=== PATIENT | female | born 1970 | race Hispanic/Latino ===

== ENCOUNTER 2025-05-28 19:13 | Emergency (ER) | payer OTHER ==
--- OUTSIDE RECORDS SUMMARY | 2025-05-28 19:44 | XMS REPORT | Continuity of Care Document ---
Author Name Unknown Address [address] [facility] [address] [place] [address] [facility] Address [address] [facility]. [address] [place] [address] Care Team Providers Care Associate Brand Manager Name Role Phone New Alvarez Primary Care Physician MILTON DIAZ Attending Clinician Un available SYLWIA FIELDS Attending Clinician Sukhwinder Cruz Attending Clinician Doctor Unassigned, [place] Attending Clinician STERLING Walls Attending Clinician UnavailYESENIA Arroyo Attending Clinician DENYS Jimenez Attending Clinician Unavailable JAIRO WATTS Attending Clinician Unavailable GEETHA, DAREN Attending Clinician UnavailYesenia Upton Attending Clinician Unavaila NEW Marcus Attending Clinician Unavailable MALACHI RASHEED Attending Clinician Unavailabl e THOMAS HERBERT Attending Clinician Unavaila YESENIA Neil Attending Clinician Unavailabl e Ann Garibay Attending Clinician Unavailabl e Doctor Unassigned, [place] Attending Clinician U rip GALINDOLLOYD Attending Clinician Unavailabl RUPESH Roberts Attending Clinician Unavailable Melendrez SUPERVISOR CRACK OFF, Rupesh Attending Clinician [phone] MAYLIN ALVARADO Attending Clinician Unavailable SELINA PRESTON Attending Clinician Unavailable DEANNA BALLESTEROS Attending Clinician Unavailable ENDY SANCHEZ Attending Clinician Unavailable Maylin Alvarado PA-C Attending Clinician [phone] Leyda Burton MD Attending Clinician [phone] Po, [facility] Main Attending Clinician Unavailabl e Morgan SUPERVISOR CRACK OFF, Selina Carter Attending Clinician [phone] Favian SUPERVISOR CRACK OFF, Deanna Attending Clinician [phone] Po, [facility] Attending Clinician UnaEndy Galdamez MD Attending Clinician [phone] Braden SUPERVISOR CRACK OFF, Judith Attending Clinician [phone] JUDITH DENNEY Attending Clinician Unavailable FITO HARRIS Attending Clinician Fito Charles MD Attending Clinician + [phone] LEYDA BURTON Attending Clinician Unavailable Hardik Mendieta MD Attending Clinician + [phone] TRACIE PHIPPS Attending Clinician Unavailab Tracie Aceves MD Attending Clinician +[phone] Jc Burdick MD Attending Clinician [phone] Fito Paulino MD Attending Clinician [phone] Yesenia Schaeffer Admitting Clinician Unavaila tiana UNDEFINED Admitting Clinician Unavailable Ann Garibay Admitting Clinician Unavailabl RUPESH Roberts Admitting Clinician Unavailable DEANNA BALLESTEROS Admitting Clinician Unavailable ENDY SANCHEZ Admitting Clinician Unavailable Payers Payer Name Policy Type Policy Number Effective Date Expirati on Date Source [facility] 4 [id number] 2024 00:00:00 [facility] SHANELL SOARES FOCUS 9 [id number] 2024 00:00:00 Problems Condition Name Condition Details Condition Category Status Onset Date Resolution Date Last Treatment Date Treating Clinician Comments Source Allergic rhinitis due to pollen, unspecifie d seasonalit y Allergic rhinitis due to pollen, unspecifie d seasonalit y Disease Active 324 00:00: 00 [facility] Carpal tunnel syndrome of right wrist Carpal tunnel syndrome of right wrist Disease Active 09-24 00:00: 00 [facility] Chronic pain syndrome Chronic pain syndrome Disease Active 09-24 00:00: 00 [facility] Other headache syndrome Other headache syndrome Disease Active 2018-08 00:00: 00 [facility] Muscle spasm Muscle spasm Disease Active 2018-08 00:00: 00 [facility] Primary osteoarthr itis of both knees Primary osteoarthr itis of both knees Disease Active 2018-08 00:00: 00 [facility] Need for pneumococc al vaccinatio n Need for pneumococc al vaccinatio n Disease Active 2018-08 00:00: 00 [facility] Neck and shoulder pain Neck and shoulder pain Disease Active 2018-08 00:00: 00 [facility] Need for pneumococc al vaccinatio n Need for pneumococc al vaccinatio n Disease Active 2018-08 00:00: 00 [facility] Need for influenza vaccinatio n Need for influenza vaccinatio n Disease Active 2018-08 00:00: 00 [facility] OAB (overactiv e bladder) OAB (overactiv e bladder) Disease Active 12-29 00:00: 00 [facility] OAB (overactiv e bladder) OAB (overactiv e bladder) Disease Active 12-29 00:00: 00 [facility] Colitis Colitis Disease Active 09-26 00:00: 00 Overview: Formattin g of this note might be different from the original. Added automatic ally from request for surgery [id number] [facility] Type 2 diabetes mellitus without complicati on, without long-term current use of insulin Type 2 diabetes mellitus without complicati on, without long-term current use of insulin Disease Active 2017-08 00:00: 00 [facility] Change in bowel habits Change in bowel habits Disease Active 03-26 00:00: 00 Overview: Formattin g of this note might be different from the original. Added automatic ally from request for surgery [id number] [facility] Flatulence , eructation , and gas pain Flatulence , eructation , and gas pain Disease Active 03-26 00:00: 00 Overview: Formattin g of this note might be different from the original. Added automatic ally from request for surgery [id number] [facility] Dysphagia, oropharyng eal phase Dysphagia, oropharyng eal phase Disease Active 03-26 00:00: 00 Overview: Formattin g of this note might be different from the original. Added automatic ally from request for surgery [id number] [facility] Dysphagia, pharyngoes ophageal phase Dysphagia, pharyngoes ophageal phase Disease Active 03-26 00:00: 00 Overview: Formattin g of this note might be different from the original. Added automatic ally from request for surgery [id number] [facility] Change in bowel habits Change in bowel habits Disease Active 03-26 00:00: 00 Overview: Formattin g of this note might be different from the original. Added automatic ally from request for surgery [id number] [facility] Obesity (BMI 30-39.9) Obesity (BMI 30-39.9) Disease Active 01-31 00:00: 00 [facility] History of bilateral tubal ligation History of bilateral tubal ligation Disease Active 09-17 00:00: 00 [facility] Fibroadeno sis of breast, right Fibroadeno sis of breast, right Disease Active 09-17 00:00: 00 [facility] Fibroadeno sis of breast, right Fibroadeno sis of breast, right Disease Active 09-17 00:00: 00 [facility] Gastroesop hageal reflux disease with esophagiti s Gastroesop hageal reflux disease with esophagiti s Disease Active 11-05 00:00: 00 [facility] Recurrent umbilical hernia Recurrent umbilical hernia Disease Active 2014-08 00:00: 00 [facility] Recurrent umbilical hernia Recurrent umbilical hernia Disease Active 2014-08 00:00: 00 [facility] Biliary colic Biliary colic Disease Active 2014-08 00:00: 00 [facility] Essential hypertensi on Essential hypertensi on Disease Active 03-10 00:00: 00 Overview: Formattin g of this note might be different from the original. ICD10 Diagnosis Term [employer] [facility] Hypertrigl yceridemia Hypertrigl yceridemia Disease Active 03-04 00:00: 00 [facility] Morbid obesity, unspecifie d obesity type Morbid obesity, unspecifie d obesity type Disease Resolve d 09-17 00:00: 00 2017-06-06 00:00:00 2017-06-06 15:32:54 [facility] Well woman exam (no gynecologi elizabeth exam) Well woman exam (no gynecologi elizabeth exam) Disease Resolve d 09-17 00:00: 00 2017-06-06 00:00:00 2017-06-06 15:32:46 [facility] Prediabete s Prediabete s Disease Resolve d 11-05 00:00: 00 2016-12-31 00:00:00 2016-12-31 12:30:03 [facility] Morbid obesity Morbid obesity Disease Resolve d 2014-08 00:00: 00 2016-09-17 00:00:00 2016-09-17 11:04:24 [facility] Umbilical hernia without obstructio n and without gangrene Umbilical hernia without obstructio n and without gangrene Disease Resolve d 2014-08 00:00: 00 2015-06-09 00:00:00 2015-06-09 11:28:15 [facility] High cholestero l High cholestero l Disease Resolve d 7-10 00:00: 00 2015-03-10 00:00:00 2015-03-10 14:34:44 [facility] care and examinatio n care and examinatio n Disease Resolve d 2005-0 4-21 00:00: 00 2014-03-10 00:00:00 2022-03-11 00:08:28 [facility] Allergies, Adverse Reactions, Alerts Allergy Name Allergy Type Status Severity Reaction(s) Onset Date Inactive Date Treating Clinician Comments Source No Known Drug Allergie s DA Active U 3-12 00:00: 00 [facility] No Known Drug Allergie s DA Active U 3-11 00:00: 00 [facility] No Known Allergie s DA Active U 2022-08 0 00:00: 00 [facility] NO KNOWN ALLERGIE S Drug Class Active [facility] Social History Social Habit Start Date Stop Date Quantity Comments Source Sexual orientation Chidi Roblero - External History of Social function 2023-10-04 00:00:00 2023-10-04 00:00:00 Bethany Roblero - External Alcohol intake 2023-10-04 00:00:00 2023-10-04 00:00:00 Lifetime non-drinker (finding) Bethany Roblero - External Exposure to SARS-CoV-2 (event) 2022-04-13 00:00:00 2022-04-23 15:48:00 Not sure [facility] Alcoholic beverage intake 2017-05-01 00:00:00 2017-05-01 00:00:00 Current non-drinker of alcohol (finding) [facility] Tobacco use and exposure 2013-03-04 00:00:00 2013-03-04 00:00:00 Smokeless tobacco non-user [facility] Sex assigned at 1970 00:00:00 1970 00:00:00 Bethany Roblero - External Smoking Status Start Date Stop Date Source Tobacco smoking consumption unknown [facility] Ordered Medication Name Filled Medication Name Start Date Stop Date Current Medication? Ordering Clinician Indication Dosage Frequency Signature (SIG) Comments Components Source dicyclomine 20 mg tablet 03-29 00:00: 00 Yes 1mg [facility] Person meloxicam 15 mg tablet 02-24 00:00: 00 Yes 1mg [facility] Person ezetimibe 10 mg tablet 02-24 00:00: 00 Yes 1mg [facility] Person fenofibrate nanocrystal lized 145 mg tablet 02-24 00:00: 00 Yes 1mg [facility] Person dicyclomine 20 mg tablet 11-26 00:00: 00 Yes 1mg [facility] Person pantoprazol e 40 mg tablet,sherrie yed release 11-26 00:00: 00 Yes 1mg [facility] Person simethicone 125 mg capsule 11-26 00:00: 00 Yes 1mg [facility] Person metoprolol tartrate 100 mg tablet 11-25 00:00: 00 Yes mg [facility] Person metformin 1,000 mg tablet 11-25 00:00: 00 Yes mg [facility] Person lisinopril 20 mg-hydrochl orothiazide 25 mg tablet 11-25 00:00: 00 Yes mg [facility] Person meloxicam 15 mg tablet 11-25 00:00: 00 Yes 1mg [facility] Person famotidine 40 mg tablet 11-25 00:00: 00 Yes 1mg [facility] Person ezetimibe 10 mg tablet 11-25 00:00: 00 Yes 1mg [facility] Person fenofibrate nanocrystal lized 145 mg tablet - 00:00: 00 Yes 1mg [facility] Person glimepiride 1 mg tablet 11-25 00:00: 00 Yes 1mg [facility] Person pravastatin 80 mg tablet - 00:00: 00 Yes 1mg [facility] Person ezetimibe 10 mg tablet 2023-08 2- 00:00: 00 Yes 1mg [facility] Person metoprolol tartrate 100 mg tablet 2023-08 00:00: 00 Yes mg [facility] Person meloxicam 7.5 mg tablet 2023-08 00:00: 00 Yes mg [facility] Person metformin 1,000 mg tablet 2023-08 00:00: 00 Yes mg [facility] Person lisinopril 20 mg-hydrochl orothiazide 25 mg tablet 2023-08 00:00: 00 Yes mg [facility] Person famotidine 40 mg tablet 2023-08 00:00: 00 Yes 1mg [facility] Person glimepiride 1 mg tablet 2023-08 00:00: 00 Yes 1mg [facility] Person fenofibrate nanocrystal lized 145 mg tablet 2023-08 00:00: 00 Yes 1mg [facility] Person pravastatin 80 mg tablet 2023-08 00:00: 00 Yes 1mg [facility] Person metformin 1,000 mg tablet 2023-08 00:00: 00 Yes mg [facility] Person fenofibrate nanocrystal lized 145 mg tablet 05-06 00:00: 00 Yes 1mg [facility] Person metoprolol tartrate 100 mg tablet 05-05 00:00: 00 Yes mg [facility] Person metformin 1,000 mg tablet 05-05 00:00: 00 Yes mg [facility] Person lisinopril 20 mg-hydrochl orothiazide 25 mg tablet 05-05 00:00: 00 Yes mg [facility] Person glimepiride 1 mg tablet 05-05 00:00: 00 Yes 1mg [facility] Person famotidine 40 mg tablet 05-05 00:00: 00 Yes 1mg [facility] Person pravastatin 80 mg tablet 05-05 00:00: 00 Yes 1mg [facility] Person metoprolol tartrate 100 mg tablet 03-04 00:00: 00 Yes mg [facility] Person metformin 1,000 mg tablet 03-04 00:00: 00 Yes mg [facility] Person lisinopril 20 mg-hydrochl orothiazide 25 mg tablet 2024-0 7-10 00:00: 00 Yes mg [facility] Person pravastatin 80 mg tablet 6-12 00:00: 00 Yes 1mg [facility] Person cetirizine 10 mg tablet -05 00:00: 00 Yes 1mg [facility] Person azithromyci n 250 mg tablet - 00:00: 00 Yes mg [facility] Person Bromfed DM 2 mg-30 mg-10 mg/5 mL oral syrup -20 00:00: 00 Yes 10mg/5 mL [facility] Person Methylpredn isolone Acetate (Depo-Medro l) 40 mg/ml - Physician Administere d 12-22 19:15: 00 12-22 19:09 :00 No [id number] 40mg 40 mg, Physician Administer ed, ONCE, 1 dose, On Sat12/23/23 at 1415 Bethany graf metoprolol tartrate 100 mg tablet -14 00:00: 00 Yes mg [facility] Person lisinopril 20 mg-hydrochl orothiazide 25 mg tablet -14 00:00: 00 Yes mg [facility] Person pravastatin 40 mg tablet 12 00:00: 00 Yes mg [facility] Person metformin 1,000 mg tablet -12 00:00: 00 Yes mg [facility] Person HYDROcodone -Acetaminop hen (Imperial) 10-325 MG oral Tablet - 00:00: 00 Yes [id number] 1{tbl} Take 1 tablet by mouth every 4 to 6 hours. Bethany Roach l TAKE 1 TABLET BY MOUTH EVERY 4 TO 6 HOURS -20 00:00: 00 Yes [facility] Person HYDROcodone -Acetaminop hen (Imperial) 10-325 MG oral Tablet -20 00:00: 00 Yes 1{tbl} Take 1 tablet by mouth every 4 to 6 hours. Bethany graf Aspirin 325 MG oral Tablet 3-11 00:00: 00 Yes 325mg Take 1 tablet (325 mg total) by mouth daily. Bethany Seybold - Externa l fenofibrate 54 mg tablet 10-22 00:00: 00 Yes 1mg [facility] Person FENOFIBRATE MICRONIZED 54 MG oral Tablet 10-22 00:00: 00 Yes 54mg Take 1 tablet (54 mg total) by mouth daily. Bethany Callumold - Externa l TAKE 1 TABLET DAILY. 10-15 00:00: 00 Yes 48 [facility] Person Methylpredn isolone Acetate (Depo-Medro l) 40 mg/ml - Physician Administere d 10-04 15:30: 00 10-04 15:23 :00 No [id number] 40mg Bethany Callumold - Externa l TAKE 1 TABLET DAILY. 09-12 00:00: 00 12-05 00:00 :00 No 48 [facility] Person TAKE 1 TABLET BY MOUTH DAILY 09-11 00:00: 00 Yes 40 [facility] Person TAKE 1 TABLET BY MOUTH DAILY 09-11 00:00: 00 Yes 2024 [facility] Person TAKE 1 TABLET BY MOUTH TWICE DAILY 09-11 00:00: 00 Yes 1000 [facility] Person TAKE 1 TABLET BY MOUTH TWICE DAILY 09-11 00:00: 00 Yes 100 [facility] Person TAKE 1 TABLET AT BEDTIME. 09-11 00:00: 00 12-05 00:00 :00 No 40 [facility] Person meloxicam 7.5 mg tablet 09-06 00:00: 00 Yes mg [facility] Person TAKE 1 TABLET BY MOUTH DAILY 2022-08 00:00: 00 12-05 00:00 :00 No 40 [facility] Person TAKE 1 TABLET BY MOUTH TWICE DAILY 2022-08 00:00: 00 12-05 00:00 :00 No 100 [facility] Person TAKE 1 TABLET BY MOUTH TWICE DAILY 2022-08 00:00: 00 12-05 00:00 :00 No 1000 [facility] Person TAKE 1 TABLET TWICE DAILY WITH FOOD. 2022-08 00:00: 00 12-05 00:00 :00 No [id number] [facility] Person TAKE 1 CAPSULE TWICE DAILY. 2022-08 0-19 00:00: 00 12-05 00:00 :00 No 100 [facility] Person MELOXICAM 7.5 MG TABS 8-15 00:00: 00 Yes [facility] Person TAKE 1 TABLET BY MOUTH EVERY DAY NEEDED 18 00:00: 00 Yes [facility] Person TRAMADOL HCL 50 MG TABS 18 00:00: 00 Yes [facility] Person PAXLOVID 20 x 150 MG &amp 02-18 00:00: 00 Yes [facility] Person 300 MG NIRMATRELVI R (TWO 150 MG TABLETS) WITH 100 MG RITONAVIR (ONE 100 MG TABLET) WITH ALL THREE TABLETS TAKEN TOGETHER ORALLY TWICE DAILY FOR 5 DAYS. 02-18 00:00: 00 12-05 00:00 :00 No [facility] Person TAKE 1 TABLET DAILY. 01-18 00:00: 00 12-05 00:00 :00 No 48 [facility] Person TAKE 2 TABLETS DAILY. 01-16 00:00: 00 12-05 00:00 :00 No [id number] [facility] Person TAKE 1 TABLET DAILY. 01-16 00:00: 00 12-05 00:00 :00 No 40 [facility] Person TAKE 1 TABLET BY MOUTH TWICE A DAY 01-16 00:00: 00 12-05 00:00 :00 No 1000 [facility] Person TAKE 1 TABLET TWICE DAILY. 01-16 00:00: 00 12-05 00:00 :00 No 100 [facility] Person LISINOPRIL/ HYDROCHLORO THIAZIDE 20-25 MG TABS 24 00:00: 00 12-05 00:00 :00 No [facility] Person TAKE 1 TABLET 3 TIMES DAILY WITH FOOD NEEDED. 17 00:00: 00 12-05 00:00 :00 No 800 [facility] Person TAKE 1 TABLET TWICE DAILY WITH FOOD. 3- 00:00: 00 12-05 00:00 :00 No [id number] [facility] Person TAKE 1 TABLET DAILY. 2- 00:00: 00 12-05 00:00 :00 No 40 [facility] Person TAKE 1 TABLET TWICE DAILY. 2- 00:00: 00 12-05 00:00 :00 No 100 [facility] Person TAKE 2 TABLETS DAILY. 2- 00:00: 00 12-05 00:00 :00 No [id number] [facility] Person TAKE 1 TABLET TWICE A DAY 30 MINUTES BEFORE MEALS - 00:00: 00 12-05 00:00 :00 No 10 [facility] Person TAKE 1 TABLET BY MOUTH TWICE A DAY - 00:00: 00 12-05 00:00 :00 No 1000 [facility] Person TAKE 1 TABLET TWICE A DAY 30 MINUTES BEFORE MEALS 2021-08 00:00: 00 12-05 00:00 :00 No 10 [facility] Person TAKE 1 TABLET TWICE DAILY. 2021-08 00:00: 00 12-05 00:00 :00 No 100 [facility] Person TAKE 1 TABLET DAILY. 2021-08 00:00: 00 12-05 00:00 :00 No 40 [facility] Person TAKE 1 TABLET BY MOUTH ONCE DAILY 05-17 00:00: 00 Yes [facility] Person iopamidol (ISOVUE 370-500 mL) injection 64 mL 04-23 23:15: 00 04-23 23:15 :00 No [id number] 64mL 64 mL, Intravenou s, ONCE, 1 dose, On Sat04/23/22 at 1815, Routine [facility] maalox:diph enhydrAMINE :lidocaine 2 % viscous 1:1:1 ([facility]) oral suspension 15 mL 04-23 22:15: 00 04-23 22:47 :00 No 15mL 15 mL, Oral, ONCE, 1 dose, On Sat04/23/22 at 1715, Routine [facility] USE DIRECTED PER PHYSICIAN INSTRUCTION 04-17 00:00: 00 Yes [facility] Person TAKE 1 TABLET BY MOUTH TWICE A DAY 04-13 00:00: 00 Yes [facility] Person TAKE 1 TABLET BY MOUTH TWICE A DAY 04-13 00:00: 00 No 1000 TAKE 1 TABLET TWICE A DAY 30 MINUTES BEFORE MEALS 04-05 00:00: 00 Yes 10 [facility] Person TAKE 1 TABLET TWICE DAILY. 04-05 00:00: 00 Yes 100 [facility] Person TAKE 1 TABLET AT BEDTIME. 04-05 00:00: 00 Yes 40 [facility] Person Dose Unknown 04-05 00:00: 00 Yes [facility] Person TAKE 1 TABLET TWICE A DAY 30 MINUTES BEFORE MEALS 04-05 00:00: 00 No 10 TAKE 1 TABLET TWICE DAILY. 04-05 00:00: 00 No 100 TAKE 1 TABLET AT BEDTIME. 04-05 00:00: 00 No 40 Dose Unknown 04-05 00:00: 00 No TAKE 1 TABLET TWICE A DAY 30 MINUTES BEFORE MEALS 04-05 00:00: 00 No 10 TAKE 1 TABLET TWICE DAILY. 04-05 00:00: 00 No 100 TAKE 1 TABLET AT BEDTIME. 04-05 00:00: 00 No 40 Dose Unknown 04-05 00:00: 00 No TAKE 1 TABLET TWICE DAILY UNTIL FINISHED. 04-04 00:00: 00 Yes 500 [facility] Person TAKE 1 TABLET TWICE DAILY UNTIL FINISHED. 04-04 00:00: 00 No 500 TAKE 1 TABLET TWICE DAILY UNTIL FINISHED. 04-04 00:00: 00 No 500 TAKE 2 TABLETS DAILY. 04-02 00:00: 00 Yes [id number] [facility] Person TAKE 1 TABLET DAILY. 04-02 00:00: 00 Yes 20 [facility] Person TAKE 2 CAPSULES TWICE DAILY UNTIL GONE. 04-02 00:00: 00 Yes 500 [facility] Person TAKE 2 TABLETS DAILY. 04-02 00:00: 00 No [id number] TAKE 1 TABLET DAILY. 04-02 00:00: 00 No 20 TAKE 2 CAPSULES TWICE DAILY UNTIL GONE. 04-02 00:00: 00 No 500 TAKE 2 TABLETS DAILY. 04-02 00:00: 00 No [id number] TAKE 1 TABLET DAILY. 04-02 00:00: 00 No 20 TAKE 2 CAPSULES TWICE DAILY UNTIL GONE. 04-02 00:00: 00 No 500 Dose Unknown 03-19 00:00: 00 Yes [facility] Person TAKE 1 TABLET DAILY. 03-19 00:00: 00 Yes 20 [facility] Person USE DIRECTED. 03-19 00:00: 00 Yes 4 [facility] Person TAKE 1 TABLET TWICE DAILY UNTIL FINISHED. 03-19 00:00: 00 Yes 500 [facility] Person Dose Unknown 03-19 00:00: 00 No TAKE 1 TABLET DAILY. 03-19 00:00: 00 No 20 USE DIRECTED. 03-19 00:00: 00 No 4 TAKE 1 TABLET TWICE DAILY UNTIL FINISHED. 03-19 00:00: 00 No 500 Dose Unknown 03-19 00:00: 00 No TAKE 1 TABLET DAILY. 03-19 00:00: 00 No 20 USE DIRECTED. 03-19 00:00: 00 No 4 TAKE 1 TABLET TWICE DAILY UNTIL FINISHED. 03-19 00:00: 00 No 500 Dose Unknown 03-19 00:00: 00 No TAKE 1 TABLET DAILY. 03-19 00:00: 00 No 20 USE DIRECTED. 03-19 00:00: 00 No 4 TAKE 1 TABLET TWICE DAILY UNTIL FINISHED. 03-19 00:00: 00 No 500 TAKE 1 TABLET TWICE DAILY UNTIL FINISHED. 03-09 00:00: 00 Yes 500 Fr[facility]isco Preson TAKE 1 TABLET TWICE DAILY UNTIL FINISHED. 03-09 00:00: 00 No 500 TAKE 1 TABLET TWICE DAILY UNTIL FINISHED. 03-09 00:00: 00 No 500 TAKE 1 TABLET TWICE DAILY UNTIL FINISHED. 03-09 00:00: 00 No 500 TAKE 2 CAPSULES TWICE DAILY UNTIL GONE. 02-23 00:00: 00 Yes 500 [facility] Person TAKE 2 CAPSULES TWICE DAILY UNTIL GONE. 02-23 00:00: 00 No 500 TAKE 2 CAPSULES TWICE DAILY UNTIL GONE. 02-23 00:00: 00 No 500 TAKE 2 CAPSULES TWICE DAILY UNTIL GONE. 02-23 00:00: 00 No 500 TAKE 1 TABLET DAILY. 02-20 00:00: 00 Yes 20 [facility] Person TAKE 1 TABLET DAILY. 02-20 00:00: 00 No 20 TAKE 1 TABLET DAILY. 02-20 00:00: 00 No 20 TAKE 1 TABLET DAILY. 02-20 00:00: 00 No 20 Bromfed DM 2 mg-30 mg-10 mg/5 mL oral syrup 12-21 00:00: 00 Yes 10mg/5 mL [facility] Person Bromfed DM 2 mg-30 mg-10 mg/5 mL oral syrup 12-21 00:00: 00 No 10mg/5 mL Bromfed DM 2 mg-30 mg-10 mg/5 mL oral syrup 12-21 00:00: 00 No 10mg/5 mL Bromfed DM 2 mg-30 mg-10 mg/5 mL oral syrup 12-21 00:00: 00 No 10mg/5 mL lisinopril 10 mg-hydrochl orothiazide 12.5 mg tablet 12-20 00:00: 00 Yes 2mg [facility] Person metformin 1,000 mg tablet 12-20 00:00: 00 Yes 1mg [facility] Person glipizide 10 mg tablet 12-20 00:00: 00 Yes 1mg [facility] Person metoprolol tartrate 100 mg tablet 12-20 00:00: 00 Yes 1mg [facility] Person lisinopril 10 mg-hydrochl orothiazide 12.5 mg tablet 12-20 00:00: 00 No 2mg metformin 1,000 mg tablet 12-20 00:00: 00 No 1mg glipizide 10 mg tablet 12-20 00:00: 00 No 1mg metoprolol tartrate 100 mg tablet 12-20 00:00: 00 No 1mg lisinopril 10 mg-hydrochl orothiazide 12.5 mg tablet 2-0 4-27 00:00: 00 No 2mg metformin 1,000 mg tablet 2-0 4-27 00:00: 00 No 1mg glipizide 10 mg tablet 2-0 4-27 00:00: 00 No 1mg metoprolol tartrate 100 mg tablet 2-0 4-27 00:00: 00 No 1mg lisinopril 10 mg-hydrochl orothiazide 12.5 mg tablet 2-0 427 00:00: 00 No 2mg metformin 1,000 mg tablet 2-0 427 00:00: 00 No 1mg glipizide 10 mg tablet 2-0 427 00:00: 00 No 1mg metoprolol tartrate 100 mg tablet 2021-0 427 00:00: 00 No 1mg Dose Unknown 2-0 4-06 00:00: 00 Yes Fracisco F Thomas Dose Unknown 2-0 4-06 00:00: 00 No Dose Unknown 2022-0 4-06 00:00: 00 No Dose Unknown 2022-0 4-06 00:00: 00 No Dose Unknown 2022-0 4-05 00:00: 00 Yes [facility] Person Dose Unknown 2-0 4-05 00:00: 00 No Dose Unknown 2022-0 4-05 00:00: 00 No Dose Unknown 2022-0 4-05 00:00: 00 No Dose Unknown 2-0 3-30 00:00: 00 Yes Fracisco Guardado Thomas pravastatin 20 mg tablet 2-0 3-30 00:00: 00 No 1mg pravastatin 20 mg tablet 2-0 3-30 00:00: 00 No 1mg pravastatin 20 mg tablet 2-0 3-30 00:00: 00 No 1mg Dose Unknown 2-0 3-27 00:00: 00 Yes Fracisco F Thomas Dose Unknown 2-0 3-27 00:00: 00 Yes Fracisco F Thomas Dose Unknown 2-0 3-27 00:00: 00 Yes Fracisco F Thomas Dose Unknown 2021-0 3-27 00:00: 00 Yes Fracisco F Thomas Dose Unknown 2021-0 3-27 00:00: 00 Yes Fracisco F Thomas Dose Unknown 2022-0 3-27 00:00: 00 No Dose Unknown 2022-0 3-27 00:00: 00 No Dose Unknown 2022-0 3-27 00:00: 00 No Dose Unknown 2022-0 3-27 00:00: 00 No Dose Unknown 2022-0 3-27 00:00: 00 No Dose Unknown 2022-0 3-27 00:00: 00 No Dose Unknown 2022-0 3-27 00:00: 00 No Dose Unknown 2022-0 3-27 00:00: 00 No Dose Unknown 2022-0 3-27 00:00: 00 No Dose Unknown 2022-0 3-27 00:00: 00 No Dose Unknown 2022-0 3-27 00:00: 00 No Dose Unknown 2022-0 327 00:00: 00 No Dose Unknown 2022-0 3-27 00:00: 00 No Dose Unknown 2022-0 3-27 00:00: 00 No Dose Unknown 2022-0 3-27 00:00: 00 No Dose Unknown 2022-0 3-24 00:00: 00 Yes Fracisco Person Dose Unknown 2022-0 3-24 00:00: 00 Yes [facility] Person Dose Unknown 2022-0 3-24 00:00: 00 Yes [facility] Person Dose Unknown 2022-0 3-24 00:00: 00 Yes [facility] Person Dose Unknown 2022-0 3-24 00:00: 00 Yes [facility] Person Dose Unknown 2022-0 3-24 00:00: 00 No Dose Unknown 2022-0 3-24 00:00: 00 No Dose Unknown 2022-0 3-24 00:00: 00 No Dose Unknown 2022-0 3-24 00:00: 00 No Dose Unknown 2022-0 3-24 00:00: 00 No Dose Unknown 2022-0 3-24 00:00: 00 No Dose Unknown 2022-0 3-24 00:00: 00 No Dose Unknown 2022-0 3-24 00:00: 00 No Dose Unknown 2022-0 3-24 00:00: 00 No Dose Unknown 2022-0 3-24 00:00: 00 No Dose Unknown 2022-0 3-24 00:00: 00 No Dose Unknown 2022-0 3-24 00:00: 00 No Dose Unknown 2022-0 3-24 00:00: 00 No Dose Unknown 0 11-16 00:00: 00 No Dose Unknown 11-16 00:00: 00 No lisinopril 10 mg-hydrochl orothiazide 12.5 mg tablet 11-15 00:00: 00 Yes 2mg [facility] glipizide 5 mg tablet 11-15 00:00: 00 Yes 2mg [facility] metoprolol tartrate 100 mg tablet 11-15 00:00: 00 Yes 1mg [facility] metformin 1,000 mg tablet 11-15 00:00: 00 Yes 1mg [facility] glipizide 10 mg tablet 11-15 00:00: 00 Yes 1mg [facility] Dose Unknown 11-15 00:00: 00 No Dose Unknown 11-15 00:00: 00 No Dose Unknown 11-15 00:00: 00 No lisinopril 10 mg-hydrochl orothiazide 12.5 mg tablet 11-15 00:00: 00 No 2mg glipizide 10 mg tablet 11-15 00:00: 00 No 1mg lisinopril 10 mg-hydrochl orothiazide 12.5 mg tablet 11-15 00:00: 00 No 2mg glipizide 5 mg tablet 11-15 00:00: 00 No 2mg metoprolol tartrate 100 mg tablet 11-15 00:00: 00 No 1mg metformin 1,000 mg tablet 11-15 00:00: 00 No 1mg glipizide 10 mg tablet 11-15 00:00: 00 No 1mg lisinopril 10 mg-hydrochl orothiazide 12.5 mg tablet 11-15 00:00: 00 No 2mg glipizide 5 mg tablet 11-15 00:00: 00 No 2mg metoprolol tartrate 100 mg tablet 11-15 00:00: 00 No 1mg metformin 1,000 mg tablet 11-15 00:00: 00 No 1mg glipizide 10 mg tablet 323 00:00: 00 No 1mg Nitrofurant oin&Nit. Macrocryst (MACROBID) 100 mg capsule 818 00:00: 00 Yes [id number] 100mg Take 1 capsule by mouth 2 (two) times daily with meals. [facility] benzonatate (TESSALON PERLES) 100 mg capsule 813 00:00: 00 04-22 04:59 :00 No [id number] 100mg Take 1 capsule by mouth 3 (three) times daily for 14 days. [facility] cephALEXin 500 mg capsule 03-21 00:00: 00 Yes [id number] 500mg Take 1 capsule by mouth 2 (two) times daily. [facility] oxybutynin 15 mg 24 hr tablet 03-16 00:00: 00 Yes [id number] 15mg Take 1 tablet by mouth daily. [facility] bromphenira mine-pseudo ephedrine-D M (BROMFED DM) 2-30-10 mg/5 mL syrup 02-17 00:00: 00 Yes [id number] 10mL Take 10 mL by mouth 4 (four) times daily as needed for Cough. [facility] acetaminoph en 650 mg CR tablet 02-17 00:00: 00 Yes [id number] 650mg Take 1 tablet by mouth every 8 (eight) hours as needed for Pain or Fever. [facility] azelastine 137 mcg (0.1 %) nasal spray 02-03 00:00: 00 Yes [id number] 1{spray } Use 1 [place] in each nostril 2 (two) times daily. Use in each nostril as directed [facility] glipiZIDE 5 mg tablet 12-24 00:00: 00 Yes [id number] 10mg Take 2 tablets by mouth 2 (two) times daily before breakfast and dinner. [facility] DULoxetine (CYMBALTA) 20 mg capsule 12-24 00:00: 00 Yes [id number] 20mg Take 1 capsule by mouth 2 (two) times daily. [facility] tiZANidine 4 mg tablet 5 00:00: 00 Yes [id number] 4mg Take 1 tablet by mouth every 6 (six) hours as needed (Muscle spamsm). [facility] fluticasone propionate (FLONASE ALLERGY RELIEF) 50 mcg/actuati on nasal spray 11-16 00:00: 00 Yes [id number] 1{spray } Use 1 [place] in each nostril daily. [facility] bromphenira mine-pseudo ephedrine-D M (BROMFED DM) 230-10 mg/5 mL syrup 11-16 00:00: 00 02-17 00:00 :00 No [id number] 10mL Take 10 mL by mouth 4 (four) times daily as needed for Congestion /Allergies or Cough. [facility] benzonatate (TESSALON PERLES) 100 mg capsule 11-16 00:00: 02-17 00:00 :00 No [id number] 100mg Take 1 capsule by mouth 3 (three) times daily as needed for Cough. [facility] metoprolol succinate XL 50 mg 24 hr tablet 09-24 19:10: 44 09-24 00:00 :00 No 50mg Take 50 mg by mouth 2 (two) times daily. [facility] Kit 09-24 00:00: 00 Yes [id number] 9108 G56.01 - Wrist Compressio n WrapApply to right wrist daily [facility] lisinopril- hydrochloro thiazide 10-12.5 mg per tablet 09-24 00:00: 00 Yes [id number] 2{tbl} Take 2 tablets by mouth daily. [facility] metoprolol succinate XL 50 mg 24 hr tablet 09-24 00:00: 00 Yes [id number] 50mg Take 1 tablet by mouth 2 (two) times daily. [facility] rosuvastati n (CRESTOR) 20 mg tablet 09-24 00:00: 00 Yes [id number] 40mg Take 2 tablets by mouth at bedtime. [facility] Kit 09-24 00:00: 00 Yes [id number] 9108 G56.01 - Wrist Compressio n WrapApply to right wrist daily [facility] acetaminoph en 650 mg CR tablet 09-24 00:00: 02-17 00:00 :00 No [id number] 650mg Take 1 tablet by mouth every 8 (eight) hours as needed for Pain. [facility] benzonatate (TESSALON PERLES) 100 mg capsule 08-27 00:00: 04-07 00:00 :00 No [id number] 100mg Take 1 capsule by mouth 3 (three) times daily. [facility] levocetiriz ine 5 mg tablet 08-27 00:00: 09-27 05:59 :00 No [id number] 5mg Take 1 tablet by mouth every evening for 30 days. [facility] tiZANidine 4 mg tablet 2018-08 00:00: 12-24 00:00 :00 No [id number] 4mg Take 1 tablet by mouth every 6 (six) hours as needed (Muscle spamsm). [facility] DULoxetine (CYMBALTA) 20 mg capsule 2018-08 00:00: 00 12-24 00:00 :00 No [id number] 20mg Take 1 capsule by mouth 2 (two) times daily. [facility] diclofenac 50 mg tablet 2018-08 00:00: 00 Yes [id number] 50mg Take 1 tablet by mouth 3 (three) times daily. [facility] glipiZIDE 5 mg tablet 2018-08 0 00:00: 00 12-24 00:00 :00 No [id number] 10mg Take 2 tablets by mouth 2 (two) times daily before breakfast and dinner. [facility] glipiZIDE 5 mg tablet 12-29 00:00: 00 Yes [id number] 10mg Take 2 tablets by mouth 2 (two) times daily before breakfast and dinner. [facility] oxybutynin 15 mg 24 hr tablet 12-29 00:00: 00 03-16 00:00 :00 No [id number] 15mg Take 1 tablet by mouth daily. [facility] metoprolol succinate XL 50 mg 24 hr tablet 12-18 19:17: 32 Yes 50mg Take 50 mg by mouth 2 (two) times daily. [facility] LOESTRIN FE (LOESTRIN FE 1/20) 1 mg-20 mcg (21)/75 mg (7) tablet 12-12 00:00: 00 Yes [id number] 1{tbl} Take 1 tablet by mouth daily. [facility] meloxicam (MOBIC) 15 mg tablet 09-23 00:00: 00 Yes [id number] 9107 15mg Take 1 tablet by mouth daily. [facility] ibuprofen (IBU) tablet 600 mg 2017-0813 20:38: 08 09-24 19:09 :40 No 600mg [facility] metFORMIN 500 mg tablet 2017-08 00:00: 00 Yes [id number] 1000mg Take 2 tablets by mouth 2 (two) times daily with meals. [facility] tolnaftate 1 % cream 2017-08 00:00: 00 Yes [id number] Apply to area(s) 2 (two) times daily. [facility] rosuvastati n (CRESTOR) 20 mg tablet 2017-08 00:00: 00 09-24 00:00 :00 No [id number] 40mg Take 2 tablets by mouth at bedtime. [facility] lisinopril- hydrochloro thiazide 10-12.5 mg per tablet 2017-08 00:00: 00 09-24 00:00 :00 No [id number] 2{tbl} Take 2 tablets by mouth daily. [facility] Omeprazole 20 mg tablet 2016-08 00:00: 00 Yes 20mg Take 1 tablet by mouth 2 (two) times daily. [facility] Immunizations Ordered Immunization Name Filled Immunization Name Date Status Comments Source Hep B, adult Hep B, adult 2024-11-25 00:00:00 Completed [facility] Hep B, adult Hep B, adult 2024-06-15 00:00:00 Completed [facility] Hep B, adult Hep B, adult 2024-05-18 00:00:00 Completed [facility] Tdap Tdap 2024-05-18 00:00:00 Completed [facility] Influenza, injectable, [place] Canine Kidney, preservative-free, quadrivalent Influenza, injectable, [place] Canine Kidney, preservative-free, quadrivalent 2024-05-05 00:00:00 Completed [facility] SHINGRIX VACCINE SHINGRIX VACCINE 2024-02-10 00:00:00 Completed [facility] SHINGRIX VACCINE SHINGRIX VACCINE 2023-09-13 00:00:00 Completed [facility] Prevnar 20 Prevnar 20 2023-09-13 00:00:00 Completed [facility] TDAP 2023-06-13 00:00:00 Completed [facility] Influenza Virus Vaccine Quad IM Multi-dose 6+ MO 2023-06-13 00:00:00 Completed [facility] Pneumococcal 13 Conjugate, PCV13 (Prevnar 13) 2023-06-13 00:00:00 Completed [facility] Influenza Virus Vaccine Quad .5 mL IM 6+ MO (FLUZONE/FLULAVAL/F LUARIX) 2023-06-13 00:00:00 Completed [facility] Moderna COVID-19 Vaccine Moderna COVID-19 Vaccine 2020-11-21 00:00:00 Completed [facility] Moderna COVID-19 Vaccine Moderna COVID-19 Vaccine 2020-10-26 00:00:00 Completed [facility] Influenza Virus Vaccine Quad .5 mL IM 6+ MO 2020-06-15 00:00:00 Completed [facility] Influenza Virus Vaccine Quad .5 mL IM 6+ MO 2020-06-15 00:00:00 Completed [facility] Influenza Virus Vaccine Quad .5 mL IM 6+ MO 2020-06-15 00:00:00 Completed [facility] Pneumococcal 13 Conjugate, PCV13 (Prevnar 13) 2019-06-26 00:00:00 Completed [facility] Influenza Virus Vaccine Quad .5 mL IM 6+ MO 2019-06-26 00:00:00 Completed [facility] Pneumococcal 13 Conjugate, PCV13 (Prevnar 13) 2019-06-26 00:00:00 Completed [facility] Influenza Virus Vaccine Quad .5 mL IM 6+ MO 2019-06-26 00:00:00 Completed [facility] Pneumococcal 13 Conjugate, PCV13 (Prevnar 13) 2019-06-26 00:00:00 Completed [facility] Influenza Virus Vaccine Quad .5 mL IM 6+ MO 2019-06-26 00:00:00 Completed [facility] Pneumococcal 13 Conjugate, PCV13 (Prevnar 13) 2019-06-26 00:00:00 Completed [facility] Influenza Virus Vaccine Quad .5 mL IM 6+ MO 2019-06-26 00:00:00 Completed [facility] Pneumococcal 13 Conjugate, PCV13 (Prevnar 13) 2019-06-26 00:00:00 Completed [facility] Influenza Virus Vaccine Quad .5 mL IM 6+ MO 2019-06-26 00:00:00 Completed [facility] Pneumococcal 13 Conjugate, PCV13 (Prevnar 13) 2019-06-26 00:00:00 Completed [facility] Influenza Virus Vaccine Quad .5 mL IM 6+ MO 2019-06-26 00:00:00 Completed [facility] Pneumococcal 13 Conjugate, PCV13 (Prevnar 13) 2019-06-26 00:00:00 Completed [facility] Influenza Virus Vaccine Quad .5 mL IM 6+ MO 2019-06-26 00:00:00 Completed [facility] Pneumococcal 13 Conjugate, PCV13 (Prevnar 13) 2019-06-26 00:00:00 Completed [facility] Influenza Virus Vaccine Quad .5 mL IM 6+ MO 2019-06-26 00:00:00 Completed [facility] Pneumococcal 13 Conjugate, PCV13 (Prevnar 13) 2019-06-26 00:00:00 Completed [facility] Influenza Virus Vaccine Quad .5 mL IM 6+ MO 2019-06-26 00:00:00 Completed [facility] Pneumococcal 13 Conjugate, PCV13 (Prevnar 13) 2019-06-26 00:00:00 Completed [facility] Influenza Virus Vaccine Quad .5 mL IM 6+ MO 2019-06-26 00:00:00 Completed [facility] Pneumococcal 13 Conjugate, PCV13 (Prevnar 13) 2019-06-26 00:00:00 Completed [facility] Influenza Virus Vaccine Quad .5 mL IM 6+ MO 2019-06-26 00:00:00 Completed [facility] Pneumococcal 13 Conjugate, PCV13 (Prevnar 13) 2019-06-26 00:00:00 Completed [facility] Influenza Virus Vaccine Quad .5 mL IM 6+ MO 2019-06-26 00:00:00 Completed [facility] Pneumococcal 13 Conjugate, PCV13 (Prevnar 13) 2019-06-26 00:00:00 Completed [facility] Influenza Virus Vaccine Quad .5 mL IM 6+ MO 2019-06-26 00:00:00 Completed [facility] Pneumococcal 13 Conjugate, PCV13 (Prevnar 13) 2019-06-26 00:00:00 Completed [facility] Influenza Virus Vaccine Quad .5 mL IM 6+ MO 2019-06-26 00:00:00 Completed [facility] Pneumococcal 13 Conjugate, PCV13 (Prevnar 13) 2019-06-26 00:00:00 Completed [facility] Influenza Virus Vaccine Quad .5 mL IM 6+ MO 2019-06-26 00:00:00 Completed [facility] Pneumococcal 13 Conjugate, PCV13 (Prevnar 13) 2019-06-26 00:00:00 Completed [facility] Influenza Virus Vaccine Quad .5 mL IM 6+ MO 2019-06-26 00:00:00 Completed [facility] Pneumococcal 13 Conjugate, PCV13 (Prevnar 13) 2019-06-26 00:00:00 Completed [facility] Influenza Virus Vaccine Quad .5 mL IM 6+ MO 2019-06-26 00:00:00 Completed [facility] Pneumococcal 13 Conjugate, PCV13 (Prevnar 13) 2019-06-26 00:00:00 Completed [facility] Influenza Virus Vaccine Quad .5 mL IM 6+ MO 2019-06-26 00:00:00 Completed [facility] Pneumococcal 13 Conjugate, PCV13 (Prevnar 13) 2019-06-26 00:00:00 Completed [facility] Influenza Virus Vaccine Quad .5 mL IM 6+ MO 2019-06-26 00:00:00 Completed [facility] Pneumococcal 13 Conjugate, PCV13 (Prevnar 13) 2019-06-26 00:00:00 Completed [facility] Influenza Virus Vaccine Quad .5 mL IM 6+ MO 2019-06-26 00:00:00 Completed [facility] Pneumococcal 13 Conjugate, PCV13 (Prevnar 13) 2019-06-26 00:00:00 Completed [facility] Influenza Virus Vaccine Quad .5 mL IM 6+ MO 2019-06-26 00:00:00 Completed [facility] Pneumococcal 13 Conjugate, PCV13 (Prevnar 13) 2019-06-26 00:00:00 Completed [facility] Influenza Virus Vaccine Quad .5 mL IM 6+ MO 2019-06-26 00:00:00 Completed [facility] Influenza Virus Vaccine Quad IM Multi-dose 6+ MO 2018-06-09 00:00:00 Completed [facility] Influenza Virus Vaccine Quad IM Multi-dose 6+ MO 2018-06-09 00:00:00 Completed [facility] Influenza Virus Vaccine Quad IM Multi-dose 6+ MO 2018-06-09 00:00:00 Completed [facility] Influenza Virus Vaccine Quad IM Multi-dose 6+ MO 2018-06-09 00:00:00 Completed [facility] Influenza Virus Vaccine Quad IM Multi-dose 6+ MO 2018-06-09 00:00:00 Completed [facility] Influenza Virus Vaccine Quad IM Multi-dose 6+ MO 2018-06-09 00:00:00 Completed [facility] Influenza Virus Vaccine Quad IM Multi-dose 6+ MO 2018-06-09 00:00:00 Completed [facility] Influenza Virus Vaccine Quad IM Multi-dose 6+ MO 2018-06-09 00:00:00 Completed [facility] Influenza Virus Vaccine Quad IM Multi-dose 6+ MO 2018-06-09 00:00:00 Completed [facility] Influenza Virus Vaccine Quad IM Multi-dose 6+ MO 2018-06-09 00:00:00 Completed [facility] Influenza Virus Vaccine Quad IM Multi-dose 6+ MO 2018-06-09 00:00:00 Completed [facility] Influenza Virus Vaccine Quad IM Multi-dose 6+ MO 2018-06-09 00:00:00 Completed [facility] Influenza Virus Vaccine Quad IM Multi-dose 6+ MO 2018-06-09 00:00:00 Completed [facility] Influenza Virus Vaccine Quad IM Multi-dose 6+ MO 2018-06-09 00:00:00 Completed [facility] Influenza Virus Vaccine Quad IM Multi-dose 6+ MO 2018-06-09 00:00:00 Completed [facility] Influenza Virus Vaccine Quad IM Multi-dose 6+ MO 2018-06-09 00:00:00 Completed [facility] Influenza Virus Vaccine Quad IM Multi-dose 6+ MO 2018-06-09 00:00:00 Completed [facility] Influenza Virus Vaccine Quad IM Multi-dose 6+ MO 2018-06-09 00:00:00 Completed [facility] Influenza Virus Vaccine Quad IM Multi-dose 6+ MO 2018-06-09 00:00:00 Completed [facility] Influenza Virus Vaccine Quad IM Multi-dose 6+ MO 2018-06-09 00:00:00 Completed [facility] Influenza Virus Vaccine Quad IM Multi-dose 6+ MO 2018-06-09 00:00:00 Completed [facility] Influenza Virus Vaccine Quad IM Multi-dose 6+ MO 2018-06-09 00:00:00 Completed [facility] Influenza Virus Vaccine Quad IM Multi-dose 6+ MO 2018-06-09 00:00:00 Completed [facility] Influenza Virus Vaccine Quad IM Multi-dose 6+ MO 2018-06-09 00:00:00 Completed [facility] TDAP 2009-08-11 00:00:00 Completed [facility] Tdap 2009-08-11 00:00:00 Completed [facility] TDAP 2009-08-11 00:00:00 Completed [facility] Tdap 2009-08-11 00:00:00 Completed [facility] Tdap 2009-08-11 00:00:00 Completed [facility] Tdap 2009-08-11 00:00:00 Completed [facility] Tdap 2009-08-11 00:00:00 Completed [facility] Tdap 2009-08-11 00:00:00 Completed [facility] Tdap 2009-08-11 00:00:00 Completed [facility] Tdap 2009-08-11 00:00:00 Completed [facility] Tdap 2009-08-11 00:00:00 Completed [facility] TDAP 2009-08-11 00:00:00 Completed [facility] TDAP 2009-08-11 00:00:00 Completed [facility] TDAP 2009-08-11 00:00:00 Completed [facility] TDAP 2009-08-11 00:00:00 Completed [facility] TDAP 2009-08-11 00:00:00 Completed [facility] Tdap 2009-08-11 00:00:00 Completed [facility] TDAP 2009-08-11 00:00:00 Completed [facility] TDAP 2009-08-11 00:00:00 Completed [facility] TDAP 2009-08-11 00:00:00 Completed [facility] TDAP 2009-08-11 00:00:00 Completed [facility] TDAP 2009-08-11 00:00:00 Completed [facility] TDAP 2009-08-11 00:00:00 Completed [facility] TDAP 2009-08-11 00:00:00 Completed [facility] TDAP 2009-08-11 00:00:00 Completed [facility] Vital Signs Vital Name Observation Time Observation Value Comments S ource Body height 2023-12-23 18:40:00 162.6 cm Adali ey Seybold - External Body weight 2023-12-23 18:40:00 102.513 kg Adali ey Seybold - External BMI 2023-12-23 18:40:00 38.79 kg/m2 Adali ey Seybold - External Body height 2023-11-22 18:15:00 162.6 cm Adali ey Seybold - External Body height 2023-10-04 14:46:00 162.6 cm Adali ey Seybold - External Body weight 2023-10-04 14:46:00 104.781 kg Adali ey Seybold - External BMI 2023-10-04 14:46:00 39.65 kg/m2 Adali ey Seybold - External Systolic blood pressure 2022-04-23 23:10:00 142 mm[Hg] [facility] Diastolic blood pressure 2022-04-23 23:10:00 85 mm[Hg] [facility] Heart rate 2022-04-23 23:10:00 79 /min [facility] Respiratory rate 2022-04-23 23:10:00 16 /min [facility] Oxygen saturation in Arterial blood by Pulse oximetry 2022-04-23 23:10:00 97 /min [facility] Body temperature 2022-04-23 20:51:00 36.56 [facility] Body height 2022-04-23 20:51:00 [facility]6 [facility] 2022-04-23 20:51:00 102.513 kg Univ [facility] BMI 2022-04-23 20:51:00 38.79 kg/m2 [facility] Systolic blood pressure 2020-06-15 16:05:00 113 mm[Hg] [facility] Diastolic blood pressure 2020-06-15 16:05:00 64 mm[Hg] [facility] Heart rate 2020-06-15 16:05:00 65 /min [facility] Body temperature 2020-06-15 16:05:00 36.83 [facility] Respiratory rate 2020-06-15 16:05:00 18 /min [facility] Body height 2020-06-15 16:05:00 162.6 cm Univ [facility] Body weight 2020-06-15 16:05:00 101.878 kg [facility] BMI 2020-06-15 16:05:00 38.55 kg/m2 [facility] Systolic blood pressure 2020-04-07 18:14:00 120 mm[Hg] [facility] Diastolic blood pressure 2020-04-07 18:14:00 72 mm[Hg] [facility] Heart rate 2020-04-07 18:14:00 66 /min [facility] Body temperature 2020-04-07 18:14:00 36.89 [facility] Respiratory rate 2020-04-07 18:14:00 18 /min [facility] Body height 2020-04-07 18:14:00 162.6 cm [facility] Body weight 2020-04-07 18:14:00 98.431 kg Univ [facility] BMI 2020-04-07 18:14:00 37.25 kg/m2 [facility] Oxygen saturation in Arterial blood by Pulse oximetry 2020-04-07 18:14:00 98 /min [facility] Systolic blood pressure 2020-03-16 15:19:00 128 mm[Hg] [facility] Diastolic blood pressure 2020-03-16 15:19:00 77 mm[Hg] [facility] Heart rate 2020-03-16 15:19:00 70 /min [facility] Body temperature 2020-03-16 15:19:00 35.61 [facility] Respiratory rate 2020-03-16 15:19:00 18 /min [facility] Body weight 2020-03-16 15:19:00 98.703 kg [facility] BMI 2020-03-16 15:19:00 37.35 kg/m2 [facility] Systolic blood pressure 2020-02-04 19:59:00 125 mm[Hg] [facility] Diastolic blood pressure 2020-02-04 19:59:00 84 mm[Hg] [facility] Heart rate 2020-02-04 19:59:00 78 /min [facility] Body temperature 2020-02-04 19:59:00 37.28 [facility] Respiratory rate 2020-02-04 19:59:00 18 /min [facility] Body height 2020-02-04 19:59:00 162.6 cm [facility] Body weight 2020-02-04 19:59:00 108.863 kg [facility] BMI 2020-02-04 19:59:00 41.20 kg/m2 [facility] Oxygen saturation in Arterial blood by Pulse oximetry 2020-02-04 19:59:00 97 /min [facility] Systolic blood pressure 2019-09-24 17:39:00 122 mm[Hg] [facility] Diastolic blood pressure 2019-09-24 17:39:00 81 mm[Hg] [facility] Heart rate 2019-09-24 17:39:00 64 /min [facility] Body temperature 2019-09-24 17:39:00 36.33 [facility] Respiratory rate 2019-09-24 17:39:00 18 /min [facility] Body height 2019-09-24 17:39:00 162.6 cm [facility] Body weight 2019-09-24 17:39:00 101.969 kg [facility] BMI 2019-09-24 17:39:00 38.59 kg/m2 [facility] Oxygen saturation in Arterial blood by Pulse oximetry 2019-09-24 17:39:00 98 /min [facility] Systolic blood pressure 2019-03-31 12:36:00 143 mm[Hg] [facility] Diastolic blood pressure 2019-03-31 12:36:00 85 mm[Hg] [facility] Heart rate 2019-03-31 12:32:00 76 /min [facility] Body temperature 2019-03-31 12:32:00 36.56 Jean[facility] Respiratory rate 2019-03-31 12:32:00 18 /min [facility] Body weight 2019-03-31 12:32:00 106.459 kg [facility] BMI 2019-03-31 12:32:00 37.88 kg/m2 [facility] Oxygen saturation in Arterial blood by Pulse oximetry 2019-03-31 12:32:00 93 /min [facility] BP Systolic 2025-03-29 08:23:00 133 mm[Hg] [facility] [place] BP Diastolic 2025-03-29 08:23:00 84 mm[Hg] Terell phen F [facility] Weight Measured 2025-03-29 08:23:00 235.00 pounds [facility] Height Measured 2025-03-29 08:23:00 64.00 inches [facility]isco F [facility] Body Temperature 2025-03-29 08:23:00 97.40 degrees Fracisco F [facility] Heart Rate 2025-03-29 08:23:00 56.00 /min Janneth en F [facility] Respiratory Rate 2025-03-29 08:23:00 16.00 /min Fracisco F [facility] BP Systolic 2025-02-24 08:26:00 153 mm[Hg] [facility] [place] BP Diastolic 2025-02-24 08:26:00 78 mm[Hg] Terell phen F [facility] Weight Measured 2025-02-24 08:26:00 234.00 pounds Fracisco F Thomas Height Measured 2025-02-24 08:26:00 64.00 inches Fracisco F Thomas Body Temperature 2025-02-24 08:26:00 98.10 degrees Fracisco F Thomas Heart Rate 2025-02-24 08:26:00 65.00 /min Janneth en F [facility] Respiratory Rate 2025-02-24 08:26:00 18.00 /min Fracisco F Thomas BP Systolic 2025-01-04 08:51:00 163 mm[Hg] Step hen [facility] BP Diastolic 2025-01-04 08:51:00 84 mm[Hg] Terell phen F [facility] Weight Measured 2025-01-04 08:51:00 238.80 pounds Fracisco F Thomas Height Measured 2025-01-04 08:51:00 64.00 inches Fracisco F Thomas Body Temperature 2025-01-04 08:51:00 98.30 degrees Fracisco F Thomas Heart Rate 2025-01-04 08:51:00 64.00 /min Janneth en F Thomas Respiratory Rate 2025-01-04 08:51:00 18.00 /min Fracisco F Thomas BP Systolic 2025-01-04 08:21:00 163 mm[Hg] Step hen F [facility] BP Diastolic 2025-01-04 08:21:00 84 mm[Hg] Terell phen F [facility] Weight Measured 2025-01-04 08:21:00 238.80 pounds Fracisco F Thomas Height Measured 2025-01-04 08:21:00 64.00 inches Fracisco F Thomas Body Temperature 2025-01-04 08:21:00 98.30 degrees Fracisco F Thomas Heart Rate 2025-01-04 08:21:00 64.00 /min Janneth en F Thomas Respiratory Rate 2025-01-04 08:21:00 18.00 /min Fracisco F Thomas BP Systolic 2024-12-28 10:24:00 156 mm[Hg] Step hen F Thomas BP Diastolic 2024-12-28 10:24:00 90 mm[Hg] Terell phen F Thomas Weight Measured 2024-12-28 10:24:00 238.00 pounds Fracisco F Thomas Height Measured 2024-12-28 10:24:00 64.00 inches Fracisco F Thomas Body Temperature 2024-12-28 10:24:00 98.30 degrees Fracisco F Thomas Heart Rate 2024-12-28 10:24:00 66.00 /min Janneth en F Thomas Respiratory Rate 2024-12-28 10:24:00 18.00 /min Fracisco F Thomas BP Systolic 2024-12-24 10:37:00 143 mm[Hg] Step hen F Thomas BP Diastolic 2024-12-24 10:37:00 84 mm[Hg] Terell phen F Thomas Weight Measured 2024-12-24 10:37:00 237.60 pounds Fracisco F Thomas Height Measured 2024-12-24 10:37:00 64.00 inches Fracisco F Thomas Body Temperature 2024-12-24 10:37:00 97.60 degrees Fracisco F Thomas Heart Rate 2024-12-24 10:37:00 63.00 /min Janneth en F Thomas Respiratory Rate 2024-12-24 10:37:00 16.00 /min Fracisco F Thomas BP Systolic 2024-11-26 10:45:00 142 mm[Hg] Step hen F Thomas BP Diastolic 2024-11-26 10:45:00 79 mm[Hg] Terell phen F Thomas Weight Measured 2024-11-26 10:45:00 238.60 pounds Fracisco F Thomas Height Measured 2024-11-26 10:45:00 64.00 inches Fracisco F Thomas Body Temperature 2024-11-26 10:45:00 97.90 degrees Fracisco F Thomas Heart Rate 2024-11-26 10:45:00 87.00 /min Janneth en F Thomas Respiratory Rate 2024-11-26 10:45:00 17.00 /min Fracisco F Thomas BP Systolic 2024-11-25 08:46:00 158 mm[Hg] Step hen F Thomas BP Diastolic 2024-11-25 08:46:00 84 mm[Hg] Terell phen F Thomas Weight Measured 2024-11-25 08:46:00 238.20 pounds Fracisco F Thomas Height Measured 2024-11-25 08:46:00 64.00 inches Fracisco F Thomas Body Temperature 2024-11-25 08:46:00 97.60 degrees Fracisco F Thomas Heart Rate 2024-11-25 08:46:00 77.00 /min Janneth en F Thomas Respiratory Rate 2024-11-25 08:46:00 18.00 /min Fracisco F Thomas BP Systolic 2024-08-24 08:19:00 129 mm[Hg] Step hen F Thomas BP Diastolic 2024-08-24 08:19:00 60 mm[Hg] Terell phen F Thomas Weight Measured 2024-08-24 08:19:00 237.40 pounds Fracisco F Thomas Height Measured 2024-08-24 08:19:00 64.00 inches Fracisco F Thomas Body Temperature 2024-08-24 08:19:00 99.00 degrees Fracisco F Thomas Heart Rate 2024-08-24 08:19:00 72.00 /min Janneth en F Thomas Respiratory Rate 2024-08-24 08:19:00 17.00 /min Fracisco F Thomas BP Systolic 2024-06-24 14:10:00 135 mm[Hg] Step hen F Thomas BP Diastolic 2024-06-24 14:10:00 63 mm[Hg] Terell phen F Thomas Weight Measured 2024-06-24 14:10:00 232.40 pounds Fracisco F Thomas Height Measured 2024-06-24 14:10:00 64.00 inches Fracisco F Thomas Body Temperature 2024-06-24 14:10:00 97.80 degrees Fracisco F Thomas Heart Rate 2024-06-24 14:10:00 73.00 /min Janneth en F Thomas Respiratory Rate 2024-06-24 14:10:00 18.00 /min Fracisco F Thomas BP Systolic 2024-06-15 08:19:00 135 mm[Hg] Step hen F Thomas BP Diastolic 2024-06-15 08:19:00 87 mm[Hg] Terell phen F Thomas Weight Measured 2024-06-15 08:19:00 233.00 pounds Fracisco F Thomas Height Measured 2024-06-15 08:19:00 64.00 inches Fracisco F Thomas Body Temperature 2024-06-15 08:19:00 97.80 degrees Fracisco F Thomas Heart Rate 2024-06-15 08:19:00 71.00 /min Janneth en F Thomas Respiratory Rate 2024-06-15 08:19:00 17.00 /min Fracisco F Thomas BP Systolic 2024-05-18 08:05:00 135 mm[Hg] Step hen F Thomas BP Diastolic 2024-05-18 08:05:00 83 mm[Hg] Terell phen F Thomas Weight Measured 2024-05-18 08:05:00 231.60 pounds Fracisco F Thomas Height Measured 2024-05-18 08:05:00 64.00 inches Fracisco F Thomas Body Temperature 2024-05-18 08:05:00 97.60 degrees Fracisco F Thomas Heart Rate 2024-05-18 08:05:00 67.00 /min Janneth en F Thomas Respiratory Rate 2024-05-18 08:05:00 18.00 /min Fracisco F Thomas BP Systolic 2024-05-11 08:24:00 139 mm[Hg] Step hen F Thomas BP Diastolic 2024-05-11 08:24:00 83 mm[Hg] Terell phen F Thomas Weight Measured 2024-05-11 08:24:00 230.60 pounds Fracisco F Thomas Height Measured 2024-05-11 08:24:00 64.00 inches Fracisco F Thomas Body Temperature 2024-05-11 08:24:00 99.10 degrees Fracisco F Thomas Heart Rate 2024-05-11 08:24:00 75.00 /min Janneth en F Thomas Respiratory Rate 2024-05-11 08:24:00 18.00 /min Fracisco F Thomas BP Systolic 2024-05-05 10:14:00 122 mm[Hg] Step hen F Thomas BP Diastolic 2024-05-05 10:14:00 64 mm[Hg] Terell phen F Thomas Weight Measured 2024-05-05 10:14:00 229.40 pounds Fracisco F Thomas Height Measured 2024-05-05 10:14:00 64.00 inches Fracisco F Thomas Body Temperature 2024-05-05 10:14:00 98.10 degrees Fracisco F Thomas Heart Rate 2024-05-05 10:14:00 67.00 /min Janneth en F Thomas Respiratory Rate 2024-05-05 10:14:00 18.00 /min Fracisco F Thomas BP Systolic 2024-02-12 08:28:00 128 mm[Hg] Step hen F Thomas BP Diastolic 2024-02-12 08:28:00 77 mm[Hg] Terell phen F Thomas Weight Measured 2024-02-12 08:28:00 230.20 pounds Fracisco F Thomas Height Measured 2024-02-12 08:28:00 64.00 inches Fracisco F Thomas Body Temperature 2024-02-12 08:28:00 97.40 degrees Fracisco F Thomas Heart Rate 2024-02-12 08:28:00 70.00 /min Janneth en F Thomas Respiratory Rate 2024-02-12 08:28:00 Fracisco F Thomas BP Systolic 2024-01-29 10:48:00 120 mm[Hg] Step hen F Thomas BP Diastolic 2024-01-29 10:48:00 74 mm[Hg] Terell phen F Thomas Weight Measured 2024-01-29 10:48:00 228.00 pounds Fracisco F Thomas Height Measured 2024-01-29 10:48:00 64.00 inches Fracisco F Thomas Body Temperature 2024-01-29 10:48:00 97.50 degrees Fracisco F Thomas Heart Rate 2024-01-29 10:48:00 73.00 /min Janneth en F Thomas Respiratory Rate 2024-01-29 10:48:00 18.00 /min Fracisco F Thomas BP Systolic 2024-01-13 13:09:00 120 mm[Hg] Step hen F Thomas BP Diastolic 2024-01-13 13:09:00 78 mm[Hg] Terell phen F Thomas Weight Measured 2024-01-13 13:09:00 227.80 pounds Fracisco F Thomas Height Measured 2024-01-13 13:09:00 64.00 inches Fracisco F Thomas Body Temperature 2024-01-13 13:09:00 97.40 degrees Fracisco F Thomas Heart Rate 2024-01-13 13:09:00 82.00 /min Janneth en F Thomas Respiratory Rate 2024-01-13 13:09:00 18.00 /min Fracisco F Thomas BP Systolic 2023-10-15 08:22:00 139 mm[Hg] Step hen F Thomas BP Diastolic 2023-10-15 08:22:00 74 mm[Hg] Terell phen F Thomas Weight Measured 2023-10-15 08:22:00 228.00 pounds Fracisco F Thomas Height Measured 2023-10-15 08:22:00 64.00 inches Fracisco F Thomas Body Temperature 2023-10-15 08:22:00 98.40 degrees Fracisco F Thomas Heart Rate 2023-10-15 08:22:00 63.00 /min Janneth en F Thomas Respiratory Rate 2023-10-15 08:22:00 17.00 /min Fracisco F Thomas BP Systolic 2023-09-11 09:07:00 164 mm[Hg] Step hen F Thomas BP Diastolic 2023-09-11 09:07:00 95 mm[Hg] Terell phen F Thomas Weight Measured 2023-09-11 09:07:00 227.20 pounds Fracisco F Thomas Height Measured 2023-09-11 09:07:00 64.00 inches Fracisco F Thomas Body Temperature 2023-09-11 09:07:00 98.10 degrees Fracisco F Thomas Heart Rate 2023-09-11 09:07:00 75.00 /min Janneth en F Thomas Respiratory Rate 2023-09-11 09:07:00 18.00 /min Fracisco F Thomas BP Systolic 2023-07-23 15:18:00 128 mm[Hg] Step hen F Thomas BP Diastolic 2023-07-23 15:18:00 76 mm[Hg] Terell phen F Thomas Weight Measured 2023-07-23 15:18:00 226.00 pounds Fracisco F Thomas Height Measured 2023-07-23 15:18:00 64.00 inches Fracisco F Thomas Body Temperature 2023-07-23 15:18:00 97.70 degrees Fracisco F Thomas Heart Rate 2023-07-23 15:18:00 82.00 /min Janneth en F Thomas Respiratory Rate 2023-07-23 15:18:00 Fracisco F Thomas BP Systolic 2023-06-13 15:19:00 139 mm[Hg] Step hen F Thomas BP Diastolic 2023-06-13 15:19:00 75 mm[Hg] Terell phen F Thomas Weight Measured 2023-06-13 15:19:00 224.60 pounds Fracisco F Thomas Height Measured 2023-06-13 15:19:00 64.00 inches Fracisco F Thomas Body Temperature 2023-06-13 15:19:00 97.80 degrees Fracisco F Thomas Heart Rate 2023-06-13 15:19:00 89.00 /min Janneth en F Thomas Respiratory Rate 2023-06-13 15:19:00 25.00 /min Fracisco F Thomas BP Systolic 2023-02-18 08:29:00 Step hen F Thomas BP Diastolic 2023-02-18 08:29:00 Terell phen F Thomas Weight Measured 2023-02-18 08:29:00 227.80 pounds Fracisco F Thomas Height Measured 2023-02-18 08:29:00 64.00 inches Fracisco F Thomas Body Temperature 2023-02-18 08:29:00 Fracisco F Thomas Heart Rate 2023-02-18 08:29:00 Janneth en F Thomas Respiratory Rate 2023-02-18 08:29:00 Fracisco F Thomas BP Systolic 2023-01-16 08:17:00 147 mm[Hg] Step hen F Thomas BP Diastolic 2023-01-16 08:17:00 86 mm[Hg] Terell phen F Thomas Weight Measured 2023-01-16 08:17:00 227.80 pounds Fracisco F Thomas Height Measured 2023-01-16 08:17:00 64.00 inches Fracisco F Thomas Body Temperature 2023-01-16 08:17:00 97.50 degrees Fracisco F Thomas Heart Rate 2023-01-16 08:17:00 78.00 /min Janneth en F Thomas Respiratory Rate 2023-01-16 08:17:00 Fracisco F Thomas BP Systolic 2023-01-14 08:41:00 133 mm[Hg] Step hen F Thomas BP Diastolic 2023-01-14 08:41:00 77 mm[Hg] Terell phen F Thomas Weight Measured 2023-01-14 08:41:00 229.20 pounds Fracisco F Thomas Height Measured 2023-01-14 08:41:00 64.00 inches Fracisco F Thomas Body Temperature 2023-01-14 08:41:00 97.00 degrees Fracisco F Thomas Heart Rate 2023-01-14 08:41:00 78.00 /min Janneth en F Thomas Respiratory Rate 2023-01-14 08:41:00 25.00 /min Fracisco F Thomas BP Systolic 2023-01-09 14:55:00 145 mm[Hg] Step hen F Thomas BP Diastolic 2023-01-09 14:55:00 77 mm[Hg] Terell phen F Thomas Weight Measured 2023-01-09 14:55:00 229.40 pounds Fracisco Person Height Measured 2023-01-09 14:55:00 64.00 inches Fracisco F Thomas Body Temperature 2023-01-09 14:55:00 97.40 degrees Fracisco F Thomas Heart Rate 2023-01-09 14:55:00 78.00 /min Janneth en F Thomas Respiratory Rate 2023-01-09 14:55:00 Fraciscodeven Person BP Systolic 2022-10-24 11:17:00 127 mm[Hg] Step hen F Thomas BP Diastolic 2022-10-24 11:17:00 77 mm[Hg] Terell phen F Thomas Weight Measured 2022-10-24 11:17:00 219.80 pounds Fracisco Person Height Measured 2022-10-24 11:17:00 64.00 inches Fracisco Person Body Temperature 2022-10-24 11:17:00 97.90 degrees Fracisco Person Heart Rate 2022-10-24 11:17:00 83.00 /min Janneth en F Thomas Respiratory Rate 2022-10-24 11:17:00 Fracisco Person BP Systolic 2022-04-12 17:02:00 105 mm[Hg] BP Diastolic 2022-04-12 17:02:00 69 mm[Hg] Weight Measured 2022-04-12 17:02:00 219.20 pounds Height Measured 2022-04-12 17:02:00 64.00 inches Body Temperature 2022-04-12 17:02:00 97.60 degrees Heart Rate 2022-04-12 17:02:00 72.00 /min Respiratory Rate 2022-04-12 17:02:00 21.00 /min BP Systolic 2022-04-05 10:09:00 137 mm[Hg] BP Diastolic 2022-04-05 10:09:00 81 mm[Hg] Weight Measured 2022-04-05 10:09:00 226.00 pounds Height Measured 2022-04-05 10:09:00 64.00 inches Body Temperature 2022-04-05 10:09:00 97.60 degrees Heart Rate 2022-04-05 10:09:00 74.00 /min Respiratory Rate 2022-04-05 10:09:00 BP Systolic 2022-03-19 09:21:00 134 mm[Hg] BP Diastolic 2022-03-19 09:21:00 82 mm[Hg] Weight Measured 2022-03-19 09:21:00 227.40 pounds Height Measured 2022-03-19 09:21:00 64.00 inches Body Temperature 2022-03-19 09:21:00 97.50 degrees Heart Rate 2022-03-19 09:21:00 69.00 /min Respiratory Rate 2022-03-19 09:21:00 BP Systolic 2022-02-22 14:55:00 139 mm[Hg] BP Diastolic 2022-02-22 14:55:00 79 mm[Hg] Weight Measured 2022-02-22 14:55:00 226.40 pounds Height Measured 2022-02-22 14:55:00 64.00 inches Body Temperature 2022-02-22 14:55:00 97.20 degrees Heart Rate 2022-02-22 14:55:00 83.00 /min Respiratory Rate 2022-02-22 14:55:00 BP Systolic 2022-02-20 13:40:00 136 mm[Hg] BP Diastolic 2022-02-20 13:40:00 87 mm[Hg] Weight Measured 2022-02-20 13:40:00 226.40 pounds Height Measured 2022-02-20 13:40:00 64.00 inches Body Temperature 2022-02-20 13:40:00 97.40 degrees Heart Rate 2022-02-20 13:40:00 81.00 /min Respiratory Rate 2022-02-20 13:40:00 Height Measured 2021-12-21 09:02:00 64.00 inches Body Temperature 2021-12-21 09:02:00 98.40 degrees Heart Rate 2021-12-21 09:02:00 70.00 /min Respiratory Rate 2021-12-21 09:02:00 BP Systolic 2021-12-21 09:02:00 131 mm[Hg] BP Diastolic 2021-12-21 09:02:00 85 mm[Hg] Weight Measured 2021-12-21 09:02:00 230.40 pounds BP Systolic 2021-11-15 15:37:00 122 mm[Hg] BP Diastolic 2021-11-15 15:37:00 69 mm[Hg] Weight Measured 2021-11-15 15:37:00 226.80 pounds Height Measured 2021-11-15 15:37:00 64.00 inches Body Temperature 2021-11-15 15:37:00 97.40 degrees Heart Rate 2021-11-15 15:37:00 75.00 /min Respiratory Rate 2021-11-15 15:37:00 Procedures Procedure Date / Time Performed Performing Clinician Source PHYSICIAN ORDERS 2023-06-13 05:01:00 Doctor Ace signed, [facility] CT ABDOMEN PELVIS W CONTRAST 2022-04-23 22:17:40 Aneesh [facility] HB ECG ROUTINE & RHYTHM STRIP 2022-04-23 21:04:49 Aneesh [facility] LIPASE 2022-04-23 21:03:[facility] 2022-04-23 21:03:00 [facility] COMP. METABOLIC PANEL ([id number]) 2022-04-23 21:03:00 Aneesh [facility] CBC WITH DIFF 2022-04-23 21:03:00 [facility] 2022-04-23 21:03:00 Melendrez [facility] NOTICE OF PRIVACY PRACTICES 2022-04-23 20:27:46 Doctor Unassigned, [facility] CONSENT/REFUSAL FOR DIAGNOSIS AND TREATMENT 2022-04-23 20:26:34 Doctor Unassigned, [facility] FLU VACC ([id number]), 6+ MONTHS, IM, QUAD 2020-06-15 16:10:47 Maylin Alvarado [facility] XR CHEST 2 VW COVID 2020-04-07 20:34:43 Deanna Ballesteros [facility] CBC WITH DIFF 2020-04-07 19:07:00 Deanna Ballesteros [facility] POCT URINALYSIS AUTO 2020-03-16 15:22:00 Selina Preston [facility] POCT HEMOGLOBIN A1C TEST 2019-09-24 19:47:00 Endy Sanchez [facility] POCT GLUCOSE(AGE >30DAYS) 2019-09-24 19:45:00 Endy Arthur [facility] POCT HEMOGLOBIN A1C TEST 2019-03-31 13:19:00 Tyrone Paulino [facility] NO SHOW OR MISSED APPOINTMENT POLICY ACKNOWLEDGEMENT 2019-03-31 12:22:01 Doctor Unassigned, [facility] REFERRAL- REQUEST/RESPONSE 2017-08-16 06:01:00 Ani hyman Unassigned, [facility] CONSENT FOR ORAL CONTRACEPTIVES 2017-05-22 05:01:00 Doctor Unassigned, [facility] XR ABDOMEN 2 VW 2017-05-20 17:43:00 Loraine Soto [facility] ENDOSCOPY PROCEDURE DOCUMENTATION 2017-05-20 05:01:00 Doctor Unassigned, [facility] BI SCREENING MAMMOGRAM BILATERAL 2012-03-26 17:42:00 Sukhwinder Bucio [facility] Plan of Care Planned Activity Planned Date Details Comments Source Goal Plan of Care Note [code = 47847-3] Goal Plan of Care Note [code = 94627-9] Goal Plan of Care Note [code = 54904-1] Goal Plan of Care Note [code = 79591-0] Goal Plan of Care Note [code = 96654-6] Goal Plan of Care Note [code = 33625-5] Goal Plan of Care Note [code = 12695-5] Goal Plan of Care Note [code = 43124-1] Goal Plan of Care Note [code = 84221-2] Goal Plan of Care Note [code = 82689-6] Goal Plan of Care Note [code = 84102-0] Goal Plan of Care Note [code = 01461-0] Goal Plan of Care Note [code = 99231-0] Goal Plan of Care Note [code = 96852-8] Goal Plan of Care Note [code = 47988-2] Goal Plan of Care Note [code = 92541-8] Goal Plan of Care Note [code = 82825-4] Goal Plan of Care Note [code = 74594-5] Goal Plan of Care Note [code = 34561-9] Goal Plan of Care Note [code = 42144-6] Goal Plan of Care Note [code = 51210-0] Goal Plan of Care Note [code = 41401-7] Goal Plan of Care Note [code = 61571-7] Goal Plan of Care Note [code = 86879-4] Goal Plan of Care Note [code = 68662-0] Goal Plan of Care Note [code = 37080-3] Goal Plan of Care Note [code = 62001-8] Goal Plan of Care Note [code = 97714-2] Goal Plan of Care Note [code = 62389-2] Goal Plan of Care Note [code = 29355-9] Goal Plan of Care Note [code = 46686-3] Goal Plan of Care Note [code = 74700-3] Goal Plan of Care Note [code = 82689-0] Goal Plan of Care Note [code = 50297-3] Goal Plan of Care Note [code = 97660-2] Goal Plan of Care Note [code = 21297-5] Goal Plan of Care Note [code = 11171-8] Goal Plan of Care Note [code = 42864-1] Goal Plan of Care Note [code = 57048-6] Goal Plan of Care Note [code = 97313-8] Goal Plan of Care Note [code = 60564-2] Goal Plan of Care Note [code = 68036-7] Goal Plan of Care Note [code = 39921-3] Goal Plan of Care Note [code = 15314-7] Goal Plan of Care Note [code = 64102-6] Goal Plan of Care Note [code = 65763-0] Goal Plan of Care Note [code = 31068-6] Goal Plan of Care Note [code = 62855-3] Goal Plan of Care Note [code = 91964-3] Goal Plan of Care Note [code = 60537-9] Goal Plan of Care Note [code = 71827-9] Goal Plan of Care Note [code = 52428-5] Goal Plan of Care Note [code = 97885-6] Goal Plan of Care Note [code = 26229-3] Goal Plan of Care Note [code = 90304-1] Goal Plan of Care Note [code = 22066-9] Goal Plan of Care Note [code = 17033-4] Goal Plan of Care Note [code = 38305-6] Goal Plan of Care Note [code = 70680-8] Goal Plan of Care Note [code = 68669-0] Goal Plan of Care Note [code = 26046-9] Goal Plan of Care Note [code = 18561-9] Goal Plan of Care Note [code = 68217-4] Goal Plan of Care Note [code = 07959-1] Goal Plan of Care Note [code = 85037-3] Goal Plan of Care Note [code = 45287-4] Goal Plan of Care Note [code = 59970-1] Goal Plan of Care Note [code = 73543-9] Goal Plan of Care Note [code = 45316-3] Goal Plan of Care Note [code = 51646-0] Goal Plan of Care Note [code = 37629-4] Goal Plan of Care Note [code = 72530-5] Goal Plan of Care Note [code = 75603-8] Encounters Start Date/Time End Date/Time Encounter Type Admission Type Attending [facility] Care Department Encounter ID Source 2025-03-29 08:14:55 2025-03-29 08:14:55 Outpatient SFA SIMONE [id number] Fracisco Person 2025-03-29 00:00:00 2025-03-29 00:00:00 Outpatient Visit SFA [id number] Fracisco Guardado Thomas 2025-02-24 08:17:07 2025-02-24 08:17:07 Outpatient SFA SIMONE [id number] Fracisco Guardado Thomas 2025-02-24 00:00:00 2025-02-24 00:00:00 Outpatient Visit SFA [id number] Fracisco Guardado Thomas 2025-01-04 08:12:18 2025-01-04 08:12:18 Outpatient SFA SIMONE [id number] Fracisco Guardado Thomas 2025-01-04 00:00:00 2025-01-04 00:00:00 Outpatient Visit SFA [id number] Fracisco Person 2024-12-28 10:24:23 2024-12-28 10:24:23 Outpatient SFA SFA [id number] Fracisco Person 2024-12-28 00:00:00 2024-12-28 00:00:00 Outpatient Visit SFA [id number] Fracisco Person 2024-12-24 10:22:39 2024-12-24 10:22:39 Outpatient SFA SFA [id number] Fracisco Person 2024-12-24 00:00:00 2024-12-24 00:00:00 Outpatient Visit SFA [id number] Fracisco Person 2024-12-04 14:00:00 2024-12-04 14:00:00 Outpatient MILTON DIAZ [id number] [facility] 2024-11-26 10:36:54 2024-11-26 10:36:54 Outpatient SFA SFA [id number] Fracisco Person 2024-11-26 00:00:00 2024-11-26 00:00:00 Outpatient Visit SFA [id number] Fracisco Person 2024-11-25 08:32:39 2024-11-25 08:32:39 Outpatient SFA SFA [id number] Fracisco Guardado Thomas 2024-11-25 00:00:00 2024-11-25 00:00:00 Outpatient Visit SFA [id number] Fracisco Person 2024-11-05 09:00:00 2024-11-05 09:00:00 Outpatient SYLWIA FIELDS [id number] [facility] 2012-03-26 00:00:00 2024-10-10 05:17:29 Orders Only Sukhwinder Bucio [facility] [employer] [facility] 1.2.840.114 350.1.13.10 4.2.7.2.686 [id number] [facility] 2017-05-20 00:00:00 2024-10-10 03:37:51 Orders Only Doctor Unassigned, [place] Doctor Unassigned, [place] [facility] 1.2.840.114 350.1.13.10 4.2.7.2.686 [id number] [facility] 2017-08-14 00:00:00 2024-10-10 03:30:05 Orders Only Doctor Unassigned, [place] Doctor Unassigned, [place] [facility] 1.2.840.114 350.1.13.10 4.2.7.2.686 [id number] [facility] 2024-08-27 13:59:52 2024-08-27 13:59:52 Outpatient SFA SFA [id number] Fracisco Person 2024-08-24 08:10:09 2024-08-24 08:10:09 Outpatient SFA SFA [id number] Fracisco Guardado Thomas 2024-08-24 00:00:00 2024-08-24 00:00:00 Outpatient Visit SFA [id number] Fracisco Person 2024-08-06 09:45:00 2024-08-06 09:45:00 Outpatient SYLWIA FIELDS [id number] Bethany Roblero 2024-06-29 08:38:44 2024-06-29 08:38:44 Outpatient SFA SFA [id number] Fracisco Guardado Thomas 2024-06-24 14:05:15 2024-06-24 14:05:15 Outpatient SFA SFA [id number] Fracisco Person 2024-06-24 00:00:00 2024-06-24 00:00:00 Outpatient Visit SFA [id number] Fracisco Person 2024-06-22 11:00:00 2024-06-22 11:00:00 Outpatient [id number] [facility] 2024-06-15 10:18:48 2024-06-15 10:18:48 Outpatient SFA SFA [id number] Fracisco Person 2024-06-15 00:00:00 2024-06-15 00:00:00 Outpatient Visit SFA [id number] Fracisco Person 2024-05-28 00:00:00 2024-05-28 00:00:00 Outpatient SUN STERLINGNAVA OCAMPO [id number] [facility] 2024-05-21 16:07:22 2024-05-21 16:07:22 Outpatient SFA SFA [id number] Fracisco Person 2024-05-18 14:43:03 2024-05-18 14:43:03 Outpatient SFA SFA [id number] Fracisco Person 2024-05-18 00:00:00 2024-05-18 00:00:00 Outpatient Visit SFA [id number] Fracisco Person 2024-05-11 08:20:15 2024-05-11 08:20:15 Outpatient SFA SFA [id number] [facility] 2024-05-11 00:00:00 2024-05-11 00:00:00 Outpatient Visit SFA [id number] [facility] 2024-05-05 10:05:47 2024-05-05 10:05:47 Outpatient SFA SFA [id number] [facility] 2024-05-05 00:00:00 2024-05-05 00:00:00 Outpatient Visit SFA [id number] [facility] [facility] 2024-02-12 08:18:31 2024-02-12 08:18:31 Outpatient SFA SFA [id number] [facility] 2024-02-12 00:00:00 2024-02-12 00:00:00 Outpatient Visit SFA [id number] [facility] 2024-01-30 11:21:13 2024-01-30 11:21:13 Outpatient SFA SFA [id number] [place] [facility] 2024-01-29 10:48:24 2024-01-29 10:48:24 Outpatient SFA SFA [id number] [facility] [facility] 2024-01-29 00:00:00 2024-01-29 00:00:00 Outpatient Visit SFA [id number] [facility] [facility] 2024-01-13 13:09:19 2024-01-13 13:09:19 Outpatient SFA SFA [id number] [facility] 2024-01-13 00:00:00 2024-01-13 00:00:00 Outpatient Visit SFA [id number] [facility] 2023-12-23 13:40:00 2023-12-23 13:40:00 Outpatient YESENIA SCHAEFFER [id number] [facility] 2023-12-23 13:05:00 2023-12-23 13:05:00 Outpatient BETHANY OCAMPO [id number] [facility] 2023-12-12 00:00:00 2023-12-12 00:00:00 Outpatient YESENIA SCHAEFFER [id number] [facility] 2023-12-11 09:50:00 2023-12-11 09:50:00 [facility]patient [facility] [id number] [facility] 13:30:00 2023-11-22 13:30:00 Outpatient DENYS BLACKMON [id number] [facility] 2023-11-22 00:00:00 2023-11-22 00:00:00 Outpatient MAKSIMYESENIA [id number] [facility] 2023-11-13 00:00:00 2023-11-13 00:00:00 Outpatient MAKSIMYESENIA [id number] [facility] 2023-11-12 10:00:00 2023-11-12 10:00:00 Outpatient DENYS BLACKMON [id number] [facility] 2023-11-09 10:00:00 2023-11-09 10:00:00 Outpatient JAIRO WATTS [id number] [facility] 2023-11-07 00:00:00 2023-11-07 00:00:00 Outpatient DAREN INIGUEZ [id number] [facility] 2023-11-05 11:08:00 2023-11-06 16:15:00 Inpatient EL Yesenia Schaeffer HCATO SURG [id number] 05 [facility] 2023-11-06 00:00:00 2023-11-06 00:00:00 Outpatient NEW MARQUIS [id number] [facility] 2023-11-05 16:02:00 2023-11-05 16:02:00 Outpatient Yesenia Schaeffer [facility] [id number] 37 [facility] 2023-11-05 00:00:00 2023-11-05 00:00:00 Outpatient NEW MARQUIS [id number] [facility] 2023-11-04 00:00:00 2023-11-04 00:00:00 [facility]patient [facility] [id number] [facility] 00:00:00 2023-11-04 00:00:00 Outpatient MALACHI RASHEEDSEY BETHANY [id number] [facility] 2023-11-04 00:00:00 2023-11-04 00:00:00 Outpatient YESENIA SCHAEFFER BETHANY [id number] [facility] Gorel[facility]onda 2023-10-29 09:10:00 2023-10-29 09:10:00 Outpatient YESENIA SCHAEFFER BETHANY OCAMPO [id number] [facility] 2023-10-15 15:30:00 2023-10-15 15:30:00 Outpatient THOMAS HERBERT BETHANY BETHANY [id number] [facility] 2023-10-15 08:21:13 2023-10-15 08:21:13 Outpatient SFA SFA [id number] [facility] 2023-10-04 08:40:00 2023-10-04 08:40:00 Outpatient YESENIA SCHAEFFER BETHANY OCAMPO [id number] [facility] 2023-10-04 08:35:00 2023-10-04 08:35:00 Outpatient BETHANY BETHANY [id number] [facility] 2023-10-03 00:00:00 2023-10-03 00:00:00 Outpatient YESENIA SCHAEFFER BETHANY OCAMPO [id number] [facility] 2023-09-13 11:14:23 2023-09-13 11:14:23 Outpatient SFA SFA [id number] [facility] 2023-09-11 09:01:04 2023-09-11 09:01:04 Outpatient SFA SFA [id number] [facility] 2023-07-24 08:00:00 2023-07-24 08:00:00 Outpatient Ann Stokes [facility] [id number] 59 [facility] 2023-07-23 15:27:28 2023-07-23 15:27:28 Outpatient SFA SFA [id number] [facility] 2023-06-13 15:01:09 2023-06-13 15:01:09 Outpatient SFA SFA [id number] [facility] 2023-06-13 00:00:00 2023-06-13 00:00:00 Orders Only Doctor Unassigned, [place] [facility] 1.2.840.114 350.1.13.10 4.2.7.2.686 [id number] [facility] 2023-06-10 09:30:00 2023-06-10 10:00:00 Outpatient Ann Stokes [facility]AC[facility] RADI [id number] [facility] 2023-02-18 08:27:36 2023-02-18 08:27:36 Outpatient SFA SFA [id number] [facility] 2023-01-16 08:17:10 2023-01-16 08:17:10 Outpatient SFA SFA [id number] [facility] 2023-01-14 08:41:15 2023-01-14 08:41:15 Outpatient SFA SFA [id number] [facility] 2023-01-09 14:47:04 2023-01-09 14:47:04 Outpatient SFA SFA [id number] [facility] 2022-10-24 13:23:31 2022-10-24 13:23:31 Outpatient SFA SFA [id number] [facility] 2022-07-16 08:08:15 2022-07-16 08:08:15 Outpatient SFA SFA [id number] [facility] 2022-04-23 15:53:00 2022-04-23 18:15:00 Emergency X MELENDREZ RUPESH [facility] ERT [id number] [facility] 2022-04-23 15:53:00 2022-04-23 18:15:00 Emergency Shruti Melendreze [facility] 1.2.840.114 350.1.13.10 4.2.7.2.686 [id number] [facility] 2022-04-12 00:00:00 2022-04-12 00:00:00 Outpatient Visit [id number]- 2jt9-17m1 -aaa5-01f [id number] ff1-40c5-a aa5-45x461 a320fc 2022-04-05 00:00:00 2022-04-05 00:00:00 Outpatient Visit [id number]- 9149-47a3 -b799-zkw [id number] [id number] 149-47a3-b 123-soz769 7b3a3c 2022-03-19 00:00:00 2022-03-19 00:00:00 Outpatient Visit ifg4h38s- ie90-494f -yy3e-qi8 a2awy883v [id number] thj3n78m-z q04-856d-y o1u-ha3w0r dt183n 2022-02-22 00:00:00 2022-02-22 00:00:00 Outpatient Visit [id number]- 191a-4c4b -r63a-y95 [id number] [id number] 91a-4c4b-a 58a-d806ba 4021e3 2022-02-20 00:00:00 2022-02-20 00:00:00 Outpatient Visit 9dc82h75- 73s8-5ri4 -75l9-d0d [id number] 5v5-4uk9-4 7n3-b3j121 2a19fc 2021-06-15 09:30:00 2021-06-15 09:30:00 Outpatient MAYLIN HARMON [facility] [id number] [facility] 2021-03-20 13:00:00 2021-03-20 13:00:00 Outpatient SELINA PORTER [facility] [id number] [facility] 2021-01-02 14:00:00 2021-01-02 14:00:00 Outpatient DEANNA ELIAS [facility] [id number] [facility] 2020-12-28 10:40:00 2020-12-28 10:40:00 Outpatient ENDY NEWMAN [facility] [id number] [facility] 2020-07-05 08:20:42 2020-07-05 23:59:00 Hospital Encounter Maylin Alvarado [facility] 1.2.840.114 350.1.13.10 4.2.7.2.686 [id number] [facility] 2020-07-05 00:00:00 2020-07-05 00:00:00 Outpatient R MAYLIN ALVARADO [facility] [id number] [facility] 2020-06-15 10:24:03 2020-06-15 11:43:23 Office Visit Maylin Alvarado [facility] 1..840.114 350.1.13.10 4.2.7.2.686 [id number] [facility] 2020-06-15 10:45:00 2020-06-15 10:45:00 [id number] 2020-05-21 00:00:00 2020-05-21 00:00:00 Telephone Leyda Burton [facility] 1..840.114 350.1.13.10 4.2.7.2.686 [id number] [facility] 2020-04-26 07:57:26 2020-04-26 08:12:26 Lance Crewmember Visit Pob, Adc Lab Main Selina Preston [facility] 1..840.114 350.1.13.10 4.2.7.2.686 [id number] [facility] 2020-04-26 08:00:00 2020-04-26 08:00:00 Outpatient R SELINA PRESTON [facility] [id number] [facility] 2020-04-12 00:00:00 2020-04-12 00:00:00 Telephone Selina Preston [facility] 1..840.114 350.1.13.10 4.2.7.2.686 [id number] [facility] 2020-04-12 00:00:00 2020-04-12 00:00:00 Telephone Selina Preston [facility] 1.2.840.114 350.1.13.10 4.2.7.2.686 [id number] [facility] 2020-04-08 15:20:00 2020-04-08 15:20:00 Outpatient R ENDY SANCHEZ [facility] [id number] [facility] 2020-04-07 15:13:51 2020-04-07 23:59:00 [facility] 1.2840.114 350.1.13.10 4.2.7.2.686 [id number] [facility] 2020-04-07 12:45:31 2020-04-07 16:07:26 Urgent Care Pob1, [facility] 1.2.840.114 350.1.13.10 4.2.7.2.686 [id number] [facility] 2020-04-07 13:20:00 2020-04-07 13:20:00 Outpatient R [facility] [id number] [facility] 2020-04-04 09:38:26 2020-04-04 09:53:26 Lance Crewmember Visit Pob, Adc Lab Main Selina Preston [facility] 1.2.840.114 350.1.13.10 4.2.7.2.686 [id number] [facility] 2020-04-04 09:45:00 2020-04-04 09:45:00 Outpatient R SELINA PRESTON [facility] [id number] [facility] 2020-03-29 09:00:00 2020-03-29 09:00:00 Outpatient R ENDY SANCHEZ [facility] [id number] [facility] 2020-03-21 13:15:00 2020-03-21 13:15:00 Outpatient R SELINA PRESTON [facility] [id number] [facility] 2020-03-21 00:00:00 2020-03-21 00:00:00 Telephone Selina Preston [facility] 1.84.114 350.1.13.10 4.2.7.2.686 [id number] [facility] 2020-03-17 10:01:21 2020-03-17 10:16:21 Lance Crewmember Visit Pob, Adc Lab Main Selina Preston [facility] 1.840.114 350.1.13.10 4.2.7.2.686 [id number] [facility] 2020-03-17 10:00:00 2020-03-17 10:00:00 Outpatient R SELINA PRESTON [facility] [id number] [facility] 2020-03-16 10:07:25 2020-03-16 10:42:31 Office Visit Selina Preston [facility] 1.840.114 350.1.13.10 4.2.7.2.686 [id number] [facility] 2020-03-16 10:30:00 2020-03-16 10:30:00 Outpatient R SELINA PRESTON [facility] [id number] [facility] 2020-03-09 08:30:00 2020-03-09 08:30:00 Outpatient R PINEDA PRESTONELA [facility] [id number] [facility] 2020-02-09 00:00:00 2020-02-09 00:00:00 Telephone Pob1, Acute Care [facility] Office Building One 1.84.114 350.1.13.10 4.2.7.2.686 [id number] [facility] 2019-11-17 12:22:52 2020-02-07 22:26:54 Telemedici ne Visit Endy Sanchez [facility] Building 1.840.114 350.1.13.10 4.2.7.2.686 [id number] [facility] 2020-02-04 14:45:14 2020-02-04 15:05:14 Urgent Care Pob1, Acute Care Clinic Braden [facility] Office Building One 1.84.114 350.1.13.10 4.2.7.2.686 [id number] [facility] 2020-02-04 14:40:00 2020-02-04 14:40:00 Outpatient R BRADEN [facility] [id number] [facility] 2019-12-25 08:15:00 2019-12-25 08:15:00 Outpatient R FITO HARRIS [facility] [id number] [facility] 2019-12-25 07:15:02 2019-12-25 07:30:02 Telemedici ne Visit Fito Harris [facility] Building 1.84.114 350.1.13.10 4.2.7.2.686 [id number] [facility] 2019-12-23 15:00:00 2019-12-23 15:00:00 Outpatient R LEYDA BURTON [facility] [id number] [facility] 2019-12-14 00:00:00 2019-12-14 00:00:00 Telephone Hardik Mayo [facility] 1..114 350.1.13.10 4.2.7.2.686 [id number] [facility] 2019-11-17 12:20:00 2019-11-17 12:20:00 Outpatient R YESSENIACARLEENALAINA ENDY [facility] [id number] [facility] 2019-11-12 15:00:00 2019-11-12 15:00:00 Outpatient R REECE PAIGE TRACIE [facility] [id number] [facility] 2019-11-12 14:35:14 2019-11-12 14:50:14 Office Visit Reece Paige Moizearl [facility] 1.2.840.114 350.1.13.10 4.2.7.2.686 [id number] [facility] 2019-10-12 00:00:00 2019-10-12 00:00:00 [facility] 1.2.840.114 350.1.13.10 4.2.7.2.686 [id number] [facility] 2019-09-29 00:00:00 2019-09-29 00:00:00 Letter (Out) Jc Burdick [facility] 1.2840.114 350.1.13.10 4.2.7.2.686 [id number] [facility] 2019-09-24 10:20:00 2019-09-24 13:27:34 Outpatient R ENDY SANCHEZ [facility] [id number] [facility] 2019-09-24 09:56:22 2019-09-24 13:27:34 Office [facility] 1.2840.114 350.1.13.10 4.2.7.2.686 [id number] [facility] 2019-08-27 15:27:21 2019-08-27 23:59:00 Outpatient R DEANNA BALLESTEROS [facility] [id number] [facility] 2019-08-07 15:26:07 2019-08-07 23:59:00 Outpatient R EDEMEKONG, PETER [facility] [id number] [facility] 2019-07-29 08:00:00 2019-07-29 11:06:22 Outpatient LLOYD LANGSTON [facility] [id number] [facility] 2019-07-20 10:15:00 2019-07-20 16:29:23 Outpatient LLOYD LANGSTON [facility] [id number] [facility] 2019-06-26 07:40:00 2019-06-26 09:31:50 Outpatient ENDY NEWMAN [facility] [id number] [facility] 2019-03-31 07:22:57 2019-03-31 08:06:14 Office Visit Fito Paulino [facility] 1..840.114 350.1.13.10 4.2.7.2.686 [id number] [facility] 2019-03-31 00:00:00 2019-03-31 00:00:00 Orders Only Doctor Unassigned, [place] [facility] 1..840.114 350.1.13.10 4.2.7.2.686 [id number] [facility] Results Test Description Test Time Test Comments Results Result Co mments Source [place] PersonCOMPREHENSIVE METABOLIC [id number] 00:00:00* Test Item Value Reference Range Interpretation Comme nts GLUCOSE (test code = 2345-7) 135 mg/dL UREA NITROGEN (BUN) (test code = 3094-0) 23 mg/dL CREATININE (test code = 2160-0) 1.01 mg/dL EGFR (test code = 43609-3) 66 mL/min/1.73m2 BUN/CREATININE RATIO (test code = 3097-3) SEE NOTE: (calc) SODIUM (test code = 2951-2) 140 mmol/L POTASSIUM (test code = 2823-3) 4.9 mmol/L CHLORIDE (test code = 2075-0) 99 mmol/L CARBON DIOXIDE (test code = 2027-9) 29 mmol/L CALCIUM (test code = 13416-4) 9.9 mg/dL PROTEIN, TOTAL (test code = 2885-2) 7.4 g/dL ALBUMIN (test code = 1751-7) 4.7 g/dL GLOBULIN (test code = 06050-3) 2.7 g/dL(calc) ALBUMIN/GLOBULIN RATIO (test code = 1759-0) 1.7 (calc) BILIRUBIN, TOTAL (test code = 1975-2) 0.4 mg/dL ALKALINE PHOSPHATASE (test code = 6768-6) 43 U/L AST (test code = 1920-8) 24 U/L ALT (test code = 1742-6) 29 U/L [place] PersonHEMOGLOBIN [id number] 00:00:00* Test Item Value Reference Range Interpretation Comme [facility] HEMOGLOBIN A1c (test code = 4548-4) 7.3 % [place] PersonCBC (INCLUDES DIFF/PLT)2024-11-27 00:00:00* Test Item Value Reference Range Interpretation Comme nts WHITE BLOOD CELL COUNT (test code = 6690-2) 8.7 Thousand/uL RED BLOOD CELL COUNT (test code = 789-8) 5.07 Million/uL HEMOGLOBIN (test code = 718-7) 13.2 g/dL HEMATOCRIT (test code = 4544-3) 41.4 % MCV (test code = 787-2) 81.7 fL MCH (test code = 785-6) 26.0 pg MCHC (test code = 786-4) 31.9 g/dL RDW (test code = 788-0) 12.8 % PLATELET COUNT (test code = 777-3) 362 Thousand/uL MPV (test code = 776-5) 11.4 fL ABSOLUTE NEUTROPHILS (test code = 751-8) 5464 cells/uL ABSOLUTE BAND NEUTROPHILS (test code = 26765-9) DNR cells/uL ABSOLUTE METAMYELOCYTES (solange t code = 44824-4) DNR cells/uL ABSOLUTE MYELOCYTES (test code = 52879-6) DNR cells/uL ABSOLUTE PROMYELOCYTES (test code = 57717-1) DNR cells/uL ABSOLUTE LYMPHOCYTES (test code = 731-0) 2540 cells/uL ABSOLUTE MONOCYTES (test cod e = 742-7) 531 cells/uL ABSOLUTE EOSINOPHILS (test code = 711-2) 87 cells/uL ABSOLUTE BASOPHILS (test cod e = 704-7) 78 cells/uL ABSOLUTE BLASTS (test code = 17856-4) DNR cells/uL ABSOLUTE NUCLEATED RBC (test code = 62800-7) DNR cells/uL NEUTROPHILS (test code = 770-8) 62.8 % BAND NEUTROPHILS (test code = 764-1) DNR % METAMYELOCYTES (test code = 740-1) DNR % MYELOCYTES (test code = 749-2) DNR % PROMYELOCYTES (test code = 783-1) DNR % LYMPHOCYTES (test code = 736-9) 29.2 % REACTIVE LYMPHOCYTES (test code = 61437-4) DNR % MONOCYTES (test code = 5905-5) 6.1 % EOSINOPHILS (test code = 713-8) 1.0 % BASOPHILS (test code = 706-2) 0.9 % BLASTS (test code = 709-6) DNR % NUCLEATED RBC (test code = 05126-8) DNR /100WBC COMMENT(S) (test code = 8251-1) DNR [place] PersonC-REACTIVE [id number] 00:00:00* Test Item Value Reference Range Interpretation Comme nts C-REACTIVE PROTEIN (test cod e = 1987-) 10.4 mg/L [place] PersonAMYLASE AND LIPASE [ADDED]2024-11-27 00:00:00* Test Item Value Reference Range Interpretation Comme nts AMYLASE (test code = 1798-8) 44 U/L LIPASE (test code = 3040-3) 81 U/L [place] PersonSED RATE BY MODIFIED JOSE [ADDED]2024-11-27 00:00:00* Test Item Value Reference Range Interpretation Comme nts SED RATE BY MODIFIED MATT WALKER (test code = 4537-7) 9 mm/h [place] PersonCBC (INCLUDES DIFF/PLT)2024-11-27 00:00:00* Test Item Value Reference Range Interpretation Comme nts WHITE BLOOD CELL COUNT (test code = 6690-2) 8.7 Thousand/uL RED BLOOD CELL COUNT (test code = 789-8) 5.07 Million/uL HEMOGLOBIN (test code = 718-7) 13.2 g/dL HEMATOCRIT (test code = 4544-3) 41.4 % MCV (test code = 787-2) 81.7 fL MCH (test code = 785-6) 26.0 pg MCHC (test code = 786-4) 31.9 g/dL RDW (test code = 788-0) 12.8 % PLATELET COUNT (test code = 777-3) 362 Thousand/uL MPV (test code = 776-5) 11.4 fL ABSOLUTE NEUTROPHILS (test code = 751-8) 5464 cells/uL ABSOLUTE BAND NEUTROPHILS (test code = 60929-0) DNR cells/uL ABSOLUTE METAMYELOCYTES (solange t code = 09597-9) DNR cells/uL ABSOLUTE MYELOCYTES (test code = 30354-1) DNR cells/uL ABSOLUTE PROMYELOCYTES (test code = 39357-2) DNR cells/uL ABSOLUTE LYMPHOCYTES (test code = 731-0) 2540 cells/uL ABSOLUTE MONOCYTES (test cod e = 742-7) 531 cells/uL ABSOLUTE EOSINOPHILS (test code = 711-2) 87 cells/uL ABSOLUTE BASOPHILS (test cod e = 704-7) 78 cells/uL ABSOLUTE BLASTS (test code = 17373-1) DNR cells/uL ABSOLUTE NUCLEATED RBC (test code = 32164-0) DNR cells/uL NEUTROPHILS (test code = 770-8) 62.8 % BAND NEUTROPHILS (test code = 764-1) DNR % METAMYELOCYTES (test code = 740-1) DNR % MYELOCYTES (test code = 749-2) DNR % PROMYELOCYTES (test code = 783-1) DNR % LYMPHOCYTES (test code = 736-9) 29.2 % REACTIVE LYMPHOCYTES (test code = 54101-5) DNR % MONOCYTES (test code = 5905-5) 6.1 % EOSINOPHILS (test code = 713-8) 1.0 % BASOPHILS (test code = 706-2) 0.9 % BLASTS (test code = 709-6) DNR % NUCLEATED RBC (test code = 83913-5) DNR /100WBC COMMENT(S) (test code = 8251-1) DNR [place] F AustinC-REACTIVE [id number] 00:00:00* Test Item Value Reference Range Interpretation Comme nts C-REACTIVE PROTEIN (test cod e = 1988-5) 10.4 mg/L [place] Guardado AustinAMYLASE AND LIPASE [ADDED]2024-11-27 00:00:00* Test Item Value Reference Range Interpretation Comme nts AMYLASE (test code = 1798-8) 44 U/L LIPASE (test code = 3040-3) 81 U/L [place] Guardado AustinSED RATE BY MODIFIED JOSE [ADDED]2024-11-27 00:00:00* Test Item Value Reference Range Interpretation Comme nts SED RATE BY MODIFIED WESTERG DENISE (test code = 4537-7) 9 mm/h [place] Guardado AustinCBC (INCLUDES DIFF/PLT)2024-11-27 00:00:00* Test Item Value Reference Range Interpretation Comme nts WHITE BLOOD CELL COUNT (test code = 6690-2) 8.7 Thousand/uL RED BLOOD CELL COUNT (test code = 789-8) 5.07 Million/uL HEMOGLOBIN (test code = 718-7) 13.2 g/dL HEMATOCRIT (test code = 4544-3) 41.4 % MCV (test code = 787-2) 81.7 fL MCH (test code = 785-6) 26.0 pg MCHC (test code = 786-4) 31.9 g/dL RDW (test code = 788-0) 12.8 % PLATELET COUNT (test code = 777-3) 362 Thousand/uL MPV (test code = 776-5) 11.4 fL ABSOLUTE NEUTROPHILS (test code = 751-8) 5464 cells/uL ABSOLUTE BAND NEUTROPHILS (test code = 41062-2) DNR cells/uL ABSOLUTE METAMYELOCYTES (solange t code = 43076-0) DNR cells/uL ABSOLUTE MYELOCYTES (test code = 96281-2) DNR cells/uL ABSOLUTE PROMYELOCYTES (test code = 52399-4) DNR cells/uL ABSOLUTE LYMPHOCYTES (test code = 731-0) 2540 cells/uL ABSOLUTE MONOCYTES (test cod e = 742-7) 531 cells/uL ABSOLUTE EOSINOPHILS (test code = 711-2) 87 cells/uL ABSOLUTE BASOPHILS (test cod e = 704-7) 78 cells/uL ABSOLUTE BLASTS (test code = 86701-9) DNR cells/uL ABSOLUTE NUCLEATED RBC (test code = 86169-3) DNR cells/uL NEUTROPHILS (test code = 770-8) 62.8 % BAND NEUTROPHILS (test code = 764-1) DNR % METAMYELOCYTES (test code = 740-1) DNR % MYELOCYTES (test code = 749-2) DNR % PROMYELOCYTES (test code = 783-1) DNR % LYMPHOCYTES (test code = 736-9) 29.2 % REACTIVE LYMPHOCYTES (test code = 07259-8) DNR % MONOCYTES (test code = 5905-5) 6.1 % EOSINOPHILS (test code = 713-8) 1.0 % BASOPHILS (test code = 706-2) 0.9 % BLASTS (test code = 709-6) DNR % NUCLEATED RBC (test code = 75161-7) DNR /100WBC COMMENT(S) (test code = 8251-1) DNR [place] F ThomasC-REACTIVE [id number] 00:00:00* Test Item Value Reference Range Interpretation Comme nts C-REACTIVE PROTEIN (test cod e = 1987-12) 10.4 mg/L [place] PersonAMYLASE AND LIPASE [ADDED]2024-11-27 00:00:00* Test Item Value Reference Range Interpretation Comme nts AMYLASE (test code = 1798-8) 44 U/L LIPASE (test code = 3040-3) 81 U/L [place] PersonSED RATE BY MODIFIED JOSE [ADDED]2024-11-27 00:00:00* Test Item Value Reference Range Interpretation Comme nts SED RATE BY MODIFIED MATT WALKER (test code = 4537-7) 9 mm/h [place] PersonCBC (INCLUDES DIFF/PLT)2024-11-27 00:00:00* Test Item Value Reference Range Interpretation Comme nts WHITE BLOOD CELL COUNT (test code = 6690-2) 8.7 Thousand/uL RED BLOOD CELL COUNT (test code = 789-8) 5.07 Million/uL HEMOGLOBIN (test code = 718-7) 13.2 g/dL HEMATOCRIT (test code = 4544-3) 41.4 % MCV (test code = 787-2) 81.7 fL MCH (test code = 785-6) 26.0 pg MCHC (test code = 786-4) 31.9 g/dL RDW (test code = 788-0) 12.8 % PLATELET COUNT (test code = 777-3) 362 Thousand/uL MPV (test code = 776-5) 11.4 fL ABSOLUTE NEUTROPHILS (test code = 751-8) 5464 cells/uL ABSOLUTE BAND NEUTROPHILS (test code = 04514-7) DNR cells/uL ABSOLUTE METAMYELOCYTES (solange t code = 01500-2) DNR cells/uL ABSOLUTE MYELOCYTES (test code = 59680-4) DNR cells/uL ABSOLUTE PROMYELOCYTES (test code = 61425-0) DNR cells/uL ABSOLUTE LYMPHOCYTES (test code = 731-0) 2540 cells/uL ABSOLUTE MONOCYTES (test cod e = 742-7) 531 cells/uL ABSOLUTE EOSINOPHILS (test code = 711-2) 87 cells/uL ABSOLUTE BASOPHILS (test cod e = 704-7) 78 cells/uL ABSOLUTE BLASTS (test code = 34455-8) DNR cells/uL ABSOLUTE NUCLEATED RBC (test code = 03039-0) DNR cells/uL NEUTROPHILS (test code = 770-8) 62.8 % BAND NEUTROPHILS (test code = 764-1) DNR % METAMYELOCYTES (test code = 740-1) DNR % MYELOCYTES (test code = 749-2) DNR % PROMYELOCYTES (test code = 783-1) DNR % LYMPHOCYTES (test code = 736-9) 29.2 % REACTIVE LYMPHOCYTES (test code = 19086-0) DNR % MONOCYTES (test code = 5905-5) 6.1 % EOSINOPHILS (test code = 713-8) 1.0 % BASOPHILS (test code = 706-2) 0.9 % BLASTS (test code = 709-6) DNR % NUCLEATED RBC (test code = 77350-3) DNR /100WBC COMMENT(S) (test code = 8251-1) DNR Fracisco PersonC-REACTIVE [id number] 00:00:00* Test Item Value Reference Range Interpretation Comme nts C-REACTIVE PROTEIN (test cod e = 1988-) 10.4 mg/L [place] PersonAMYLASE AND LIPASE [ADDED]2024-11-27 00:00:00* Test Item Value Reference Range Interpretation Comme nts AMYLASE (test code = 1798-8) 44 U/L LIPASE (test code = 3040-3) 81 U/L Fracisco Guardado AustinSED RATE BY MODIFIED JOSE [ADDED]2024-11-27 00:00:00* Test Item Value Reference Range Interpretation Comme nts SED RATE BY MODIFIED MATT DENISE (test code = 4537-7) 9 mm/h Fracisco Guardado AustinCBC (INCLUDES DIFF/PLT)2024-11-27 00:00:00* Test Item Value Reference Range Interpretation Comme nts WHITE BLOOD CELL COUNT (test code = 6690-2) 8.7 Thousand/uL RED BLOOD CELL COUNT (test code = 789-8) 5.07 Million/uL HEMOGLOBIN (test code = 718-7) 13.2 g/dL HEMATOCRIT (test code = 4544-3) 41.4 % MCV (test code = 787-2) 81.7 fL MCH (test code = 785-6) 26.0 pg MCHC (test code = 786-4) 31.9 g/dL RDW (test code = 788-0) 12.8 % PLATELET COUNT (test code = 777-3) 362 Thousand/uL MPV (test code = 776-5) 11.4 fL ABSOLUTE NEUTROPHILS (test code = 751-8) 5464 cells/uL ABSOLUTE BAND NEUTROPHILS (test code = 20987-8) DNR cells/uL ABSOLUTE METAMYELOCYTES (solange t code = 31281-3) DNR cells/uL ABSOLUTE MYELOCYTES (test code = 48738-8) DNR cells/uL ABSOLUTE PROMYELOCYTES (test code = 55280-5) DNR cells/uL ABSOLUTE LYMPHOCYTES (test code = 731-0) 2540 cells/uL ABSOLUTE MONOCYTES (test cod e = 742-7) 531 cells/uL ABSOLUTE EOSINOPHILS (test code = 711-2) 87 cells/uL ABSOLUTE BASOPHILS (test cod e = 704-7) 78 cells/uL ABSOLUTE BLASTS (test code = 08561-2) DNR cells/uL ABSOLUTE NUCLEATED RBC (test code = 98831-9) DNR cells/uL NEUTROPHILS (test code = 770-8) 62.8 % BAND NEUTROPHILS (test code = 764-1) DNR % METAMYELOCYTES (test code = 740-1) DNR % MYELOCYTES (test code = 749-2) DNR % PROMYELOCYTES (test code = 783-1) DNR % LYMPHOCYTES (test code = 736-9) 29.2 % REACTIVE LYMPHOCYTES (test code = 31834-2) DNR % MONOCYTES (test code = 5905-5) 6.1 % EOSINOPHILS (test code = 713-8) 1.0 % BASOPHILS (test code = 706-2) 0.9 % BLASTS (test code = 709-6) DNR % NUCLEATED RBC (test code = 01852-9) DNR /100WBC COMMENT(S) (test code = 8251-1) DNR Fracisco F AustinC-REACTIVE [id number] 00:00:00* Test Item Value Reference Range Interpretation Comme nts C-REACTIVE PROTEIN (test cod e = 1987-12) 10.4 mg/L rFacisco F AustinAMYLASE AND LIPASE [ADDED]2024-11-27 00:00:00* Test Item Value Reference Range Interpretation Comme nts AMYLASE (test code = 1798-8) 44 U/L LIPASE (test code = 3040-3) 81 U/L Fracisco F AustinSED RATE BY MODIFIED JOSE [ADDED]2024-11-27 00:00:00* Test Item Value Reference Range Interpretation Comme nts SED RATE BY MODIFIED MATT WALKER (test code = 4537-7) 9 mm/h Fracisco F AustinCBC (INCLUDES DIFF/PLT)2024-11-27 00:00:00* Test Item Value Reference Range Interpretation Comme nts WHITE BLOOD CELL COUNT (test code = 6690-2) 8.7 Thousand/uL RED BLOOD CELL COUNT (test code = 789-8) 5.07 Million/uL HEMOGLOBIN (test code = 718-7) 13.2 g/dL HEMATOCRIT (test code = 4544-3) 41.4 % MCV (test code = 787-2) 81.7 fL MCH (test code = 785-6) 26.0 pg MCHC (test code = 786-4) 31.9 g/dL RDW (test code = 788-0) 12.8 % PLATELET COUNT (test code = 777-3) 362 Thousand/uL MPV (test code = 776-5) 11.4 fL ABSOLUTE NEUTROPHILS (test code = 751-8) 5464 cells/uL ABSOLUTE BAND NEUTROPHILS (test code = 22095-3) DNR cells/uL ABSOLUTE METAMYELOCYTES (solange t code = 42146-2) DNR cells/uL ABSOLUTE MYELOCYTES (test code = 35710-5) DNR cells/uL ABSOLUTE PROMYELOCYTES (test code = 37365-2) DNR cells/uL ABSOLUTE LYMPHOCYTES (test code = 731-0) 2540 cells/uL ABSOLUTE MONOCYTES (test cod e = 742-7) 531 cells/uL ABSOLUTE EOSINOPHILS (test code = 711-2) 87 cells/uL ABSOLUTE BASOPHILS (test cod e = 704-7) 78 cells/uL ABSOLUTE BLASTS (test code = 80183-7) DNR cells/uL ABSOLUTE NUCLEATED RBC (test code = 22364-2) DNR cells/uL NEUTROPHILS (test code = 770-8) 62.8 % BAND NEUTROPHILS (test code = 764-1) DNR % METAMYELOCYTES (test code = 740-1) DNR % MYELOCYTES (test code = 749-2) DNR % PROMYELOCYTES (test code = 783-1) DNR % LYMPHOCYTES (test code = 736-9) 29.2 % REACTIVE LYMPHOCYTES (test code = 00339-4) DNR % MONOCYTES (test code = 5905-5) 6.1 % EOSINOPHILS (test code = 713-8) 1.0 % BASOPHILS (test code = 706-2) 0.9 % BLASTS (test code = 709-6) DNR % NUCLEATED RBC (test code = 28586-5) DNR /100WBC COMMENT(S) (test code = 8251-1) DNR Fracisco PersonC-REACTIVE [id number] 00:00:00* Test Item Value Reference Range Interpretation Comme nts C-REACTIVE PROTEIN (test cod e = 1988-5) 10.4 mg/L Fracisco PersonAMYLASE AND LIPASE [ADDED]2024-11-27 00:00:00* Test Item Value Reference Range Interpretation Comme nts AMYLASE (test code = 1798-8) 44 U/L LIPASE (test code = 3040-3) 81 U/L Fracisco PersonSED RATE BY MODIFIED ANGEERGREN [ADDED]2024-11-27 00:00:00* Test Item Value Reference Range Interpretation Comme nts SED RATE BY MODIFIED WESTERG DENISE (test code = 4537-7) 9 mm/h Fracisco PersonCOMPREHENSIVE METABOLIC [id number] 00:00:00* Test Item Value Reference Range Interpretation Comme nts GLUCOSE (test code = 2345-7) 123 mg/dL UREA NITROGEN (BUN) (test code = 3094-0) 30 mg/dL CREATININE (test code = 2160-0) 0.90 mg/dL EGFR (test code = 63357-5) 76 mL/min/1.73m2 BUN/CREATININE RATIO (test code = 3097-3) 33 (calc) SODIUM (test code = 2951-2) 137 mmol/L POTASSIUM (test code = 2823-3) 4.5 mmol/L CHLORIDE (test code = 2075-0) 97 mmol/L CARBON DIOXIDE (test code = 2027-9) 28 mmol/L CALCIUM (test code = 56698-8) 10.3 mg/dL PROTEIN, TOTAL (test code = 2885-2) 8.2 g/dL ALBUMIN (test code = 1751-7) 5.0 g/dL GLOBULIN (test code = 53360-7) 3.2 g/dL(calc) ALBUMIN/GLOBULIN RATIO (test code = 1759-0) 1.6 (calc) BILIRUBIN, TOTAL (test code = 1975-2) 0.4 mg/dL ALKALINE PHOSPHATASE (test code = 6768-6) 51 U/L AST (test code = 1920-8) 32 U/L ALT (test code = 1742-6) 31 U/L Fracisco PersonLIPID [id number] 00:00:00* Test Item Value Reference Range Interpretation Comme nts CHOLESTEROL, TOTAL (test cod e = 2093-3) 199 mg/dL HDL CHOLESTEROL (test code = 2085-9) 58 mg/dL TRIGLYCERIDES (test code = 2571-8) 294 mg/dL LDL-CHOLESTEROL (test code = 17541-5) 102 mg/dL(calc) CHOL/HDLC RATIO (test code = 9830-1) 3.4 (calc) NON HDL CHOLESTEROL (test code = 37130-2) 141 mg/dL(calc) Fracisco PersonHEMOGLOBIN [id number] 00:00:00* Test Item Value Reference Range Interpretation Comme [facility] HEMOGLOBIN A1c (test code = 4548-4) 7.9 %oftotalHgb Fracisco PersonMICROALBUMIN, RANDOM URINE (W/CREATININE)2024-11-26 00:00:00* Test Item Value Reference Range Interpretation Comme nts CREATININE, RANDOM URINE (te st code = 2161-8) 85 mg/dL ALBUMIN, URINE (test code = 52512-3) 1.6 mg/dL ALBUMIN/CREATININE RATIO, RA NDOM URINE (test code = 9318-7) 19 mg/gcreat Fracisco PersonCOMPREHENSIVE METABOLIC [id number] 00:00:00* Test Item Value Reference Range Interpretation Comme nts GLUCOSE (test code = 2345-7) 123 mg/dL UREA NITROGEN (BUN) (test code = 3094-0) 30 mg/dL CREATININE (test code = 2160-0) 0.90 mg/dL EGFR (test code = 35872-6) 76 mL/min/1.73m2 BUN/CREATININE RATIO (test code = 3097-3) 33 (calc) SODIUM (test code = 2951-2) 137 mmol/L POTASSIUM (test code = 2823-3) 4.5 mmol/L CHLORIDE (test code = 2075-0) 97 mmol/L CARBON DIOXIDE (test code = 2027-9) 28 mmol/L CALCIUM (test code = 46139-0) 10.3 mg/dL PROTEIN, TOTAL (test code = 2885-2) 8.2 g/dL ALBUMIN (test code = 1751-7) 5.0 g/dL GLOBULIN (test code = 24394-5) 3.2 g/dL(calc) ALBUMIN/GLOBULIN RATIO (test code = 1759-0) 1.6 (calc) BILIRUBIN, TOTAL (test code = 1975-2) 0.4 mg/dL ALKALINE PHOSPHATASE (test code = 6768-6) 51 U/L AST (test code = 1920-8) 32 U/L ALT (test code = 1742-6) 31 U/L Fracisco PersonLIPID [id number] 00:00:00* Test Item Value Reference Range Interpretation Comme nts CHOLESTEROL, TOTAL (test cod e = 2093-3) 199 mg/dL HDL CHOLESTEROL (test code = 2085-9) 58 mg/dL TRIGLYCERIDES (test code = 2571-8) 294 mg/dL LDL-CHOLESTEROL (test code = 72480-9) 102 mg/dL(calc) CHOL/HDLC RATIO (test code = 9830-1) 3.4 (calc) NON HDL CHOLESTEROL (test code = 94386-6) 141 mg/dL(calc) Fracisco PersonHEMOGLOBIN [id number] 00:00:00* Test Item Value Reference Range Interpretation Comme [facility] HEMOGLOBIN A1c (test code = 4548-4) 7.9 %oftotalHgb Fracisco PersonMICROALBUMIN, RANDOM URINE (W/CREATININE)2024-11-26 00:00:00* Test Item Value Reference Range Interpretation Comme nts CREATININE, RANDOM URINE (te st code = 2161-8) 85 mg/dL ALBUMIN, URINE (test code = 02294-0) 1.6 mg/dL ALBUMIN/CREATININE RATIO, RA NDOM URINE (test code = 9318-7) 19 mg/gcreat Fracisco PersonCOMPREHENSIVE METABOLIC [id number] 00:00:00* Test Item Value Reference Range Interpretation Comme nts GLUCOSE (test code = 2345-7) 123 mg/dL UREA NITROGEN (BUN) (test code = 3094-0) 30 mg/dL CREATININE (test code = 2160-0) 0.90 mg/dL EGFR (test code = 31715-6) 76 mL/min/1.73m2 BUN/CREATININE RATIO (test code = 3097-3) 33 (calc) SODIUM (test code = 2951-2) 137 mmol/L POTASSIUM (test code = 2823-3) 4.5 mmol/L CHLORIDE (test code = 2075-0) 97 mmol/L CARBON DIOXIDE (test code = 2027-9) 28 mmol/L CALCIUM (test code = 06486-7) 10.3 mg/dL PROTEIN, TOTAL (test code = 2885-2) 8.2 g/dL ALBUMIN (test code = 1751-7) 5.0 g/dL GLOBULIN (test code = 98552-7) 3.2 g/dL(calc) ALBUMIN/GLOBULIN RATIO (test code = 1759-0) 1.6 (calc) BILIRUBIN, TOTAL (test code = 1975-2) 0.4 mg/dL ALKALINE PHOSPHATASE (test code = 6768-6) 51 U/L AST (test code = 1920-8) 32 U/L ALT (test code = 1742-6) 31 U/L Fracisco PersonLIPID [id number] 00:00:00* Test Item Value Reference Range Interpretation Comme nts CHOLESTEROL, TOTAL (test cod e = 2093-3) 199 mg/dL HDL CHOLESTEROL (test code = 2085-9) 58 mg/dL TRIGLYCERIDES (test code = 2571-8) 294 mg/dL LDL-CHOLESTEROL (test code = 57358-9) 102 mg/dL(calc) CHOL/HDLC RATIO (test code = 9830-1) 3.4 (calc) NON HDL CHOLESTEROL (test code = 51318-5) 141 mg/dL(calc) Fracisco PersonHEMOGLOBIN [id number] 00:00:00* Test Item Value Reference Range Interpretation Comme [facility] HEMOGLOBIN A1c (test code = 4548-4) 7.9 %oftotalHgb Fracisco PersonMICROALBUMIN, RANDOM URINE (W/CREATININE)2024-11-26 00:00:00* Test Item Value Reference Range Interpretation Comme nts CREATININE, RANDOM URINE (te st code = 2161-8) 85 mg/dL ALBUMIN, URINE (test code = 37541-9) 1.6 mg/dL ALBUMIN/CREATININE RATIO, RA NDOM URINE (test code = 9318-7) 19 mg/gcreat Fracisco PersonCOMPREHENSIVE METABOLIC [id number] 00:00:00* Test Item Value Reference Range Interpretation Comme nts GLUCOSE (test code = 2345-7) 123 mg/dL UREA NITROGEN (BUN) (test code = 3094-0) 30 mg/dL CREATININE (test code = 2160-0) 0.90 mg/dL EGFR (test code = 10236-8) 76 mL/min/1.73m2 BUN/CREATININE RATIO (test code = 3097-3) 33 (calc) SODIUM (test code = 2951-2) 137 mmol/L POTASSIUM (test code = 2823-3) 4.5 mmol/L CHLORIDE (test code = 2075-0) 97 mmol/L CARBON DIOXIDE (test code = 2027-9) 28 mmol/L CALCIUM (test code = 93563-8) 10.3 mg/dL PROTEIN, TOTAL (test code = 2885-2) 8.2 g/dL ALBUMIN (test code = 1751-7) 5.0 g/dL GLOBULIN (test code = 88659-0) 3.2 g/dL(calc) ALBUMIN/GLOBULIN RATIO (test code = 1759-0) 1.6 (calc) BILIRUBIN, TOTAL (test code = 1975-2) 0.4 mg/dL ALKALINE PHOSPHATASE (test code = 6768-6) 51 U/L AST (test code = 1920-8) 32 U/L ALT (test code = 1742-6) 31 U/L Fracisco PersonLIPID [id number] 00:00:00* Test Item Value Reference Range Interpretation Comme nts CHOLESTEROL, TOTAL (test cod e = 3-3) 199 mg/dL HDL CHOLESTEROL (test code = 5-9) 58 mg/dL TRIGLYCERIDES (test code = 2571-8) 294 mg/dL LDL-CHOLESTEROL (test code = 80778-2) 102 mg/dL(calc) CHOL/HDLC RATIO (test code = 9830-1) 3.4 (calc) NON HDL CHOLESTEROL (test code = 91408-6) 141 mg/dL(calc) Fracisco PersonHEMOGLOBIN [id number] 00:00:00* Test Item Value Reference Range Interpretation Comme nts HEMOGLOBIN A1c (test code = 4548-4) 7.9 %oftotalHgb Fracisco Guardado ThomasMICROALBUMIN, RANDOM URINE (W/CREATININE)2024-11-26 00:00:00* Test Item Value Reference Range Interpretation Comme nts CREATININE, RANDOM URINE (te st code = 2161-8) 85 mg/dL ALBUMIN, URINE (test code = 59623-0) 1.6 mg/dL ALBUMIN/CREATININE RATIO, RA NDOM URINE (test code = 9318-7) 19 mg/gcreat Fracisco Guardado ThomasCOMPREHENSIVE METABOLIC [id number] 00:00:00* Test Item Value Reference Range Interpretation Comme nts GLUCOSE (test code = 2345-7) 123 mg/dL UREA NITROGEN (BUN) (test code = 3094-0) 30 mg/dL CREATININE (test code = 2160-0) 0.90 mg/dL EGFR (test code = 94092-0) 76 mL/min/1.73m2 BUN/CREATININE RATIO (test code = 3097-3) 33 (calc) SODIUM (test code = 2951-2) 137 mmol/L POTASSIUM (test code = 2823-3) 4.5 mmol/L CHLORIDE (test code = 2075-0) 97 mmol/L CARBON DIOXIDE (test code = 2027-9) 28 mmol/L CALCIUM (test code = 98111-1) 10.3 mg/dL PROTEIN, TOTAL (test code = 2885-2) 8.2 g/dL ALBUMIN (test code = 1751-7) 5.0 g/dL GLOBULIN (test code = 55558-0) 3.2 g/dL(calc) ALBUMIN/GLOBULIN RATIO (test code = 1759-0) 1.6 (calc) BILIRUBIN, TOTAL (test code = 1975-2) 0.4 mg/dL ALKALINE PHOSPHATASE (test code = 6768-6) 51 U/L AST (test code = 1920-8) 32 U/L ALT (test code = 1742-6) 31 U/L Fracisco PersonLIPID [id number] 00:00:00* Test Item Value Reference Range Interpretation Comme nts CHOLESTEROL, TOTAL (test cod e = 3-3) 199 mg/dL HDL CHOLESTEROL (test code = 5-9) 58 mg/dL TRIGLYCERIDES (test code = 2571-8) 294 mg/dL LDL-CHOLESTEROL (test code = 63109-0) 102 mg/dL(calc) CHOL/HDLC RATIO (test code = 9830-1) 3.4 (calc) NON HDL CHOLESTEROL (test code = 59550-8) 141 mg/dL(calc) Fracisco PersonHEMOGLOBIN [id number] 00:00:00* Test Item Value Reference Range Interpretation Comme nts HEMOGLOBIN A1c (test code = 4548-4) 7.9 %oftotalHgb Fracisco PersonMICROALBUMIN, RANDOM URINE (W/CREATININE)2024-11-26 00:00:00* Test Item Value Reference Range Interpretation Comme nts CREATININE, RANDOM URINE (te st code = 216-8) 85 mg/dL ALBUMIN, URINE (test code = 71723-7) 1.6 mg/dL ALBUMIN/CREATININE RATIO, RA NDOM URINE (test code = 9318-7) 19 mg/gcreat Fracisco PersonCOMPREHENSIVE METABOLIC [id number] 00:00:00* Test Item Value Reference Range Interpretation Comme nts GLUCOSE (test code = 2345-7) 123 mg/dL UREA NITROGEN (BUN) (test code = 3094-0) 30 mg/dL CREATININE (test code = 2160-0) 0.90 mg/dL EGFR (test code = 28083-6) 76 mL/min/1.73m2 BUN/CREATININE RATIO (test code = 3097-3) 33 (calc) SODIUM (test code = 2951-2) 137 mmol/L POTASSIUM (test code = 2823-3) 4.5 mmol/L CHLORIDE (test code = 2075-0) 97 mmol/L CARBON DIOXIDE (test code = 8-9) 28 mmol/L CALCIUM (test code = 67325-5) 10.3 mg/dL PROTEIN, TOTAL (test code = 2885-2) 8.2 g/dL ALBUMIN (test code = 1751-7) 5.0 g/dL GLOBULIN (test code = 16898-4) 3.2 g/dL(calc) ALBUMIN/GLOBULIN RATIO (test code = 1759-0) 1.6 (calc) BILIRUBIN, TOTAL (test code = 1975-2) 0.4 mg/dL ALKALINE PHOSPHATASE (test code = 6768-6) 51 U/L AST (test code = 1920-8) 32 U/L ALT (test code = 1742-6) 31 U/L Fracisco PersonLIPID [id number] 00:00:00* Test Item Value Reference Range Interpretation Comme nts CHOLESTEROL, TOTAL (test cod e = 2093-3) 199 mg/dL HDL CHOLESTEROL (test code = 2085-9) 58 mg/dL TRIGLYCERIDES (test code = 2571-8) 294 mg/dL LDL-CHOLESTEROL (test code = 17738-2) 102 mg/dL(calc) CHOL/HDLC RATIO (test code = 9830-1) 3.4 (calc) NON HDL CHOLESTEROL (test code = 28522-2) 141 mg/dL(calc) Fracisco PersonHEMOGLOBIN [id number] 00:00:00* Test Item Value Reference Range Interpretation Comme nts HEMOGLOBIN A1c (test code = 4548-4) 7.9 %oftotalHgb Fracisco PersonMICROALBUMIN, RANDOM URINE (W/CREATININE)2024-11-26 00:00:00* Test Item Value Reference Range Interpretation Comme nts CREATININE, RANDOM URINE (te st code = 2161-8) 85 mg/dL ALBUMIN, URINE (test code = 19139-0) 1.6 mg/dL ALBUMIN/CREATININE RATIO, RA NDOM URINE (test code = 9318-7) 19 mg/gcreat Fracisco Guardado AustinLIPID [id number] 02:55:13* Test Item Value Reference Range Interpretation Comme nts CHOLESTEROL (test code = 2210) 203 MG/DL <200 H TRIGLYCERIDES (test code = 2232) 304 MG/DL <150 H HDL CHOLESTEROL (test code = 2220) 53 MG/DL >39 CALC LDL CHOL (test code = 2237) 109 MG/DL <100 H NOTE: CALCULATED LDL IS BASED ON KRISTEN-PIERCE METHOD WHICHINCLUDES ADJUSTABLE TRIGLYCERIDE:VLDL CHOLESTEROL RATIO.THIS FACTOR VARIES BY MEASURED TRIGLYCERIDE AND NON-HDLCHOLESTEROL CONCENTRATIONS WITH INCREASED CALCULATED LDL SEENIN HIGHER TRIGLYCERIDE OR LOWER NON-HDL SPECIMENS. FOR MOREINFORMATION, SEE CLIENT ANNOUNCEMENT AT [email or web address] RISK RATIO LDL/HDL (test code = 2238) 2.06 RATIO <3.22 COMPREHENSIVE METABOLIC [id number] 02:55:13* Test Item Value Reference Range Interpretation Comme nts GLUCOSE (test code = 2217) 157 MG/DL 70-99 H BUN (test code = 2208) 16 MG/DL 6-20 CREATININE (test code = 2214) 0.74 MG/DL 0.60-1.30 eGFR (2020 CKD-EPI) (test code = 70098) 97 ML/MIN/1.73 >60 CALC BUN/CREAT (test code = 2235) 22 RATIO 6-28 SODIUM (test code = 2231) 141 MEQ/L 133-146 POTASSIUM (test code = 2228) 4.4 MEQ/L 3.5-5.4 CHLORIDE (test code = 2215) 99 MEQ/L 95-107 CARBON DIOXIDE (test code = 2206) 29 MEQ/L 19-31 CALCIUM (test code = 2209) 9.6 MG/DL 8.5-10.5 PROTEIN, TOTAL (test code = 2229) 7.3 G/DL 6.1-8.3 ALBUMIN (test code = 2201) 4.6 G/DL 3.5-5.2 CALC GLOBULIN (test code = 2240) 2.7 G/DL 1.9-3.7 CALC A/G RATIO (test code = 2234) 1.7 RATIO 1.0-2.6 BILIRUBIN, TOTAL (test code = 2207) 0.3 MG/DL <=1.2 ALKALINE PHOSPHATASE (test code = 2204) 66 U/L 40-133 AST (test code = 2218) 45 U/L 9-40 H ALT (test code = 2219) 49 U/L 5-40 H UNLESS OTHERWISE INDICATED, ALL TESTING PERFORMED AT [facility] [address] [place] [address] RADIOLOGIST DIAGNOSTIC: JALYN BAUMANN M.D. [facility] NUMBER [id number] [place]. [id number] HEMOGLOBIN [id number] 02:41:42* Test Item Value Reference Range Interpretation Comme nts HEMOGLOBIN A1c (test code = 86173) 7.5 % 4.2-5.6 H [employer] GUIDELINES FOR HGB A1C: PREDIABETES/INCREASED RISK . . . . . . . 5.7-6.4% DIAGNOSIS OF DIABETES . . . . . . . . . >=6.5% WITH CONFIRMATION OR APPROPRIATE SYMPTOMS NOTE: ASSAY MAY BE AFFECTED BY HEMOGLOBINOPATHIES (SICKLE CELL ANEMIA, S-C DISEASE, OTHERS) OR ARTIFICIALLY LOWERED BY DECREASED RED CELL SURVIVAL (HEMOLYTIC ANEMIAS, BLOOD LOSS, ETC.). CONSIDER ALTERNATE TESTING OR LABORATORY CONSULTATION. HEMOGLOBIN [id number] 00:00:00* Test Item Value Reference Range Interpretation Comme nts HEMOGLOBIN A1c (test code = 57572) 7.5 % Fracisco Guardado AustinLIPID [id number] 00:00:00* Test Item Value Reference Range Interpretation Comme nts CHOLESTEROL (test code = 2210) 203 MG/DL TRIGLYCERIDES (test code = 2232) 304 MG/DL HDL CHOLESTEROL (test code = 2220) 53 MG/DL CALC LDL CHOL (test code = 2237) 109 MG/DL RISK RATIO LDL/HDL (test cod e = 2238) 2.06 RATIO Fracisco PersonCOMPREHENSIVE METABOLIC [id number] 00:00:00* Test Item Value Reference Range Interpretation Comme nts GLUCOSE (test code = 2217) 157 MG/DL BUN (test code = 2208) 16 MG/DL CREATININE (test code = 2214) 0.74 MG/DL eGFR (2020 CKD-EPI) (test co de = 41624) 97 ML/MIN/1.73 CALC BUN/CREAT (test code = 2235) 22 RATIO SODIUM (test code = 2231) 141 MEQ/L POTASSIUM (test code = 2228) 4.4 MEQ/L CHLORIDE (test code = 2215) 99 MEQ/L CARBON DIOXIDE (test code = 2206) 29 MEQ/L CALCIUM (test code = 2209) 9.6 MG/DL PROTEIN, TOTAL (test code = 2229) 7.3 G/DL ALBUMIN (test code = 2201) 4.6 G/DL CALC GLOBULIN (test code = 2240) 2.7 G/DL CALC A/G RATIO (test code = 2234) 1.7 RATIO BILIRUBIN, TOTAL (test code = 2207) 0.3 MG/DL ALKALINE PHOSPHATASE (test code = 2204) 66 U/L AST (test code = 2218) 45 U/L ALT (test code = 2219) 49 U/L [place] PersonHEMOGLOBIN [id number] 00:00:00* Test Item Value Reference Range Interpretation Comme nts HEMOGLOBIN A1c (test code = 11908) 7.5 % Fracisco Guardado AustinLIPID [id number] 00:00:00* Test Item Value Reference Range Interpretation Comme nts CHOLESTEROL (test code = 2210) 203 MG/DL TRIGLYCERIDES (test code = 2232) 304 MG/DL HDL CHOLESTEROL (test code = 2220) 53 MG/DL CALC LDL CHOL (test code = 2237) 109 MG/DL RISK RATIO LDL/HDL (test cod e = 2238) 2.06 RATIO Fracisco Guardado AustinCOMPREHENSIVE METABOLIC [id number] 00:00:00* Test Item Value Reference Range Interpretation Comme nts GLUCOSE (test code = 2217) 157 MG/DL BUN (test code = 2208) 16 MG/DL CREATININE (test code = 2214) 0.74 MG/DL eGFR (2020 CKD-EPI) (test co de = 05265) 97 ML/MIN/1.73 CALC BUN/CREAT (test code = 2235) 22 RATIO SODIUM (test code = 2231) 141 MEQ/L POTASSIUM (test code = 2228) 4.4 MEQ/L CHLORIDE (test code = 2215) 99 MEQ/L CARBON DIOXIDE (test code = 2206) 29 MEQ/L CALCIUM (test code = 2209) 9.6 MG/DL PROTEIN, TOTAL (test code = 2229) 7.3 G/DL ALBUMIN (test code = 2201) 4.6 G/DL CALC GLOBULIN (test code = 2240) 2.7 G/DL CALC A/G RATIO (test code = 2234) 1.7 RATIO BILIRUBIN, TOTAL (test code = 2207) 0.3 MG/DL ALKALINE PHOSPHATASE (test code = 2204) 66 U/L AST (test code = 2218) 45 U/L ALT (test code = 2219) 49 U/L Fracisco PersonHEMOGLOBIN [id number] 00:00:00* Test Item Value Reference Range Interpretation Comme nts HEMOGLOBIN A1c (test code = 22477) 7.5 % Fracisco PersonLIPID [id number] 00:00:00* Test Item Value Reference Range Interpretation Comme nts CHOLESTEROL (test code = 2210) 203 MG/DL TRIGLYCERIDES (test code = 2232) 304 MG/DL HDL CHOLESTEROL (test code = 2220) 53 MG/DL CALC LDL CHOL (test code = 2237) 109 MG/DL RISK RATIO LDL/HDL (test cod e = 2238) 2.06 RATIO Fracisco PersonCOMPREHENSIVE METABOLIC [id number] 00:00:00* Test Item Value Reference Range Interpretation Comme nts GLUCOSE (test code = 2217) 157 MG/DL BUN (test code = 2208) 16 MG/DL CREATININE (test code = 2214) 0.74 MG/DL eGFR (2020 CKD-EPI) (test co de = 03796) 97 ML/MIN/1.73 CALC BUN/CREAT (test code = 2235) 22 RATIO SODIUM (test code = 2231) 141 MEQ/L POTASSIUM (test code = 2228) 4.4 MEQ/L CHLORIDE (test code = 2215) 99 MEQ/L CARBON DIOXIDE (test code = 2206) 29 MEQ/L CALCIUM (test code = 2209) 9.6 MG/DL PROTEIN, TOTAL (test code = 2229) 7.3 G/DL ALBUMIN (test code = 2201) 4.6 G/DL CALC GLOBULIN (test code = 2240) 2.7 G/DL CALC A/G RATIO (test code = 2234) 1.7 RATIO BILIRUBIN, TOTAL (test code = 2207) 0.3 MG/DL ALKALINE PHOSPHATASE (test code = 2204) 66 U/L AST (test code = 2218) 45 U/L ALT (test code = 2219) 49 U/L [place] PersonHEMOGLOBIN [id number] 00:00:00* Test Item Value Reference Range Interpretation Comme nts HEMOGLOBIN A1c (test code = 82039) 7.5 % [place] PersonLIPID [id number] 00:00:00* Test Item Value Reference Range Interpretation Comme nts CHOLESTEROL (test code = 2210) 203 MG/DL TRIGLYCERIDES (test code = 2232) 304 MG/DL HDL CHOLESTEROL (test code = 2220) 53 MG/DL CALC LDL CHOL (test code = 2237) 109 MG/DL RISK RATIO LDL/HDL (test cod e = 2238) 2.06 RATIO [place] PersonCOMPREHENSIVE METABOLIC [id number] 00:00:00* Test Item Value Reference Range Interpretation Comme nts GLUCOSE (test code = 2217) 157 MG/DL BUN (test code = 2208) 16 MG/DL CREATININE (test code = 2214) 0.74 MG/DL eGFR (2020 CKD-EPI) (test co de = 26357) 97 ML/MIN/1.73 CALC BUN/CREAT (test code = 2235) 22 RATIO SODIUM (test code = 2231) 141 MEQ/L POTASSIUM (test code = 2228) 4.4 MEQ/L CHLORIDE (test code = 2215) 99 MEQ/L CARBON DIOXIDE (test code = 2206) 29 MEQ/L CALCIUM (test code = 2209) 9.6 MG/DL PROTEIN, TOTAL (test code = 2229) 7.3 G/DL ALBUMIN (test code = 2201) 4.6 G/DL CALC GLOBULIN (test code = 2240) 2.7 G/DL CALC A/G RATIO (test code = 2234) 1.7 RATIO BILIRUBIN, TOTAL (test code = 2207) 0.3 MG/DL ALKALINE PHOSPHATASE (test code = 2204) 66 U/L AST (test code = 2218) 45 U/L ALT (test code = 2219) 49 U/L [place] PersonHEMOGLOBIN [id number] 00:00:00* Test Item Value Reference Range Interpretation Comme nts HEMOGLOBIN A1c (test code = 83022) 7.5 % [place] PersonLIPID [id number] 00:00:00* Test Item Value Reference Range Interpretation Comme nts CHOLESTEROL (test code = 2210) 203 MG/DL TRIGLYCERIDES (test code = 2232) 304 MG/DL HDL CHOLESTEROL (test code = 2220) 53 MG/DL CALC LDL CHOL (test code = 2237) 109 MG/DL RISK RATIO LDL/HDL (test cod e = 2238) 2.06 RATIO [place] PersonCOMPREHENSIVE METABOLIC [id number] 00:00:00* Test Item Value Reference Range Interpretation Comme nts GLUCOSE (test code = 2217) 157 MG/DL BUN (test code = 2208) 16 MG/DL CREATININE (test code = 2214) 0.74 MG/DL eGFR (2020 CKD-EPI) (test co de = 78364) 97 ML/MIN/1.73 CALC BUN/CREAT (test code = 2235) 22 RATIO SODIUM (test code = 2231) 141 MEQ/L POTASSIUM (test code = 2228) 4.4 MEQ/L CHLORIDE (test code = 2215) 99 MEQ/L CARBON DIOXIDE (test code = 2206) 29 MEQ/L CALCIUM (test code = 2209) 9.6 MG/DL PROTEIN, TOTAL (test code = 2229) 7.3 G/DL ALBUMIN (test code = 2201) 4.6 G/DL CALC GLOBULIN (test code = 2240) 2.7 G/DL CALC A/G RATIO (test code = 2234) 1.7 RATIO BILIRUBIN, TOTAL (test code = 2207) 0.3 MG/DL ALKALINE PHOSPHATASE (test code = 2204) 66 U/L AST (test code = 2218) 45 U/L ALT (test code = 2219) 49 U/L [place] PersonHEMOGLOBIN [id number] 00:00:00* Test Item Value Reference Range Interpretation Comme nts HEMOGLOBIN A1c (test code = 56166) 7.5 % [place] PersonLIPID [id number] 00:00:00* Test Item Value Reference Range Interpretation Comme nts CHOLESTEROL (test code = 2210) 203 MG/DL TRIGLYCERIDES (test code = 2232) 304 MG/DL HDL CHOLESTEROL (test code = 2220) 53 MG/DL CALC LDL CHOL (test code = 2237) 109 MG/DL RISK RATIO LDL/HDL (test cod e = 2238) 2.06 RATIO [place] PersonCOMPREHENSIVE METABOLIC [id number] 00:00:00* Test Item Value Reference Range Interpretation Comme nts GLUCOSE (test code = 2217) 157 MG/DL BUN (test code = 2208) 16 MG/DL CREATININE (test code = 2214) 0.74 MG/DL eGFR (2020 CKD-EPI) (test co de = 26278) 97 ML/MIN/1.73 CALC BUN/CREAT (test code = 2235) 22 RATIO SODIUM (test code = 2231) 141 MEQ/L POTASSIUM (test code = 2228) 4.4 MEQ/L CHLORIDE (test code = 2215) 99 MEQ/L CARBON DIOXIDE (test code = 2206) 29 MEQ/L CALCIUM (test code = 2209) 9.6 MG/DL PROTEIN, TOTAL (test code = 2229) 7.3 G/DL ALBUMIN (test code = 2201) 4.6 G/DL CALC GLOBULIN (test code = 2240) 2.7 G/DL CALC A/G RATIO (test code = 2234) 1.7 RATIO BILIRUBIN, TOTAL (test code = 2207) 0.3 MG/DL ALKALINE PHOSPHATASE (test code = 2204) 66 U/L AST (test code = 2218) 45 U/L ALT (test code = 2219) 49 U/L [place] PersonHEMOGLOBIN [id number] 00:00:00* Test Item Value Reference Range Interpretation Comme nts HEMOGLOBIN A1c (test code = 53042) 7.5 % [place] Guardado AustinLIPID [id number] 00:00:00* Test Item Value Reference Range Interpretation Comme nts CHOLESTEROL (test code = 2210) 203 MG/DL TRIGLYCERIDES (test code = 2232) 304 MG/DL HDL CHOLESTEROL (test code = 2220) 53 MG/DL CALC LDL CHOL (test code = 2237) 109 MG/DL RISK RATIO LDL/HDL (test cod e = 2238) 2.06 RATIO Fracisco PersonCOMPREHENSIVE METABOLIC [id number] 00:00:00* Test Item Value Reference Range Interpretation Comme nts GLUCOSE (test code = 2217) 157 MG/DL BUN (test code = 2208) 16 MG/DL CREATININE (test code = 2214) 0.74 MG/DL eGFR (2020 CKD-EPI) (test co de = 49890) 97 ML/MIN/1.73 CALC BUN/CREAT (test code = 2235) 22 RATIO SODIUM (test code = 2231) 141 MEQ/L POTASSIUM (test code = 2228) 4.4 MEQ/L CHLORIDE (test code = 2215) 99 MEQ/L CARBON DIOXIDE (test code = 2206) 29 MEQ/L CALCIUM (test code = 2209) 9.6 MG/DL PROTEIN, TOTAL (test code = 2229) 7.3 G/DL ALBUMIN (test code = 2201) 4.6 G/DL CALC GLOBULIN (test code = 2240) 2.7 G/DL CALC A/G RATIO (test code = 2234) 1.7 RATIO BILIRUBIN, TOTAL (test code = 2207) 0.3 MG/DL ALKALINE PHOSPHATASE (test code = 2204) 66 U/L AST (test code = 2218) 45 U/L ALT (test code = 2219) 49 U/L Fracisco PersonH. PYLORI (BREATH)2024-06-30 13:40:05* Test Item Value Reference Range Interpretation Comme nts H. PYLORI (BREATH) (test code = 70506) NEGATIVE NEGATIVE UNLESS OTHER ORELLANA INDICATED, ALL TESTING PERFORMED AT [facility] [address] [place] [address] RADIOLOGIST DIAGNOSTIC: JALYN BAUMANN M.D. CLIA NUMBER [id number] [place]. [id number] H. PYLORI (BREATH)2024-06-30 00:00:00* Test Item Value Reference Range Interpretation Comme nts H. PYLORI (BREATH) (test cod e = 24038) NEGATIVE Fracisco Guardado AustinH. PYLORI (BREATH)2024-06-30 00:00:00* Test Item Value Reference Range Interpretation Comme nts H. PYLORI (BREATH) (test cod e = 16125) NEGATIVE Fracisco Guardado AustinH. PYLORI (BREATH)2024-06-30 00:00:00* Test Item Value Reference Range Interpretation Comme nts H. PYLORI (BREATH) (test cod e = 74095) NEGATIVE Fracisco Guardado AustinH. PYLORI (BREATH)2024-06-30 00:00:00* Test Item Value Reference Range Interpretation Comme nts H. PYLORI (BREATH) (test cod e = 45711) NEGATIVE Fracisco Guardado AustinH. PYLORI (BREATH)2024-06-30 00:00:00* Test Item Value Reference Range Interpretation Comme nts H. PYLORI (BREATH) (test cod e = 51277) NEGATIVE Fracisco Guardado AustinH. PYLORI (BREATH)2024-06-30 00:00:00* Test Item Value Reference Range Interpretation Comme nts H. PYLORI (BREATH) (test cod e = 48633) NEGATIVE Fracisco Guardado AustinH. PYLORI (BREATH)2024-06-30 00:00:00* Test Item Value Reference Range Interpretation Comme nts H. PYLORI (BREATH) (test cod e = 80074) NEGATIVE Fracisco Guardado AustinH. PYLORI (BREATH)2024-06-30 00:00:00* Test Item Value Reference Range Interpretation Comme nts H. PYLORI (BREATH) (test cod e = 82242) NEGATIVE Fracisco Guardado AustinPAP TEST, THINPREP, IMAGED + HPV HIGH RISK + GC AND CHLAMYDIA [id number] 13:58:03* Test Item Value Reference Range Interpretation Comme nts SOURCE: (test code = 8001) Unspecified SLIDES: (test code = 8011) 1 LMP: (test code = 8021) NOT GIVEN SPECIMEN ADEQUACY: (test code = 46239) (NOTE) Satisfactory for evaluation. INTERPRETATION: (test code = 83911) NILM/NO EPITH. ABNORMALITY;SEE BELOW -- ---- NEGATIVE FOR INTRAEPITHELIAL LESION OR MALIGNANCY (NILM) ------- WEB CONSULTANT : (test code = 8101) MICHAEL Razo(ASCP)[facility] LOCATION: (test code = 10192) (NOTE) Specimens proces sed and interpreted at [facility], [address] [place] [address], , CLIA: [id number] CPT: (test code = 8140) [address]296 UNLESS OTHERWISE INDICATED, COMPUTER AIDED AND WEB CONSULTANT SCREENING PERFORMED. The Pap test is a screening test with an inherent, but low probability of error. Your patient should be reminded to consult you immediately if she experiences any suspicious signs or symptoms, regardless of her Pap test result. An alternate report format containing images or consolidated prior Pap history is available as applicable. HPV HIGH RISK INTERP (test code = 28482) NEGATIVE NEGATIVE HPV 16 (test code = 67224) NEGATIVE HPV 18 (test code = 05612) NEGATIVE HPV, HR, OTHER GENOTYPES (test code = 02433) NEGATIVE Testing methodol ogy is real-time PCR utilizing hydrolysis probes with the Karolina Maryann system. The test individually detects genotypes 16 and 18, as well as the other 12 high risk types (31,33,35,39,45,51,52, 56,58,59,66,68). The expected result is negative. A negative result does not rule out the presence of HPV not included in the genotype set, a low level of infection or specimen sampling error. GONORRHEA, NAAT, THINPREP (test code = 64653) NEGATIVE NEGATIVE A negative resul t does not exclude low level infection, specimensampling error, or collection error. Testing is performed with the Karolina Maryann 6800/8800 systems usingreal-time Polymerase Chain Reaction (PCR) method. CHLAMYDIA, NAAT, THINPREP (test code = 55602) NEGATIVE NEGATIVE A negative resul t does not exclude low level infection, specimensampling error, or collection error. Testing is performed with the Karolina Maryann 6800/8800 systems usingreal-time Polymerase Chain Reaction (PCR) method. UNLESS OTHERWISE INDICATED, ALL TESTING PERFORMED AT [facility] [address] [place] [address] RADIOLOGIST DIAGNOSTIC: JALYN BAUMANN M.D. CLIA NUMBER [id number] [place]. [id number] HEPATITIS PANEL, [id number] 05:04:34* Test Item Value Reference Range Interpretation Comments HEPATITIS A TOTAL AB (test code = 2725) REACTIVE NON-REACTIVE A HEPATITIS B SURF AG (test code = 2739) NON-REACTIVE NON-REACTIVE HEP B CORE TOTAL AB (test code = 2729) NON-REACTIVE NON-REACTIVE HEPATITIS B SURFACE AB (test code = 2737) NON-REACTIVE NON-REACTIVE HEPATITIS C ANTIBODY (test code = 4675) NON-REACTIVE NON-REACTIVE INTERPRETATION HEPATITIS A: (test code = 2552) (NOTE) Hepatitis A sero logy consistent with past exposure or previousvaccination to hepatitis A virus. No evidence of current acutehepatitis A infection. INTERPRETATION HEPATITIS B: (test code = 67531) (NOTE) Hepatitis B sero logy shows no evidence of past exposure to orcurrent infection with hepatitis B virus. No evidence of hepatitis Bimmunization is identified. INTERPRETATION HEPATITIS C: (test code = 86562) (NOTE) Hepatitis C sero logy shows no evidence of exposure to hepatitisC virus at this time. It can take up to 12 months after exposure tothe hepatitis C virus for antibodies to become detectable in the blood in certain patients. HIV 1/2 4TH GEN, RFLX [id number] 05:04:34* Test Item Value Reference Range Interpretation Comme nts HIV 1/2 4TH GEN, RFLX CONF ( test code = 3514) NON-REACTIVE NON-REACTIVE HEPATITIS A [id number] 05:04:34* Test Item Value Reference Range Interpretation Comme nts HEPATITIS A IgM (test code = 2728) NON-REACTIVE NON-REACTIVE UNLESS OTHERW ISE INDICATED, ALL TESTING PERFORMED AT [facility] [address] [place] [address] RADIOLOGIST DIAGNOSTIC: JALYN BAUMANN M.D. CLIA NUMBER [id number] [place]. [id number] RPR REFLEX TO T. PALLIDUM - [id number] 03:29:23* Test Item Value Reference Range Interpretation Comme nts RPR (test code = 19489) NON-REACTIVE NON-REACTIVE RPR TITER (test code = 3500) NOT INDIC. TITER NOT INDIC. PAP TEST, THINPREP, IMAGED + HPV HIGH RISK + GC AND CHLAMYDIA [id number] 00:00:00* Test Item Value Reference Range Interpretation Comme nts SOURCE: (test code = 8001) Unspecified SLIDES: (test code = 8011) 1 LMP: (test code = 8021) NOT GIVEN SPECIMEN ADEQUACY: (test code = 27272) (NOTE) INTERPRETATION: (test code = 45104) NILM/NO EPITH. ABNORMALITY;SEE BELOW WEB CONSULTANT: (test code = 8101) MICHAEL Razo(ASCP)[facility] LOCATION: (test code = 43452) (NOTE) CPT: (test code = 8140) 86752 HPV HIGH RISK INTERP (test code = 09184) NEGATIVE HPV 16 (test code = 85486) NEGATIVE HPV 18 (test code = 67001) NEGATIVE HPV, HR, OTHER GENOTYPES (test code = 53012) NEGATIVE GONORRHEA, NAAT, THINPREP (test code = 71439) NEGATIVE CHLAMYDIA, NAAT, THINPREP (test code = 87368) NEGATIVE PDFE (test code = PDFReport) PDF Fracisco Guardado AustinHEPATITIS PROFILE (A,B,C)2024-05-12 00:00:00* Test Item Value Reference Range Interpretation Comme nts HEPATITIS A TOTAL AB (test c ode = 2725) REACTIVE HEPATITIS B SURF AG (test co de = 2739) NON-REACTIVE HEP B CORE TOTAL AB (test co de = 2729) NON-REACTIVE HEPATITIS B SURFACE AB (test code = 2737) NON-REACTIVE HEPATITIS C ANTIBODY (test c ode = 4675) NON-REACTIVE INTERPRETATION HEPATITIS A: (test code = 2552) (NOTE) INTERPRETATION HEPATITIS B: (test code = 30589) (NOTE) INTERPRETATION HEPATITIS C: (test code = 53004) (NOTE) Fracisco PersonHIV 1/2 4TH GEN, RFLX [id number] 00:00:00* Test Item Value Reference Range Interpretation Comme nts HIV 1/2 4TH GEN, RFLX CONF ( test code = 3514) NON-REACTIVE Fracisco F AustinRPR REFLEX TO T. PALLIDUM - [id number] 00:00:00* Test Item Value Reference Range Interpretation Comme nts RPR (test code = 85067) NON-REACTIVE RPR TITER (test code = 3500) NOT INDIC. TITER Fracisco PersonHEPATITIS A IgM [REFLEX]2024-05-12 00:00:00* Test Item Value Reference Range Interpretation Comme nts HEPATITIS A IgM (test code = 2728) NON-REACTIVE Fracisco Guardado AustinPAP TEST, THINPREP, IMAGED + HPV HIGH RISK + GC AND CHLAMYDIA A 2024-05-12 00:00:00* Test Item Value Reference Range Interpretation Comme nts SOURCE: (test code = 8001) Unspecified SLIDES: (test code = 8011) 1 LMP: (test code = 8021) NOT GIVEN SPECIMEN ADEQUACY: (test code = 79078) (NOTE) INTERPRETATION: (test code = 95675) NILM/NO EPITH. ABNORMALITY;SEE BELOW WEB CONSULTANT: (test code = 8101) MICHAEL Razo(ASCP)[facility] LOCATION: (test code = 94094) (NOTE) CPT: (test code = 8140) 66773 HPV HIGH RISK INTERP (test code = 36909) NEGATIVE HPV 16 (test code = 52835) NEGATIVE HPV 18 (test code = 34279) NEGATIVE HPV, HR, OTHER GENOTYPES (test code = 97862) NEGATIVE GONORRHEA, NAAT, THINPREP (test code = 68947) NEGATIVE CHLAMYDIA, NAAT, THINPREP (test code = 07024) NEGATIVE PDFE (test code = PDFReport) PDF Fracisco LunaPATITIS PROFILE (A,B,C)2024-05-12 00:00:00* Test Item Value Reference Range Interpretation Comme nts HEPATITIS A TOTAL AB (test c ode = 2725) REACTIVE HEPATITIS B SURF AG (test co de = 2739) NON-REACTIVE HEP B CORE TOTAL AB (test co de = 2729) NON-REACTIVE HEPATITIS B SURFACE AB (test code = 2737) NON-REACTIVE HEPATITIS C ANTIBODY (test c ode = 4603) NON-REACTIVE INTERPRETATION HEPATITIS A: (test code = 2552) (NOTE) INTERPRETATION HEPATITIS B: (test code = 41661) (NOTE) INTERPRETATION HEPATITIS C: (test code = 31733) (NOTE) Fracisco F AustinHIV 1/2 4TH GEN, RFLX [id number] 00:00:00* Test Item Value Reference Range Interpretation Comme nts HIV 1/2 4TH GEN, RFLX CONF ( test code = 3514) NON-REACTIVE Fracisco Guardado AustinRPR REFLEX TO T. PALLIDUM - [id number] 00:00:00* Test Item Value Reference Range Interpretation Comme nts RPR (test code = 82604) NON-REACTIVE RPR TITER (test code = 3500) NOT INDIC. TITER Fracisco PersonHEPATITIS A IgM [REFLEX]2024-05-12 00:00:00* Test Item Value Reference Range Interpretation Comme nts HEPATITIS A IgM (test code = 2728) NON-REACTIVE Fracisco Guardado AustinHEPATITIS PROFILE (A,B,C)2024-05-12 00:00:00* Test Item Value Reference Range Interpretation Comme nts HEPATITIS A TOTAL AB (test c ode = 2725) REACTIVE HEPATITIS B SURF AG (test co de = 2739) NON-REACTIVE HEP B CORE TOTAL AB (test co de = 2729) NON-REACTIVE HEPATITIS B SURFACE AB (test code = 2737) NON-REACTIVE HEPATITIS C ANTIBODY (test c ode = 4675) NON-REACTIVE INTERPRETATION HEPATITIS A: (test code = 2552) (NOTE) INTERPRETATION HEPATITIS B: (test code = 74159) (NOTE) INTERPRETATION HEPATITIS C: (test code = 43261) (NOTE) Fracisco PersonPAP TEST, THINPREP, IMAGED + HPV HIGH RISK + GC AND CHLAMYDIA A 2024-05-12 00:00:00* Test Item Value Reference Range Interpretation Comme nts SOURCE: (test code = 8001) Unspecified SLIDES: (test code = 8011) 1 LMP: (test code = 8021) NOT GIVEN SPECIMEN ADEQUACY: (test code = 79900) (NOTE) INTERPRETATION: (test code = 84683) NILM/NO EPITH. ABNORMALITY;SEE BELOW WEB CONSULTANT: (test code = 8101) MICHAEL Razo(ASCP)[facility] LOCATION: (test code = 77973) (NOTE) CPT: (test code = 8140) 00917 HPV HIGH RISK INTERP (test code = 35296) NEGATIVE HPV 16 (test code = 90287) NEGATIVE HPV 18 (test code = 54423) NEGATIVE HPV, HR, OTHER GENOTYPES (test code = 21746) NEGATIVE GONORRHEA, NAAT, THINPREP (test code = 19958) NEGATIVE CHLAMYDIA, NAAT, THINPREP (test code = 24722) NEGATIVE PDFE (test code = PDFReport) PDF Fracisco Guardado AustinHIV 1/2 4TH GEN, RFLX [id number] 00:00:00* Test Item Value Reference Range Interpretation Comme nts HIV 1/2 4TH GEN, RFLX CONF ( test code = 3514) NON-REACTIVE Fracisco Guardado AustinRPR REFLEX TO T. PALLIDUM - [id number] 00:00:00* Test Item Value Reference Range Interpretation Comme nts RPR (test code = 76914) NON-REACTIVE RPR TITER (test code = 3500) NOT INDIC. TITER Fracisco Guardado AustinHEPATITIS A IgM [REFLEX]2024-05-12 00:00:00* Test Item Value Reference Range Interpretation Comme nts HEPATITIS A IgM (test code = 2728) NON-REACTIVE Fracisco Guardado AustinPAP TEST, THINPREP, IMAGED + HPV HIGH RISK + GC AND CHLAMYDIA A 2024-05-12 00:00:00* Test Item Value Reference Range Interpretation Comme nts SOURCE: (test code = 8001) Unspecified SLIDES: (test code = 8011) 1 LMP: (test code = 8021) NOT GIVEN SPECIMEN ADEQUACY: (test code = 30759) (NOTE) INTERPRETATION: (test code = 82962) NILM/NO EPITH. ABNORMALITY;SEE BELOW WEB CONSULTANT: (test code = 8101) MICHAEL Razo(ASCP)[facility] LOCATION: (test code = 88419) (NOTE) CPT: (test code = 8140) 88795 HPV HIGH RISK INTERP (test code = 45032) NEGATIVE HPV 16 (test code = 84601) NEGATIVE HPV 18 (test code = 55563) NEGATIVE HPV, HR, OTHER GENOTYPES (test code = 19763) NEGATIVE GONORRHEA, NAAT, THINPREP (test code = 31689) NEGATIVE CHLAMYDIA, NAAT, THINPREP (test code = 22223) NEGATIVE PDFE (test code = PDFReport) PDF Fracisco Guardado AustinHEPATITIS PROFILE (A,B,C)2024-05-12 00:00:00* Test Item Value Reference Range Interpretation Comme nts HEPATITIS A TOTAL AB (test c ode = 2725) REACTIVE HEPATITIS B SURF AG (test co de = 2739) NON-REACTIVE HEP B CORE TOTAL AB (test co de = 2729) NON-REACTIVE HEPATITIS B SURFACE AB (test code = 2737) NON-REACTIVE HEPATITIS C ANTIBODY (test c ode = 4675) NON-REACTIVE INTERPRETATION HEPATITIS A: (test code = 2552) (NOTE) INTERPRETATION HEPATITIS B: (test code = 75734) (NOTE) INTERPRETATION HEPATITIS C: (test code = 62916) (NOTE) Fracisco Guardado AustinHIV 1/2 4TH GEN, RFLX [id number] 00:00:00* Test Item Value Reference Range Interpretation Comme nts HIV 1/2 4TH GEN, RFLX CONF ( test code = 3514) NON-REACTIVE Fracisco Guardado AustinRPR REFLEX TO T. PALLIDUM - [id number] 00:00:00* Test Item Value Reference Range Interpretation Comme nts RPR (test code = 55251) NON-REACTIVE RPR TITER (test code = 3500) NOT INDIC. TITER Fracisco Guardado AustinHEPATITIS A IgM [REFLEX]2024-05-12 00:00:00* Test Item Value Reference Range Interpretation Comme nts HEPATITIS A IgM (test code = 2728) NON-REACTIVE Fracisco Guardado AustinHEPATITIS PROFILE (A,B,C)2024-05-12 00:00:00* Test Item Value Reference Range Interpretation Comme nts HEPATITIS A TOTAL AB (test c ode = 2725) REACTIVE HEPATITIS B SURF AG (test co de = 2739) NON-REACTIVE HEP B CORE TOTAL AB (test co de = 2729) NON-REACTIVE HEPATITIS B SURFACE AB (test code = 2737) NON-REACTIVE HEPATITIS C ANTIBODY (test c ode = 4675) NON-REACTIVE INTERPRETATION HEPATITIS A: (test code = 2552) (NOTE) INTERPRETATION HEPATITIS B: (test code = 50872) (NOTE) INTERPRETATION HEPATITIS C: (test code = 81464) (NOTE) Fracisco Guardado AustinPAP TEST, THINPREP, IMAGED + HPV HIGH RISK + GC AND CHLAMYDIA A 2024-05-12 00:00:00* Test Item Value Reference Range Interpretation Comme nts SOURCE: (test code = 8001) Unspecified SLIDES: (test code = 8011) 1 LMP: (test code = 8021) NOT GIVEN SPECIMEN ADEQUACY: (test code = 20187) (NOTE) INTERPRETATION: (test code = 33287) NILM/NO EPITH. ABNORMALITY;SEE BELOW WEB CONSULTANT: (test code = 8101) MICHAEL Razo(ASCP)[facility] LOCATION: (test code = 57882) (NOTE) CPT: (test code = 8140) 30949 HPV HIGH RISK INTERP (test code = 68941) NEGATIVE HPV 16 (test code = 18952) NEGATIVE HPV 18 (test code = 28550) NEGATIVE HPV, HR, OTHER GENOTYPES (test code = 70724) NEGATIVE GONORRHEA, NAAT, THINPREP (test code = 99489) NEGATIVE CHLAMYDIA, NAAT, THINPREP (test code = 06279) NEGATIVE PDFE (test code = PDFReport) PDF Fracisco Guardado AustinHIV 1/2 4TH GEN, RFLX [id number] 00:00:00* Test Item Value Reference Range Interpretation Comme nts HIV 1/2 4TH GEN, RFLX CONF ( test code = 3514) NON-REACTIVE Fracisco Guardado AustinRPR REFLEX TO T. PALLIDUM - [id number] 00:00:00* Test Item Value Reference Range Interpretation Comme nts RPR (test code = 80630) NON-REACTIVE RPR TITER (test code = 3500) NOT INDIC. TITER Fracisco Guardado AustinHEPATITIS A IgM [REFLEX]2024-05-12 00:00:00* Test Item Value Reference Range Interpretation Comme nts HEPATITIS A IgM (test code = 2728) NON-REACTIVE Fracisco Guardado AustinPAP TEST, THINPREP, IMAGED + HPV HIGH RISK + GC AND CHLAMYDIA A 2024-05-12 00:00:00* Test Item Value Reference Range Interpretation Comme nts SOURCE: (test code = 8001) Unspecified SLIDES: (test code = 8011) 1 LMP: (test code = 8021) NOT GIVEN SPECIMEN ADEQUACY: (test code = 42691) (NOTE) INTERPRETATION: (test code = 35454) NILM/NO EPITH. ABNORMALITY;SEE BELOW WEB CONSULTANT: (test code = 8101) MICHAEL Razo(ASCP)[facility] LOCATION: (test code = 95429) (NOTE) CPT: (test code = 8140) 32903 HPV HIGH RISK INTERP (test code = 65874) NEGATIVE HPV 16 (test code = 27573) NEGATIVE HPV 18 (test code = 59133) NEGATIVE HPV, HR, OTHER GENOTYPES (test code = 86935) NEGATIVE GONORRHEA, NAAT, THINPREP (test code = 60673) NEGATIVE CHLAMYDIA, NAAT, THINPREP (test code = 46673) NEGATIVE PDFE (test code = PDFReport) PDF Fracisco Guardado AustinHEPATITIS PROFILE (A,B,C)2024-05-12 00:00:00* Test Item Value Reference Range Interpretation Comme nts HEPATITIS A TOTAL AB (test c ode = 2725) REACTIVE HEPATITIS B SURF AG (test co de = 2739) NON-REACTIVE HEP B CORE TOTAL AB (test co de = 2729) NON-REACTIVE HEPATITIS B SURFACE AB (test code = 2737) NON-REACTIVE HEPATITIS C ANTIBODY (test c ode = 4675) NON-REACTIVE INTERPRETATION HEPATITIS A: (test code = 2552) (NOTE) INTERPRETATION HEPATITIS B: (test code = 77867) (NOTE) INTERPRETATION HEPATITIS C: (test code = 13188) (NOTE) Fracisco Guardado AustinHIV 1/2 4TH GEN, RFLX [id number] 00:00:00* Test Item Value Reference Range Interpretation Comme nts HIV 1/2 4TH GEN, RFLX CONF ( test code = 3514) NON-REACTIVE Fracisco Guardado AustinRPR REFLEX TO T. PALLIDUM - [id number] 00:00:00* Test Item Value Reference Range Interpretation Comme nts RPR (test code = 99063) NON-REACTIVE RPR TITER (test code = 3500) NOT INDIC. TITER Fracisco Guardado AustinHEPATITIS A IgM [REFLEX]2024-05-12 00:00:00* Test Item Value Reference Range Interpretation Comme nts HEPATITIS A IgM (test code = 2728) NON-REACTIVE Fracisco PersonPAP TEST, THINPREP, IMAGED + HPV HIGH RISK + GC AND CHLAMYDIA A 2024-05-12 00:00:00* Test Item Value Reference Range Interpretation Comme nts SOURCE: (test code = 8001) Unspecified SLIDES: (test code = 8011) 1 LMP: (test code = 8021) NOT GIVEN SPECIMEN ADEQUACY: (test code = 99859) (NOTE) INTERPRETATION: (test code = 14930) NILM/NO EPITH. ABNORMALITY;SEE BELOW WEB CONSULTANT: (test code = 8101) MICHAEL Razo(ASCP)[facility] LOCATION: (test code = 16657) (NOTE) CPT: (test code = 8140) 44453 HPV HIGH RISK INTERP (test code = 09996) NEGATIVE HPV 16 (test code = 94443) NEGATIVE HPV 18 (test code = 31313) NEGATIVE HPV, HR, OTHER GENOTYPES (test code = 01641) NEGATIVE GONORRHEA, NAAT, THINPREP (test code = 09232) NEGATIVE CHLAMYDIA, NAAT, THINPREP (test code = 12257) NEGATIVE PDFE (test code = PDFReport) PDF Fracisco Guardado AustinHEPATITIS PROFILE (A,B,C)2024-05-12 00:00:00* Test Item Value Reference Range Interpretation Comme nts HEPATITIS A TOTAL AB (test c ode = 2725) REACTIVE HEPATITIS B SURF AG (test co de = 2739) NON-REACTIVE HEP B CORE TOTAL AB (test co de = 2729) NON-REACTIVE HEPATITIS B SURFACE AB (test code = 2737) NON-REACTIVE HEPATITIS C ANTIBODY (test c ode = 4675) NON-REACTIVE INTERPRETATION HEPATITIS A: (test code = 2552) (NOTE) INTERPRETATION HEPATITIS B: (test code = 74259) (NOTE) INTERPRETATION HEPATITIS C: (test code = 87820) (NOTE) Fracisco Guardado AustinHIV 1/2 4TH GEN, RFLX [id number] 00:00:00* Test Item Value Reference Range Interpretation Comme nts HIV 1/2 4TH GEN, RFLX CONF ( test code = 3514) NON-REACTIVE Fracisco Guardado AustinRPR REFLEX TO T. PALLIDUM - [id number] 00:00:00* Test Item Value Reference Range Interpretation Comme nts RPR (test code = 54725) NON-REACTIVE RPR TITER (test code = 3500) NOT INDIC. TITER Fracisco Guardado AustinHEPATITIS A IgM [REFLEX]2024-05-12 00:00:00* Test Item Value Reference Range Interpretation Comme nts HEPATITIS A IgM (test code = 2728) NON-REACTIVE Fracisco Guardado AustinPAP TEST, THINPREP, IMAGED + HPV HIGH RISK + GC AND CHLAMYDIA A 2024-05-12 00:00:00* Test Item Value Reference Range Interpretation Comme nts SOURCE: (test code = 8001) Unspecified SLIDES: (test code = 8011) 1 LMP: (test code = 8021) NOT GIVEN SPECIMEN ADEQUACY: (test code = 85343) (NOTE) INTERPRETATION: (test code = 65660) NILM/NO EPITH. ABNORMALITY;SEE BELOW WEB CONSULTANT: (test code = 8101) MICHAEL Razo(ASCP)[facility] LOCATION: (test code = 80360) (NOTE) CPT: (test code = 8140) 15539 HPV HIGH RISK INTERP (test code = 13627) NEGATIVE HPV 16 (test code = 00392) NEGATIVE HPV 18 (test code = 47463) NEGATIVE HPV, HR, OTHER GENOTYPES (test code = 59151) NEGATIVE GONORRHEA, NAAT, THINPREP (test code = 46067) NEGATIVE CHLAMYDIA, NAAT, THINPREP (test code = 35874) NEGATIVE PDFE (test code = PDFReport) PDF Fracisco Guardado AustinHEPATITIS PROFILE (A,B,C)2024-05-12 00:00:00* Test Item Value Reference Range Interpretation Comme nts HEPATITIS A TOTAL AB (test c ode = 2725) REACTIVE HEPATITIS B SURF AG (test co de = 2739) NON-REACTIVE HEP B CORE TOTAL AB (test co de = 2729) NON-REACTIVE HEPATITIS B SURFACE AB (test code = 2737) NON-REACTIVE HEPATITIS C ANTIBODY (test c ode = 4675) NON-REACTIVE INTERPRETATION HEPATITIS A: (test code = 2552) (NOTE) INTERPRETATION HEPATITIS B: (test code = 44689) (NOTE) INTERPRETATION HEPATITIS C: (test code = 28977) (NOTE) Fracisco Guardado AustinHIV 1/2 4TH GEN, RFLX [id number] 00:00:00* Test Item Value Reference Range Interpretation Comme nts HIV 1/2 4TH GEN, RFLX CONF ( test code = 3514) NON-REACTIVE Fracisco Guardado AustinRPR REFLEX TO T. PALLIDUM - [id number] 00:00:00* Test Item Value Reference Range Interpretation Comme nts RPR (test code = 04696) NON-REACTIVE RPR TITER (test code = 3500) NOT INDIC. TITER Fracisco F AustinHEPATITIS A IgM [REFLEX]2024-05-12 00:00:00* Test Item Value Reference Range Interpretation Comme nts HEPATITIS A IgM (test code = 2728) NON-REACTIVE Fracisco PersonHEPATITIS PROFILE (A,B,C)2024-05-12 00:00:00* Test Item Value Reference Range Interpretation Comme nts HEPATITIS A TOTAL AB (test c ode = 2725) REACTIVE HEPATITIS B SURF AG (test co de = 2739) NON-REACTIVE HEP B CORE TOTAL AB (test co de = 2729) NON-REACTIVE HEPATITIS B SURFACE AB (test code = 2737) NON-REACTIVE HEPATITIS C ANTIBODY (test c ode = 1475) NON-REACTIVE INTERPRETATION HEPATITIS A: (test code = 2552) (NOTE) INTERPRETATION HEPATITIS B: (test code = 14748) (NOTE) INTERPRETATION HEPATITIS C: (test code = 02938) (NOTE) Fracisco PersonPAP TEST, THINPREP, IMAGED + HPV HIGH RISK + GC AND CHLAMYDIA A 2024-05-12 00:00:00* Test Item Value Reference Range Interpretation Comme nts SOURCE: (test code = 8001) Unspecified SLIDES: (test code = 8011) 1 LMP: (test code = 8021) NOT GIVEN SPECIMEN ADEQUACY: (test code = 82687) (NOTE) INTERPRETATION: (test code = 89202) NILM/NO EPITH. ABNORMALITY;SEE BELOW WEB CONSULTANT: (test code = 8101) MICHAEL Razo(ASCP)IAC LOCATION: (test code = 64584) (NOTE) CPT: (test code = 8140) 13010 HPV HIGH RISK INTERP (test code = 54719) NEGATIVE HPV 16 (test code = 85269) NEGATIVE HPV 18 (test code = 96564) NEGATIVE HPV, HR, OTHER GENOTYPES (test code = 52189) NEGATIVE GONORRHEA, NAAT, THINPREP (test code = 03403) NEGATIVE CHLAMYDIA, NAAT, THINPREP (test code = 88125) NEGATIVE PDFE (test code = PDFReport) PDF [place] PersonHIV 1/2 4TH GEN, RFLX [id number] 00:00:00* Test Item Value Reference Range Interpretation Comme nts HIV 1/2 4TH GEN, RFLX CONF ( test code = 3514) NON-REACTIVE Fracisco F AustinRPR REFLEX TO T. PALLIDUM - [id number] 00:00:00* Test Item Value Reference Range Interpretation Comme nts RPR (test code = 81796) NON-REACTIVE RPR TITER (test code = 3500) NOT INDIC. TITER Fracisco LunaPATITIS A IgM [REFLEX]2024-05-12 00:00:00* Test Item Value Reference Range Interpretation Comme nts HEPATITIS A IgM (test code = 2728) NON-REACTIVE Fr[place]isco PersonPAP TEST, THINPREP, IMAGED + HPV HIGH RISK + GC AND CHLAMYDIA A 2024-05-12 00:00:00* Test Item Value Reference Range Interpretation Comme nts SOURCE: (test code = 8001) Unspecified SLIDES: (test code = 8011) 1 LMP: (test code = 8021) NOT GIVEN SPECIMEN ADEQUACY: (test code = 69217) (NOTE) INTERPRETATION: (test code = 90176) NILM/NO EPITH. ABNORMALITY;SEE BELOW WEB CONSULTANT: (test code = 8101) MICHAEL Razo(ASCP)IAC LOCATION: (test code = 00325) (NOTE) CPT: (test code = 8140) 71365 HPV HIGH RISK INTERP (test code = 43963) NEGATIVE HPV 16 (test code = 43110) NEGATIVE HPV 18 (test code = 39690) NEGATIVE HPV, HR, OTHER GENOTYPES (test code = 19564) NEGATIVE GONORRHEA, NAAT, THINPREP (test code = 52532) NEGATIVE CHLAMYDIA, NAAT, THINPREP (test code = 88673) NEGATIVE PDFE (test code = PDFReport) PDF Fracisco LunaPATITIS PROFILE (A,B,C)2024-05-12 00:00:00* Test Item Value Reference Range Interpretation Comme nts HEPATITIS A TOTAL AB (test c ode = 4895) REACTIVE HEPATITIS B SURF AG (test co de = 2739) NON-REACTIVE HEP B CORE TOTAL AB (test co de = 2729) NON-REACTIVE HEPATITIS B SURFACE AB (test code = 2737) NON-REACTIVE HEPATITIS C ANTIBODY (test c ode = 8459) NON-REACTIVE INTERPRETATION HEPATITIS A: (test code = 2552) (NOTE) INTERPRETATION HEPATITIS B: (test code = 69327) (NOTE) INTERPRETATION HEPATITIS C: (test code = 40946) (NOTE) Fracisco PersonHIV 1/2 4TH GEN, RFLX [id number] 00:00:00* Test Item Value Reference Range Interpretation Comme nts HIV 1/2 4TH GEN, RFLX CONF ( test code = 3514) NON-REACTIVE Fracisco Guardado AustinRPR REFLEX TO T. PALLIDUM - [id number] 00:00:00* Test Item Value Reference Range Interpretation Comme nts RPR (test code = 91851) NON-REACTIVE RPR TITER (test code = 3500) NOT INDIC. TITER Fracisco PersonHEPATITIS A IgM [REFLEX]2024-05-12 00:00:00* Test Item Value Reference Range Interpretation Comme nts HEPATITIS A IgM (test code = 2728) NON-REACTIVE Fracisco PersonPAP TEST, THINPREP, IMAGED + HPV HIGH RISK + GC AND CHLAMYDIA A 2024-05-12 00:00:00* Test Item Value Reference Range Interpretation Comme nts SOURCE: (test code = 8001) Unspecified SLIDES: (test code = 8011) 1 LMP: (test code = 8021) NOT GIVEN SPECIMEN ADEQUACY: (test code = 99113) (NOTE) INTERPRETATION: (test code = 65818) NILM/NO EPITH. ABNORMALITY;SEE BELOW WEB CONSULTANT: (test code = 8101) MICHAEL Razo(ASCP)IAC LOCATION: (test code = 26884) (NOTE) CPT: (test code = 8140) 53352 HPV HIGH RISK INTERP (test code = 94171) NEGATIVE HPV 16 (test code = 27584) NEGATIVE HPV 18 (test code = 13711) NEGATIVE HPV, HR, OTHER GENOTYPES (test code = 82389) NEGATIVE GONORRHEA, NAAT, THINPREP (test code = 92212) NEGATIVE CHLAMYDIA, NAAT, THINPREP (test code = 78976) NEGATIVE PDFE (test code = PDFReport) PDF Fracisco LunaPATITIS PROFILE (A,B,C)2024-05-12 00:00:00* Test Item Value Reference Range Interpretation Comme nts HEPATITIS A TOTAL AB (test c ode = 2725) REACTIVE HEPATITIS B SURF AG (test co de = 2739) NON-REACTIVE HEP B CORE TOTAL AB (test co de = 2729) NON-REACTIVE HEPATITIS B SURFACE AB (test code = 2737) NON-REACTIVE HEPATITIS C ANTIBODY (test c ode = 4675) NON-REACTIVE INTERPRETATION HEPATITIS A: (test code = 2552) (NOTE) INTERPRETATION HEPATITIS B: (test code = 51945) (NOTE) INTERPRETATION HEPATITIS C: (test code = 12628) (NOTE) Fracisco PersonHIV 1/2 4TH GEN, RFLX [id number] 00:00:00* Test Item Value Reference Range Interpretation Comme nts HIV 1/2 4TH GEN, RFLX CONF ( test code = 3514) NON-REACTIVE Fracisco Guardado AustinRPR REFLEX TO T. PALLIDUM - [id number] 00:00:00* Test Item Value Reference Range Interpretation Comme nts RPR (test code = 89108) NON-REACTIVE RPR TITER (test code = 3500) NOT INDIC. TITER Fracisco PersonHEPATITIS A IgM [REFLEX]2024-05-12 00:00:00* Test Item Value Reference Range Interpretation Comme lashae HEPATITIS A IgM (test code = 2728) NON-REACTIVE Fracisco PersonHEMOGLOBIN [id number] 10:28:38* Test Item Value Reference Range Interpretation Comme nts HEMOGLOBIN A1c (test code = 67174) 7.6 % 4.2-5.6 H [employer] GUIDELINES FOR HGB A1C: PREDIABETES/INCREASED RISK . . . . . . . 5.7-6.4% DIAGNOSIS OF DIABETES . . . . . . . . . >=6.5% WITH CONFIRMATION OR APPROPRIATE SYMPTOMS NOTE: ASSAY MAY BE AFFECTED BY HEMOGLOBINOPATHIES (SICKLE CELL ANEMIA, S-C DISEASE, OTHERS) OR ARTIFICIALLY LOWERED BY DECREASED RED CELL SURVIVAL (HEMOLYTIC ANEMIAS, BLOOD LOSS, ETC.). CONSIDER ALTERNATE TESTING OR LABORATORY CONSULTATION. ALBUMIN/CREATININE RATIO, URINE, [id number] 05:24:46* Test Item Value Reference Range Interpretation Comme nts CREATININE, URINE, CONC. (test code = 2072) 125.4 MG/DL NOT ESTAB ALBUMIN, URINE, RANDOM (test code = 29177) 6.5 MG/DL NOT ESTAB CALC ALBUMIN/CREAT, RND (test code = 41758) 52 MG/G <30 H Note: Albumin/Cr eatinine ratio reference interval reflects ADA and NKF guidelines. UNLESS OTHERWISE INDICATED, ALL TESTING PERFORMED AT [facility] [address] [place] [address] RADIOLOGIST DIAGNOSTIC: JALYN BAUMANN M.D. CLIA NUMBER [id number] [place]. [id number] LIPID [id number] 05:05:35* Test Item Value Reference Range Interpretation Comme nts CHOLESTEROL (test code = 2210) 267 MG/DL <200 H TRIGLYCERIDES (test code = 2232) 425 MG/DL <150 H HDL CHOLESTEROL (test code = 2220) 49 MG/DL >39 CALC LDL CHOL (test code = 2237) (NOTE) MG/DL <100 UNABLE TO CALCUL ATE A VALID LDL CHOLESTEROL WHEN THE TRIGLYCERIDEVALUE IS GREATER THAN 400 MG/DL.UNABLE TO CALCULATE A VALID LDL CHOLESTEROL WHEN THE TRIGLYCERIDEVALUE IS GREATER THAN 400 MG/DL. NOTE: CALCULATED LDL IS BASED ON KRISTEN-PIERCE METHOD WHICHINCLUDES ADJUSTABLE TRIGLYCERIDE:VLDL CHOLESTEROL RATIO.THIS FACTOR VARIES BY MEASURED TRIGLYCERIDE AND NON-HDLCHOLESTEROL CONCENTRATIONS WITH INCREASED CALCULATED LDL SEENIN HIGHER TRIGLYCERIDE OR LOWER NON-HDL SPECIMENS. FOR MOREINFORMATION, SEE CLIENT ANNOUNCEMENT AT [email or web address] CalcLDL-C RISK RATIO LDL/HDL (test code = 2238) (NOTE) RATIO <3.22 UNABLE TO ELIZABETH CULATE COMPREHENSIVE METABOLIC [id number] 05:05:35* Test Item Value Reference Range Interpretation Comme nts GLUCOSE (test code = 2217) 144 MG/DL 70-99 H BUN (test code = 2208) 16 MG/DL 6-20 CREATININE (test code = 2214) 0.78 MG/DL 0.60-1.30 eGFR (2020 CKD-EPI) (test co de = 02983) 91 ML/MIN/1.73 >60 CALC BUN/CREAT (test code = 2235) 21 RATIO 6-28 SODIUM (test code = 2231) 140 MEQ/L 133-146 POTASSIUM (test code = 2228) 4.5 MEQ/L 3.5-5.4 CHLORIDE (test code = 2215) 98 MEQ/L 95-107 CARBON DIOXIDE (test code = 2206) 26 MEQ/L 19-31 CALCIUM (test code = 2209) 10.6 MG/DL 8.5-10.5 H PROTEIN, TOTAL (test code = 2229) 7.9 G/DL 6.1-8.3 ALBUMIN (test code = 2201) 4.8 G/DL 3.5-5.2 CALC GLOBULIN (test code = 2240) 3.1 G/DL 1.9-3.7 CALC A/G RATIO (test code = 2234) 1.5 RATIO 1.0-2.6 BILIRUBIN, TOTAL (test code = 2207) 0.4 MG/DL <=1.2 ALKALINE PHOSPHATASE (test code = 2204) 76 U/L 40-133 AST (test code = 2218) 83 U/L 9-40 H ALT (test code = 2219) 96 U/L 5-40 H HEMOGLOBIN [id number] 00:00:00* Test Item Value Reference Range Interpretation Comme nts HEMOGLOBIN A1c (test code = 88066) 7.6 % Fracisco PersonLIPID [id number] 00:00:00* Test Item Value Reference Range Interpretation Comme nts CHOLESTEROL (test code = 2210) 267 MG/DL TRIGLYCERIDES (test code = 2232) 425 MG/DL HDL CHOLESTEROL (test code = 2220) 49 MG/DL CALC LDL CHOL (test code = 2237) (NOTE) MG/DL RISK RATIO LDL/HDL (test cod e = 2238) (NOTE) RATIO Fracisco Guardado ThomasCOMPREHENSIVE METABOLIC [id number] 00:00:00* Test Item Value Reference Range Interpretation Comme nts GLUCOSE (test code = 2217) 144 MG/DL BUN (test code = 2208) 16 MG/DL CREATININE (test code = 2214) 0.78 MG/DL eGFR (2020 CKD-EPI) (test co de = 21274) 91 ML/MIN/1.73 CALC BUN/CREAT (test code = 2235) 21 RATIO SODIUM (test code = 2231) 140 MEQ/L POTASSIUM (test code = 2228) 4.5 MEQ/L CHLORIDE (test code = 2215) 98 MEQ/L CARBON DIOXIDE (test code = 2206) 26 MEQ/L CALCIUM (test code = 2209) 10.6 MG/DL PROTEIN, TOTAL (test code = 2229) 7.9 G/DL ALBUMIN (test code = 2201) 4.8 G/DL CALC GLOBULIN (test code = 2240) 3.1 G/DL CALC A/G RATIO (test code = 2234) 1.5 RATIO BILIRUBIN, TOTAL (test code = 2207) 0.4 MG/DL ALKALINE PHOSPHATASE (test code = 2204) 76 U/L AST (test code = 2218) 83 U/L ALT (test code = 2219) 96 U/L Fracisco PersonALBUMIN/CREATININE RATIO, RANDOM [id number] 00:00:00* Test Item Value Reference Range Interpretation Comme nts CREATININE, URINE, CONC. (te st code = 2072) 125.4 MG/DL ALBUMIN, URINE, RANDOM (test code = 20270) 6.5 MG/DL CALC ALBUMIN/CREAT, RND (solange t code = 26693) 52 MG/G [place] PersonHEMOGLOBIN [id number] 00:00:00* Test Item Value Reference Range Interpretation Comme lashae HEMOGLOBIN A1c (test code = 49369) 7.6 % Fracisco PersonLIPID [id number] 00:00:00* Test Item Value Reference Range Interpretation Comme nts CHOLESTEROL (test code = 2210) 267 MG/DL TRIGLYCERIDES (test code = 2232) 425 MG/DL HDL CHOLESTEROL (test code = 2220) 49 MG/DL CALC LDL CHOL (test code = 2237) (NOTE) MG/DL RISK RATIO LDL/HDL (test cod e = 2238) (NOTE) RATIO Fracisco PersonCOMPREHENSIVE METABOLIC [id number] 00:00:00* Test Item Value Reference Range Interpretation Comme nts GLUCOSE (test code = 2217) 144 MG/DL BUN (test code = 2208) 16 MG/DL CREATININE (test code = 2214) 0.78 MG/DL eGFR (2020 CKD-EPI) (test co de = 22626) 91 ML/MIN/1.73 CALC BUN/CREAT (test code = 2235) 21 RATIO SODIUM (test code = 2231) 140 MEQ/L POTASSIUM (test code = 2228) 4.5 MEQ/L CHLORIDE (test code = 2215) 98 MEQ/L CARBON DIOXIDE (test code = 2206) 26 MEQ/L CALCIUM (test code = 2209) 10.6 MG/DL PROTEIN, TOTAL (test code = 2229) 7.9 G/DL ALBUMIN (test code = 2201) 4.8 G/DL CALC GLOBULIN (test code = 2240) 3.1 G/DL CALC A/G RATIO (test code = 2234) 1.5 RATIO BILIRUBIN, TOTAL (test code = 2207) 0.4 MG/DL ALKALINE PHOSPHATASE (test code = 2204) 76 U/L AST (test code = 2218) 83 U/L ALT (test code = 2219) 96 U/L Fracisco Guardado AustinALBUMIN/CREATININE RATIO, RANDOM [id number] 00:00:00* Test Item Value Reference Range Interpretation Comme nts CREATININE, URINE, CONC. (te st code = 2072) 125.4 MG/DL ALBUMIN, URINE, RANDOM (test code = 41582) 6.5 MG/DL CALC ALBUMIN/CREAT, RND (solange t code = 20058) 52 MG/G Fr[place] PersonHEMOGLOBIN [id number] 00:00:00* Test Item Value Reference Range Interpretation Comme lashae HEMOGLOBIN A1c (test code = 85185) 7.6 % Fracisco PersonLIPID [id number] 00:00:00* Test Item Value Reference Range Interpretation Comme nts CHOLESTEROL (test code = 2210) 267 MG/DL TRIGLYCERIDES (test code = 2232) 425 MG/DL HDL CHOLESTEROL (test code = 2220) 49 MG/DL CALC LDL CHOL (test code = 2237) (NOTE) MG/DL RISK RATIO LDL/HDL (test cod e = 2238) (NOTE) RATIO Fracisco PersonCOMPREHENSIVE METABOLIC [id number] 00:00:00* Test Item Value Reference Range Interpretation Comme nts GLUCOSE (test code = 2217) 144 MG/DL BUN (test code = 2208) 16 MG/DL CREATININE (test code = 2214) 0.78 MG/DL eGFR (2020 CKD-EPI) (test co de = 80830) 91 ML/MIN/1.73 CALC BUN/CREAT (test code = 2235) 21 RATIO SODIUM (test code = 2231) 140 MEQ/L POTASSIUM (test code = 2228) 4.5 MEQ/L CHLORIDE (test code = 2215) 98 MEQ/L CARBON DIOXIDE (test code = 2206) 26 MEQ/L CALCIUM (test code = 2209) 10.6 MG/DL PROTEIN, TOTAL (test code = 2229) 7.9 G/DL ALBUMIN (test code = 2201) 4.8 G/DL CALC GLOBULIN (test code = 2240) 3.1 G/DL CALC A/G RATIO (test code = 2234) 1.5 RATIO BILIRUBIN, TOTAL (test code = 2207) 0.4 MG/DL ALKALINE PHOSPHATASE (test code = 2204) 76 U/L AST (test code = 2218) 83 U/L ALT (test code = 2219) 96 U/L Fracisco Guardado AustinALBUMIN/CREATININE RATIO, RANDOM [id number] 00:00:00* Test Item Value Reference Range Interpretation Comme [facility] CREATININE, URINE, CONC. (te st code = 2072) 125.4 MG/DL ALBUMIN, URINE, RANDOM (test code = 08898) 6.5 MG/DL CALC ALBUMIN/CREAT, RND (solange t code = 87072) 52 MG/G Frac[place] PersonHEMOGLOBIN [id number] 00:00:00* Test Item Value Reference Range Interpretation Comme lashae HEMOGLOBIN A1c (test code = 27492) 7.6 % Fracisco PersonLIPID [id number] 00:00:00* Test Item Value Reference Range Interpretation Comme nts CHOLESTEROL (test code = 2210) 267 MG/DL TRIGLYCERIDES (test code = 2232) 425 MG/DL HDL CHOLESTEROL (test code = 2220) 49 MG/DL CALC LDL CHOL (test code = 2237) (NOTE) MG/DL RISK RATIO LDL/HDL (test cod e = 2238) (NOTE) RATIO Fracisco PersonCOMPREHENSIVE METABOLIC [id number] 00:00:00* Test Item Value Reference Range Interpretation Comme nts GLUCOSE (test code = 2217) 144 MG/DL BUN (test code = 2208) 16 MG/DL CREATININE (test code = 2214) 0.78 MG/DL eGFR (2020 CKD-EPI) (test co de = 07191) 91 ML/MIN/1.73 CALC BUN/CREAT (test code = 2235) 21 RATIO SODIUM (test code = 2231) 140 MEQ/L POTASSIUM (test code = 2228) 4.5 MEQ/L CHLORIDE (test code = 2215) 98 MEQ/L CARBON DIOXIDE (test code = 2206) 26 MEQ/L CALCIUM (test code = 2209) 10.6 MG/DL PROTEIN, TOTAL (test code = 2229) 7.9 G/DL ALBUMIN (test code = 2201) 4.8 G/DL CALC GLOBULIN (test code = 2240) 3.1 G/DL CALC A/G RATIO (test code = 2234) 1.5 RATIO BILIRUBIN, TOTAL (test code = 2207) 0.4 MG/DL ALKALINE PHOSPHATASE (test code = 2204) 76 U/L AST (test code = 2218) 83 U/L ALT (test code = 2219) 96 U/L Fracisco Guardado AustinALBUMIN/CREATININE RATIO, RANDOM [id number] 00:00:00* Test Item Value Reference Range Interpretation Comme nts CREATININE, URINE, CONC. (te st code = 2072) 125.4 MG/DL ALBUMIN, URINE, RANDOM (test code = 15494) 6.5 MG/DL CALC ALBUMIN/CREAT, RND (solange t code = 21687) 52 MG/G Fr[place] PersonHEMOGLOBIN [id number] 00:00:00* Test Item Value Reference Range Interpretation Comme nts HEMOGLOBIN A1c (test code = 50457) 7.6 % Fracisco PersonLIPID [id number] 00:00:00* Test Item Value Reference Range Interpretation Comme nts CHOLESTEROL (test code = 2210) 267 MG/DL TRIGLYCERIDES (test code = 2232) 425 MG/DL HDL CHOLESTEROL (test code = 2220) 49 MG/DL CALC LDL CHOL (test code = 2237) (NOTE) MG/DL RISK RATIO LDL/HDL (test cod e = 2238) (NOTE) RATIO Fracisco PersonCOMPREHENSIVE METABOLIC [id number] 00:00:00* Test Item Value Reference Range Interpretation Comme nts GLUCOSE (test code = 2217) 144 MG/DL BUN (test code = 2208) 16 MG/DL CREATININE (test code = 2214) 0.78 MG/DL eGFR (2020 CKD-EPI) (test co de = 79687) 91 ML/MIN/1.73 CALC BUN/CREAT (test code = 2235) 21 RATIO SODIUM (test code = 2231) 140 MEQ/L POTASSIUM (test code = 2228) 4.5 MEQ/L CHLORIDE (test code = 2215) 98 MEQ/L CARBON DIOXIDE (test code = 2206) 26 MEQ/L CALCIUM (test code = 2209) 10.6 MG/DL PROTEIN, TOTAL (test code = 2229) 7.9 G/DL ALBUMIN (test code = 2201) 4.8 G/DL CALC GLOBULIN (test code = 2240) 3.1 G/DL CALC A/G RATIO (test code = 2234) 1.5 RATIO BILIRUBIN, TOTAL (test code = 2207) 0.4 MG/DL ALKALINE PHOSPHATASE (test code = 2204) 76 U/L AST (test code = 2218) 83 U/L ALT (test code = 2219) 96 U/L Fracisco Guardado AustinALBUMIN/CREATININE RATIO, RANDOM [id number] 00:00:00* Test Item Value Reference Range Interpretation Comme nts CREATININE, URINE, CONC. (te st code = 2072) 125.4 MG/DL ALBUMIN, URINE, RANDOM (test code = 28283) 6.5 MG/DL CALC ALBUMIN/CREAT, RND (solange t code = 65032) 52 MG/G Fracisco PersonHEMOGLOBIN [id number] 00:00:00* Test Item Value Reference Range Interpretation Comme nts HEMOGLOBIN A1c (test code = 32780) 7.6 % Fracisco PersonLIPID [id number] 00:00:00* Test Item Value Reference Range Interpretation Comme nts CHOLESTEROL (test code = 2210) 267 MG/DL TRIGLYCERIDES (test code = 2232) 425 MG/DL HDL CHOLESTEROL (test code = 2220) 49 MG/DL CALC LDL CHOL (test code = 2237) (NOTE) MG/DL RISK RATIO LDL/HDL (test cod e = 2238) (NOTE) RATIO Fracisco PersonCOMPREHENSIVE METABOLIC [id number] 00:00:00* Test Item Value Reference Range Interpretation Comme nts GLUCOSE (test code = 2217) 144 MG/DL BUN (test code = 2208) 16 MG/DL CREATININE (test code = 2214) 0.78 MG/DL eGFR (2020 CKD-EPI) (test co de = 53854) 91 ML/MIN/1.73 CALC BUN/CREAT (test code = 2235) 21 RATIO SODIUM (test code = 2231) 140 MEQ/L POTASSIUM (test code = 2228) 4.5 MEQ/L CHLORIDE (test code = 2215) 98 MEQ/L CARBON DIOXIDE (test code = 2206) 26 MEQ/L CALCIUM (test code = 2209) 10.6 MG/DL PROTEIN, TOTAL (test code = 2229) 7.9 G/DL ALBUMIN (test code = 2201) 4.8 G/DL CALC GLOBULIN (test code = 2240) 3.1 G/DL CALC A/G RATIO (test code = 2234) 1.5 RATIO BILIRUBIN, TOTAL (test code = 2207) 0.4 MG/DL ALKALINE PHOSPHATASE (test code = 2204) 76 U/L AST (test code = 2218) 83 U/L ALT (test code = 2219) 96 U/L Fracisco PersonALBUMIN/CREATININE RATIO, RANDOM [id number] 00:00:00* Test Item Value Reference Range Interpretation Comme nts CREATININE, URINE, CONC. (te st code = 2072) 125.4 MG/DL ALBUMIN, URINE, RANDOM (test code = 79523) 6.5 MG/DL CALC ALBUMIN/CREAT, RND (solange t code = 82685) 52 MG/G [place] PersonHEMOGLOBIN [id number] 00:00:00* Test Item Value Reference Range Interpretation Comme nts HEMOGLOBIN A1c (test code = 10745) 7.6 % Fracisco PersonLIPID [id number] 00:00:00* Test Item Value Reference Range Interpretation Comme nts CHOLESTEROL (test code = 2210) 267 MG/DL TRIGLYCERIDES (test code = 2232) 425 MG/DL HDL CHOLESTEROL (test code = 2220) 49 MG/DL CALC LDL CHOL (test code = 2237) (NOTE) MG/DL RISK RATIO LDL/HDL (test cod e = 2238) (NOTE) RATIO Fracisco PersonCOMPREHENSIVE METABOLIC [id number] 00:00:00* Test Item Value Reference Range Interpretation Comme nts GLUCOSE (test code = 2217) 144 MG/DL BUN (test code = 2208) 16 MG/DL CREATININE (test code = 2214) 0.78 MG/DL eGFR (2020 CKD-EPI) (test co de = 93021) 91 ML/MIN/1.73 CALC BUN/CREAT (test code = 2235) 21 RATIO SODIUM (test code = 2231) 140 MEQ/L POTASSIUM (test code = 2228) 4.5 MEQ/L CHLORIDE (test code = 2215) 98 MEQ/L CARBON DIOXIDE (test code = 2206) 26 MEQ/L CALCIUM (test code = 2209) 10.6 MG/DL PROTEIN, TOTAL (test code = 2229) 7.9 G/DL ALBUMIN (test code = 220) 4.8 G/DL CALC GLOBULIN (test code = 2240) 3.1 G/DL CALC A/G RATIO (test code = 2234) 1.5 RATIO BILIRUBIN, TOTAL (test code = 2207) 0.4 MG/DL ALKALINE PHOSPHATASE (test code = 2204) 76 U/L AST (test code = 2218) 83 U/L ALT (test code = 2219) 96 U/L [place] PersonALBUMIN/CREATININE RATIO, RANDOM [id number] 00:00:00* Test Item Value Reference Range Interpretation Comme nts CREATININE, URINE, CONC. (te st code = 2072) 125.4 MG/DL ALBUMIN, URINE, RANDOM (test code = 48623) 6.5 MG/DL CALC ALBUMIN/CREAT, RND (solange t code = 77166) 52 MG/G [place] PersonHEMOGLOBIN [id number] 00:00:00* Test Item Value Reference Range Interpretation Comme nts HEMOGLOBIN A1c (test code = 52448) 7.6 % Fracisco PersonLIPID [id number] 00:00:00* Test Item Value Reference Range Interpretation Comme nts CHOLESTEROL (test code = 2210) 267 MG/DL TRIGLYCERIDES (test code = 2232) 425 MG/DL HDL CHOLESTEROL (test code = 2220) 49 MG/DL CALC LDL CHOL (test code = 2237) (NOTE) MG/DL RISK RATIO LDL/HDL (test cod e = 2238) (NOTE) RATIO Fracisco PersonCOMPREHENSIVE METABOLIC [id number] 00:00:00* Test Item Value Reference Range Interpretation Comme nts GLUCOSE (test code = 2217) 144 MG/DL BUN (test code = 2208) 16 MG/DL CREATININE (test code = 2214) 0.78 MG/DL eGFR (2020 CKD-EPI) (test co de = 18926) 91 ML/MIN/1.73 CALC BUN/CREAT (test code = 2235) 21 RATIO SODIUM (test code = 2231) 140 MEQ/L POTASSIUM (test code = 2228) 4.5 MEQ/L CHLORIDE (test code = 2215) 98 MEQ/L CARBON DIOXIDE (test code = 2206) 26 MEQ/L CALCIUM (test code = 2209) 10.6 MG/DL PROTEIN, TOTAL (test code = 2229) 7.9 G/DL ALBUMIN (test code = 220) 4.8 G/DL CALC GLOBULIN (test code = 2240) 3.1 G/DL CALC A/G RATIO (test code = 2234) 1.5 RATIO BILIRUBIN, TOTAL (test code = 2207) 0.4 MG/DL ALKALINE PHOSPHATASE (test code = 2203) 76 U/L AST (test code = 221) 83 U/L ALT (test code = 221) 96 U/L [place] PersonALBUMIN/CREATININE RATIO, RANDOM [id number] 00:00:00* Test Item Value Reference Range Interpretation Comme [facility] CREATININE, URINE, CONC. (te st code = 2072) 125.4 MG/DL ALBUMIN, URINE, RANDOM (test code = 91955) 6.5 MG/DL CALC ALBUMIN/CREAT, RND (solange t code = 05981) 52 MG/G [place] PersonHEMOGLOBIN [id number] 00:00:00* Test Item Value Reference Range Interpretation Comme [facility] HEMOGLOBIN A1c (test code = 87633) 7.6 % [place] PersonLIPID [id number] 00:00:00* Test Item Value Reference Range Interpretation Comme nts CHOLESTEROL (test code = 2210) 267 MG/DL TRIGLYCERIDES (test code = 2232) 425 MG/DL HDL CHOLESTEROL (test code = 2220) 49 MG/DL CALC LDL CHOL (test code = 2237) (NOTE) MG/DL RISK RATIO LDL/HDL (test cod e = 2238) (NOTE) RATIO [place] PersonCOMPREHENSIVE METABOLIC [id number] 00:00:00* Test Item Value Reference Range Interpretation Comme nts GLUCOSE (test code = 7) 144 MG/DL BUN (test code = 8) 16 MG/DL CREATININE (test code = 2214) 0.78 MG/DL eGFR (2020 CKD-EPI) (test co de = 43743) 91 ML/MIN/1.73 CALC BUN/CREAT (test code = 2235) 21 RATIO SODIUM (test code = 2231) 140 MEQ/L POTASSIUM (test code = 2228) 4.5 MEQ/L CHLORIDE (test code = 2215) 98 MEQ/L CARBON DIOXIDE (test code = 2206) 26 MEQ/L CALCIUM (test code = 2209) 10.6 MG/DL PROTEIN, TOTAL (test code = 2229) 7.9 G/DL ALBUMIN (test code = 220) 4.8 G/DL CALC GLOBULIN (test code = 2240) 3.1 G/DL CALC A/G RATIO (test code = 2234) 1.5 RATIO BILIRUBIN, TOTAL (test code = 2207) 0.4 MG/DL ALKALINE PHOSPHATASE (test code = 2204) 76 U/L AST (test code = 2218) 83 U/L ALT (test code = 221) 96 U/L [place] Guardado AustinALBUMIN/CREATININE RATIO, RANDOM [id number] 00:00:00* Test Item Value Reference Range Interpretation Comme nts CREATININE, URINE, CONC. (te st code = 2072) 125.4 MG/DL ALBUMIN, URINE, RANDOM (test code = 03757) 6.5 MG/DL CALC ALBUMIN/CREAT, RND (solange t code = 22335) 52 MG/G [place] PersonHEMOGLOBIN [id number] 00:00:00* Test Item Value Reference Range Interpretation Comme nts HEMOGLOBIN A1c (test code = 60595) 7.6 % [place] PersonLIPID [id number] 00:00:00* Test Item Value Reference Range Interpretation Comme nts CHOLESTEROL (test code = 2210) 267 MG/DL TRIGLYCERIDES (test code = 2232) 425 MG/DL HDL CHOLESTEROL (test code = 2220) 49 MG/DL CALC LDL CHOL (test code = 2237) (NOTE) MG/DL RISK RATIO LDL/HDL (test cod e = 2238) (NOTE) RATIO [place] PersonCOMPREHENSIVE METABOLIC [id number] 00:00:00* Test Item Value Reference Range Interpretation Comme nts GLUCOSE (test code = 2217) 144 MG/DL BUN (test code = 2207) 16 MG/DL CREATININE (test code = 2214) 0.78 MG/DL eGFR (2020 CKD-EPI) (test co de = 64682) 91 ML/MIN/1.73 CALC BUN/CREAT (test code = 5) 21 RATIO SODIUM (test code = 2231) 140 MEQ/L POTASSIUM (test code = 2228) 4.5 MEQ/L CHLORIDE (test code = 2215) 98 MEQ/L CARBON DIOXIDE (test code = 2206) 26 MEQ/L CALCIUM (test code = 2209) 10.6 MG/DL PROTEIN, TOTAL (test code = 2229) 7.9 G/DL ALBUMIN (test code = 220) 4.8 G/DL CALC GLOBULIN (test code = 2240) 3.1 G/DL CALC A/G RATIO (test code = 2234) 1.5 RATIO BILIRUBIN, TOTAL (test code = 2207) 0.4 MG/DL ALKALINE PHOSPHATASE (test code = 2203) 76 U/L AST (test code = 221) 83 U/L ALT (test code = 221) 96 U/L [place] PersonALBUMIN/CREATININE RATIO, RANDOM [id number] 00:00:00* Test Item Value Reference Range Interpretation Comme nts CREATININE, URINE, CONC. (te st code = 2072) 125.4 MG/DL ALBUMIN, URINE, RANDOM (test code = 56077) 6.5 MG/DL CALC ALBUMIN/CREAT, RND (solange t code = 96862) 52 MG/G [place] PersonHEMOGLOBIN [id number] 00:00:00* Test Item Value Reference Range Interpretation Comme nts HEMOGLOBIN A1c (test code = 41383) 7.6 % [place] PersonLIPID [id number] 00:00:00* Test Item Value Reference Range Interpretation Comme nts CHOLESTEROL (test code = 2210) 267 MG/DL TRIGLYCERIDES (test code = 2232) 425 MG/DL HDL CHOLESTEROL (test code = 2220) 49 MG/DL CALC LDL CHOL (test code = 2237) (NOTE) MG/DL RISK RATIO LDL/HDL (test cod e = 2238) (NOTE) RATIO [place] Guardado ThomasCOMPREHENSIVE METABOLIC [id number] 00:00:00* Test Item Value Reference Range Interpretation Comme nts GLUCOSE (test code = 2217) 144 MG/DL BUN (test code = 2208) 16 MG/DL CREATININE (test code = 2214) 0.78 MG/DL eGFR (2020 CKD-EPI) (test co de = 34537) 91 ML/MIN/1.73 CALC BUN/CREAT (test code = 2235) 21 RATIO SODIUM (test code = 2231) 140 MEQ/L POTASSIUM (test code = 2228) 4.5 MEQ/L CHLORIDE (test code = 2215) 98 MEQ/L CARBON DIOXIDE (test code = 2206) 26 MEQ/L CALCIUM (test code = 2209) 10.6 MG/DL PROTEIN, TOTAL (test code = 2229) 7.9 G/DL ALBUMIN (test code = 220) 4.8 G/DL CALC GLOBULIN (test code = 2240) 3.1 G/DL CALC A/G RATIO (test code = 2234) 1.5 RATIO BILIRUBIN, TOTAL (test code = 2207) 0.4 MG/DL ALKALINE PHOSPHATASE (test code = 4) 76 U/L AST (test code = 221) 83 U/L ALT (test code = 2219) 96 U/L [place] Guardado AustinALBUMIN/CREATININE RATIO, RANDOM [id number] 00:00:00* Test Item Value Reference Range Interpretation Comme nts CREATININE, URINE, CONC. (te st code = 2072) 125.4 MG/DL ALBUMIN, URINE, RANDOM (test code = 89221) 6.5 MG/DL CALC ALBUMIN/CREAT, RND (solange t code = 32423) 52 MG/G [place] PersonHEMOGLOBIN [id number] 00:00:00* Test Item Value Reference Range Interpretation Comme nts HEMOGLOBIN A1c (test code = 63148) 7.6 % [place] PersonLIPID [id number] 00:00:00* Test Item Value Reference Range Interpretation Comme nts CHOLESTEROL (test code = 2210) 267 MG/DL TRIGLYCERIDES (test code = 2232) 425 MG/DL HDL CHOLESTEROL (test code = 2220) 49 MG/DL CALC LDL CHOL (test code = 2237) (NOTE) MG/DL RISK RATIO LDL/HDL (test cod e = 2238) (NOTE) RATIO [place] Guardado ThomasCOMPREHENSIVE METABOLIC [id number] 00:00:00* Test Item Value Reference Range Interpretation Comme nts GLUCOSE (test code = 221) 144 MG/DL BUN (test code = 2208) 16 MG/DL CREATININE (test code = 2214) 0.78 MG/DL eGFR (2020 CKD-EPI) (test co de = 24521) 91 ML/MIN/1.73 CALC BUN/CREAT (test code = 2235) 21 RATIO SODIUM (test code = 2231) 140 MEQ/L POTASSIUM (test code = 2228) 4.5 MEQ/L CHLORIDE (test code = 2215) 98 MEQ/L CARBON DIOXIDE (test code = 2206) 26 MEQ/L CALCIUM (test code = 2209) 10.6 MG/DL PROTEIN, TOTAL (test code = 222) 7.9 G/DL ALBUMIN (test code = 220) 4.8 G/DL CALC GLOBULIN (test code = 2240) 3.1 G/DL CALC A/G RATIO (test code = 2234) 1.5 RATIO BILIRUBIN, TOTAL (test code = 2207) 0.4 MG/DL ALKALINE PHOSPHATASE (test code = 2204) 76 U/L AST (test code = 2218) 83 U/L ALT (test code = 2219) 96 U/L [place] Guardado AustinALBUMIN/CREATININE RATIO, RANDOM [id number] 00:00:00* Test Item Value Reference Range Interpretation Comme nts CREATININE, URINE, CONC. (te st code = 2072) 125.4 MG/DL ALBUMIN, URINE, RANDOM (test code = 94393) 6.5 MG/DL CALC ALBUMIN/CREAT, RND (solange t code = 18515) 52 MG/G [place] Guardado AustinLIPID [id number] 00:00:00* Test Item Value Reference Range Interpretation Comme nts CHOLESTEROL (test code = 2210) 206 MG/DL TRIGLYCERIDES (test code = 2232) 260 MG/DL HDL CHOLESTEROL (test code = 2220) 54 MG/DL CALC LDL CHOL (test code = 2237) 115 MG/DL RISK RATIO LDL/HDL (test cod e = 2238) 2.13 RATIO [place] Guardado ThomasCOMPREHENSIVE METABOLIC [id number] 00:00:00* Test Item Value Reference Range Interpretation Comme nts GLUCOSE (test code = 2216) 129 MG/DL BUN (test code = 2208) 17 MG/DL CREATININE (test code = 2214) 0.86 MG/DL eGFR (2020 CKD-EPI) (test co de = 48519) 81 ML/MIN/1.73 CALC BUN/CREAT (test code = 2235) 20 RATIO SODIUM (test code = 2231) 141 MEQ/L POTASSIUM (test code = 2228) 4.5 MEQ/L CHLORIDE (test code = 2215) 99 MEQ/L CARBON DIOXIDE (test code = 2206) 25 MEQ/L CALCIUM (test code = 2209) 10.6 MG/DL PROTEIN, TOTAL (test code = 2229) 7.5 G/DL ALBUMIN (test code = 220) 4.8 G/DL CALC GLOBULIN (test code = 2240) 2.7 G/DL CALC A/G RATIO (test code = 2234) 1.8 RATIO BILIRUBIN, TOTAL (test code = 2207) 0.3 MG/DL ALKALINE PHOSPHATASE (test code = 2203) 74 U/L AST (test code = 221) 35 U/L ALT (test code = 2219) 38 U/L [place] PersonHEMOGLOBIN [id number] 00:00:00* Test Item Value Reference Range Interpretation Comme [facility] HEMOGLOBIN A1c (test code = 83947) 7.2 % [place] PersonALBUMIN/CREATININE RATIO, RANDOM [id number] 00:00:00* Test Item Value Reference Range Interpretation Comme [facility] CREATININE, URINE, CONC. (te st code = 2072) 157.4 MG/DL ALBUMIN, URINE, RANDOM (test code = 75343) 10.0 MG/DL CALC ALBUMIN/CREAT, RND (solange t code = 53666) 64 MG/G [place] PersonLIPID [id number] 00:00:00* Test Item Value Reference Range Interpretation Comme nts CHOLESTEROL (test code = 2210) 206 MG/DL TRIGLYCERIDES (test code = 2232) 260 MG/DL HDL CHOLESTEROL (test code = 2220) 54 MG/DL CALC LDL CHOL (test code = 2237) 115 MG/DL RISK RATIO LDL/HDL (test cod e = 2238) 2.13 RATIO [place] PersonCOMPREHENSIVE METABOLIC [id number] 00:00:00* Test Item Value Reference Range Interpretation Comme nts GLUCOSE (test code = 2217) 129 MG/DL BUN (test code = 220) 17 MG/DL CREATININE (test code = 2214) 0.86 MG/DL eGFR (2020 CKD-EPI) (test co de = 30811) 81 ML/MIN/1.73 CALC BUN/CREAT (test code = 223) 20 RATIO SODIUM (test code = 2231) 141 MEQ/L POTASSIUM (test code = 2228) 4.5 MEQ/L CHLORIDE (test code = 2215) 99 MEQ/L CARBON DIOXIDE (test code = 2206) 25 MEQ/L CALCIUM (test code = 2209) 10.6 MG/DL PROTEIN, TOTAL (test code = 222) 7.5 G/DL ALBUMIN (test code = 2200) 4.8 G/DL CALC GLOBULIN (test code = 2240) 2.7 G/DL CALC A/G RATIO (test code = 2234) 1.8 RATIO BILIRUBIN, TOTAL (test code = 2206) 0.3 MG/DL ALKALINE PHOSPHATASE (test code = 2203) 74 U/L AST (test code = 221) 35 U/L ALT (test code = 2219) 38 U/L [place] PersonHEMOGLOBIN [id number] 00:00:00* Test Item Value Reference Range Interpretation Comme nts HEMOGLOBIN A1c (test code = 75209) 7.2 % [place] PersonALBUMIN/CREATININE RATIO, RANDOM [id number] 00:00:00* Test Item Value Reference Range Interpretation Comme nts CREATININE, URINE, CONC. (te st code = 2072) 157.4 MG/DL ALBUMIN, URINE, RANDOM (test code = 00742) 10.0 MG/DL CALC ALBUMIN/CREAT, RND (solange t code = 64080) 64 MG/G [place] PersonLIPID [id number] 00:00:00* Test Item Value Reference Range Interpretation Comme nts CHOLESTEROL (test code = 2210) 206 MG/DL TRIGLYCERIDES (test code = 2232) 260 MG/DL HDL CHOLESTEROL (test code = 2220) 54 MG/DL CALC LDL CHOL (test code = 2237) 115 MG/DL RISK RATIO LDL/HDL (test cod e = 2238) 2.13 RATIO [place] PersonCOMPREHENSIVE METABOLIC [id number] 00:00:00* Test Item Value Reference Range Interpretation Comme nts GLUCOSE (test code = 2216) 129 MG/DL BUN (test code = 2207) 17 MG/DL CREATININE (test code = 2214) 0.86 MG/DL eGFR (2020 CKD-EPI) (test co de = 19363) 81 ML/MIN/1.73 CALC BUN/CREAT (test code = 223) 20 RATIO SODIUM (test code = 223) 141 MEQ/L POTASSIUM (test code = 2228) 4.5 MEQ/L CHLORIDE (test code = 2215) 99 MEQ/L CARBON DIOXIDE (test code = 2206) 25 MEQ/L CALCIUM (test code = 2209) 10.6 MG/DL PROTEIN, TOTAL (test code = 2228) 7.5 G/DL ALBUMIN (test code = 2200) 4.8 G/DL CALC GLOBULIN (test code = 2240) 2.7 G/DL CALC A/G RATIO (test code = 2234) 1.8 RATIO BILIRUBIN, TOTAL (test code = 2206) 0.3 MG/DL ALKALINE PHOSPHATASE (test code = 2203) 74 U/L AST (test code = 2218) 35 U/L ALT (test code = 2219) 38 U/L [place] PersonHEMOGLOBIN [id number] 00:00:00* Test Item Value Reference Range Interpretation Comme nts HEMOGLOBIN A1c (test code = 64627) 7.2 % [place] PersonALBUMIN/CREATININE RATIO, RANDOM [id number] 00:00:00* Test Item Value Reference Range Interpretation Comme [facility] CREATININE, URINE, CONC. (te st code = 207) 157.4 MG/DL ALBUMIN, URINE, RANDOM (test code = 17242) 10.0 MG/DL CALC ALBUMIN/CREAT, RND (solange t code = 04179) 64 MG/G [place] PersonLIPID [id number] 00:00:00* Test Item Value Reference Range Interpretation Comme nts CHOLESTEROL (test code = 221) 206 MG/DL TRIGLYCERIDES (test code = 223) 260 MG/DL HDL CHOLESTEROL (test code = 0) 54 MG/DL CALC LDL CHOL (test code = 7) 115 MG/DL RISK RATIO LDL/HDL (test cod e = 2238) 2.13 RATIO [place] PersonCOMPREHENSIVE METABOLIC [id number] 00:00:00* Test Item Value Reference Range Interpretation Comme nts GLUCOSE (test code = 2217) 129 MG/DL BUN (test code = 2208) 17 MG/DL CREATININE (test code = 2214) 0.86 MG/DL eGFR (2020 CKD-EPI) (test co de = 42510) 81 ML/MIN/1.73 CALC BUN/CREAT (test code = 2235) 20 RATIO SODIUM (test code = 2231) 141 MEQ/L POTASSIUM (test code = 2228) 4.5 MEQ/L CHLORIDE (test code = 2215) 99 MEQ/L CARBON DIOXIDE (test code = 2206) 25 MEQ/L CALCIUM (test code = 2209) 10.6 MG/DL PROTEIN, TOTAL (test code = 2229) 7.5 G/DL ALBUMIN (test code = 2201) 4.8 G/DL CALC GLOBULIN (test code = 2240) 2.7 G/DL CALC A/G RATIO (test code = 2234) 1.8 RATIO BILIRUBIN, TOTAL (test code = 2207) 0.3 MG/DL ALKALINE PHOSPHATASE (test code = 2204) 74 U/L AST (test code = 2218) 35 U/L ALT (test code = 2219) 38 U/L [place] PersonHEMOGLOBIN [id number] 00:00:00* Test Item Value Reference Range Interpretation Comme [facility] HEMOGLOBIN A1c (test code = 40163) 7.2 % [place] PersonALBUMIN/CREATININE RATIO, RANDOM [id number] 00:00:00* Test Item Value Reference Range Interpretation Comme nts CREATININE, URINE, CONC. (te st code = 2072) 157.4 MG/DL ALBUMIN, URINE, RANDOM (test code = 36712) 10.0 MG/DL CALC ALBUMIN/CREAT, RND (solange t code = 87976) 64 MG/G [place] PersonLIPID [id number] 00:00:00* Test Item Value Reference Range Interpretation Comme nts CHOLESTEROL (test code = 2210) 206 MG/DL TRIGLYCERIDES (test code = 2232) 260 MG/DL HDL CHOLESTEROL (test code = 2220) 54 MG/DL CALC LDL CHOL (test code = 2237) 115 MG/DL RISK RATIO LDL/HDL (test cod e = 2238) 2.13 RATIO [place] PersonCOMPREHENSIVE METABOLIC [id number] 00:00:00* Test Item Value Reference Range Interpretation Comme nts GLUCOSE (test code = 2217) 129 MG/DL BUN (test code = 2208) 17 MG/DL CREATININE (test code = 2214) 0.86 MG/DL eGFR (2020 CKD-EPI) (test co de = 44840) 81 ML/MIN/1.73 CALC BUN/CREAT (test code = 2235) 20 RATIO SODIUM (test code = 2231) 141 MEQ/L POTASSIUM (test code = 2228) 4.5 MEQ/L CHLORIDE (test code = 2215) 99 MEQ/L CARBON DIOXIDE (test code = 2206) 25 MEQ/L CALCIUM (test code = 2209) 10.6 MG/DL PROTEIN, TOTAL (test code = 2229) 7.5 G/DL ALBUMIN (test code = 2201) 4.8 G/DL CALC GLOBULIN (test code = 2240) 2.7 G/DL CALC A/G RATIO (test code = 2234) 1.8 RATIO BILIRUBIN, TOTAL (test code = 2207) 0.3 MG/DL ALKALINE PHOSPHATASE (test code = 2204) 74 U/L AST (test code = 2218) 35 U/L ALT (test code = 2219) 38 U/L [place] PersonHEMOGLOBIN [id number] 00:00:00* Test Item Value Reference Range Interpretation Comme lashae HEMOGLOBIN A1c (test code = 70077) 7.2 % [place] PersonALBUMIN/CREATININE RATIO, RANDOM [id number] 00:00:00* Test Item Value Reference Range Interpretation Comme nts CREATININE, URINE, CONC. (te st code = 2072) 157.4 MG/DL ALBUMIN, URINE, RANDOM (test code = 37683) 10.0 MG/DL CALC ALBUMIN/CREAT, RND (solange t code = 36835) 64 MG/G [place] PersonLIPID [id number] 00:00:00* Test Item Value Reference Range Interpretation Comme nts CHOLESTEROL (test code = 2210) 206 MG/DL TRIGLYCERIDES (test code = 2232) 260 MG/DL HDL CHOLESTEROL (test code = 2220) 54 MG/DL CALC LDL CHOL (test code = 2237) 115 MG/DL RISK RATIO LDL/HDL (test cod e = 2238) 2.13 RATIO [place] PersonCOMPREHENSIVE METABOLIC [id number] 00:00:00* Test Item Value Reference Range Interpretation Comme nts GLUCOSE (test code = 2217) 129 MG/DL BUN (test code = 2208) 17 MG/DL CREATININE (test code = 2214) 0.86 MG/DL eGFR (2020 CKD-EPI) (test co de = 09322) 81 ML/MIN/1.73 CALC BUN/CREAT (test code = 2235) 20 RATIO SODIUM (test code = 2231) 141 MEQ/L POTASSIUM (test code = 2228) 4.5 MEQ/L CHLORIDE (test code = 2215) 99 MEQ/L CARBON DIOXIDE (test code = 2206) 25 MEQ/L CALCIUM (test code = 2209) 10.6 MG/DL PROTEIN, TOTAL (test code = 2229) 7.5 G/DL ALBUMIN (test code = 2201) 4.8 G/DL CALC GLOBULIN (test code = 2240) 2.7 G/DL CALC A/G RATIO (test code = 2234) 1.8 RATIO BILIRUBIN, TOTAL (test code = 2207) 0.3 MG/DL ALKALINE PHOSPHATASE (test code = 2204) 74 U/L AST (test code = 2218) 35 U/L ALT (test code = 2219) 38 U/L [place] PersonHEMOGLOBIN [id number] 00:00:00* Test Item Value Reference Range Interpretation Comme nts HEMOGLOBIN A1c (test code = 27973) 7.2 % [place] PersonALBUMIN/CREATININE RATIO, RANDOM [id number] 00:00:00* Test Item Value Reference Range Interpretation Comme nts CREATININE, URINE, CONC. (te st code = 2072) 157.4 MG/DL ALBUMIN, URINE, RANDOM (test code = 33214) 10.0 MG/DL CALC ALBUMIN/CREAT, RND (solange t code = 40574) 64 MG/G [place] PersonLIPID [id number] 00:00:00* Test Item Value Reference Range Interpretation Comme nts CHOLESTEROL (test code = 2210) 206 MG/DL TRIGLYCERIDES (test code = 2232) 260 MG/DL HDL CHOLESTEROL (test code = 2220) 54 MG/DL CALC LDL CHOL (test code = 2237) 115 MG/DL RISK RATIO LDL/HDL (test cod e = 2238) 2.13 RATIO [place] PersonCOMPREHENSIVE METABOLIC [id number] 00:00:00* Test Item Value Reference Range Interpretation Comme nts GLUCOSE (test code = 2217) 129 MG/DL BUN (test code = 2208) 17 MG/DL CREATININE (test code = 2214) 0.86 MG/DL eGFR (2020 CKD-EPI) (test co de = 68248) 81 ML/MIN/1.73 CALC BUN/CREAT (test code = 2235) 20 RATIO SODIUM (test code = 2231) 141 MEQ/L POTASSIUM (test code = 2228) 4.5 MEQ/L CHLORIDE (test code = 2215) 99 MEQ/L CARBON DIOXIDE (test code = 2206) 25 MEQ/L CALCIUM (test code = 2209) 10.6 MG/DL PROTEIN, TOTAL (test code = 2229) 7.5 G/DL ALBUMIN (test code = 2201) 4.8 G/DL CALC GLOBULIN (test code = 2240) 2.7 G/DL CALC A/G RATIO (test code = 2234) 1.8 RATIO BILIRUBIN, TOTAL (test code = 2207) 0.3 MG/DL ALKALINE PHOSPHATASE (test code = 2204) 74 U/L AST (test code = 2218) 35 U/L ALT (test code = 2219) 38 U/L [place] PersonHEMOGLOBIN [id number] 00:00:00* Test Item Value Reference Range Interpretation Comme nts HEMOGLOBIN A1c (test code = 23941) 7.2 % [place] PersonALBUMIN/CREATININE RATIO, RANDOM [id number] 00:00:00* Test Item Value Reference Range Interpretation Comme nts CREATININE, URINE, CONC. (te st code = 2072) 157.4 MG/DL ALBUMIN, URINE, RANDOM (test code = 04136) 10.0 MG/DL CALC ALBUMIN/CREAT, RND (solange t code = 80933) 64 MG/G [place] PersonLIPID [id number] 00:00:00* Test Item Value Reference Range Interpretation Comme nts CHOLESTEROL (test code = 2210) 206 MG/DL TRIGLYCERIDES (test code = 2232) 260 MG/DL HDL CHOLESTEROL (test code = 2220) 54 MG/DL CALC LDL CHOL (test code = 2237) 115 MG/DL RISK RATIO LDL/HDL (test cod e = 2238) 2.13 RATIO [place] PersonCOMPREHENSIVE METABOLIC [id number] 00:00:00* Test Item Value Reference Range Interpretation Comme nts GLUCOSE (test code = 2217) 129 MG/DL BUN (test code = 2208) 17 MG/DL CREATININE (test code = 2214) 0.86 MG/DL eGFR (2020 CKD-EPI) (test co de = 01557) 81 ML/MIN/1.73 CALC BUN/CREAT (test code = 2235) 20 RATIO SODIUM (test code = 2231) 141 MEQ/L POTASSIUM (test code = 2228) 4.5 MEQ/L CHLORIDE (test code = 2215) 99 MEQ/L CARBON DIOXIDE (test code = 2206) 25 MEQ/L CALCIUM (test code = 2209) 10.6 MG/DL PROTEIN, TOTAL (test code = 2229) 7.5 G/DL ALBUMIN (test code = 2201) 4.8 G/DL CALC GLOBULIN (test code = 2240) 2.7 G/DL CALC A/G RATIO (test code = 2234) 1.8 RATIO BILIRUBIN, TOTAL (test code = 2207) 0.3 MG/DL ALKALINE PHOSPHATASE (test code = 2204) 74 U/L AST (test code = 2218) 35 U/L ALT (test code = 2219) 38 U/L [place] PersonHEMOGLOBIN [id number] 00:00:00* Test Item Value Reference Range Interpretation Comme nts HEMOGLOBIN A1c (test code = 83285) 7.2 % [place] PersonALBUMIN/CREATININE RATIO, RANDOM [id number] 00:00:00* Test Item Value Reference Range Interpretation Comme nts CREATININE, URINE, CONC. (te st code = 2072) 157.4 MG/DL ALBUMIN, URINE, RANDOM (test code = 80246) 10.0 MG/DL CALC ALBUMIN/CREAT, RND (solange t code = 24582) 64 MG/G [place] PersonLIPID [id number] 00:00:00* Test Item Value Reference Range Interpretation Comme nts CHOLESTEROL (test code = 2210) 206 MG/DL TRIGLYCERIDES (test code = 2232) 260 MG/DL HDL CHOLESTEROL (test code = 2220) 54 MG/DL CALC LDL CHOL (test code = 2237) 115 MG/DL RISK RATIO LDL/HDL (test cod e = 2238) 2.13 RATIO [place] PersonCOMPREHENSIVE METABOLIC [id number] 00:00:00* Test Item Value Reference Range Interpretation Comme nts GLUCOSE (test code = 2217) 129 MG/DL BUN (test code = 2208) 17 MG/DL CREATININE (test code = 2214) 0.86 MG/DL eGFR (2020 CKD-EPI) (test co de = 45467) 81 ML/MIN/1.73 CALC BUN/CREAT (test code = 2235) 20 RATIO SODIUM (test code = 2231) 141 MEQ/L POTASSIUM (test code = 2228) 4.5 MEQ/L CHLORIDE (test code = 2215) 99 MEQ/L CARBON DIOXIDE (test code = 2206) 25 MEQ/L CALCIUM (test code = 2209) 10.6 MG/DL PROTEIN, TOTAL (test code = 2229) 7.5 G/DL ALBUMIN (test code = 2201) 4.8 G/DL CALC GLOBULIN (test code = 2240) 2.7 G/DL CALC A/G RATIO (test code = 2234) 1.8 RATIO BILIRUBIN, TOTAL (test code = 2207) 0.3 MG/DL ALKALINE PHOSPHATASE (test code = 2204) 74 U/L AST (test code = 2218) 35 U/L ALT (test code = 2219) 38 U/L [place] PersonHEMOGLOBIN [id number] 00:00:00* Test Item Value Reference Range Interpretation Comme nts HEMOGLOBIN A1c (test code = 20890) 7.2 % [place] PersonALBUMIN/CREATININE RATIO, RANDOM [id number] 00:00:00* Test Item Value Reference Range Interpretation Comme nts CREATININE, URINE, CONC. (te st code = 2072) 157.4 MG/DL ALBUMIN, URINE, RANDOM (test code = 21041) 10.0 MG/DL CALC ALBUMIN/CREAT, RND (solange t code = 01581) 64 MG/G [place] PersonLIPID [id number] 00:00:00* Test Item Value Reference Range Interpretation Comme nts CHOLESTEROL (test code = 2210) 206 MG/DL TRIGLYCERIDES (test code = 2232) 260 MG/DL HDL CHOLESTEROL (test code = 2220) 54 MG/DL CALC LDL CHOL (test code = 2237) 115 MG/DL RISK RATIO LDL/HDL (test cod e = 2238) 2.13 RATIO [place] PersonCOMPREHENSIVE METABOLIC [id number] 00:00:00* Test Item Value Reference Range Interpretation Comme nts GLUCOSE (test code = 2217) 129 MG/DL BUN (test code = 2208) 17 MG/DL CREATININE (test code = 2214) 0.86 MG/DL eGFR (2020 CKD-EPI) (test co de = 95615) 81 ML/MIN/1.73 CALC BUN/CREAT (test code = 2235) 20 RATIO SODIUM (test code = 2231) 141 MEQ/L POTASSIUM (test code = 2228) 4.5 MEQ/L CHLORIDE (test code = 2215) 99 MEQ/L CARBON DIOXIDE (test code = 2206) 25 MEQ/L CALCIUM (test code = 2209) 10.6 MG/DL PROTEIN, TOTAL (test code = 2229) 7.5 G/DL ALBUMIN (test code = 2201) 4.8 G/DL CALC GLOBULIN (test code = 2240) 2.7 G/DL CALC A/G RATIO (test code = 2234) 1.8 RATIO BILIRUBIN, TOTAL (test code = 2207) 0.3 MG/DL ALKALINE PHOSPHATASE (test code = 2204) 74 U/L AST (test code = 2218) 35 U/L ALT (test code = 2219) 38 U/L [place] PersonHEMOGLOBIN [id number] 00:00:00* Test Item Value Reference Range Interpretation Comme nts HEMOGLOBIN A1c (test code = 17721) 7.2 % [place] PersonALBUMIN/CREATININE RATIO, RANDOM [id number] 00:00:00* Test Item Value Reference Range Interpretation Comme nts CREATININE, URINE, CONC. (te st code = 2072) 157.4 MG/DL ALBUMIN, URINE, RANDOM (test code = 17796) 10.0 MG/DL CALC ALBUMIN/CREAT, RND (solange t code = 99141) 64 MG/G [place] PersonLIPID [id number] 00:00:00* Test Item Value Reference Range Interpretation Comme nts CHOLESTEROL (test code = 2210) 206 MG/DL TRIGLYCERIDES (test code = 2232) 260 MG/DL HDL CHOLESTEROL (test code = 2220) 54 MG/DL CALC LDL CHOL (test code = 2237) 115 MG/DL RISK RATIO LDL/HDL (test cod e = 2238) 2.13 RATIO [place] PersonCOMPREHENSIVE METABOLIC [id number] 00:00:00* Test Item Value Reference Range Interpretation Comme nts GLUCOSE (test code = 2217) 129 MG/DL BUN (test code = 2208) 17 MG/DL CREATININE (test code = 2214) 0.86 MG/DL eGFR (2020 CKD-EPI) (test co de = 17681) 81 ML/MIN/1.73 CALC BUN/CREAT (test code = 2235) 20 RATIO SODIUM (test code = 2231) 141 MEQ/L POTASSIUM (test code = 2228) 4.5 MEQ/L CHLORIDE (test code = 2215) 99 MEQ/L CARBON DIOXIDE (test code = 2206) 25 MEQ/L CALCIUM (test code = 2209) 10.6 MG/DL PROTEIN, TOTAL (test code = 2229) 7.5 G/DL ALBUMIN (test code = 2201) 4.8 G/DL CALC GLOBULIN (test code = 2240) 2.7 G/DL CALC A/G RATIO (test code = 2234) 1.8 RATIO BILIRUBIN, TOTAL (test code = 2207) 0.3 MG/DL ALKALINE PHOSPHATASE (test code = 2204) 74 U/L AST (test code = 2218) 35 U/L ALT (test code = 2219) 38 U/L [place] PersonHEMOGLOBIN [id number] 00:00:00* Test Item Value Reference Range Interpretation Comme nts HEMOGLOBIN A1c (test code = 27327) 7.2 % [place] PersonALBUMIN/CREATININE RATIO, RANDOM [id number] 00:00:00* Test Item Value Reference Range Interpretation Comme nts CREATININE, URINE, CONC. (te st code = 2072) 157.4 MG/DL ALBUMIN, URINE, RANDOM (test code = 66181) 10.0 MG/DL CALC ALBUMIN/CREAT, RND (solange t code = 64555) 64 MG/G [place] PersonLIPID [id number] 00:00:00* Test Item Value Reference Range Interpretation Comme nts CHOLESTEROL (test code = 2210) 206 MG/DL TRIGLYCERIDES (test code = 2232) 260 MG/DL HDL CHOLESTEROL (test code = 2220) 54 MG/DL CALC LDL CHOL (test code = 2237) 115 MG/DL RISK RATIO LDL/HDL (test cod e = 2238) 2.13 RATIO [place] PersonCOMPREHENSIVE METABOLIC [id number] 00:00:00* Test Item Value Reference Range Interpretation Comme nts GLUCOSE (test code = 2217) 129 MG/DL BUN (test code = 2208) 17 MG/DL CREATININE (test code = 2214) 0.86 MG/DL eGFR (2020 CKD-EPI) (test co de = 00601) 81 ML/MIN/1.73 CALC BUN/CREAT (test code = 2235) 20 RATIO SODIUM (test code = 2231) 141 MEQ/L POTASSIUM (test code = 2228) 4.5 MEQ/L CHLORIDE (test code = 2215) 99 MEQ/L CARBON DIOXIDE (test code = 2206) 25 MEQ/L CALCIUM (test code = 2209) 10.6 MG/DL PROTEIN, TOTAL (test code = 2229) 7.5 G/DL ALBUMIN (test code = 2201) 4.8 G/DL CALC GLOBULIN (test code = 2240) 2.7 G/DL CALC A/G RATIO (test code = 2234) 1.8 RATIO BILIRUBIN, TOTAL (test code = 2207) 0.3 MG/DL ALKALINE PHOSPHATASE (test code = 2204) 74 U/L AST (test code = 2218) 35 U/L ALT (test code = 2219) 38 U/L [place] PersonHEMOGLOBIN [id number] 00:00:00* Test Item Value Reference Range Interpretation Comme nts HEMOGLOBIN A1c (test code = 34330) 7.2 % [place] PersonALBUMIN/CREATININE RATIO, RANDOM [id number] 00:00:00* Test Item Value Reference Range Interpretation Comme nts CREATININE, URINE, CONC. (te st code = 2072) 157.4 MG/DL ALBUMIN, URINE, RANDOM (test code = 29372) 10.0 MG/DL CALC ALBUMIN/CREAT, RND (solange t code = 78989) 64 MG/G [place] PersonLIPID [id number] 00:00:00* Test Item Value Reference Range Interpretation Comme nts CHOLESTEROL (test code = 2210) 206 MG/DL TRIGLYCERIDES (test code = 2232) 260 MG/DL HDL CHOLESTEROL (test code = 2220) 54 MG/DL CALC LDL CHOL (test code = 2237) 115 MG/DL RISK RATIO LDL/HDL (test cod e = 2238) 2.13 RATIO [place] PersonCOMPREHENSIVE METABOLIC [id number] 00:00:00* Test Item Value Reference Range Interpretation Comme nts GLUCOSE (test code = 2217) 129 MG/DL BUN (test code = 2208) 17 MG/DL CREATININE (test code = 2214) 0.86 MG/DL eGFR (2020 CKD-EPI) (test co de = 07750) 81 ML/MIN/1.73 CALC BUN/CREAT (test code = 2235) 20 RATIO SODIUM (test code = 2231) 141 MEQ/L POTASSIUM (test code = 2228) 4.5 MEQ/L CHLORIDE (test code = 2215) 99 MEQ/L CARBON DIOXIDE (test code = 2206) 25 MEQ/L CALCIUM (test code = 2209) 10.6 MG/DL PROTEIN, TOTAL (test code = 2229) 7.5 G/DL ALBUMIN (test code = 2201) 4.8 G/DL CALC GLOBULIN (test code = 2240) 2.7 G/DL CALC A/G RATIO (test code = 2234) 1.8 RATIO BILIRUBIN, TOTAL (test code = 2207) 0.3 MG/DL ALKALINE PHOSPHATASE (test code = 2204) 74 U/L AST (test code = 2218) 35 U/L ALT (test code = 2219) 38 U/L [place] PersonHEMOGLOBIN [id number] 00:00:00* Test Item Value Reference Range Interpretation Comme nts HEMOGLOBIN A1c (test code = 47105) 7.2 % [place] PersonALBUMIN/CREATININE RATIO, RANDOM [id number] 00:00:00* Test Item Value Reference Range Interpretation Comme nts CREATININE, URINE, CONC. (te st code = 2072) 157.4 MG/DL ALBUMIN, URINE, RANDOM (test code = 51846) 10.0 MG/DL CALC ALBUMIN/CREAT, RND (solange t code = 14780) 64 MG/G [place] PersonLIPID [id number] 00:00:00* Test Item Value Reference Range Interpretation Comme nts CHOLESTEROL (test code = 2210) 206 MG/DL TRIGLYCERIDES (test code = 2232) 260 MG/DL HDL CHOLESTEROL (test code = 2220) 54 MG/DL CALC LDL CHOL (test code = 2237) 115 MG/DL RISK RATIO LDL/HDL (test cod e = 2238) 2.13 RATIO [place] PersonCOMPREHENSIVE METABOLIC [id number] 00:00:00* Test Item Value Reference Range Interpretation Comme nts GLUCOSE (test code = 2217) 129 MG/DL BUN (test code = 2208) 17 MG/DL CREATININE (test code = 2214) 0.86 MG/DL eGFR (2020 CKD-EPI) (test co de = 12941) 81 ML/MIN/1.73 CALC BUN/CREAT (test code = 2235) 20 RATIO SODIUM (test code = 2231) 141 MEQ/L POTASSIUM (test code = 2228) 4.5 MEQ/L CHLORIDE (test code = 2215) 99 MEQ/L CARBON DIOXIDE (test code = 2206) 25 MEQ/L CALCIUM (test code = 2209) 10.6 MG/DL PROTEIN, TOTAL (test code = 2229) 7.5 G/DL ALBUMIN (test code = 2201) 4.8 G/DL CALC GLOBULIN (test code = 2240) 2.7 G/DL CALC A/G RATIO (test code = 2234) 1.8 RATIO BILIRUBIN, TOTAL (test code = 2207) 0.3 MG/DL ALKALINE PHOSPHATASE (test code = 2204) 74 U/L AST (test code = 2218) 35 U/L ALT (test code = 2219) 38 U/L [place] PersonHEMOGLOBIN [id number] 00:00:00* Test Item Value Reference Range Interpretation Comme nts HEMOGLOBIN A1c (test code = 58909) 7.2 % [place] PersonALBUMIN/CREATININE RATIO, RANDOM [id number] 00:00:00* Test Item Value Reference Range Interpretation Comme nts CREATININE, URINE, CONC. (te st code = 2072) 157.4 MG/DL ALBUMIN, URINE, RANDOM (test code = 78780) 10.0 MG/DL CALC ALBUMIN/CREAT, RND (solange t code = 95373) 64 MG/G [place] [id number] 12:02:00* Test Item Value Reference Range Interpretation Comme nts GLUBED (test code = GLUBED) 185 mg/dL 60-99 H The normal fasti ng blood glucose range for a non-diabeticadult is 60-99 mg/dL. Two hours after meals, normal blood glucose levels should beless than 140 mg/dL.Please note new normal range. [id number] 06:08:00* Test Item Value Reference Range Interpretation Comme nts GLUBED (test code = GLUBED) 115 mg/dL 60-99 H The normal fasti ng blood glucose range for a non-diabeticadult is 60-99 mg/dL. Two hours after meals, normal blood glucose levels should beless than 140 mg/dL.Please note new normal range. [id number] 21:05:00* Test Item Value Reference Range Interpretation Comme nts GLUBED (test code = GLUBED) 234 mg/dL 60-99 H The normal fasti ng blood glucose range for a non-diabeticadult is 60-99 mg/dL. Two hours after meals, normal blood glucose levels should beless than 140 mg/dL.Please note new normal range. [id number] 13:30:00* Test Item Value Reference Range Interpretation Comme nts GLUBED (test code = GLUBED) 131 mg/dL 60-99 H The normal fasti ng blood glucose range for a non-diabeticadult is 60-99 mg/dL. Two hours after meals, normal blood glucose levels should beless than 140 mg/dL.Please note new normal range. BASIC METABOLIC [id number] 05:15:15* Test Item Value Reference Range Interpretation Comme nts GLUCOSE (test code = 2217) 130 MG/DL 70-99 H BUN (test code = 2208) 18 MG/DL 6-20 CREATININE (test code = 2214) 0.77 MG/DL 0.60-1.30 eGFR (2020 CKD-EPI) (test code = 03357) 92 ML/MIN/1.73 >60 SODIUM (test code = 2231) 141 MEQ/L 133-146 POTASSIUM (test code = 2228) 4.5 MEQ/L 3.5-5.4 CHLORIDE (test code = 2215) 99 MEQ/L 95-107 CARBON DIOXIDE (test code = 2206) 24 MEQ/L 19-31 CALCIUM (test code = 2209) 10.3 MG/DL 8.5-10.5 UNLESS OTHERWISE INDICATED, ALL TESTING PERFORMED AT [facility] [address] [place] [id number] RADIOLOGIST DIAGNOSTIC: JALYN BAUMANN M.D. CLIA NUMBER [id number] [place]. [id number] CBC W/AUTO DIFF WITH [id number] 03:14:33* Test Item Value Reference Range Interpretation Comme nts WBC (test code = 1001) 8.8 K/UL 3.5-11.0 RBC (test code = 1002) 4.97 M/UL 3.80-5.40 HEMOGLOBIN (test code = 1003) 13.0 G/DL 11.5-15.5 HEMATOCRIT (test code = 1004) 40.2 % 34.0-45.0 MCV (test code = 1005) 80.9 fL 80.0-99.0 MCH (test code = 1006) 26.2 PG 25.0-33.0 MCHC (test code = 1007) 32.3 G/DL 31.0-36.0 RDW (test code = 1038) 12.6 % 11.5-15.0 NEUTROPHILS (test code = 1008) 51.1 % LYMPHOCYTES (test code = 1010) 40.5 % MONOCYTES (test code = 1011) 5.6 % EOSINOPHILS (test code = 1012) 1.4 % BASOPHILS (test code = 1013) 1.1 % IMMATURE GRANULOCYTES (test code = 1036) 0.3 % NUCLEATED RBCS (test code = 1065) 0.0 /100 WBC'S See_Comment [Automated 1Cast[employer] ge] The system which generated this result transmitted reference range: 0.0. The reference range was not used to interpret this result as normal/abnormal. PLATELET COUNT (test code = 1015) 348 K/UL 130-400 ABSOLUTE NEUTROPHILS (test code = 1066) 4.47 K/UL 1.50-7.50 ABSOLUTE LYMPHOCYTES (test code = 1067) 3.54 K/UL 1.00-4.00 ABSOLUTE MONOCYTES (test code = 1068) 0.49 K/UL 0.20-1.00 ABSOLUTE EOSINOPHILS (test code = 1040) 0.12 K/UL 0.00-0.50 ABSOLUTE BASOPHILS (test code = 1069) 0.10 K/UL 0.00-0.20 ABS IMMATURE GRANULOCYTES (test code = 1020) 0.03 K/UL 0.00-0.10 ABS NUCLEATED RBCS (test code = 47815) 0.00 K/UL 0.00-0.11 BASIC METABOLIC [id number] 00:00:00* Test Item Value Reference Range Interpretation Comme nts GLUCOSE (test code = 2217) 130 MG/DL BUN (test code = 2208) 18 MG/DL CREATININE (test code = 2214) 0.77 MG/DL eGFR (2020 CKD-EPI) (test co de = 76078) 92 ML/MIN/1.73 SODIUM (test code = 2231) 141 MEQ/L POTASSIUM (test code = 2228) 4.5 MEQ/L CHLORIDE (test code = 2215) 99 MEQ/L CARBON DIOXIDE (test code = 2206) 24 MEQ/L CALCIUM (test code = 2209) 10.3 MG/DL Fracisco Guardado [facility] W/AUTO [id number] 00:00:00* Test Item Value Reference Range Interpretation Comme nts WBC (test code = 1001) 8.8 K/UL RBC (test code = 1002) 4.97 M/UL HEMOGLOBIN (test code = 1003) 13.0 G/DL HEMATOCRIT (test code = 1004) 40.2 % MCV (test code = 1005) 80.9 fL MCH (test code = 1006) 26.2 PG MCHC (test code = 1007) 32.3 G/DL RDW (test code = 1038) 12.6 % NEUTROPHILS (test code = 1008) 51.1 % LYMPHOCYTES (test code = 1010) 40.5 % MONOCYTES (test code = 1011) 5.6 % EOSINOPHILS (test code = 1012) 1.4 % BASOPHILS (test code = 1013) 1.1 % IMMATURE GRANULOCYTES (test code = 1036) 0.3 % NUCLEATED RBCS (test code = 1065) 0.0 /100WBC'S PLATELET COUNT (test code = 1015) 348 K/UL ABSOLUTE NEUTROPHILS (test c ode = 1066) 4.47 K/UL ABSOLUTE LYMPHOCYTES (test c ode = 1067) 3.54 K/UL ABSOLUTE MONOCYTES (test cod e = 1068) 0.49 K/UL ABSOLUTE EOSINOPHILS (test c ode = 1040) 0.12 K/UL ABSOLUTE BASOPHILS (test cod e = 1069) 0.10 K/UL ABS IMMATURE GRANULOCYTES (t est code = 1020) 0.03 K/UL ABS NUCLEATED RBCS (test cod e = 54005) 0.00 K/UL [place] Guardado ThomasBASIC METABOLIC [id number] 00:00:00* Test Item Value Reference Range Interpretation Comme nts GLUCOSE (test code = 2217) 130 MG/DL BUN (test code = 2208) 18 MG/DL CREATININE (test code = 2214) 0.77 MG/DL eGFR (2020 CKD-EPI) (test co de = 52623) 92 ML/MIN/1.73 SODIUM (test code = 2231) 141 MEQ/L POTASSIUM (test code = 2228) 4.5 MEQ/L CHLORIDE (test code = 2215) 99 MEQ/L CARBON DIOXIDE (test code = 2206) 24 MEQ/L CALCIUM (test code = 2209) 10.3 MG/DL [place] PersonCBC W/AUTO [id number] 00:00:00* Test Item Value Reference Range Interpretation Comme nts WBC (test code = 1001) 8.8 K/UL RBC (test code = 1002) 4.97 M/UL HEMOGLOBIN (test code = 1003) 13.0 G/DL HEMATOCRIT (test code = 1004) 40.2 % MCV (test code = 1005) 80.9 fL MCH (test code = 1006) 26.2 PG MCHC (test code = 1007) 32.3 G/DL RDW (test code = 1038) 12.6 % NEUTROPHILS (test code = 1008) 51.1 % LYMPHOCYTES (test code = 1010) 40.5 % MONOCYTES (test code = 1011) 5.6 % EOSINOPHILS (test code = 1012) 1.4 % BASOPHILS (test code = 1013) 1.1 % IMMATURE GRANULOCYTES (test code = 1036) 0.3 % NUCLEATED RBCS (test code = 1065) 0.0 /100WBC'S PLATELET COUNT (test code = 1015) 348 K/UL ABSOLUTE NEUTROPHILS (test c ode = 1066) 4.47 K/UL ABSOLUTE LYMPHOCYTES (test c ode = 1067) 3.54 K/UL ABSOLUTE MONOCYTES (test cod e = 1068) 0.49 K/UL ABSOLUTE EOSINOPHILS (test c ode = 1040) 0.12 K/UL ABSOLUTE BASOPHILS (test cod e = 1069) 0.10 K/UL ABS IMMATURE GRANULOCYTES (t est code = 1020) 0.03 K/UL ABS NUCLEATED RBCS (test cod e = 31414) 0.00 K/UL [place] PersonBASIC METABOLIC [id number] 00:00:00* Test Item Value Reference Range Interpretation Comme nts GLUCOSE (test code = 2217) 130 MG/DL BUN (test code = 2208) 18 MG/DL CREATININE (test code = 2214) 0.77 MG/DL eGFR (2020 CKD-EPI) (test co de = 87290) 92 ML/MIN/1.73 SODIUM (test code = 2231) 141 MEQ/L POTASSIUM (test code = 2228) 4.5 MEQ/L CHLORIDE (test code = 2215) 99 MEQ/L CARBON DIOXIDE (test code = 2206) 24 MEQ/L CALCIUM (test code = 2209) 10.3 MG/DL [place] Debby ThomasCBC W/AUTO [id number] 00:00:00* Test Item Value Reference Range Interpretation Comme nts WBC (test code = 1001) 8.8 K/UL RBC (test code = 1002) 4.97 M/UL HEMOGLOBIN (test code = 1003) 13.0 G/DL HEMATOCRIT (test code = 1004) 40.2 % MCV (test code = 1005) 80.9 fL MCH (test code = 1006) 26.2 PG MCHC (test code = 1007) 32.3 G/DL RDW (test code = 1038) 12.6 % NEUTROPHILS (test code = 1008) 51.1 % LYMPHOCYTES (test code = 1010) 40.5 % MONOCYTES (test code = 1011) 5.6 % EOSINOPHILS (test code = 1012) 1.4 % BASOPHILS (test code = 1013) 1.1 % IMMATURE GRANULOCYTES (test code = 1036) 0.3 % NUCLEATED RBCS (test code = 1065) 0.0 /100WBC'S PLATELET COUNT (test code = 1015) 348 K/UL ABSOLUTE NEUTROPHILS (test c ode = 1066) 4.47 K/UL ABSOLUTE LYMPHOCYTES (test c ode = 1067) 3.54 K/UL ABSOLUTE MONOCYTES (test cod e = 1068) 0.49 K/UL ABSOLUTE EOSINOPHILS (test c ode = 1040) 0.12 K/UL ABSOLUTE BASOPHILS (test cod e = 1069) 0.10 K/UL ABS IMMATURE GRANULOCYTES (t est code = 1020) 0.03 K/UL ABS NUCLEATED RBCS (test cod e = 97155) 0.00 K/UL [place] PersonBASIC METABOLIC [id number] 00:00:00* Test Item Value Reference Range Interpretation Comme nts GLUCOSE (test code = 2217) 130 MG/DL BUN (test code = 2208) 18 MG/DL CREATININE (test code = 2214) 0.77 MG/DL eGFR (2020 CKD-EPI) (test co de = 77043) 92 ML/MIN/1.73 SODIUM (test code = 2231) 141 MEQ/L POTASSIUM (test code = 2228) 4.5 MEQ/L CHLORIDE (test code = 2215) 99 MEQ/L CARBON DIOXIDE (test code = 2206) 24 MEQ/L CALCIUM (test code = 2209) 10.3 MG/DL [place] Debby ThomasCBC W/AUTO [id number] 00:00:00* Test Item Value Reference Range Interpretation Comme nts WBC (test code = 1001) 8.8 K/UL RBC (test code = 1002) 4.97 M/UL HEMOGLOBIN (test code = 1003) 13.0 G/DL HEMATOCRIT (test code = 1004) 40.2 % MCV (test code = 1005) 80.9 fL MCH (test code = 1006) 26.2 PG MCHC (test code = 1007) 32.3 G/DL RDW (test code = 1038) 12.6 % NEUTROPHILS (test code = 1008) 51.1 % LYMPHOCYTES (test code = 1010) 40.5 % MONOCYTES (test code = 1011) 5.6 % EOSINOPHILS (test code = 1012) 1.4 % BASOPHILS (test code = 1013) 1.1 % IMMATURE GRANULOCYTES (test code = 1036) 0.3 % NUCLEATED RBCS (test code = 1065) 0.0 /100WBC'S PLATELET COUNT (test code = 1015) 348 K/UL ABSOLUTE NEUTROPHILS (test c ode = 1066) 4.47 K/UL ABSOLUTE LYMPHOCYTES (test c ode = 1067) 3.54 K/UL ABSOLUTE MONOCYTES (test cod e = 1068) 0.49 K/UL ABSOLUTE EOSINOPHILS (test c ode = 1040) 0.12 K/UL ABSOLUTE BASOPHILS (test cod e = 1069) 0.10 K/UL ABS IMMATURE GRANULOCYTES (t est code = 1020) 0.03 K/UL ABS NUCLEATED RBCS (test cod e = 39188) 0.00 K/UL [place] PersonBASIC METABOLIC [id number] 00:00:00* Test Item Value Reference Range Interpretation Comme nts GLUCOSE (test code = 2217) 130 MG/DL BUN (test code = 2208) 18 MG/DL CREATININE (test code = 2214) 0.77 MG/DL eGFR (2020 CKD-EPI) (test co de = 42738) 92 ML/MIN/1.73 SODIUM (test code = 2231) 141 MEQ/L POTASSIUM (test code = 2228) 4.5 MEQ/L CHLORIDE (test code = 2215) 99 MEQ/L CARBON DIOXIDE (test code = 2206) 24 MEQ/L CALCIUM (test code = 2209) 10.3 MG/DL [place] PersonCBC W/AUTO [id number] 00:00:00* Test Item Value Reference Range Interpretation Comme nts WBC (test code = 1001) 8.8 K/UL RBC (test code = 1002) 4.97 M/UL HEMOGLOBIN (test code = 1003) 13.0 G/DL HEMATOCRIT (test code = 1004) 40.2 % MCV (test code = 1005) 80.9 fL MCH (test code = 1006) 26.2 PG MCHC (test code = 1007) 32.3 G/DL RDW (test code = 1038) 12.6 % NEUTROPHILS (test code = 1008) 51.1 % LYMPHOCYTES (test code = 1010) 40.5 % MONOCYTES (test code = 1011) 5.6 % EOSINOPHILS (test code = 1012) 1.4 % BASOPHILS (test code = 1013) 1.1 % IMMATURE GRANULOCYTES (test code = 1036) 0.3 % NUCLEATED RBCS (test code = 1065) 0.0 /100WBC'S PLATELET COUNT (test code = 1015) 348 K/UL ABSOLUTE NEUTROPHILS (test c ode = 1066) 4.47 K/UL ABSOLUTE LYMPHOCYTES (test c ode = 1067) 3.54 K/UL ABSOLUTE MONOCYTES (test cod e = 1068) 0.49 K/UL ABSOLUTE EOSINOPHILS (test c ode = 1040) 0.12 K/UL ABSOLUTE BASOPHILS (test cod e = 1069) 0.10 K/UL ABS IMMATURE GRANULOCYTES (t est code = 1020) 0.03 K/UL ABS NUCLEATED RBCS (test cod e = 44355) 0.00 K/UL [place] PersonBASIC METABOLIC [id number] 00:00:00* Test Item Value Reference Range Interpretation Comme nts GLUCOSE (test code = 2217) 130 MG/DL BUN (test code = 2208) 18 MG/DL CREATININE (test code = 2214) 0.77 MG/DL eGFR (2020 CKD-EPI) (test co de = 79321) 92 ML/MIN/1.73 SODIUM (test code = 2231) 141 MEQ/L POTASSIUM (test code = 2228) 4.5 MEQ/L CHLORIDE (test code = 2215) 99 MEQ/L CARBON DIOXIDE (test code = 2206) 24 MEQ/L CALCIUM (test code = 2209) 10.3 MG/DL [place] PersonC W/AUTO [id number] 00:00:00* Test Item Value Reference Range Interpretation Comme nts WBC (test code = 1001) 8.8 K/UL RBC (test code = 1002) 4.97 M/UL HEMOGLOBIN (test code = 1003) 13.0 G/DL HEMATOCRIT (test code = 1004) 40.2 % MCV (test code = 1005) 80.9 fL MCH (test code = 1006) 26.2 PG MCHC (test code = 1007) 32.3 G/DL RDW (test code = 1038) 12.6 % NEUTROPHILS (test code = 1008) 51.1 % LYMPHOCYTES (test code = 1010) 40.5 % MONOCYTES (test code = 1011) 5.6 % EOSINOPHILS (test code = 1012) 1.4 % BASOPHILS (test code = 1013) 1.1 % IMMATURE GRANULOCYTES (test code = 1036) 0.3 % NUCLEATED RBCS (test code = 1065) 0.0 /100WBC'S PLATELET COUNT (test code = 1015) 348 K/UL ABSOLUTE NEUTROPHILS (test c ode = 1066) 4.47 K/UL ABSOLUTE LYMPHOCYTES (test c ode = 1067) 3.54 K/UL ABSOLUTE MONOCYTES (test cod e = 1068) 0.49 K/UL ABSOLUTE EOSINOPHILS (test c ode = 1040) 0.12 K/UL ABSOLUTE BASOPHILS (test cod e = 1069) 0.10 K/UL ABS IMMATURE GRANULOCYTES (t est code = 1020) 0.03 K/UL ABS NUCLEATED RBCS (test cod e = 60807) 0.00 K/UL [place] PersonBASIC METABOLIC [id number] 00:00:00* Test Item Value Reference Range Interpretation Comme nts GLUCOSE (test code = 2217) 130 MG/DL BUN (test code = 2208) 18 MG/DL CREATININE (test code = 2214) 0.77 MG/DL eGFR (2020 CKD-EPI) (test co de = 91211) 92 ML/MIN/1.73 SODIUM (test code = 2231) 141 MEQ/L POTASSIUM (test code = 2228) 4.5 MEQ/L CHLORIDE (test code = 2215) 99 MEQ/L CARBON DIOXIDE (test code = 2206) 24 MEQ/L CALCIUM (test code = 2209) 10.3 MG/DL [place] PersonCBC W/AUTO [id number] 00:00:00* Test Item Value Reference Range Interpretation Comme nts WBC (test code = 1001) 8.8 K/UL RBC (test code = 1002) 4.97 M/UL HEMOGLOBIN (test code = 1003) 13.0 G/DL HEMATOCRIT (test code = 1004) 40.2 % MCV (test code = 1005) 80.9 fL MCH (test code = 1006) 26.2 PG MCHC (test code = 1007) 32.3 G/DL RDW (test code = 1038) 12.6 % NEUTROPHILS (test code = 1008) 51.1 % LYMPHOCYTES (test code = 1010) 40.5 % MONOCYTES (test code = 1011) 5.6 % EOSINOPHILS (test code = 1012) 1.4 % BASOPHILS (test code = 1013) 1.1 % IMMATURE GRANULOCYTES (test code = 1036) 0.3 % NUCLEATED RBCS (test code = 1065) 0.0 /100WBC'S PLATELET COUNT (test code = 1015) 348 K/UL ABSOLUTE NEUTROPHILS (test c ode = 1066) 4.47 K/UL ABSOLUTE LYMPHOCYTES (test c ode = 1067) 3.54 K/UL ABSOLUTE MONOCYTES (test cod e = 1068) 0.49 K/UL ABSOLUTE EOSINOPHILS (test c ode = 1040) 0.12 K/UL ABSOLUTE BASOPHILS (test cod e = 1069) 0.10 K/UL ABS IMMATURE GRANULOCYTES (t est code = 1020) 0.03 K/UL ABS NUCLEATED RBCS (test cod e = 03475) 0.00 K/UL [place] PersonBASIC METABOLIC [id number] 00:00:00* Test Item Value Reference Range Interpretation Comme nts GLUCOSE (test code = 2217) 130 MG/DL BUN (test code = 2208) 18 MG/DL CREATININE (test code = 2214) 0.77 MG/DL eGFR (2020 CKD-EPI) (test co de = 39957) 92 ML/MIN/1.73 SODIUM (test code = 2231) 141 MEQ/L POTASSIUM (test code = 2228) 4.5 MEQ/L CHLORIDE (test code = 2215) 99 MEQ/L CARBON DIOXIDE (test code = 2206) 24 MEQ/L CALCIUM (test code = 2209) 10.3 MG/DL [place] PersonCBC W/AUTO [id number] 00:00:00* Test Item Value Reference Range Interpretation Comme nts WBC (test code = 1001) 8.8 K/UL RBC (test code = 1002) 4.97 M/UL HEMOGLOBIN (test code = 1003) 13.0 G/DL HEMATOCRIT (test code = 1004) 40.2 % MCV (test code = 1005) 80.9 fL MCH (test code = 1006) 26.2 PG MCHC (test code = 1007) 32.3 G/DL RDW (test code = 1038) 12.6 % NEUTROPHILS (test code = 1008) 51.1 % LYMPHOCYTES (test code = 1010) 40.5 % MONOCYTES (test code = 1011) 5.6 % EOSINOPHILS (test code = 1012) 1.4 % BASOPHILS (test code = 1013) 1.1 % IMMATURE GRANULOCYTES (test code = 1036) 0.3 % NUCLEATED RBCS (test code = 1065) 0.0 /100WBC'S PLATELET COUNT (test code = 1015) 348 K/UL ABSOLUTE NEUTROPHILS (test c ode = 1066) 4.47 K/UL ABSOLUTE LYMPHOCYTES (test c ode = 1067) 3.54 K/UL ABSOLUTE MONOCYTES (test cod e = 1068) 0.49 K/UL ABSOLUTE EOSINOPHILS (test c ode = 1040) 0.12 K/UL ABSOLUTE BASOPHILS (test cod e = 1069) 0.10 K/UL ABS IMMATURE GRANULOCYTES (t est code = 1020) 0.03 K/UL ABS NUCLEATED RBCS (test cod e = 62568) 0.00 K/UL [place] PersonBASIC METABOLIC [id number] 00:00:00* Test Item Value Reference Range Interpretation Comme nts GLUCOSE (test code = 2217) 130 MG/DL BUN (test code = 2208) 18 MG/DL CREATININE (test code = 2214) 0.77 MG/DL eGFR (2020 CKD-EPI) (test co de = 82133) 92 ML/MIN/1.73 SODIUM (test code = 2231) 141 MEQ/L POTASSIUM (test code = 2228) 4.5 MEQ/L CHLORIDE (test code = 2215) 99 MEQ/L CARBON DIOXIDE (test code = 2206) 24 MEQ/L CALCIUM (test code = 2209) 10.3 MG/DL [place] PersonCBC W/AUTO [id number] 00:00:00* Test Item Value Reference Range Interpretation Comme nts WBC (test code = 1001) 8.8 K/UL RBC (test code = 1002) 4.97 M/UL HEMOGLOBIN (test code = 1003) 13.0 G/DL HEMATOCRIT (test code = 1004) 40.2 % MCV (test code = 1005) 80.9 fL MCH (test code = 1006) 26.2 PG MCHC (test code = 1007) 32.3 G/DL RDW (test code = 1038) 12.6 % NEUTROPHILS (test code = 1008) 51.1 % LYMPHOCYTES (test code = 1010) 40.5 % MONOCYTES (test code = 1011) 5.6 % EOSINOPHILS (test code = 1012) 1.4 % BASOPHILS (test code = 1013) 1.1 % IMMATURE GRANULOCYTES (test code = 1036) 0.3 % NUCLEATED RBCS (test code = 1065) 0.0 /100WBC'S PLATELET COUNT (test code = 1015) 348 K/UL ABSOLUTE NEUTROPHILS (test c ode = 1066) 4.47 K/UL ABSOLUTE LYMPHOCYTES (test c ode = 1067) 3.54 K/UL ABSOLUTE MONOCYTES (test cod e = 1068) 0.49 K/UL ABSOLUTE EOSINOPHILS (test c ode = 1040) 0.12 K/UL ABSOLUTE BASOPHILS (test cod e = 1069) 0.10 K/UL ABS IMMATURE GRANULOCYTES (t est code = 1020) 0.03 K/UL ABS NUCLEATED RBCS (test cod e = 15520) 0.00 K/UL [place] PersonBASIC METABOLIC [id number] 00:00:00* Test Item Value Reference Range Interpretation Comme nts GLUCOSE (test code = 2217) 130 MG/DL BUN (test code = 2208) 18 MG/DL CREATININE (test code = 2214) 0.77 MG/DL eGFR (2020 CKD-EPI) (test co de = 00874) 92 ML/MIN/1.73 SODIUM (test code = 2231) 141 MEQ/L POTASSIUM (test code = 2228) 4.5 MEQ/L CHLORIDE (test code = 2215) 99 MEQ/L CARBON DIOXIDE (test code = 2206) 24 MEQ/L CALCIUM (test code = 2209) 10.3 MG/DL [place] PersonC W/AUTO [id number] 00:00:00* Test Item Value Reference Range Interpretation Comme nts WBC (test code = 1001) 8.8 K/UL RBC (test code = 1002) 4.97 M/UL HEMOGLOBIN (test code = 1003) 13.0 G/DL HEMATOCRIT (test code = 1004) 40.2 % MCV (test code = 1005) 80.9 fL MCH (test code = 1006) 26.2 PG MCHC (test code = 1007) 32.3 G/DL RDW (test code = 1038) 12.6 % NEUTROPHILS (test code = 1008) 51.1 % LYMPHOCYTES (test code = 1010) 40.5 % MONOCYTES (test code = 1011) 5.6 % EOSINOPHILS (test code = 1012) 1.4 % BASOPHILS (test code = 1013) 1.1 % IMMATURE GRANULOCYTES (test code = 1036) 0.3 % NUCLEATED RBCS (test code = 1065) 0.0 /100WBC'S PLATELET COUNT (test code = 1015) 348 K/UL ABSOLUTE NEUTROPHILS (test c ode = 1066) 4.47 K/UL ABSOLUTE LYMPHOCYTES (test c ode = 1067) 3.54 K/UL ABSOLUTE MONOCYTES (test cod e = 1068) 0.49 K/UL ABSOLUTE EOSINOPHILS (test c ode = 1040) 0.12 K/UL ABSOLUTE BASOPHILS (test cod e = 1069) 0.10 K/UL ABS IMMATURE GRANULOCYTES (t est code = 1020) 0.03 K/UL ABS NUCLEATED RBCS (test cod e = 59414) 0.00 K/UL [place] PersonBASIC METABOLIC [id number] 00:00:00* Test Item Value Reference Range Interpretation Comme nts GLUCOSE (test code = 2217) 130 MG/DL BUN (test code = 2208) 18 MG/DL CREATININE (test code = 2214) 0.77 MG/DL eGFR (2020 CKD-EPI) (test co de = 83970) 92 ML/MIN/1.73 SODIUM (test code = 2231) 141 MEQ/L POTASSIUM (test code = 2228) 4.5 MEQ/L CHLORIDE (test code = 2215) 99 MEQ/L CARBON DIOXIDE (test code = 2206) 24 MEQ/L CALCIUM (test code = 2209) 10.3 MG/DL [place] PersonCBC W/AUTO [id number] 00:00:00* Test Item Value Reference Range Interpretation Comme nts WBC (test code = 1001) 8.8 K/UL RBC (test code = 1002) 4.97 M/UL HEMOGLOBIN (test code = 1003) 13.0 G/DL HEMATOCRIT (test code = 1004) 40.2 % MCV (test code = 1005) 80.9 fL MCH (test code = 1006) 26.2 PG MCHC (test code = 1007) 32.3 G/DL RDW (test code = 1038) 12.6 % NEUTROPHILS (test code = 1008) 51.1 % LYMPHOCYTES (test code = 1010) 40.5 % MONOCYTES (test code = 1011) 5.6 % EOSINOPHILS (test code = 1012) 1.4 % BASOPHILS (test code = 1013) 1.1 % IMMATURE GRANULOCYTES (test code = 1036) 0.3 % NUCLEATED RBCS (test code = 1065) 0.0 /100WBC'S PLATELET COUNT (test code = 1015) 348 K/UL ABSOLUTE NEUTROPHILS (test c ode = 1066) 4.47 K/UL ABSOLUTE LYMPHOCYTES (test c ode = 1067) 3.54 K/UL ABSOLUTE MONOCYTES (test cod e = 1068) 0.49 K/UL ABSOLUTE EOSINOPHILS (test c ode = 1040) 0.12 K/UL ABSOLUTE BASOPHILS (test cod e = 1069) 0.10 K/UL ABS IMMATURE GRANULOCYTES (t est code = 1020) 0.03 K/UL ABS NUCLEATED RBCS (test cod e = 41325) 0.00 K/UL [place] PersonBASIC METABOLIC [id number] 00:00:00* Test Item Value Reference Range Interpretation Comme nts GLUCOSE (test code = 2217) 130 MG/DL BUN (test code = 2208) 18 MG/DL CREATININE (test code = 2214) 0.77 MG/DL eGFR (2020 CKD-EPI) (test co de = 12782) 92 ML/MIN/1.73 SODIUM (test code = 2231) 141 MEQ/L POTASSIUM (test code = 2228) 4.5 MEQ/L CHLORIDE (test code = 2215) 99 MEQ/L CARBON DIOXIDE (test code = 2206) 24 MEQ/L CALCIUM (test code = 2209) 10.3 MG/DL [place] PersonC W/AUTO [id number] 00:00:00* Test Item Value Reference Range Interpretation Comme nts WBC (test code = 1001) 8.8 K/UL RBC (test code = 1002) 4.97 M/UL HEMOGLOBIN (test code = 1003) 13.0 G/DL HEMATOCRIT (test code = 1004) 40.2 % MCV (test code = 1005) 80.9 fL MCH (test code = 1006) 26.2 PG MCHC (test code = 1007) 32.3 G/DL RDW (test code = 1038) 12.6 % NEUTROPHILS (test code = 1008) 51.1 % LYMPHOCYTES (test code = 1010) 40.5 % MONOCYTES (test code = 1011) 5.6 % EOSINOPHILS (test code = 1012) 1.4 % BASOPHILS (test code = 1013) 1.1 % IMMATURE GRANULOCYTES (test code = 1036) 0.3 % NUCLEATED RBCS (test code = 1065) 0.0 /100WBC'S PLATELET COUNT (test code = 1015) 348 K/UL ABSOLUTE NEUTROPHILS (test c ode = 1066) 4.47 K/UL ABSOLUTE LYMPHOCYTES (test c ode = 1067) 3.54 K/UL ABSOLUTE MONOCYTES (test cod e = 1068) 0.49 K/UL ABSOLUTE EOSINOPHILS (test c ode = 1040) 0.12 K/UL ABSOLUTE BASOPHILS (test cod e = 1069) 0.10 K/UL ABS IMMATURE GRANULOCYTES (t est code = 1020) 0.03 K/UL ABS NUCLEATED RBCS (test cod e = 07758) 0.00 K/UL [place] PersonBASIC METABOLIC [id number] 00:00:00* Test Item Value Reference Range Interpretation Comme nts GLUCOSE (test code = 2217) 130 MG/DL BUN (test code = 2208) 18 MG/DL CREATININE (test code = 2214) 0.77 MG/DL eGFR (2020 CKD-EPI) (test co de = 64537) 92 ML/MIN/1.73 SODIUM (test code = 2231) 141 MEQ/L POTASSIUM (test code = 2228) 4.5 MEQ/L CHLORIDE (test code = 2215) 99 MEQ/L CARBON DIOXIDE (test code = 2206) 24 MEQ/L CALCIUM (test code = 2209) 10.3 MG/DL [place] PersonCBC W/AUTO [id number] 00:00:00* Test Item Value Reference Range Interpretation Comme nts WBC (test code = 1001) 8.8 K/UL RBC (test code = 1002) 4.97 M/UL HEMOGLOBIN (test code = 1003) 13.0 G/DL HEMATOCRIT (test code = 1004) 40.2 % MCV (test code = 1005) 80.9 fL MCH (test code = 1006) 26.2 PG MCHC (test code = 1007) 32.3 G/DL RDW (test code = 1038) 12.6 % NEUTROPHILS (test code = 1008) 51.1 % LYMPHOCYTES (test code = 1010) 40.5 % MONOCYTES (test code = 1011) 5.6 % EOSINOPHILS (test code = 1012) 1.4 % BASOPHILS (test code = 1013) 1.1 % IMMATURE GRANULOCYTES (test code = 1036) 0.3 % NUCLEATED RBCS (test code = 1065) 0.0 /100WBC'S PLATELET COUNT (test code = 1015) 348 K/UL ABSOLUTE NEUTROPHILS (test c ode = 1066) 4.47 K/UL ABSOLUTE LYMPHOCYTES (test c ode = 1067) 3.54 K/UL ABSOLUTE MONOCYTES (test cod e = 1068) 0.49 K/UL ABSOLUTE EOSINOPHILS (test c ode = 1040) 0.12 K/UL ABSOLUTE BASOPHILS (test cod e = 1069) 0.10 K/UL ABS IMMATURE GRANULOCYTES (t est code = 1020) 0.03 K/UL ABS NUCLEATED RBCS (test cod e = 52499) 0.00 K/UL [place] PersonBASIC METABOLIC [id number] 00:00:00* Test Item Value Reference Range Interpretation Comme nts GLUCOSE (test code = 2217) 130 MG/DL BUN (test code = 2208) 18 MG/DL CREATININE (test code = 2214) 0.77 MG/DL eGFR (2020 CKD-EPI) (test co de = 84985) 92 ML/MIN/1.73 SODIUM (test code = 2231) 141 MEQ/L POTASSIUM (test code = 2228) 4.5 MEQ/L CHLORIDE (test code = 2215) 99 MEQ/L CARBON DIOXIDE (test code = 2206) 24 MEQ/L CALCIUM (test code = 2209) 10.3 MG/DL [place] PersonCBC W/AUTO [id number] 00:00:00* Test Item Value Reference Range Interpretation Comme nts WBC (test code = 1001) 8.8 K/UL RBC (test code = 1002) 4.97 M/UL HEMOGLOBIN (test code = 1003) 13.0 G/DL HEMATOCRIT (test code = 1004) 40.2 % MCV (test code = 1005) 80.9 fL MCH (test code = 1006) 26.2 PG MCHC (test code = 1007) 32.3 G/DL RDW (test code = 1038) 12.6 % NEUTROPHILS (test code = 1008) 51.1 % LYMPHOCYTES (test code = 1010) 40.5 % MONOCYTES (test code = 1011) 5.6 % EOSINOPHILS (test code = 1012) 1.4 % BASOPHILS (test code = 1013) 1.1 % IMMATURE GRANULOCYTES (test code = 1036) 0.3 % NUCLEATED RBCS (test code = 1065) 0.0 /100WBC'S PLATELET COUNT (test code = 1015) 348 K/UL ABSOLUTE NEUTROPHILS (test c ode = 1066) 4.47 K/UL ABSOLUTE LYMPHOCYTES (test c ode = 1067) 3.54 K/UL ABSOLUTE MONOCYTES (test cod e = 1068) 0.49 K/UL ABSOLUTE EOSINOPHILS (test c ode = 1040) 0.12 K/UL ABSOLUTE BASOPHILS (test cod e = 1069) 0.10 K/UL ABS IMMATURE GRANULOCYTES (t est code = 1020) 0.03 K/UL ABS NUCLEATED RBCS (test cod e = 10773) 0.00 K/UL [place] Guardado [facility] W/AUTO [id number] 00:00:00* Test Item Value Reference Range Interpretation Comme nts WBC (test code = 1001) 8.8 K/UL RBC (test code = 1002) 4.97 M/UL HEMOGLOBIN (test code = 1003) 13.0 G/DL HEMATOCRIT (test code = 1004) 40.2 % MCV (test code = 1005) 80.9 fL MCH (test code = 1006) 26.2 PG MCHC (test code = 1007) 32.3 G/DL RDW (test code = 1038) 12.6 % NEUTROPHILS (test code = 1008) 51.1 % LYMPHOCYTES (test code = 1010) 40.5 % MONOCYTES (test code = 1011) 5.6 % EOSINOPHILS (test code = 1012) 1.4 % BASOPHILS (test code = 1013) 1.1 % IMMATURE GRANULOCYTES (test code = 1036) 0.3 % NUCLEATED RBCS (test code = 1065) 0.0 /100WBC'S PLATELET COUNT (test code = 1015) 348 K/UL ABSOLUTE NEUTROPHILS (test c ode = 1066) 4.47 K/UL ABSOLUTE LYMPHOCYTES (test c ode = 1067) 3.54 K/UL ABSOLUTE MONOCYTES (test cod e = 1068) 0.49 K/UL ABSOLUTE EOSINOPHILS (test c ode = 1040) 0.12 K/UL ABSOLUTE BASOPHILS (test cod e = 1069) 0.10 K/UL ABS IMMATURE GRANULOCYTES (t est code = 1020) 0.03 K/UL ABS NUCLEATED RBCS (test cod e = 38204) 0.00 K/UL [place] PersonBASIC METABOLIC [id number] 00:00:00* Test Item Value Reference Range Interpretation Comme nts GLUCOSE (test code = 2217) 130 MG/DL BUN (test code = 2208) 18 MG/DL CREATININE (test code = 2214) 0.77 MG/DL eGFR (2020 CKD-EPI) (test co de = 86519) 92 ML/MIN/1.73 SODIUM (test code = 2231) 141 MEQ/L POTASSIUM (test code = 2228) 4.5 MEQ/L CHLORIDE (test code = 2215) 99 MEQ/L CARBON DIOXIDE (test code = 2206) 24 MEQ/L CALCIUM (test code = 2209) 10.3 MG/DL [place] Guardado ThomasCBC W/AUTO [id number] 00:00:00* Test Item Value Reference Range Interpretation Comme nts WBC (test code = 1001) 8.8 K/UL RBC (test code = 1002) 4.97 M/UL HEMOGLOBIN (test code = 1003) 13.0 G/DL HEMATOCRIT (test code = 1004) 40.2 % MCV (test code = 1005) 80.9 fL MCH (test code = 1006) 26.2 PG MCHC (test code = 1007) 32.3 G/DL RDW (test code = 1038) 12.6 % NEUTROPHILS (test code = 1008) 51.1 % LYMPHOCYTES (test code = 1010) 40.5 % MONOCYTES (test code = 1011) 5.6 % EOSINOPHILS (test code = 1012) 1.4 % BASOPHILS (test code = 1013) 1.1 % IMMATURE GRANULOCYTES (test code = 1036) 0.3 % NUCLEATED RBCS (test code = 1065) 0.0 /100WBC'S PLATELET COUNT (test code = 1015) 348 K/UL ABSOLUTE NEUTROPHILS (test c ode = 1066) 4.47 K/UL ABSOLUTE LYMPHOCYTES (test c ode = 1067) 3.54 K/UL ABSOLUTE MONOCYTES (test cod e = 1068) 0.49 K/UL ABSOLUTE EOSINOPHILS (test c ode = 1040) 0.12 K/UL ABSOLUTE BASOPHILS (test cod e = 1069) 0.10 K/UL ABS IMMATURE GRANULOCYTES (t est code = 1020) 0.03 K/UL ABS NUCLEATED RBCS (test cod e = 72974) 0.00 K/UL [place] Guardado ThomasBASIC METABOLIC [id number] 00:00:00* Test Item Value Reference Range Interpretation Comme nts GLUCOSE (test code = 2217) 130 MG/DL BUN (test code = 2208) 18 MG/DL CREATININE (test code = 2214) 0.77 MG/DL eGFR (2020 CKD-EPI) (test co de = 23203) 92 ML/MIN/1.73 SODIUM (test code = 2231) 141 MEQ/L POTASSIUM (test code = 2228) 4.5 MEQ/L CHLORIDE (test code = 2215) 99 MEQ/L CARBON DIOXIDE (test code = 2206) 24 MEQ/L CALCIUM (test code = 2209) 10.3 MG/DL [place] Guardado AustinLIPID [id number] 06:40:21* Test Item Value Reference Range Interpretation Comme nts CHOLESTEROL (test code = 2210) 260 MG/DL <200 H TRIGLYCERIDES (test code = 2232) 444 MG/DL <150 H HDL CHOLESTEROL (test code = 2220) 54 MG/DL >39 CALC LDL CHOL (test code = 2237) (NOTE) MG/DL <100 UNABLE TO CALCUL ATE A VALID LDL CHOLESTEROL WHEN THE TRIGLYCERIDEVALUE IS GREATER THAN 400 MG/DL.UNABLE TO CALCULATE A VALID LDL CHOLESTEROL WHEN THE TRIGLYCERIDEVALUE IS GREATER THAN 400 MG/DL. NOTE: CALCULATED LDL IS BASED ON KRISTEN-PIERCE METHOD WHICHINCLUDES ADJUSTABLE TRIGLYCERIDE:VLDL CHOLESTEROL RATIO.THIS FACTOR VARIES BY MEASURED TRIGLYCERIDE AND NON-HDLCHOLESTEROL CONCENTRATIONS WITH INCREASED CALCULATED LDL SEENIN HIGHER TRIGLYCERIDE OR LOWER NON-HDL SPECIMENS. FOR MOREINFORMATION, SEE CLIENT ANNOUNCEMENT AT [email or web address] CalcLDL-C RISK RATIO LDL/HDL (test code = 223) (NOTE) RATIO <3.22 UNABLE TO ELIZABETH CULATE COMPREHENSIVE METABOLIC [id number] 06:40:21* Test Item Value Reference Range Interpretation Comme nts GLUCOSE (test code = 2217) 144 MG/DL 70-99 H BUN (test code = 220) 19 MG/DL 6-20 CREATININE (test code = 2214) 0.75 MG/DL 0.60-1.30 eGFR (2020 CKD-EPI) (test co de = ) 95 ML/MIN/1.73 >60 CALC BUN/CREAT (test code = 2235) 25 RATIO 6-28 SODIUM (test code = 223) 139 MEQ/L 133-146 POTASSIUM (test code = 2228) 4.3 MEQ/L 3.5-5.4 CHLORIDE (test code = 2215) 97 MEQ/L 95-107 CARBON DIOXIDE (test code = 2206) 23 MEQ/L 19-31 CALCIUM (test code = 2209) 10.0 MG/DL 8.5-10.5 PROTEIN, TOTAL (test code = 2229) 8.0 G/DL 6.1-8.3 ALBUMIN (test code = 2201) 4.9 G/DL 3.5-5.2 CALC GLOBULIN (test code = 2240) 3.1 G/DL 1.9-3.7 CALC A/G RATIO (test code = 2234) 1.6 RATIO 1.0-2.6 BILIRUBIN, TOTAL (test code = 2207) 0.5 MG/DL <=1.2 ALKALINE PHOSPHATASE (test code = 2204) 76 U/L 40-133 AST (test code = 2218) 70 U/L 9-40 H ALT (test code = 2219) 84 U/L 5-40 H CBC W/AUTO DIFF WITH [id number] 04:16:04* Test Item Value Reference Range Interpretation Comme nts WBC (test code = 1001) 7.3 K/UL 3.5-11.0 RBC (test code = 1002) 5.11 M/UL 3.80-5.40 HEMOGLOBIN (test code = 1003) 13.7 G/DL 11.5-15.5 HEMATOCRIT (test code = 1004) 42.0 % 34.0-45.0 MCV (test code = 1005) 82.2 fL 80.0-99.0 MCH (test code = 1006) 26.8 PG 25.0-33.0 MCHC (test code = 1007) 32.6 G/DL 31.0-36.0 RDW (test code = 1038) 12.6 % 11.5-15.0 NEUTROPHILS (test code = 1008) 57.2 % LYMPHOCYTES (test code = 1010) 34.0 % MONOCYTES (test code = 1011) 6.3 % EOSINOPHILS (test code = 1012) 1.1 % BASOPHILS (test code = 1013) 1.1 % IMMATURE GRANULOCYTES (test code = 1036) 0.3 % NUCLEATED RBCS (test code = 1065) 0.0 /100 WBC'S See_Comment [Automated messa ge] The system which generated this result transmitted reference range: 0.0. The reference range was not used to interpret this result as normal/abnormal. PLATELET COUNT (test code = 1015) 346 K/UL 130-400 ABSOLUTE NEUTROPHILS (test code = 1066) 4.15 K/UL 1.50-7.50 ABSOLUTE LYMPHOCYTES (test code = 1067) 2.47 K/UL 1.00-4.00 ABSOLUTE MONOCYTES (test code = 1068) 0.46 K/UL 0.20-1.00 ABSOLUTE EOSINOPHILS (test code = 1040) 0.08 K/UL 0.00-0.50 ABSOLUTE BASOPHILS (test code = 1069) 0.08 K/UL 0.00-0.20 ABS IMMATURE GRANULOCYTES (test code = 1020) 0.02 K/UL 0.00-0.10 ABS NUCLEATED RBCS (test code = 69808) 0.00 K/UL 0.00-0.11 ALBUMIN/CREATININE RATIO, URINE, [id number] 04:11:19* Test Item Value Reference Range Interpretation Comme nts CREATININE, URINE, CONC. (test code = 2072) 155.2 MG/DL NOT ESTAB ALBUMIN, URINE, RANDOM (test code = 03348) 7.7 MG/DL NOT ESTAB CALC ALBUMIN/CREAT, RND (test code = 49519) 50 MG/G <30 H Note: Albumin/Cr eatinine ratio reference interval reflects ADA and NKF guidelines. UNLESS OTHERWISE INDICATED, ALL TESTING PERFORMED AT [facility] [address] [place] [id number] RADIOLOGIST DIAGNOSTIC: JALYN BAUMANN M.D. [place] NUMBER [id number] [place]. [id number] HEMOGLOBIN [id number] 03:35:32* Test Item Value Reference Range Interpretation Comme nts HEMOGLOBIN A1c (test code = 49575) 7.4 % 4.2-5.6 H [employer] GUIDELINES FOR HGB A1C: PREDIABETES/INCREASED RISK . . . . . . . 5.7-6.4% DIAGNOSIS OF DIABETES . . . . . . . . . >=6.5% WITH CONFIRMATION OR APPROPRIATE SYMPTOMS NOTE: ASSAY MAY BE AFFECTED BY HEMOGLOBINOPATHIES (SICKLE CELL ANEMIA, S-C DISEASE, OTHERS) OR ARTIFICIALLY LOWERED BY DECREASED RED CELL SURVIVAL (HEMOLYTIC ANEMIAS, BLOOD LOSS, ETC.). CONSIDER ALTERNATE TESTING OR LABORATORY CONSULTATION. CBC W/AUTO [id number] 00:00:00* Test Item Value Reference Range Interpretation Comme nts WBC (test code = 1001) 7.3 K/UL RBC (test code = 1002) 5.11 M/UL HEMOGLOBIN (test code = 1003) 13.7 G/DL HEMATOCRIT (test code = 1004) 42.0 % MCV (test code = 1005) 82.2 fL MCH (test code = 1006) 26.8 PG MCHC (test code = 1007) 32.6 G/DL RDW (test code = 1038) 12.6 % NEUTROPHILS (test code = 1008) 57.2 % LYMPHOCYTES (test code = 1010) 34.0 % MONOCYTES (test code = 1011) 6.3 % EOSINOPHILS (test code = 1012) 1.1 % BASOPHILS (test code = 1013) 1.1 % IMMATURE GRANULOCYTES (test code = 1036) 0.3 % NUCLEATED RBCS (test code = 1065) 0.0 /100WBC'S PLATELET COUNT (test code = 1015) 346 K/UL ABSOLUTE NEUTROPHILS (test c ode = 1066) 4.15 K/UL ABSOLUTE LYMPHOCYTES (test c ode = 1067) 2.47 K/UL ABSOLUTE MONOCYTES (test cod e = 1068) 0.46 K/UL ABSOLUTE EOSINOPHILS (test c ode = 1040) 0.08 K/UL ABSOLUTE BASOPHILS (test cod e = 1069) 0.08 K/UL ABS IMMATURE GRANULOCYTES (t est code = 1020) 0.02 K/UL ABS NUCLEATED RBCS (test cod e = 51639) 0.00 K/UL [place] PersonHEMOGLOBIN [id number] 00:00:00* Test Item Value Reference Range Interpretation Comme nts HEMOGLOBIN A1c (test code = 43624) 7.4 % [place] Guardado AustinLIPID [id number] 00:00:00* Test Item Value Reference Range Interpretation Comme nts CHOLESTEROL (test code = 2210) 260 MG/DL TRIGLYCERIDES (test code = 2232) 444 MG/DL HDL CHOLESTEROL (test code = 2220) 54 MG/DL CALC LDL CHOL (test code = 2237) (NOTE) MG/DL RISK RATIO LDL/HDL (test cod e = 2238) (NOTE) RATIO [place] Guardado AustinLIPID [id number] 00:00:00* Test Item Value Reference Range Interpretation Comme nts CHOLESTEROL (test code = 2210) 260 MG/DL TRIGLYCERIDES (test code = 2232) 444 MG/DL HDL CHOLESTEROL (test code = 2220) 54 MG/DL CALC LDL CHOL (test code = 2237) (NOTE) MG/DL RISK RATIO LDL/HDL (test cod e = 2238) (NOTE) RATIO [place] PersonCOMPREHENSIVE METABOLIC [id number] 00:00:00* Test Item Value Reference Range Interpretation Comme nts GLUCOSE (test code = 2217) 144 MG/DL BUN (test code = 2208) 19 MG/DL CREATININE (test code = 2214) 0.75 MG/DL eGFR (2020 CKD-EPI) (test co de = 59034) 95 ML/MIN/1.73 CALC BUN/CREAT (test code = 2235) 25 RATIO SODIUM (test code = 2231) 139 MEQ/L POTASSIUM (test code = 2228) 4.3 MEQ/L CHLORIDE (test code = 2215) 97 MEQ/L CARBON DIOXIDE (test code = 2206) 23 MEQ/L CALCIUM (test code = 2209) 10.0 MG/DL PROTEIN, TOTAL (test code = 2229) 8.0 G/DL ALBUMIN (test code = 2201) 4.9 G/DL CALC GLOBULIN (test code = 2240) 3.1 G/DL CALC A/G RATIO (test code = 2234) 1.6 RATIO BILIRUBIN, TOTAL (test code = 2207) 0.5 MG/DL ALKALINE PHOSPHATASE (test code = 2204) 76 U/L AST (test code = 2218) 70 U/L ALT (test code = 2219) 84 U/L [place] PersonALBUMIN/CREATININE RATIO, RANDOM [id number] 00:00:00* Test Item Value Reference Range Interpretation Comme nts CREATININE, URINE, CONC. (te st code = 2072) 155.2 MG/DL ALBUMIN, URINE, RANDOM (test code = 04118) 7.7 MG/DL CALC ALBUMIN/CREAT, RND (solange t code = 99449) 50 MG/G [place] PersonCBC W/AUTO [id number] 00:00:00* Test Item Value Reference Range Interpretation Comme nts WBC (test code = 1001) 7.3 K/UL RBC (test code = 1002) 5.11 M/UL HEMOGLOBIN (test code = 1003) 13.7 G/DL HEMATOCRIT (test code = 1004) 42.0 % MCV (test code = 1005) 82.2 fL MCH (test code = 1006) 26.8 PG MCHC (test code = 1007) 32.6 G/DL RDW (test code = 1038) 12.6 % NEUTROPHILS (test code = 1008) 57.2 % LYMPHOCYTES (test code = 1010) 34.0 % MONOCYTES (test code = 1011) 6.3 % EOSINOPHILS (test code = 1012) 1.1 % BASOPHILS (test code = 1013) 1.1 % IMMATURE GRANULOCYTES (test code = 1036) 0.3 % NUCLEATED RBCS (test code = 1065) 0.0 /100WBC'S PLATELET COUNT (test code = 1015) 346 K/UL ABSOLUTE NEUTROPHILS (test c ode = 1066) 4.15 K/UL ABSOLUTE LYMPHOCYTES (test c ode = 1067) 2.47 K/UL ABSOLUTE MONOCYTES (test cod e = 1068) 0.46 K/UL ABSOLUTE EOSINOPHILS (test c ode = 1040) 0.08 K/UL ABSOLUTE BASOPHILS (test cod e = 1069) 0.08 K/UL ABS IMMATURE GRANULOCYTES (t est code = 1020) 0.02 K/UL ABS NUCLEATED RBCS (test cod e = 38799) 0.00 K/UL [place] PersonCOMPREHENSIVE METABOLIC [id number] 00:00:00* Test Item Value Reference Range Interpretation Comme nts GLUCOSE (test code = 2217) 144 MG/DL BUN (test code = 2208) 19 MG/DL CREATININE (test code = 2214) 0.75 MG/DL eGFR (2020 CKD-EPI) (test co de = 36260) 95 ML/MIN/1.73 CALC BUN/CREAT (test code = 2235) 25 RATIO SODIUM (test code = 2231) 139 MEQ/L POTASSIUM (test code = 2228) 4.3 MEQ/L CHLORIDE (test code = 2215) 97 MEQ/L CARBON DIOXIDE (test code = 2206) 23 MEQ/L CALCIUM (test code = 2209) 10.0 MG/DL PROTEIN, TOTAL (test code = 2229) 8.0 G/DL ALBUMIN (test code = 2201) 4.9 G/DL CALC GLOBULIN (test code = 2240) 3.1 G/DL CALC A/G RATIO (test code = 2234) 1.6 RATIO BILIRUBIN, TOTAL (test code = 2207) 0.5 MG/DL ALKALINE PHOSPHATASE (test code = 2204) 76 U/L AST (test code = 2218) 70 U/L ALT (test code = 2219) 84 U/L [place] PersonHEMOGLOBIN [id number] 00:00:00* Test Item Value Reference Range Interpretation Comme nts HEMOGLOBIN A1c (test code = 98279) 7.4 % [place] PersonLIPID [id number] 00:00:00* Test Item Value Reference Range Interpretation Comme nts CHOLESTEROL (test code = 2210) 260 MG/DL TRIGLYCERIDES (test code = 2232) 444 MG/DL HDL CHOLESTEROL (test code = 2220) 54 MG/DL CALC LDL CHOL (test code = 2237) (NOTE) MG/DL RISK RATIO LDL/HDL (test cod e = 2238) (NOTE) RATIO [place] PersonCOMPREHENSIVE METABOLIC [id number] 00:00:00* Test Item Value Reference Range Interpretation Comme nts GLUCOSE (test code = 2217) 144 MG/DL BUN (test code = 2208) 19 MG/DL CREATININE (test code = 2214) 0.75 MG/DL eGFR (2020 CKD-EPI) (test co de = 66422) 95 ML/MIN/1.73 CALC BUN/CREAT (test code = 2235) 25 RATIO SODIUM (test code = 2231) 139 MEQ/L POTASSIUM (test code = 2228) 4.3 MEQ/L CHLORIDE (test code = 2215) 97 MEQ/L CARBON DIOXIDE (test code = 2206) 23 MEQ/L CALCIUM (test code = 2209) 10.0 MG/DL PROTEIN, TOTAL (test code = 2229) 8.0 G/DL ALBUMIN (test code = 2201) 4.9 G/DL CALC GLOBULIN (test code = 2240) 3.1 G/DL CALC A/G RATIO (test code = 2234) 1.6 RATIO BILIRUBIN, TOTAL (test code = 2207) 0.5 MG/DL ALKALINE PHOSPHATASE (test code = 2204) 76 U/L AST (test code = 2218) 70 U/L ALT (test code = 2219) 84 U/L [place] PersonALBUMIN/CREATININE RATIO, RANDOM [id number] 00:00:00* Test Item Value Reference Range Interpretation Comme nts CREATININE, URINE, CONC. (te st code = 207) 155.2 MG/DL ALBUMIN, URINE, RANDOM (test code = 50828) 7.7 MG/DL CALC ALBUMIN/CREAT, RND (solange t code = 53442) 50 MG/G [place] PersonALBUMIN/CREATININE RATIO, RANDOM [id number] 00:00:00* Test Item Value Reference Range Interpretation Comme nts CREATININE, URINE, CONC. (te st code = 2072) 155.2 MG/DL ALBUMIN, URINE, RANDOM (test code = 68516) 7.7 MG/DL CALC ALBUMIN/CREAT, RND (solange t code = 54092) 50 MG/G [place] PersonCBC W/AUTO [id number] 00:00:00* Test Item Value Reference Range Interpretation Comme nts WBC (test code = 1001) 7.3 K/UL RBC (test code = 1002) 5.11 M/UL HEMOGLOBIN (test code = 1003) 13.7 G/DL HEMATOCRIT (test code = 1004) 42.0 % MCV (test code = 1005) 82.2 fL MCH (test code = 1006) 26.8 PG MCHC (test code = 1007) 32.6 G/DL RDW (test code = 1038) 12.6 % NEUTROPHILS (test code = 1008) 57.2 % LYMPHOCYTES (test code = 1010) 34.0 % MONOCYTES (test code = 1011) 6.3 % EOSINOPHILS (test code = 1012) 1.1 % BASOPHILS (test code = 1013) 1.1 % IMMATURE GRANULOCYTES (test code = 1036) 0.3 % NUCLEATED RBCS (test code = 1065) 0.0 /100WBC'S PLATELET COUNT (test code = 1015) 346 K/UL ABSOLUTE NEUTROPHILS (test c ode = 1066) 4.15 K/UL ABSOLUTE LYMPHOCYTES (test c ode = 1067) 2.47 K/UL ABSOLUTE MONOCYTES (test cod e = 1068) 0.46 K/UL ABSOLUTE EOSINOPHILS (test c ode = 1040) 0.08 K/UL ABSOLUTE BASOPHILS (test cod e = 1069) 0.08 K/UL ABS IMMATURE GRANULOCYTES (t est code = 1020) 0.02 K/UL ABS NUCLEATED RBCS (test cod e = 18599) 0.00 K/UL [place] PersonHEMOGLOBIN [id number] 00:00:00* Test Item Value Reference Range Interpretation Comme nts HEMOGLOBIN A1c (test code = 75679) 7.4 % [place] Guardado AustinLIPID [id number] 00:00:00* Test Item Value Reference Range Interpretation Comme nts CHOLESTEROL (test code = 2210) 260 MG/DL TRIGLYCERIDES (test code = 2232) 444 MG/DL HDL CHOLESTEROL (test code = 2220) 54 MG/DL CALC LDL CHOL (test code = 2237) (NOTE) MG/DL RISK RATIO LDL/HDL (test cod e = 2238) (NOTE) RATIO [place] PersonCOMPREHENSIVE METABOLIC [id number] 00:00:00* Test Item Value Reference Range Interpretation Comme nts GLUCOSE (test code = 2217) 144 MG/DL BUN (test code = 2208) 19 MG/DL CREATININE (test code = 2214) 0.75 MG/DL eGFR (2020 CKD-EPI) (test co de = 95199) 95 ML/MIN/1.73 CALC BUN/CREAT (test code = 2235) 25 RATIO SODIUM (test code = 2231) 139 MEQ/L POTASSIUM (test code = 2228) 4.3 MEQ/L CHLORIDE (test code = 2215) 97 MEQ/L CARBON DIOXIDE (test code = 2206) 23 MEQ/L CALCIUM (test code = 2209) 10.0 MG/DL PROTEIN, TOTAL (test code = 222) 8.0 G/DL ALBUMIN (test code = 220) 4.9 G/DL CALC GLOBULIN (test code = 2240) 3.1 G/DL CALC A/G RATIO (test code = 4) 1.6 RATIO BILIRUBIN, TOTAL (test code = 2206) 0.5 MG/DL ALKALINE PHOSPHATASE (test code = 2203) 76 U/L AST (test code = 2217) 70 U/L ALT (test code = 2219) 84 U/L [place] PersonALBUMIN/CREATININE RATIO, RANDOM [id number] 00:00:00* Test Item Value Reference Range Interpretation Comme nts CREATININE, URINE, CONC. (te st code = 207) 155.2 MG/DL ALBUMIN, URINE, RANDOM (test code = 64908) 7.7 MG/DL CALC ALBUMIN/CREAT, RND (solange t code = 82065) 50 MG/G [place] PersonCBC W/AUTO [id number] 00:00:00* Test Item Value Reference Range Interpretation Comme nts WBC (test code = 1001) 7.3 K/UL RBC (test code = 1002) 5.11 M/UL HEMOGLOBIN (test code = 1003) 13.7 G/DL HEMATOCRIT (test code = 1004) 42.0 % MCV (test code = 1005) 82.2 fL MCH (test code = 1006) 26.8 PG MCHC (test code = 1007) 32.6 G/DL RDW (test code = 1038) 12.6 % NEUTROPHILS (test code = 1008) 57.2 % LYMPHOCYTES (test code = 1010) 34.0 % MONOCYTES (test code = 1011) 6.3 % EOSINOPHILS (test code = 1012) 1.1 % BASOPHILS (test code = 1013) 1.1 % IMMATURE GRANULOCYTES (test code = 1036) 0.3 % NUCLEATED RBCS (test code = 1065) 0.0 /100WBC'S PLATELET COUNT (test code = 1015) 346 K/UL ABSOLUTE NEUTROPHILS (test c ode = 1066) 4.15 K/UL ABSOLUTE LYMPHOCYTES (test c ode = 1067) 2.47 K/UL ABSOLUTE MONOCYTES (test cod e = 1068) 0.46 K/UL ABSOLUTE EOSINOPHILS (test c ode = 1040) 0.08 K/UL ABSOLUTE BASOPHILS (test cod e = 1069) 0.08 K/UL ABS IMMATURE GRANULOCYTES (t est code = 1020) 0.02 K/UL ABS NUCLEATED RBCS (test cod e = 00611) 0.00 K/UL [place] PersonHEMOGLOBIN [id number] 00:00:00* Test Item Value Reference Range Interpretation Comme nts HEMOGLOBIN A1c (test code = 78318) 7.4 % [place] PersonLIPID [id number] 00:00:00* Test Item Value Reference Range Interpretation Comme nts CHOLESTEROL (test code = 2210) 260 MG/DL TRIGLYCERIDES (test code = 2232) 444 MG/DL HDL CHOLESTEROL (test code = 2220) 54 MG/DL CALC LDL CHOL (test code = 2237) (NOTE) MG/DL RISK RATIO LDL/HDL (test cod e = 2238) (NOTE) RATIO [place] PersonCOMPREHENSIVE METABOLIC [id number] 00:00:00* Test Item Value Reference Range Interpretation Comme nts GLUCOSE (test code = 2217) 144 MG/DL BUN (test code = 2208) 19 MG/DL CREATININE (test code = 2214) 0.75 MG/DL eGFR (2020 CKD-EPI) (test co de = 46180) 95 ML/MIN/1.73 CALC BUN/CREAT (test code = 2235) 25 RATIO SODIUM (test code = 2231) 139 MEQ/L POTASSIUM (test code = 2228) 4.3 MEQ/L CHLORIDE (test code = 2215) 97 MEQ/L CARBON DIOXIDE (test code = 2206) 23 MEQ/L CALCIUM (test code = 2209) 10.0 MG/DL PROTEIN, TOTAL (test code = 2229) 8.0 G/DL ALBUMIN (test code = 2201) 4.9 G/DL CALC GLOBULIN (test code = 2240) 3.1 G/DL CALC A/G RATIO (test code = 2234) 1.6 RATIO BILIRUBIN, TOTAL (test code = 2207) 0.5 MG/DL ALKALINE PHOSPHATASE (test code = 2204) 76 U/L AST (test code = 2218) 70 U/L ALT (test code = 2219) 84 U/L [place] PersonALBUMIN/CREATININE RATIO, RANDOM [id number] 00:00:00* Test Item Value Reference Range Interpretation Comme nts CREATININE, URINE, CONC. (te st code = 2072) 155.2 MG/DL ALBUMIN, URINE, RANDOM (test code = 54888) 7.7 MG/DL CALC ALBUMIN/CREAT, RND (solange t code = 66405) 50 MG/G [place] PersonCBC W/AUTO [id number] 00:00:00* Test Item Value Reference Range Interpretation Comme nts WBC (test code = 1001) 7.3 K/UL RBC (test code = 1002) 5.11 M/UL HEMOGLOBIN (test code = 1003) 13.7 G/DL HEMATOCRIT (test code = 1004) 42.0 % MCV (test code = 1005) 82.2 fL MCH (test code = 1006) 26.8 PG MCHC (test code = 1007) 32.6 G/DL RDW (test code = 1038) 12.6 % NEUTROPHILS (test code = 1008) 57.2 % LYMPHOCYTES (test code = 1010) 34.0 % MONOCYTES (test code = 1011) 6.3 % EOSINOPHILS (test code = 1012) 1.1 % BASOPHILS (test code = 1013) 1.1 % IMMATURE GRANULOCYTES (test code = 1036) 0.3 % NUCLEATED RBCS (test code = 1065) 0.0 /100WBC'S PLATELET COUNT (test code = 1015) 346 K/UL ABSOLUTE NEUTROPHILS (test c ode = 1066) 4.15 K/UL ABSOLUTE LYMPHOCYTES (test c ode = 1067) 2.47 K/UL ABSOLUTE MONOCYTES (test cod e = 1068) 0.46 K/UL ABSOLUTE EOSINOPHILS (test c ode = 1040) 0.08 K/UL ABSOLUTE BASOPHILS (test cod e = 1069) 0.08 K/UL ABS IMMATURE GRANULOCYTES (t est code = 1020) 0.02 K/UL ABS NUCLEATED RBCS (test cod e = 55745) 0.00 K/UL [place] PersonHEMOGLOBIN [id number] 00:00:00* Test Item Value Reference Range Interpretation Comme nts HEMOGLOBIN A1c (test code = 26582) 7.4 % [place] PersonLIPID [id number] 00:00:00* Test Item Value Reference Range Interpretation Comme nts CHOLESTEROL (test code = 2210) 260 MG/DL TRIGLYCERIDES (test code = 2232) 444 MG/DL HDL CHOLESTEROL (test code = 2220) 54 MG/DL CALC LDL CHOL (test code = 2237) (NOTE) MG/DL RISK RATIO LDL/HDL (test cod e = 2238) (NOTE) RATIO [place] PersonCOMPREHENSIVE METABOLIC [id number] 00:00:00* Test Item Value Reference Range Interpretation Comme nts GLUCOSE (test code = 2217) 144 MG/DL BUN (test code = 2208) 19 MG/DL CREATININE (test code = 2214) 0.75 MG/DL eGFR (2020 CKD-EPI) (test co de = 06948) 95 ML/MIN/1.73 CALC BUN/CREAT (test code = 2235) 25 RATIO SODIUM (test code = 2231) 139 MEQ/L POTASSIUM (test code = 2228) 4.3 MEQ/L CHLORIDE (test code = 2215) 97 MEQ/L CARBON DIOXIDE (test code = 2206) 23 MEQ/L CALCIUM (test code = 2209) 10.0 MG/DL PROTEIN, TOTAL (test code = 2229) 8.0 G/DL ALBUMIN (test code = 2201) 4.9 G/DL CALC GLOBULIN (test code = 2240) 3.1 G/DL CALC A/G RATIO (test code = 2234) 1.6 RATIO BILIRUBIN, TOTAL (test code = 2207) 0.5 MG/DL ALKALINE PHOSPHATASE (test code = 2204) 76 U/L AST (test code = 2218) 70 U/L ALT (test code = 2219) 84 U/L [place] F AustinALBUMIN/CREATININE RATIO, RANDOM [id number] 00:00:00* Test Item Value Reference Range Interpretation Comme nts CREATININE, URINE, CONC. (te st code = 2072) 155.2 MG/DL ALBUMIN, URINE, RANDOM (test code = 06171) 7.7 MG/DL CALC ALBUMIN/CREAT, RND (solange t code = 05849) 50 MG/G [place] PersonCBC W/AUTO [id number] 00:00:00* Test Item Value Reference Range Interpretation Comme nts WBC (test code = 1001) 7.3 K/UL RBC (test code = 1002) 5.11 M/UL HEMOGLOBIN (test code = 1003) 13.7 G/DL HEMATOCRIT (test code = 1004) 42.0 % MCV (test code = 1005) 82.2 fL MCH (test code = 1006) 26.8 PG MCHC (test code = 1007) 32.6 G/DL RDW (test code = 1038) 12.6 % NEUTROPHILS (test code = 1008) 57.2 % LYMPHOCYTES (test code = 1010) 34.0 % MONOCYTES (test code = 1011) 6.3 % EOSINOPHILS (test code = 1012) 1.1 % BASOPHILS (test code = 1013) 1.1 % IMMATURE GRANULOCYTES (test code = 1036) 0.3 % NUCLEATED RBCS (test code = 1065) 0.0 /100WBC'S PLATELET COUNT (test code = 1015) 346 K/UL ABSOLUTE NEUTROPHILS (test c ode = 1066) 4.15 K/UL ABSOLUTE LYMPHOCYTES (test c ode = 1067) 2.47 K/UL ABSOLUTE MONOCYTES (test cod e = 1068) 0.46 K/UL ABSOLUTE EOSINOPHILS (test c ode = 1040) 0.08 K/UL ABSOLUTE BASOPHILS (test cod e = 1069) 0.08 K/UL ABS IMMATURE GRANULOCYTES (t est code = 1020) 0.02 K/UL ABS NUCLEATED RBCS (test cod e = 76572) 0.00 K/UL [place] PersonHEMOGLOBIN [id number] 00:00:00* Test Item Value Reference Range Interpretation Comme nts HEMOGLOBIN A1c (test code = 17291) 7.4 % [place] PersonLIPID [id number] 00:00:00* Test Item Value Reference Range Interpretation Comme nts CHOLESTEROL (test code = 2210) 260 MG/DL TRIGLYCERIDES (test code = 2232) 444 MG/DL HDL CHOLESTEROL (test code = 2220) 54 MG/DL CALC LDL CHOL (test code = 2237) (NOTE) MG/DL RISK RATIO LDL/HDL (test cod e = 2238) (NOTE) RATIO [place] PersonCOMPREHENSIVE METABOLIC [id number] 00:00:00* Test Item Value Reference Range Interpretation Comme nts GLUCOSE (test code = 2217) 144 MG/DL BUN (test code = 2208) 19 MG/DL CREATININE (test code = 2214) 0.75 MG/DL eGFR (2020 CKD-EPI) (test co de = 37555) 95 ML/MIN/1.73 CALC BUN/CREAT (test code = 2235) 25 RATIO SODIUM (test code = 2231) 139 MEQ/L POTASSIUM (test code = 2228) 4.3 MEQ/L CHLORIDE (test code = 2215) 97 MEQ/L CARBON DIOXIDE (test code = 2206) 23 MEQ/L CALCIUM (test code = 2209) 10.0 MG/DL PROTEIN, TOTAL (test code = 2229) 8.0 G/DL ALBUMIN (test code = 2201) 4.9 G/DL CALC GLOBULIN (test code = 2240) 3.1 G/DL CALC A/G RATIO (test code = 2234) 1.6 RATIO BILIRUBIN, TOTAL (test code = 2207) 0.5 MG/DL ALKALINE PHOSPHATASE (test code = 2204) 76 U/L AST (test code = 2218) 70 U/L ALT (test code = 2219) 84 U/L [place] PersonALBUMIN/CREATININE RATIO, RANDOM [id number] 00:00:00* Test Item Value Reference Range Interpretation Comme nts CREATININE, URINE, CONC. (te st code = 207) 155.2 MG/DL ALBUMIN, URINE, RANDOM (test code = 38882) 7.7 MG/DL CALC ALBUMIN/CREAT, RND (solange t code = 96383) 50 MG/G [place] PersonCBC W/AUTO [id number] 00:00:00* Test Item Value Reference Range Interpretation Comme nts WBC (test code = 1001) 7.3 K/UL RBC (test code = 1002) 5.11 M/UL HEMOGLOBIN (test code = 1003) 13.7 G/DL HEMATOCRIT (test code = 1004) 42.0 % MCV (test code = 1005) 82.2 fL MCH (test code = 1006) 26.8 PG MCHC (test code = 1007) 32.6 G/DL RDW (test code = 1038) 12.6 % NEUTROPHILS (test code = 1008) 57.2 % LYMPHOCYTES (test code = 1010) 34.0 % MONOCYTES (test code = 1011) 6.3 % EOSINOPHILS (test code = 1012) 1.1 % BASOPHILS (test code = 1013) 1.1 % IMMATURE GRANULOCYTES (test code = 1036) 0.3 % NUCLEATED RBCS (test code = 1065) 0.0 /100WBC'S PLATELET COUNT (test code = 1015) 346 K/UL ABSOLUTE NEUTROPHILS (test c ode = 1066) 4.15 K/UL ABSOLUTE LYMPHOCYTES (test c ode = 1067) 2.47 K/UL ABSOLUTE MONOCYTES (test cod e = 1068) 0.46 K/UL ABSOLUTE EOSINOPHILS (test c ode = 1040) 0.08 K/UL ABSOLUTE BASOPHILS (test cod e = 1069) 0.08 K/UL ABS IMMATURE GRANULOCYTES (t est code = 1020) 0.02 K/UL ABS NUCLEATED RBCS (test cod e = 24606) 0.00 K/UL [place] PersonHEMOGLOBIN [id number] 00:00:00* Test Item Value Reference Range Interpretation Comme nts HEMOGLOBIN A1c (test code = 36629) 7.4 % [place]isco Guardado AustinLIPID [id number] 00:00:00* Test Item Value Reference Range Interpretation Comme nts CHOLESTEROL (test code = 2210) 260 MG/DL TRIGLYCERIDES (test code = 2232) 444 MG/DL HDL CHOLESTEROL (test code = 2220) 54 MG/DL CALC LDL CHOL (test code = 2237) (NOTE) MG/DL RISK RATIO LDL/HDL (test cod e = 2238) (NOTE) RATIO [place] PersonCOMPREHENSIVE METABOLIC [id number] 00:00:00* Test Item Value Reference Range Interpretation Comme nts GLUCOSE (test code = 2217) 144 MG/DL BUN (test code = 2208) 19 MG/DL CREATININE (test code = 2214) 0.75 MG/DL eGFR (2020 CKD-EPI) (test co de = 50593) 95 ML/MIN/1.73 CALC BUN/CREAT (test code = 2235) 25 RATIO SODIUM (test code = 2231) 139 MEQ/L POTASSIUM (test code = 2228) 4.3 MEQ/L CHLORIDE (test code = 2215) 97 MEQ/L CARBON DIOXIDE (test code = 2206) 23 MEQ/L CALCIUM (test code = 2209) 10.0 MG/DL PROTEIN, TOTAL (test code = 2229) 8.0 G/DL ALBUMIN (test code = 220) 4.9 G/DL CALC GLOBULIN (test code = 2240) 3.1 G/DL CALC A/G RATIO (test code = 2234) 1.6 RATIO BILIRUBIN, TOTAL (test code = 2207) 0.5 MG/DL ALKALINE PHOSPHATASE (test code = 4) 76 U/L AST (test code = 221) 70 U/L ALT (test code = 2219) 84 U/L [place] PersonALBUMIN/CREATININE RATIO, RANDOM [id number] 00:00:00* Test Item Value Reference Range Interpretation Comme nts CREATININE, URINE, CONC. (te st code = 207) 155.2 MG/DL ALBUMIN, URINE, RANDOM (test code = 01952) 7.7 MG/DL CALC ALBUMIN/CREAT, RND (solange t code = 86826) 50 MG/G [place] PersonCBC W/AUTO [id number] 00:00:00* Test Item Value Reference Range Interpretation Comme nts WBC (test code = 1001) 7.3 K/UL RBC (test code = 1002) 5.11 M/UL HEMOGLOBIN (test code = 1003) 13.7 G/DL HEMATOCRIT (test code = 1004) 42.0 % MCV (test code = 1005) 82.2 fL MCH (test code = 1006) 26.8 PG MCHC (test code = 1007) 32.6 G/DL RDW (test code = 1038) 12.6 % NEUTROPHILS (test code = 1008) 57.2 % LYMPHOCYTES (test code = 1010) 34.0 % MONOCYTES (test code = 1011) 6.3 % EOSINOPHILS (test code = 1012) 1.1 % BASOPHILS (test code = 1013) 1.1 % IMMATURE GRANULOCYTES (test code = 1036) 0.3 % NUCLEATED RBCS (test code = 1065) 0.0 /100WBC'S PLATELET COUNT (test code = 1015) 346 K/UL ABSOLUTE NEUTROPHILS (test c ode = 1066) 4.15 K/UL ABSOLUTE LYMPHOCYTES (test c ode = 1067) 2.47 K/UL ABSOLUTE MONOCYTES (test cod e = 1068) 0.46 K/UL ABSOLUTE EOSINOPHILS (test c ode = 1040) 0.08 K/UL ABSOLUTE BASOPHILS (test cod e = 1069) 0.08 K/UL ABS IMMATURE GRANULOCYTES (t est code = 1020) 0.02 K/UL ABS NUCLEATED RBCS (test cod e = 19933) 0.00 K/UL [place] PersonHEMOGLOBIN [id number] 00:00:00* Test Item Value Reference Range Interpretation Comme nts HEMOGLOBIN A1c (test code = 12933) 7.4 % [place] PersonLIPID [id number] 00:00:00* Test Item Value Reference Range Interpretation Comme nts CHOLESTEROL (test code = 2210) 260 MG/DL TRIGLYCERIDES (test code = 2232) 444 MG/DL HDL CHOLESTEROL (test code = 2220) 54 MG/DL CALC LDL CHOL (test code = 2237) (NOTE) MG/DL RISK RATIO LDL/HDL (test cod e = 2238) (NOTE) RATIO [place] PersonCOMPREHENSIVE METABOLIC [id number] 00:00:00* Test Item Value Reference Range Interpretation Comme nts GLUCOSE (test code = 2217) 144 MG/DL BUN (test code = 2208) 19 MG/DL CREATININE (test code = 2214) 0.75 MG/DL eGFR (2020 CKD-EPI) (test co de = 64911) 95 ML/MIN/1.73 CALC BUN/CREAT (test code = 2235) 25 RATIO SODIUM (test code = 2231) 139 MEQ/L POTASSIUM (test code = 2228) 4.3 MEQ/L CHLORIDE (test code = 2215) 97 MEQ/L CARBON DIOXIDE (test code = 2206) 23 MEQ/L CALCIUM (test code = 2209) 10.0 MG/DL PROTEIN, TOTAL (test code = 2229) 8.0 G/DL ALBUMIN (test code = 2201) 4.9 G/DL CALC GLOBULIN (test code = 2240) 3.1 G/DL CALC A/G RATIO (test code = 2234) 1.6 RATIO BILIRUBIN, TOTAL (test code = 2207) 0.5 MG/DL ALKALINE PHOSPHATASE (test code = 2204) 76 U/L AST (test code = 2218) 70 U/L ALT (test code = 2219) 84 U/L [place] PersonALBUMIN/CREATININE RATIO, RANDOM [id number] 00:00:00* Test Item Value Reference Range Interpretation Comme nts CREATININE, URINE, CONC. (te st code = 2072) 155.2 MG/DL ALBUMIN, URINE, RANDOM (test code = 35745) 7.7 MG/DL CALC ALBUMIN/CREAT, RND (solange t code = 23382) 50 MG/G [place] PersonCBC W/AUTO [id number] 00:00:00* Test Item Value Reference Range Interpretation Comme nts WBC (test code = 1001) 7.3 K/UL RBC (test code = 1002) 5.11 M/UL HEMOGLOBIN (test code = 1003) 13.7 G/DL HEMATOCRIT (test code = 1004) 42.0 % MCV (test code = 1005) 82.2 fL MCH (test code = 1006) 26.8 PG MCHC (test code = 1007) 32.6 G/DL RDW (test code = 1038) 12.6 % NEUTROPHILS (test code = 1008) 57.2 % LYMPHOCYTES (test code = 1010) 34.0 % MONOCYTES (test code = 1011) 6.3 % EOSINOPHILS (test code = 1012) 1.1 % BASOPHILS (test code = 1013) 1.1 % IMMATURE GRANULOCYTES (test code = 1036) 0.3 % NUCLEATED RBCS (test code = 1065) 0.0 /100WBC'S PLATELET COUNT (test code = 1015) 346 K/UL ABSOLUTE NEUTROPHILS (test c ode = 1066) 4.15 K/UL ABSOLUTE LYMPHOCYTES (test c ode = 1067) 2.47 K/UL ABSOLUTE MONOCYTES (test cod e = 1068) 0.46 K/UL ABSOLUTE EOSINOPHILS (test c ode = 1040) 0.08 K/UL ABSOLUTE BASOPHILS (test cod e = 1069) 0.08 K/UL ABS IMMATURE GRANULOCYTES (t est code = 1020) 0.02 K/UL ABS NUCLEATED RBCS (test cod e = 57892) 0.00 K/UL [place] PersonHEMOGLOBIN [id number] 00:00:00* Test Item Value Reference Range Interpretation Comme nts HEMOGLOBIN A1c (test code = 22575) 7.4 % [place] PersonLIPID [id number] 00:00:00* Test Item Value Reference Range Interpretation Comme nts CHOLESTEROL (test code = 2210) 260 MG/DL TRIGLYCERIDES (test code = 2232) 444 MG/DL HDL CHOLESTEROL (test code = 2220) 54 MG/DL CALC LDL CHOL (test code = 2237) (NOTE) MG/DL RISK RATIO LDL/HDL (test cod e = 2238) (NOTE) RATIO [place] PersonCOMPREHENSIVE METABOLIC [id number] 00:00:00* Test Item Value Reference Range Interpretation Comme nts GLUCOSE (test code = 2217) 144 MG/DL BUN (test code = 2208) 19 MG/DL CREATININE (test code = 2214) 0.75 MG/DL eGFR (2020 CKD-EPI) (test co de = 11350) 95 ML/MIN/1.73 CALC BUN/CREAT (test code = 2235) 25 RATIO SODIUM (test code = 2231) 139 MEQ/L POTASSIUM (test code = 2228) 4.3 MEQ/L CHLORIDE (test code = 2215) 97 MEQ/L CARBON DIOXIDE (test code = 2206) 23 MEQ/L CALCIUM (test code = 2209) 10.0 MG/DL PROTEIN, TOTAL (test code = 2229) 8.0 G/DL ALBUMIN (test code = 2201) 4.9 G/DL CALC GLOBULIN (test code = 2240) 3.1 G/DL CALC A/G RATIO (test code = 2234) 1.6 RATIO BILIRUBIN, TOTAL (test code = 2207) 0.5 MG/DL ALKALINE PHOSPHATASE (test code = 2204) 76 U/L AST (test code = 2218) 70 U/L ALT (test code = 2219) 84 U/L [place] PersonALBUMIN/CREATININE RATIO, RANDOM [id number] 00:00:00* Test Item Value Reference Range Interpretation Comme nts CREATININE, URINE, CONC. (te st code = 2072) 155.2 MG/DL ALBUMIN, URINE, RANDOM (test code = 85322) 7.7 MG/DL CALC ALBUMIN/CREAT, RND (solange t code = 96543) 50 MG/G [place] PersonCBC W/AUTO [id number] 00:00:00* Test Item Value Reference Range Interpretation Comme nts WBC (test code = 1001) 7.3 K/UL RBC (test code = 1002) 5.11 M/UL HEMOGLOBIN (test code = 1003) 13.7 G/DL HEMATOCRIT (test code = 1004) 42.0 % MCV (test code = 1005) 82.2 fL MCH (test code = 1006) 26.8 PG MCHC (test code = 1007) 32.6 G/DL RDW (test code = 1038) 12.6 % NEUTROPHILS (test code = 1008) 57.2 % LYMPHOCYTES (test code = 1010) 34.0 % MONOCYTES (test code = 1011) 6.3 % EOSINOPHILS (test code = 1012) 1.1 % BASOPHILS (test code = 1013) 1.1 % IMMATURE GRANULOCYTES (test code = 1036) 0.3 % NUCLEATED RBCS (test code = 1065) 0.0 /100WBC'S PLATELET COUNT (test code = 1015) 346 K/UL ABSOLUTE NEUTROPHILS (test c ode = 1066) 4.15 K/UL ABSOLUTE LYMPHOCYTES (test c ode = 1067) 2.47 K/UL ABSOLUTE MONOCYTES (test cod e = 1068) 0.46 K/UL ABSOLUTE EOSINOPHILS (test c ode = 1040) 0.08 K/UL ABSOLUTE BASOPHILS (test cod e = 1069) 0.08 K/UL ABS IMMATURE GRANULOCYTES (t est code = 1020) 0.02 K/UL ABS NUCLEATED RBCS (test cod e = 09289) 0.00 K/UL [place] PersonHEMOGLOBIN [id number] 00:00:00* Test Item Value Reference Range Interpretation Comme nts HEMOGLOBIN A1c (test code = 76012) 7.4 % [place] PersonLIPID [id number] 00:00:00* Test Item Value Reference Range Interpretation Comme nts CHOLESTEROL (test code = 2210) 260 MG/DL TRIGLYCERIDES (test code = 2232) 444 MG/DL HDL CHOLESTEROL (test code = 2220) 54 MG/DL CALC LDL CHOL (test code = 2237) (NOTE) MG/DL RISK RATIO LDL/HDL (test cod e = 2238) (NOTE) RATIO [place] PersonCOMPREHENSIVE METABOLIC [id number] 00:00:00* Test Item Value Reference Range Interpretation Comme nts GLUCOSE (test code = 2217) 144 MG/DL BUN (test code = 2208) 19 MG/DL CREATININE (test code = 2214) 0.75 MG/DL eGFR (2020 CKD-EPI) (test co de = 11530) 95 ML/MIN/1.73 CALC BUN/CREAT (test code = 2235) 25 RATIO SODIUM (test code = 2231) 139 MEQ/L POTASSIUM (test code = 2228) 4.3 MEQ/L CHLORIDE (test code = 2215) 97 MEQ/L CARBON DIOXIDE (test code = 2206) 23 MEQ/L CALCIUM (test code = 2209) 10.0 MG/DL PROTEIN, TOTAL (test code = 2229) 8.0 G/DL ALBUMIN (test code = 2201) 4.9 G/DL CALC GLOBULIN (test code = 2240) 3.1 G/DL CALC A/G RATIO (test code = 2234) 1.6 RATIO BILIRUBIN, TOTAL (test code = 2207) 0.5 MG/DL ALKALINE PHOSPHATASE (test code = 2204) 76 U/L AST (test code = 2218) 70 U/L ALT (test code = 2219) 84 U/L [place] PersonALBUMIN/CREATININE RATIO, RANDOM [id number] 00:00:00* Test Item Value Reference Range Interpretation Comme nts CREATININE, URINE, CONC. (te st code = 2072) 155.2 MG/DL ALBUMIN, URINE, RANDOM (test code = 01797) 7.7 MG/DL CALC ALBUMIN/CREAT, RND (solange t code = 49355) 50 MG/G [place] PersonCBC W/AUTO [id number] 00:00:00* Test Item Value Reference Range Interpretation Comme nts WBC (test code = 1001) 7.3 K/UL RBC (test code = 1002) 5.11 M/UL HEMOGLOBIN (test code = 1003) 13.7 G/DL HEMATOCRIT (test code = 1004) 42.0 % MCV (test code = 1005) 82.2 fL MCH (test code = 1006) 26.8 PG MCHC (test code = 1007) 32.6 G/DL RDW (test code = 1038) 12.6 % NEUTROPHILS (test code = 1008) 57.2 % LYMPHOCYTES (test code = 1010) 34.0 % MONOCYTES (test code = 1011) 6.3 % EOSINOPHILS (test code = 1012) 1.1 % BASOPHILS (test code = 1013) 1.1 % IMMATURE GRANULOCYTES (test code = 1036) 0.3 % NUCLEATED RBCS (test code = 1065) 0.0 /100WBC'S PLATELET COUNT (test code = 1015) 346 K/UL ABSOLUTE NEUTROPHILS (test c ode = 1066) 4.15 K/UL ABSOLUTE LYMPHOCYTES (test c ode = 1067) 2.47 K/UL ABSOLUTE MONOCYTES (test cod e = 1068) 0.46 K/UL ABSOLUTE EOSINOPHILS (test c ode = 1040) 0.08 K/UL ABSOLUTE BASOPHILS (test cod e = 1069) 0.08 K/UL ABS IMMATURE GRANULOCYTES (t est code = 1020) 0.02 K/UL ABS NUCLEATED RBCS (test cod e = 52071) 0.00 K/UL [place]isco ePrsonHEMOGLOBIN [id number] 00:00:00* Test Item Value Reference Range Interpretation Comme nts HEMOGLOBIN A1c (test code = 81430) 7.4 % [place] Guardado AustinLIPID [id number] 00:00:00* Test Item Value Reference Range Interpretation Comme nts CHOLESTEROL (test code = 2210) 260 MG/DL TRIGLYCERIDES (test code = 2232) 444 MG/DL HDL CHOLESTEROL (test code = 2220) 54 MG/DL CALC LDL CHOL (test code = 2237) (NOTE) MG/DL RISK RATIO LDL/HDL (test cod e = 2238) (NOTE) RATIO [place] PersonCOMPREHENSIVE METABOLIC [id number] 00:00:00* Test Item Value Reference Range Interpretation Comme nts GLUCOSE (test code = 2217) 144 MG/DL BUN (test code = 2208) 19 MG/DL CREATININE (test code = 2214) 0.75 MG/DL eGFR (2020 CKD-EPI) (test co de = 09526) 95 ML/MIN/1.73 CALC BUN/CREAT (test code = 5) 25 RATIO SODIUM (test code = 2231) 139 MEQ/L POTASSIUM (test code = 2228) 4.3 MEQ/L CHLORIDE (test code = 2215) 97 MEQ/L CARBON DIOXIDE (test code = 2206) 23 MEQ/L CALCIUM (test code = 2209) 10.0 MG/DL PROTEIN, TOTAL (test code = 2229) 8.0 G/DL ALBUMIN (test code = 220) 4.9 G/DL CALC GLOBULIN (test code = 2240) 3.1 G/DL CALC A/G RATIO (test code = 2234) 1.6 RATIO BILIRUBIN, TOTAL (test code = 7) 0.5 MG/DL ALKALINE PHOSPHATASE (test code = 2203) 76 U/L AST (test code = 2217) 70 U/L ALT (test code = 2219) 84 U/L [place] PersonALBUMIN/CREATININE RATIO, RANDOM [id number] 00:00:00* Test Item Value Reference Range Interpretation Comme nts CREATININE, URINE, CONC. (te st code = 207) 155.2 MG/DL ALBUMIN, URINE, RANDOM (test code = 63183) 7.7 MG/DL CALC ALBUMIN/CREAT, RND (solange t code = 69765) 50 MG/G [place] PersonCBC W/AUTO [id number] 00:00:00* Test Item Value Reference Range Interpretation Comme nts WBC (test code = 1001) 7.3 K/UL RBC (test code = 1002) 5.11 M/UL HEMOGLOBIN (test code = 1003) 13.7 G/DL HEMATOCRIT (test code = 1004) 42.0 % MCV (test code = 1005) 82.2 fL MCH (test code = 1006) 26.8 PG MCHC (test code = 1007) 32.6 G/DL RDW (test code = 1038) 12.6 % NEUTROPHILS (test code = 1008) 57.2 % LYMPHOCYTES (test code = 1010) 34.0 % MONOCYTES (test code = 1011) 6.3 % EOSINOPHILS (test code = 1012) 1.1 % BASOPHILS (test code = 1013) 1.1 % IMMATURE GRANULOCYTES (test code = 1036) 0.3 % NUCLEATED RBCS (test code = 1065) 0.0 /100WBC'S PLATELET COUNT (test code = 1015) 346 K/UL ABSOLUTE NEUTROPHILS (test c ode = 1066) 4.15 K/UL ABSOLUTE LYMPHOCYTES (test c ode = 1067) 2.47 K/UL ABSOLUTE MONOCYTES (test cod e = 1068) 0.46 K/UL ABSOLUTE EOSINOPHILS (test c ode = 1040) 0.08 K/UL ABSOLUTE BASOPHILS (test cod e = 1069) 0.08 K/UL ABS IMMATURE GRANULOCYTES (t est code = 1020) 0.02 K/UL ABS NUCLEATED RBCS (test cod e = 28192) 0.00 K/UL [place] PersonHEMOGLOBIN [id number] 00:00:00* Test Item Value Reference Range Interpretation Comme nts HEMOGLOBIN A1c (test code = 44250) 7.4 % [place] PersonLIPID [id number] 00:00:00* Test Item Value Reference Range Interpretation Comme nts CHOLESTEROL (test code = 2210) 260 MG/DL TRIGLYCERIDES (test code = 2232) 444 MG/DL HDL CHOLESTEROL (test code = 2220) 54 MG/DL CALC LDL CHOL (test code = 2237) (NOTE) MG/DL RISK RATIO LDL/HDL (test cod e = 2238) (NOTE) RATIO [place] PersonCOMPREHENSIVE METABOLIC [id number] 00:00:00* Test Item Value Reference Range Interpretation Comme nts GLUCOSE (test code = 2217) 144 MG/DL BUN (test code = 2208) 19 MG/DL CREATININE (test code = 2214) 0.75 MG/DL eGFR (2020 CKD-EPI) (test co de = 67493) 95 ML/MIN/1.73 CALC BUN/CREAT (test code = 2235) 25 RATIO SODIUM (test code = 2231) 139 MEQ/L POTASSIUM (test code = 2228) 4.3 MEQ/L CHLORIDE (test code = 2215) 97 MEQ/L CARBON DIOXIDE (test code = 2206) 23 MEQ/L CALCIUM (test code = 2209) 10.0 MG/DL PROTEIN, TOTAL (test code = 2229) 8.0 G/DL ALBUMIN (test code = 2201) 4.9 G/DL CALC GLOBULIN (test code = 2240) 3.1 G/DL CALC A/G RATIO (test code = 2234) 1.6 RATIO BILIRUBIN, TOTAL (test code = 2207) 0.5 MG/DL ALKALINE PHOSPHATASE (test code = 2204) 76 U/L AST (test code = 2218) 70 U/L ALT (test code = 2219) 84 U/L [place] PersonALBUMIN/CREATININE RATIO, RANDOM [id number] 00:00:00* Test Item Value Reference Range Interpretation Comme nts CREATININE, URINE, CONC. (te st code = 2072) 155.2 MG/DL ALBUMIN, URINE, RANDOM (test code = 82103) 7.7 MG/DL CALC ALBUMIN/CREAT, RND (solange t code = 17123) 50 MG/G [place] PersonCBC W/AUTO [id number] 00:00:00* Test Item Value Reference Range Interpretation Comme nts WBC (test code = 1001) 7.3 K/UL RBC (test code = 1002) 5.11 M/UL HEMOGLOBIN (test code = 1003) 13.7 G/DL HEMATOCRIT (test code = 1004) 42.0 % MCV (test code = 1005) 82.2 fL MCH (test code = 1006) 26.8 PG MCHC (test code = 1007) 32.6 G/DL RDW (test code = 1038) 12.6 % NEUTROPHILS (test code = 1008) 57.2 % LYMPHOCYTES (test code = 1010) 34.0 % MONOCYTES (test code = 1011) 6.3 % EOSINOPHILS (test code = 1012) 1.1 % BASOPHILS (test code = 1013) 1.1 % IMMATURE GRANULOCYTES (test code = 1036) 0.3 % NUCLEATED RBCS (test code = 1065) 0.0 /100WBC'S PLATELET COUNT (test code = 1015) 346 K/UL ABSOLUTE NEUTROPHILS (test c ode = 1066) 4.15 K/UL ABSOLUTE LYMPHOCYTES (test c ode = 1067) 2.47 K/UL ABSOLUTE MONOCYTES (test cod e = 1068) 0.46 K/UL ABSOLUTE EOSINOPHILS (test c ode = 1040) 0.08 K/UL ABSOLUTE BASOPHILS (test cod e = 1069) 0.08 K/UL ABS IMMATURE GRANULOCYTES (t est code = 1020) 0.02 K/UL ABS NUCLEATED RBCS (test cod e = 11942) 0.00 K/UL [place] PersonHEMOGLOBIN [id number] 00:00:00* Test Item Value Reference Range Interpretation Comme nts HEMOGLOBIN A1c (test code = 86418) 7.4 % [place] PersonLIPID [id number] 00:00:00* Test Item Value Reference Range Interpretation Comme nts CHOLESTEROL (test code = 2210) 260 MG/DL TRIGLYCERIDES (test code = 2232) 444 MG/DL HDL CHOLESTEROL (test code = 2220) 54 MG/DL CALC LDL CHOL (test code = 2237) (NOTE) MG/DL RISK RATIO LDL/HDL (test cod e = 2238) (NOTE) RATIO [place] PersonCOMPREHENSIVE METABOLIC [id number] 00:00:00* Test Item Value Reference Range Interpretation Comme nts GLUCOSE (test code = 2217) 144 MG/DL BUN (test code = 2208) 19 MG/DL CREATININE (test code = 2214) 0.75 MG/DL eGFR (2020 CKD-EPI) (test co de = 89149) 95 ML/MIN/1.73 CALC BUN/CREAT (test code = 2235) 25 RATIO SODIUM (test code = 2231) 139 MEQ/L POTASSIUM (test code = 2228) 4.3 MEQ/L CHLORIDE (test code = 2215) 97 MEQ/L CARBON DIOXIDE (test code = 2206) 23 MEQ/L CALCIUM (test code = 2209) 10.0 MG/DL PROTEIN, TOTAL (test code = 2229) 8.0 G/DL ALBUMIN (test code = 2201) 4.9 G/DL CALC GLOBULIN (test code = 2240) 3.1 G/DL CALC A/G RATIO (test code = 2234) 1.6 RATIO BILIRUBIN, TOTAL (test code = 2207) 0.5 MG/DL ALKALINE PHOSPHATASE (test code = 2204) 76 U/L AST (test code = 2218) 70 U/L ALT (test code = 2219) 84 U/L [place] PersonALBUMIN/CREATININE RATIO, RANDOM [id number] 00:00:00* Test Item Value Reference Range Interpretation Comme nts CREATININE, URINE, CONC. (te st code = 2072) 155.2 MG/DL ALBUMIN, URINE, RANDOM (test code = 31957) 7.7 MG/DL CALC ALBUMIN/CREAT, RND (solange t code = 19628) 50 MG/G [place] Guardado AustinCBC W/AUTO [id number] 00:00:00* Test Item Value Reference Range Interpretation Comme nts WBC (test code = 1001) 7.3 K/UL RBC (test code = 1002) 5.11 M/UL HEMOGLOBIN (test code = 1003) 13.7 G/DL HEMATOCRIT (test code = 1004) 42.0 % MCV (test code = 1005) 82.2 fL MCH (test code = 1006) 26.8 PG MCHC (test code = 1007) 32.6 G/DL RDW (test code = 1038) 12.6 % NEUTROPHILS (test code = 1008) 57.2 % LYMPHOCYTES (test code = 1010) 34.0 % MONOCYTES (test code = 1011) 6.3 % EOSINOPHILS (test code = 1012) 1.1 % BASOPHILS (test code = 1013) 1.1 % IMMATURE GRANULOCYTES (test code = 1036) 0.3 % NUCLEATED RBCS (test code = 1065) 0.0 /100WBC'S PLATELET COUNT (test code = 1015) 346 K/UL ABSOLUTE NEUTROPHILS (test c ode = 1066) 4.15 K/UL ABSOLUTE LYMPHOCYTES (test c ode = 1067) 2.47 K/UL ABSOLUTE MONOCYTES (test cod e = 1068) 0.46 K/UL ABSOLUTE EOSINOPHILS (test c ode = 1040) 0.08 K/UL ABSOLUTE BASOPHILS (test cod e = 1069) 0.08 K/UL ABS IMMATURE GRANULOCYTES (t est code = 1020) 0.02 K/UL ABS NUCLEATED RBCS (test cod e = 52128) 0.00 K/UL [place] PersonCBC W/AUTO [id number] 00:00:00* Test Item Value Reference Range Interpretation Comme nts WBC (test code = 1001) 7.3 K/UL RBC (test code = 1002) 5.11 M/UL HEMOGLOBIN (test code = 1003) 13.7 G/DL HEMATOCRIT (test code = 1004) 42.0 % MCV (test code = 1005) 82.2 fL MCH (test code = 1006) 26.8 PG MCHC (test code = 1007) 32.6 G/DL RDW (test code = 1038) 12.6 % NEUTROPHILS (test code = 1008) 57.2 % LYMPHOCYTES (test code = 1010) 34.0 % MONOCYTES (test code = 1011) 6.3 % EOSINOPHILS (test code = 1012) 1.1 % BASOPHILS (test code = 1013) 1.1 % IMMATURE GRANULOCYTES (test code = 1036) 0.3 % NUCLEATED RBCS (test code = 1065) 0.0 /100WBC'S PLATELET COUNT (test code = 1015) 346 K/UL ABSOLUTE NEUTROPHILS (test c ode = 1066) 4.15 K/UL ABSOLUTE LYMPHOCYTES (test c ode = 1067) 2.47 K/UL ABSOLUTE MONOCYTES (test cod e = 1068) 0.46 K/UL ABSOLUTE EOSINOPHILS (test c ode = 1040) 0.08 K/UL ABSOLUTE BASOPHILS (test cod e = 1069) 0.08 K/UL ABS IMMATURE GRANULOCYTES (t est code = 1020) 0.02 K/UL ABS NUCLEATED RBCS (test cod e = 39176) 0.00 K/UL Fracisco PersonHEMOGLOBIN [id number] 00:00:00* Test Item Value Reference Range Interpretation Comme nts HEMOGLOBIN A1c (test code = 67358) 7.4 % Fracisco PersonLIPID [id number] 00:00:00* Test Item Value Reference Range Interpretation Comme nts CHOLESTEROL (test code = 2210) 260 MG/DL TRIGLYCERIDES (test code = 2232) 444 MG/DL HDL CHOLESTEROL (test code = 2220) 54 MG/DL CALC LDL CHOL (test code = 2237) (NOTE) MG/DL RISK RATIO LDL/HDL (test cod e = 2238) (NOTE) RATIO Fracisco PersonCOMPREHENSIVE METABOLIC [id number] 00:00:00* Test Item Value Reference Range Interpretation Comme nts GLUCOSE (test code = 2217) 144 MG/DL BUN (test code = 2208) 19 MG/DL CREATININE (test code = 2214) 0.75 MG/DL eGFR (2020 CKD-EPI) (test co de = 14549) 95 ML/MIN/1.73 CALC BUN/CREAT (test code = 2235) 25 RATIO SODIUM (test code = 2231) 139 MEQ/L POTASSIUM (test code = 2228) 4.3 MEQ/L CHLORIDE (test code = 2215) 97 MEQ/L CARBON DIOXIDE (test code = 2206) 23 MEQ/L CALCIUM (test code = 2209) 10.0 MG/DL PROTEIN, TOTAL (test code = 2229) 8.0 G/DL ALBUMIN (test code = 2201) 4.9 G/DL CALC GLOBULIN (test code = 2240) 3.1 G/DL CALC A/G RATIO (test code = 2234) 1.6 RATIO BILIRUBIN, TOTAL (test code = 2207) 0.5 MG/DL ALKALINE PHOSPHATASE (test code = 2204) 76 U/L AST (test code = 2218) 70 U/L ALT (test code = 2219) 84 U/L Fracisco Guardado ThomasALBUMIN/CREATININE RATIO, RANDOM [id number] 00:00:00* Test Item Value Reference Range Interpretation Comme nts CREATININE, URINE, CONC. (te st code = 2072) 155.2 MG/DL ALBUMIN, URINE, RANDOM (test code = 68460) 7.7 MG/DL CALC ALBUMIN/CREAT, RND (solange t code = 49478) 50 MG/G Fracisco PersonCBC W/AUTO [id number] 00:00:00* Test Item Value Reference Range Interpretation Comme nts WBC (test code = 1001) 7.3 K/UL RBC (test code = 1002) 5.11 M/UL HEMOGLOBIN (test code = 1003) 13.7 G/DL HEMATOCRIT (test code = 1004) 42.0 % MCV (test code = 1005) 82.2 fL MCH (test code = 1006) 26.8 PG MCHC (test code = 1007) 32.6 G/DL RDW (test code = 1038) 12.6 % NEUTROPHILS (test code = 1008) 57.2 % LYMPHOCYTES (test code = 1010) 34.0 % MONOCYTES (test code = 1011) 6.3 % EOSINOPHILS (test code = 1012) 1.1 % BASOPHILS (test code = 1013) 1.1 % IMMATURE GRANULOCYTES (test code = 1036) 0.3 % NUCLEATED RBCS (test code = 1065) 0.0 /100WBC'S PLATELET COUNT (test code = 1015) 346 K/UL ABSOLUTE NEUTROPHILS (test c ode = 1066) 4.15 K/UL ABSOLUTE LYMPHOCYTES (test c ode = 1067) 2.47 K/UL ABSOLUTE MONOCYTES (test cod e = 1068) 0.46 K/UL ABSOLUTE EOSINOPHILS (test c ode = 1040) 0.08 K/UL ABSOLUTE BASOPHILS (test cod e = 1069) 0.08 K/UL ABS IMMATURE GRANULOCYTES (t est code = 1020) 0.02 K/UL ABS NUCLEATED RBCS (test cod e = 09742) 0.00 K/UL Fracisco PersonHEMOGLOBIN [id number] 00:00:00* Test Item Value Reference Range Interpretation Comme nts HEMOGLOBIN A1c (test code = 62926) 7.4 % Fracisco PersonLIPID [id number] 00:00:00* Test Item Value Reference Range Interpretation Comme nts CHOLESTEROL (test code = 2210) 260 MG/DL TRIGLYCERIDES (test code = 2232) 444 MG/DL HDL CHOLESTEROL (test code = 2220) 54 MG/DL CALC LDL CHOL (test code = 2237) (NOTE) MG/DL RISK RATIO LDL/HDL (test cod e = 2238) (NOTE) RATIO Fracisco PersonCOMPREHENSIVE METABOLIC [id number] 00:00:00* Test Item Value Reference Range Interpretation Comme nts GLUCOSE (test code = 2217) 144 MG/DL BUN (test code = 2208) 19 MG/DL CREATININE (test code = 2214) 0.75 MG/DL eGFR (2020 CKD-EPI) (test co de = 91294) 95 ML/MIN/1.73 CALC BUN/CREAT (test code = 2235) 25 RATIO SODIUM (test code = 2231) 139 MEQ/L POTASSIUM (test code = 2228) 4.3 MEQ/L CHLORIDE (test code = 2215) 97 MEQ/L CARBON DIOXIDE (test code = 2206) 23 MEQ/L CALCIUM (test code = 2209) 10.0 MG/DL PROTEIN, TOTAL (test code = 2229) 8.0 G/DL ALBUMIN (test code = 2201) 4.9 G/DL CALC GLOBULIN (test code = 2240) 3.1 G/DL CALC A/G RATIO (test code = 2234) 1.6 RATIO BILIRUBIN, TOTAL (test code = 2207) 0.5 MG/DL ALKALINE PHOSPHATASE (test code = 2204) 76 U/L AST (test code = 2218) 70 U/L ALT (test code = 2219) 84 U/L Fracisco PersonHEMOGLOBIN [id number] 00:00:00* Test Item Value Reference Range Interpretation Comme lashae HEMOGLOBIN A1c (test code = 35049) 7.4 % Fracisco PersonALBUMIN/CREATININE RATIO, RANDOM [id number] 00:00:00* Test Item Value Reference Range Interpretation Comme lashae CREATININE, URINE, CONC. (te st code = 2072) 155.2 MG/DL ALBUMIN, URINE, RANDOM (test code = 53514) 7.7 MG/DL CALC ALBUMIN/CREAT, RND (solange t code = 20127) 50 MG/G Fracisco [id number] 11:50:00* Test Item Value Reference Range Interpretation Comme [facility] HGBA1C% (test code = HGBA1C%) 7.1 %A1C 4.8-6.0 H HCG SERUM [id number] 11:40:00* Test Item Value Reference Range Interpretation Comme [facility] HCG SERUM QUAL (test code = HCGQL) SERUM NEGATIVE NEGATIVE BASIC METABOLIC [id number] 11:36:00* Test Item Value Reference Range Interpretation Comme nts SODIUM (test code = NA) 137 mEq/L 134-147 N POTASSIUM (test code = K) 4.0 mEq/L 3.4-5.0 N CHLORIDE (test code = CL) 100 mEq/L 100-108 N CARBON DIOXIDE (test code = CO2) 26 mEq/l 21-33 N ANION GAP (test code = GAP) 15 0-20 N GLUCOSE (test code = GLU) 124 mg/dL 77-141 N NOTE: NEW NORMAL RANGE BLOOD UREA NITROGEN (test code = BUN) 17 mg/dL 7-25 N NOTE: NEW NORM AL RANGE GLOMERULAR FILTRATION RATE (test code = GFR) 67.8 90-95 L The Glomerular Filtration Rate is a calculated parameterbased on serum Creatinine, patient age and sex. GFR valuesless than 60 mL/min/1.73 square meters are indicative ofChronic Kidney Disease. Values less than 15 mL/min/1.73square meters indicate Kidney failure. The calculation forGFR is based on the CKD-EPI (2020) calculation. This formulais race indifferent and is the recommended formula for GFRby the National Kidney Foundation for Adults.The GFR will not calculate if the sex is unknown or if thepatient's age is <18 years. CREATININE (test code = CREAT) 1.0 mg/dL 0.6-1.3 N CALCIUM (test code = CA) 9.4 mg/dL 8.0-10.5 N PROTHROMBIN [id number] 11:32:00* Test Item Value Reference Range Interpretation Comme nts PROTHROMBIN TIME PATIENT (test code = PTP) 10.2 SECONDS 9.3-12.9 N INTERNATIONAL NORMAL RATIO (test code = INR) 0.9 0.8-1.2 N TARGET INR BY INDICATION Indication INR1. Prophylaxis of venous thrombosis 2.0 - 3.0 (orthopedic surgery), Prophylaxis of venous thrombosis (other than high-risk surgery), Treatment of Deep Vein Thrombosis/Pulmonary Embolism, Prevention of systemic embolism - Tissue heart valves, Acute Myocardial Infarction (to prevent systemic embolism), Valvular heart disease, Atrial Fibrillation, Bileaflet mechanical valve in aortic position.2. Mechanical prosthetic valves (high risk), 2.5 - 3.5 Presence of Lupus Anticoagulant or Antiphospholipid Antibodies, Prevention of systemic embolism - Acute Myocardial Infarction (to prevent recurrent infarct). THROMBOPLASTIN TIME [id number] 11:32:00* Test Item Value Reference Range Interpretation Comme nts THROMBOPLASTIN TIME PARTIAL (test code = PTT) 33.0 Seconds 25.0-39.5 N Therapeutic Rang e: 50.4 - 88.3 Seconds Effective 12/09/2018 URINALYSIS [id number] 11:24:00* Test Item Value Reference Range Interpretation Comme nts UA COLOR (test code = COLU) YELLOW YEL/STRAW UA APPEARANCE (test code = APPU) SL CLOUDY CLEAR UA GLUCOSE DIPSTICK (test co de = DGLUU) NEGATIVE NEGATIVE UA BILIRUBIN DIPSTICK (test code = BILU) NEGATIVE NEGATIVE UA KETONE DIPSTICK (test cod e = KETU) NEGATIVE NEGATIVE UA SPECIFIC GRAVITY (test co de = SGU) 1.006 1.005-1.030 N UA BLOOD DIPSTICK (test code = CHARLES) NEGATIVE NEGATIVE UA PH DIPSTICK (test code = SAMINA) 5.0 5.0-7.0 N UA PROTEIN DIPSTICK (test co de = PROU) NEGATIVE NEGATIVE UA UROBILINIOGEN DIPSTICK (t est code = URO) 0.2 mg/dL 0.2-1.0 UA NITRITE DIPSTICK (test co de = JIM) NEGATIVE NEGATIVE UA LEUKOCYTE ESTERASE DIPSTI CK (test code = LEUU) TRACE NEGATIVE A UA RBC (test code = RBCU) 0-3 RBC/HPF 0-3 UA WBC NO REFLEX (test code = WBCUCL) 4-9 WBC/HPF 0-3 A UA BACTERIA (test code = BACU) TRACE /HPF NONE SEEN UA SQUAMOUS CELLS (test code = SQU) 11-25 /HPF NONE SEEN A UA MUCUS (test code = MUCU) TRACE /LPF NONE SEEN CBC W/AUTO [id number] 11:22:00* Test Item Value Reference Range Interpretation Comme nts WHITE BLOOD CELL (test code = WBC) 9.4 x10 3/uL 4.5-11.0 N RED BLOOD CELL (test code = RBC) 5.05 x10 6/uL 3.54-5.02 H HEMOGLOBIN (test code = HGB) 13.2 g/dL 11.0-15.0 N HEMATOCRIT (test code = HCT) 42.6 % 33.0-45.0 N MEAN CELL VOLUME (test code = MCV) 84.4 fL 81.0-99.0 N MEAN CELL HGB (test code = MCH) 26.1 pg 27.0-33.0 L MEAN CELL HGB CONCETRATION (test code = MCHC) 31.0 g/dL 33.0-37.0 L RED CELL DISTRIBUTION WIDTH CV (test code = RDW) 12.2 % 11.5-14.5 N RED CELL DISTRIBUTION WIDTH SD (test code = RDW-SD) 36.7 fL 37.0-54.0 L PLATELET COUNT (test code = PLT) 361 x10 3/uL 150-400 N MEAN PLATELET VOLUME (test c ode = MPV) 10.8 fL 7.0-9.0 H NEUTROPHIL % (test code = NT%) 60.3 % 56.0-77.0 N IMMATURE GRANULOCYTE % (test code = IG%) 0.4 % 0.0-2.0 N LYMPHOCYTE % (test code = LY%) 29.5 % 14.0-32.0 N MONOCYTE % (test code = MO%) 7.0 % 4.8-9.0 N EOSINOPHIL % (test code = EO%) 1.8 % 0.3-3.7 N BASOPHIL % (test code = BA%) 1.0 % 0.0-2.0 N NUCLEATED RBC % (test code = NRBC%) 0.0 % 0-0 N NEUTROPHIL # (test code = NT#) 5.68 x10 3/uL 2.0-7.6 N IMMATURE GRANULOCYTE # (test code = IG#) 0.04 x10 3/uL 0.00-0.03 H LYMPHOCYTE # (test code = LY#) 2.78 x10 3/uL 1.0-3.8 N MONOCYTE # (test code = MO#) 0.66 x10 3/uL 0.1-0.8 N EOSINOPHIL # (test code = EO#) 0.17 x10 3/uL 0.0-0.2 N BASOPHIL # (test code = BA#) 0.09 x10 3/uL 0.0-0.2 N NUCLEATED RBC # (test code = NRBC#) 0.00 x10 3/uL 0.0-0.1 N NICOTINE AND METABOLITE [id number] 14:11:00* Test Item Value Reference Range Interpretation Comme nts NICOTINE (test code = NICT) <10.0 ng/mL See_Comment Nicotine levels greater than 100.0 are consistent with theuse of tobacco or tobacco cessation products. [Automated message] The system which generated this result transmitted reference range: (). The reference range was not used to interpret this result as normal/abnormal. COTININE (test code = COT) <10.0 ng/mL See_Comment Cotinine levels greater than 200.0 are consistent with theuse of tobacco or tobacco cessation products.Performed At: [address] [id number] Griffin MD Ph:[phone] [Automated message] The system which generated this result transmitted reference range: (). The reference range was not used to interpret this result as normal/abnormal. CULTURE, [id number] 15:44:54SPECIMEN NUMBER: [id number] CULTURE, URINE SPECIMEN NUMBER: [id number] SPECIMEN COMMENT: URINE SOURCE: URINE REPORT STATUS: FINAL ISOLATE NUMBER 1: ORGANISM: 06/15/2023 >100,000 CFU/ML GRAM NEGATIVE BACILLI IDENTIFICATION: 06/16/2023 CITROBACTER KOSERI C. KOSERI AMOXICILLIN/CA SENSITIVE <=8/4AMPICILLIN RESISTANT >16CEFAZOLIN SENSITIVE <=2CIPROFLOXACIN SENSITIVE <=1LEVOFLOXACIN SENSITIVE <=2NITROFURANTOIN INTERMED 64PIP/TAZOBAC SENSITIVE <=16TETRACYCLINE SENSITIVE <=4TOBRAMYCIN SENSITIVE <=4TRIMETH/SULFA SENSITIVE <=2/38 NOTE: NUMBERS DISPLAYED REPRESENT MINIMUM INHIBITORY CONCENTRATION (SIVAN) WHICH IS EXPRESSED IN MCG/ML. UNLESS OTHERWISE INDICATED, ALL TESTING PERFORMED AT [facility] [address] [place] [address] RADIOLOGIST DIAGNOSTIC: JALYN BAUMANN M.D. CLIA NUMBER [id number] [place] [id number], [id number] 00:00:00* Test Item Value Reference Range Interpretation Comme nts CULTURE, URINE (test code = 75774) SPECIMEN NUMBER: [id number] ANCELMO Arreguin2023-10-22 00:00:00* Test Item Value Reference Range Interpretation Comme nts CULTURE, URINE (test code = 60233) SPECIMEN NUMBER: [id number] Fracisco Pineda [id number] 00:00:00* Test Item Value Reference Range Interpretation Comme nts CULTURE, URINE (test code = 05171) SPECIMEN NUMBER: [id number] Fracisco Pineda [id number] 00:00:00* Test Item Value Reference Range Interpretation Comme nts CULTURE, URINE (test code = 28196) SPECIMEN NUMBER: [id number] ANCELMO Arreguin2023-10-22 00:00:00* Test Item Value Reference Range Interpretation Comme nts CULTURE, URINE (test code = 91449) SPECIMEN NUMBER: [id number] Fracisco Pineda, [id number] 00:00:00* Test Item Value Reference Range Interpretation Comme nts CULTURE, URINE (test code = 27968) SPECIMEN NUMBER: [id number] Fracisco Pineda [id number] 00:00:00* Test Item Value Reference Range Interpretation Comme nts CULTURE, URINE (test code = 48283) SPECIMEN NUMBER: [id number] Fracisco Pineda [id number] 00:00:00* Test Item Value Reference Range Interpretation Comme nts CULTURE, URINE (test code = 20706) SPECIMEN NUMBER: [id number] Fracisco Pineda [id number] 00:00:00* Test Item Value Reference Range Interpretation Comme nts CULTURE, URINE (test code = 83088) SPECIMEN NUMBER: [id number] Fracisco Pineda [id number] 00:00:00* Test Item Value Reference Range Interpretation Comme nts CULTURE, URINE (test code = 41223) SPECIMEN NUMBER: [id number] Fracisco Pineda, [id number] 00:00:00* Test Item Value Reference Range Interpretation Comme nts CULTURE, URINE (test code = 86515) SPECIMEN NUMBER: [id number] Fracisco Pineda [id number] 00:00:00* Test Item Value Reference Range Interpretation Comme nts CULTURE, URINE (test code = 10955) SPECIMEN NUMBER: [id number] Fracisco Pineda [id number] 00:00:00* Test Item Value Reference Range Interpretation Comme nts CULTURE, URINE (test code = 19351) SPECIMEN NUMBER: [id number] Fracisco Pineda [id number] 00:00:00* Test Item Value Reference Range Interpretation Comme nts CULTURE, URINE (test code = 65274) SPECIMEN NUMBER: [id number] Fracisco Pineda, [id number] 00:00:00* Test Item Value Reference Range Interpretation Comme nts CULTURE, URINE (test code = 59071) SPECIMEN NUMBER: [id number] Fracisco Pineda, [id number] 00:00:00* Test Item Value Reference Range Interpretation Comme nts CULTURE, URINE (test code = 22876) SPECIMEN NUMBER: [id number] Fracisco Guardado AustinVITAMIN D 1,47-[id number] 11:12:00* Test Item Value Reference Range Interpretation Comme nts VITAMIN D 1,25-DIHYDROXY (test code = TCXA455) 31.3 pg/mL 24.8-81.5 Performed At: [facility] [id number] Sanjai MD Ph:[phone] Indication for Test: PREOP- CT LOWER EXTRM W/O C [id number] 15:04:00 [facility] 1970 Sex: F Name: GLORIA HENSON [facility] : 1970 Age/S: 52 / F [address] [place] [address] Unit #: [id number] Loc: [place] [address] Phys: Ann Garibay DO Acct: [id number] Dis Date: Status: PRE [facility] PHONE #: [phone] Exam Date: 06/10/2023 1211 FAX #: [phone] Reason: M17.12, M25.562. KNEE OSTEOARTHRITIS, LEFT. EXAMS: CPT CODE: [id number] CT LOWER EXTRM W/[place] [address] HISTORY: Osteoarthritis Location: C3 TECHNIQUE: Axial tomograms of the left lower extremity were obtained for preoperative localization purposes. One or more of the following dose reduction techniques were used: Automated exposure control, adjustment of the mA and/or kV according to patient size, and/or utilization of iterative reconstruction technique. FINDINGS: Images through the left lower extremity including the left hip and left knee were obtained for surgical localization purposes. Left knee osteoarthritis is noted. Left knee joint effusion is present. Electronically Signed by Ingrid Pleitez on 05/26 at 1504 Reported and signed by: John Pleitez M.D. CC: Ann Garibay DO Technologist:Zach Julio, RT(R)(CT) CTDI: DLP: Trnscb Date/Time: 06/10/2023 (5166) [email or web address] Orig Print D/T: S: 06/10/2023 (9895) PAGE 1 Signed Report- XR CHEST 2 [id number] 11:26:00 [facility] 1970 Sex: F FAX: Ann Barboza DO [phone] [place]: St: PRE Name: GLORIA HENSON [facility] : 1970 Age/S: 52/F [address] [place] [address] Unit #: [id number] Loc: [place] [address] Phys: Ann Garibay DO Acct: [id number] Dis Date: Status: PRE [facility] PHONE #: [phone] Exam Date: 06/10/2023 1109 FAX #: [phone] Reason: PAT EXAMS: CPT CODE: [id number] XR CHEST 2 V 14198 Dictation location: C4. CHEST, FRONTAL AND LATERAL VIEWS HISTORY: PAT COMPARISON: None. FINDINGS: The lungs are clear without consolidation. No pleural effusion or pneumothorax. The heart size is normal. Mild to moderate thoracic spondylosis. IMPRESSION: No evidence of acute cardiopulmonary disease. at 1126 Reported and signed by: Robin Malcolm M.D. CC: Ann Garibay DO Technologist: RT Lupillo(Pari) Trnscrd Date/Time/By: 06/10/2023 (112) : By: [email or web address] Orig Print D/T: S: 06/10/2023 (1122) PAGE 1 Signed ReportUA RFLX MICR CULT IF INDICATED 2023-06-10 11:25:00* Test Item Value Reference Range Interpretation Comme nts UA COLOR (test code = COLU) YELLOW YEL/STRAW UA APPEARANCE (test code = APPU) CLEAR CLEAR UA GLUCOSE DIPSTICK (test code = DGLUU) NEGATIVE NEGATIVE UA BILIRUBIN DIPSTICK (test code = BILU) NEGATIVE NEGATIVE UA KETONE DIPSTICK (test code = KETU) 1+ NEGATIVE A UA SPECIFIC GRAVITY (test code = SGU) 1.025 1.005-1.030 N UA BLOOD DIPSTICK (test code = CHARLES) NEGATIVE NEGATIVE UA PH DIPSTICK (test code = SAMINA) 5.0 5.0-7.0 N UA PROTEIN DIPSTICK (test code = PROU) 2+ NEGATIVE A UA UROBILINIOGEN DIPSTICK (test code = URO) 0.2 mg/dL 0.2-1.0 UA NITRITE DIPSTICK (test code = JIM) NEGATIVE NEGATIVE UA LEUKOCYTE ESTERASE DIPSTICK (test code = LEUU) 1+ NEGATIVE A UA WBC (test code = WBCU) 4-9 WBC/HPF 0-3 A UA RBC (test code = RBCU) 4-10 RBC/HPF 0-3 UA WBC NO REFLEX (test code = WBCUCL) 4-9 WBC/HPF 0-3 A UA BACTERIA (test code = BACU) 3+ /HPF NONE SEEN A UA SQUAMOUS CELLS (test code = SQU) 0-5 /HPF NONE SEEN UA URIC ACID CRYSTALS (test code = URIU) 1+ /HPF NONE A Previously re ported result: TRACE /HPFEdited by: [id number] on 06/10/23:465162 1124: URIC ACID previously reported as: TRACE /HPF UA MUCUS (test code = MUCU) TRACE /LPF NONE SEEN Indication for culture: RiskForSepsis-no oth srcSpecimen Description: MID STREAM HGBA1C%2023-06-10 11:23:00* Test Item Value Reference Range Interpretation Comme nts HGBA1C% (test code = HGBA1C%) 6.8 %A1C 4.8-6.0 H BASIC METABOLIC [id number] 11:23:00* Test Item Value Reference Range Interpretation Comme nts SODIUM (test code = NA) 137 mEq/L 134-147 N POTASSIUM (test code = K) 3.6 mEq/L 3.4-5.0 N CHLORIDE (test code = CL) 100 mEq/L 100-108 N CARBON DIOXIDE (test code = CO2) 27 mEq/l 21-33 N ANION GAP (test code = GAP) 14 0-20 N GLUCOSE (test code = GLU) 139 mg/dL 77-141 N NOTE: NEW NORMAL RANGE BLOOD UREA NITROGEN (test code = BUN) 20 mg/dL 7-25 N NOTE: NEW NORM AL RANGE GLOMERULAR FILTRATION RATE (test code = GFR) 76.9 90-95 L The Glomerular Filtration Rate is a calculated parameterbased on serum Creatinine, patient age and sex. GFR valuesless than 60 mL/min/1.73 square meters are indicative ofChronic Kidney Disease. Values less than 15 mL/min/1.73square meters indicate Kidney failure. The calculation forGFR is based on the CKD-EPI (2020) calculation. This formulais race indifferent and is the recommended formula for GFRby the National Kidney Foundation for Adults.The GFR will not calculate if the sex is unknown or if thepatient's age is <18 years. CREATININE (test code = CREAT) 0.9 mg/dL 0.6-1.3 N CALCIUM (test code = CA) 9.8 mg/dL 8.0-10.5 N PROTHROMBIN [id number] 11:10:00* Test Item Value Reference Range Interpretation Comme [facility] PROTHROMBIN TIME PATIENT (test code = PTP) 10.8 SECONDS 9.3-12.9 N INTERNATIONAL NORMAL RATIO (test code = INR) 1.0 0.8-1.2 N TARGET INR BY INDICATION Indication INR1. Prophylaxis of venous thrombosis 2.0 - 3.0 (orthopedic surgery), Prophylaxis of venous thrombosis (other than high-risk surgery), Treatment of Deep Vein Thrombosis/Pulmonary Embolism, Prevention of systemic embolism - Tissue heart valves, Acute Myocardial Infarction (to prevent systemic embolism), Valvular heart disease, Atrial Fibrillation, Bileaflet mechanical valve in aortic position.2. Mechanical prosthetic valves (high risk), 2.5 - 3.5 Presence of Lupus Anticoagulant or Antiphospholipid Antibodies, Prevention of systemic embolism - Acute Myocardial Infarction (to prevent recurrent infarct). THROMBOPLASTIN TIME [id number] 11:10:00* Test Item Value Reference Range Interpretation Comme [facility] THROMBOPLASTIN TIME PARTIAL (test code = PTT) 31.8 Seconds 25.0-39.5 N Therapeutic Rang e: 50.4 - 88.3 Seconds Effective 12/09/2018 CBC W/AUTO [id number] 11:00:00* Test Item Value Reference Range Interpretation Comme nts WHITE BLOOD CELL (test code = WBC) 8.0 x10 3/uL 4.5-11.0 N RED BLOOD CELL (test code = RBC) 5.09 x10 6/uL 3.54-5.02 H HEMOGLOBIN (test code = HGB) 13.4 g/dL 11.0-15.0 N HEMATOCRIT (test code = HCT) 42.4 % 33.0-45.0 N MEAN CELL VOLUME (test code = MCV) 83.3 fL 81.0-99.0 N MEAN CELL HGB (test code = MCH) 26.3 pg 27.0-33.0 L MEAN CELL HGB CONCETRATION (test code = MCHC) 31.6 g/dL 33.0-37.0 L RED CELL DISTRIBUTION WIDTH CV (test code = RDW) 12.5 % 11.5-14.5 N RED CELL DISTRIBUTION WIDTH SD (test code = RDW-SD) 37.5 fL 37.0-54.0 N PLATELET COUNT (test code = PLT) 335 x10 3/uL 150-400 N MEAN PLATELET VOLUME (test c ode = MPV) 10.4 fL 7.0-9.0 H NEUTROPHIL % (test code = NT%) 58.9 % 56.0-77.0 N IMMATURE GRANULOCYTE % (test code = IG%) 0.4 % 0.0-2.0 N LYMPHOCYTE % (test code = LY%) 33.1 % 14.0-32.0 H MONOCYTE % (test code = MO%) 6.0 % 4.8-9.0 N EOSINOPHIL % (test code = EO%) 1.0 % 0.3-3.7 N BASOPHIL % (test code = BA%) 0.6 % 0.0-2.0 N NUCLEATED RBC % (test code = NRBC%) 0.0 % 0-0 N NEUTROPHIL # (test code = NT#) 4.68 x10 3/uL 2.0-7.6 N IMMATURE GRANULOCYTE # (test code = IG#) 0.03 x10 3/uL 0.00-0.03 N LYMPHOCYTE # (test code = LY#) 2.63 x10 3/uL 1.0-3.8 N MONOCYTE # (test code = MO#) 0.48 x10 3/uL 0.1-0.8 N EOSINOPHIL # (test code = EO#) 0.08 x10 3/uL 0.0-0.2 N BASOPHIL # (test code = BA#) 0.05 x10 3/uL 0.0-0.2 N NUCLEATED RBC # (test code = NRBC#) 0.00 x10 3/uL 0.0-0.1 N COMPREHENSIVE METABOLIC [id number] 14:36:05* Test Item Value Reference Range Interpretation Comme nts GLUCOSE (test code = 2217) 150 MG/DL 70-99 H BUN (test code = 8) 23 MG/DL 6-20 H CREATININE (test code = 2214) 0.89 MG/DL 0.60-1.30 eGFR (2020 CKD-EPI) (test code = 06920) 78 ML/MIN/1.73 >60 CALC BUN/CREAT (test code = 2235) 26 RATIO 6-28 SODIUM (test code = 2231) 144 MEQ/L 133-146 POTASSIUM (test code = 2228) 4.6 MEQ/L 3.5-5.4 CHLORIDE (test code = 2215) 101 MEQ/L 95-107 CARBON DIOXIDE (test code = 2206) 24 MEQ/L 19-31 CALCIUM (test code = 2209) 10.6 MG/DL 8.5-10.5 H PROTEIN, TOTAL (test code = 2228) 7.6 G/DL 6.1-8.3 ALBUMIN (test code = 2200) 4.8 G/DL 3.5-5.2 CALC GLOBULIN (test code = 2240) 2.8 G/DL 1.9-3.7 CALC A/G RATIO (test code = 223) 1.7 RATIO 1.0-2.6 BILIRUBIN, TOTAL (test code = 2206) 0.3 MG/DL See_Comment [Automated me ssage] The system which generated this result transmitted reference range: <=1.2. The reference range was not used to interpret this result as normal/abnormal. ALKALINE PHOSPHATASE (test code = 2203) 70 U/L 40-132 AST (test code = 2218) 23 U/L 9-40 ALT (test code = 2219) 38 U/L 5-40 LIPID [id number] 14:36:05* Test Item Value Reference Range Interpretation Comme nts CHOLESTEROL (test code = 2210) 277 MG/DL <200 H TRIGLYCERIDES (test code = 2232) 413 MG/DL <150 H HDL CHOLESTEROL (test code = 0) 48 MG/DL >39 CALC LDL CHOL (test code = 223) (NOTE) MG/DL <100 UNABLE TO CALCUL ATE A VALID LDL CHOLESTEROL WHEN THE TRIGLYCERIDEVALUE IS GREATER THAN 400 MG/DL.UNABLE TO CALCULATE A VALID LDL CHOLESTEROL WHEN THE TRIGLYCERIDEVALUE IS GREATER THAN 400 MG/DL. NOTE: CALCULATED LDL IS BASED ON KRISTEN-PIERCE METHOD WHICHINCLUDES ADJUSTABLE TRIGLYCERIDE:VLDL CHOLESTEROL RATIO.THIS FACTOR VARIES BY MEASURED TRIGLYCERIDE AND NON-HDLCHOLESTEROL CONCENTRATIONS WITH INCREASED CALCULATED LDL SEENIN HIGHER TRIGLYCERIDE OR LOWER NON-HDL SPECIMENS. FOR MOREINFORMATION, SEE CLIENT ANNOUNCEMENT AT [email or web address] CalcLDL-C RISK RATIO LDL/HDL (test code = 223) (NOTE) RATIO <3.22 UNABLE TO ELIZABETH CULATE HEMOGLOBIN [id number] 03:46:11* Test Item Value Reference Range Interpretation Comme [facility] HEMOGLOBIN A1c (test code = 98396) 7.3 % 4.2-5.6 H [employer] GUIDELINES FOR HGB A1C: PREDIABETES/INCREASED RISK . . . . . . . 5.7-6.4% DIAGNOSIS OF DIABETES . . . . . . . . . >=6.5% WITH CONFIRMATION OR APPROPRIATE SYMPTOMS NOTE: ASSAY MAY BE AFFECTED BY HEMOGLOBINOPATHIES (SICKLE CELL ANEMIA, S-C DISEASE, OTHERS) OR ARTIFICIALLY LOWERED BY DECREASED RED CELL SURVIVAL (HEMOLYTIC ANEMIAS, BLOOD LOSS, ETC.). CONSIDER ALTERNATE TESTING OR LABORATORY CONSULTATION. UNLESS OTHERWISE INDICATED, ALL TESTING PERFORMED AT CLINICAL PATHOLOGY [employer] [address] [place] [id number] RADIOLOGIST DIAGNOSTIC: JALYN BAUMANN M.D. CLIA NUMBER [id number] [place]. [id number] COMPREHENSIVE METABOLIC [id number] 00:00:00* Test Item Value Reference Range Interpretation Comme nts GLUCOSE (test code = 2217) 150 MG/DL BUN (test code = 2208) 23 MG/DL CREATININE (test code = 2214) 0.89 MG/DL eGFR (2020 CKD-EPI) (test co de = 50985) 78 ML/MIN/1.73 CALC BUN/CREAT (test code = 2235) 26 RATIO SODIUM (test code = 2231) 144 MEQ/L POTASSIUM (test code = 2228) 4.6 MEQ/L CHLORIDE (test code = 2215) 101 MEQ/L CARBON DIOXIDE (test code = 2206) 24 MEQ/L CALCIUM (test code = 2209) 10.6 MG/DL PROTEIN, TOTAL (test code = 2229) 7.6 G/DL ALBUMIN (test code = 2201) 4.8 G/DL CALC GLOBULIN (test code = 2240) 2.8 G/DL CALC A/G RATIO (test code = 2234) 1.7 RATIO BILIRUBIN, TOTAL (test code = 2207) 0.3 MG/DL ALKALINE PHOSPHATASE (test code = 2204) 70 U/L AST (test code = 2218) 23 U/L ALT (test code = 2219) 38 U/L [place] PersonHEMOGLOBIN [id number] 00:00:00* Test Item Value Reference Range Interpretation Comme nts HEMOGLOBIN A1c (test code = 30183) 7.3 % [place] Guardado AustinLIPID [id number] 00:00:00* Test Item Value Reference Range Interpretation Comme nts CHOLESTEROL (test code = 2210) 277 MG/DL TRIGLYCERIDES (test code = 2232) 413 MG/DL HDL CHOLESTEROL (test code = 2220) 48 MG/DL CALC LDL CHOL (test code = 2237) (NOTE) MG/DL RISK RATIO LDL/HDL (test cod e = 2238) (NOTE) RATIO [place] Guardado AustinHEMOGLOBIN [id number] 00:00:00* Test Item Value Reference Range Interpretation Comme nts HEMOGLOBIN A1c (test code = 93004) 7.3 % Fracisco Guardado AustinCOMPREHENSIVE METABOLIC [id number] 00:00:00* Test Item Value Reference Range Interpretation Comme nts GLUCOSE (test code = 2217) 150 MG/DL BUN (test code = 2208) 23 MG/DL CREATININE (test code = 2214) 0.89 MG/DL eGFR (2020 CKD-EPI) (test co de = 87970) 78 ML/MIN/1.73 CALC BUN/CREAT (test code = 2235) 26 RATIO SODIUM (test code = 2231) 144 MEQ/L POTASSIUM (test code = 2228) 4.6 MEQ/L CHLORIDE (test code = 2215) 101 MEQ/L CARBON DIOXIDE (test code = 2206) 24 MEQ/L CALCIUM (test code = 2209) 10.6 MG/DL PROTEIN, TOTAL (test code = 2229) 7.6 G/DL ALBUMIN (test code = 2201) 4.8 G/DL CALC GLOBULIN (test code = 2240) 2.8 G/DL CALC A/G RATIO (test code = 2234) 1.7 RATIO BILIRUBIN, TOTAL (test code = 2207) 0.3 MG/DL ALKALINE PHOSPHATASE (test code = 2204) 70 U/L AST (test code = 2218) 23 U/L ALT (test code = 2219) 38 U/L [place] Guardado AustinLIPID [id number] 00:00:00* Test Item Value Reference Range Interpretation Comme nts CHOLESTEROL (test code = 2210) 277 MG/DL TRIGLYCERIDES (test code = 2232) 413 MG/DL HDL CHOLESTEROL (test code = 2220) 48 MG/DL CALC LDL CHOL (test code = 2237) (NOTE) MG/DL RISK RATIO LDL/HDL (test cod e = 2238) (NOTE) RATIO [place] PersonHEMOGLOBIN [id number] 00:00:00* Test Item Value Reference Range Interpretation Comme nts HEMOGLOBIN A1c (test code = 82438) 7.3 % [place] PersonCOMPREHENSIVE METABOLIC [id number] 00:00:00* Test Item Value Reference Range Interpretation Comme nts GLUCOSE (test code = 2217) 150 MG/DL BUN (test code = 2208) 23 MG/DL CREATININE (test code = 2214) 0.89 MG/DL eGFR (2020 CKD-EPI) (test co de = 73290) 78 ML/MIN/1.73 CALC BUN/CREAT (test code = 2235) 26 RATIO SODIUM (test code = 2231) 144 MEQ/L POTASSIUM (test code = 2228) 4.6 MEQ/L CHLORIDE (test code = 2215) 101 MEQ/L CARBON DIOXIDE (test code = 2206) 24 MEQ/L CALCIUM (test code = 2209) 10.6 MG/DL PROTEIN, TOTAL (test code = 2229) 7.6 G/DL ALBUMIN (test code = 2201) 4.8 G/DL CALC GLOBULIN (test code = 2240) 2.8 G/DL CALC A/G RATIO (test code = 2234) 1.7 RATIO BILIRUBIN, TOTAL (test code = 2207) 0.3 MG/DL ALKALINE PHOSPHATASE (test code = 2204) 70 U/L AST (test code = 2218) 23 U/L ALT (test code = 2219) 38 U/L [place] Guardado AustinLIPID [id number] 00:00:00* Test Item Value Reference Range Interpretation Comme nts CHOLESTEROL (test code = 2210) 277 MG/DL TRIGLYCERIDES (test code = 2232) 413 MG/DL HDL CHOLESTEROL (test code = 2220) 48 MG/DL CALC LDL CHOL (test code = 2237) (NOTE) MG/DL RISK RATIO LDL/HDL (test cod e = 2238) (NOTE) RATIO [place] Guardado AustinHEMOGLOBIN [id number] 00:00:00* Test Item Value Reference Range Interpretation Comme nts HEMOGLOBIN A1c (test code = 48197) 7.3 % Fr[place]isco Guardado AustinCOMPREHENSIVE METABOLIC [id number] 00:00:00* Test Item Value Reference Range Interpretation Comme nts GLUCOSE (test code = 2217) 150 MG/DL BUN (test code = 2208) 23 MG/DL CREATININE (test code = 2214) 0.89 MG/DL eGFR (2020 CKD-EPI) (test co de = 31552) 78 ML/MIN/1.73 CALC BUN/CREAT (test code = 2235) 26 RATIO SODIUM (test code = 2231) 144 MEQ/L POTASSIUM (test code = 2228) 4.6 MEQ/L CHLORIDE (test code = 2215) 101 MEQ/L CARBON DIOXIDE (test code = 2206) 24 MEQ/L CALCIUM (test code = 2209) 10.6 MG/DL PROTEIN, TOTAL (test code = 2229) 7.6 G/DL ALBUMIN (test code = 2201) 4.8 G/DL CALC GLOBULIN (test code = 2240) 2.8 G/DL CALC A/G RATIO (test code = 2234) 1.7 RATIO BILIRUBIN, TOTAL (test code = 2207) 0.3 MG/DL ALKALINE PHOSPHATASE (test code = 2204) 70 U/L AST (test code = 2218) 23 U/L ALT (test code = 2219) 38 U/L [place] Guardado AustinLIPID [id number] 00:00:00* Test Item Value Reference Range Interpretation Comme nts CHOLESTEROL (test code = 2210) 277 MG/DL TRIGLYCERIDES (test code = 2232) 413 MG/DL HDL CHOLESTEROL (test code = 2220) 48 MG/DL CALC LDL CHOL (test code = 2237) (NOTE) MG/DL RISK RATIO LDL/HDL (test cod e = 2238) (NOTE) RATIO [place] Guardado AustinHEMOGLOBIN [id number] 00:00:00* Test Item Value Reference Range Interpretation Comme nts HEMOGLOBIN A1c (test code = 89390) 7.3 % Fr[place]isco Guardado AustinCOMPREHENSIVE METABOLIC [id number] 00:00:00* Test Item Value Reference Range Interpretation Comme nts GLUCOSE (test code = 2217) 150 MG/DL BUN (test code = 2208) 23 MG/DL CREATININE (test code = 2214) 0.89 MG/DL eGFR (2020 CKD-EPI) (test co de = 86446) 78 ML/MIN/1.73 CALC BUN/CREAT (test code = 2235) 26 RATIO SODIUM (test code = 2231) 144 MEQ/L POTASSIUM (test code = 2228) 4.6 MEQ/L CHLORIDE (test code = 2215) 101 MEQ/L CARBON DIOXIDE (test code = 2206) 24 MEQ/L CALCIUM (test code = 2209) 10.6 MG/DL PROTEIN, TOTAL (test code = 2229) 7.6 G/DL ALBUMIN (test code = 2201) 4.8 G/DL CALC GLOBULIN (test code = 2240) 2.8 G/DL CALC A/G RATIO (test code = 2234) 1.7 RATIO BILIRUBIN, TOTAL (test code = 2207) 0.3 MG/DL ALKALINE PHOSPHATASE (test code = 2204) 70 U/L AST (test code = 2218) 23 U/L ALT (test code = 2219) 38 U/L [place] Guardado WestfieldLIP[place] [id number] 00:00:00* Test Item Value Reference Range Interpretation Comme nts CHOLESTEROL (test code = 2210) 277 MG/DL TRIGLYCERIDES (test code = 2232) 413 MG/DL HDL CHOLESTEROL (test code = 2220) 48 MG/DL CALC LDL CHOL (test code = 2237) (NOTE) MG/DL RISK RATIO LDL/HDL (test cod e = 2238) (NOTE) RATIO [place] PersonHEMOGLOBIN [id number] 00:00:00* Test Item Value Reference Range Interpretation Comme nts HEMOGLOBIN A1c (test code = 30177) 7.3 % Fracisco Guardado ThomasCOMPREHENSIVE METABOLIC [id number] 00:00:00* Test Item Value Reference Range Interpretation Comme nts GLUCOSE (test code = 2217) 150 MG/DL BUN (test code = 2208) 23 MG/DL CREATININE (test code = 2214) 0.89 MG/DL eGFR (2020 CKD-EPI) (test co de = 63808) 78 ML/MIN/1.73 CALC BUN/CREAT (test code = 2235) 26 RATIO SODIUM (test code = 2231) 144 MEQ/L POTASSIUM (test code = 2228) 4.6 MEQ/L CHLORIDE (test code = 2215) 101 MEQ/L CARBON DIOXIDE (test code = 2206) 24 MEQ/L CALCIUM (test code = 2209) 10.6 MG/DL PROTEIN, TOTAL (test code = 2229) 7.6 G/DL ALBUMIN (test code = 2201) 4.8 G/DL CALC GLOBULIN (test code = 2240) 2.8 G/DL CALC A/G RATIO (test code = 2234) 1.7 RATIO BILIRUBIN, TOTAL (test code = 2207) 0.3 MG/DL ALKALINE PHOSPHATASE (test code = 2204) 70 U/L AST (test code = 2218) 23 U/L ALT (test code = 2219) 38 U/L [place] PersonLIPID [id number] 00:00:00* Test Item Value Reference Range Interpretation Comme nts CHOLESTEROL (test code = 2210) 277 MG/DL TRIGLYCERIDES (test code = 2232) 413 MG/DL HDL CHOLESTEROL (test code = 2220) 48 MG/DL CALC LDL CHOL (test code = 2237) (NOTE) MG/DL RISK RATIO LDL/HDL (test cod e = 2238) (NOTE) RATIO [place] PersonHEMOGLOBIN [id number] 00:00:00* Test Item Value Reference Range Interpretation Comme nts HEMOGLOBIN A1c (test code = 98535) 7.3 % [place] PersonCOMPREHENSIVE METABOLIC [id number] 00:00:00* Test Item Value Reference Range Interpretation Comme nts GLUCOSE (test code = 2217) 150 MG/DL BUN (test code = 2208) 23 MG/DL CREATININE (test code = 2214) 0.89 MG/DL eGFR (2020 CKD-EPI) (test co de = 10036) 78 ML/MIN/1.73 CALC BUN/CREAT (test code = 2235) 26 RATIO SODIUM (test code = 2231) 144 MEQ/L POTASSIUM (test code = 2228) 4.6 MEQ/L CHLORIDE (test code = 2215) 101 MEQ/L CARBON DIOXIDE (test code = 2206) 24 MEQ/L CALCIUM (test code = 2209) 10.6 MG/DL PROTEIN, TOTAL (test code = 2229) 7.6 G/DL ALBUMIN (test code = 2201) 4.8 G/DL CALC GLOBULIN (test code = 2240) 2.8 G/DL CALC A/G RATIO (test code = 2234) 1.7 RATIO BILIRUBIN, TOTAL (test code = 2207) 0.3 MG/DL ALKALINE PHOSPHATASE (test code = 2204) 70 U/L AST (test code = 2218) 23 U/L ALT (test code = 2219) 38 U/L [place] Guardado AustinLIPID [id number] 00:00:00* Test Item Value Reference Range Interpretation Comme nts CHOLESTEROL (test code = 2210) 277 MG/DL TRIGLYCERIDES (test code = 2232) 413 MG/DL HDL CHOLESTEROL (test code = 2220) 48 MG/DL CALC LDL CHOL (test code = 2237) (NOTE) MG/DL RISK RATIO LDL/HDL (test cod e = 2238) (NOTE) RATIO [place] PersonHEMOGLOBIN [id number] 00:00:00* Test Item Value Reference Range Interpretation Comme nts HEMOGLOBIN A1c (test code = 56082) 7.3 % [place] PersonCOMPREHENSIVE METABOLIC [id number] 00:00:00* Test Item Value Reference Range Interpretation Comme nts GLUCOSE (test code = 2217) 150 MG/DL BUN (test code = 2208) 23 MG/DL CREATININE (test code = 2214) 0.89 MG/DL eGFR (2020 CKD-EPI) (test co de = 08238) 78 ML/MIN/1.73 CALC BUN/CREAT (test code = 2235) 26 RATIO SODIUM (test code = 2231) 144 MEQ/L POTASSIUM (test code = 2228) 4.6 MEQ/L CHLORIDE (test code = 2215) 101 MEQ/L CARBON DIOXIDE (test code = 2206) 24 MEQ/L CALCIUM (test code = 2209) 10.6 MG/DL PROTEIN, TOTAL (test code = 2229) 7.6 G/DL ALBUMIN (test code = 2201) 4.8 G/DL CALC GLOBULIN (test code = 2240) 2.8 G/DL CALC A/G RATIO (test code = 2234) 1.7 RATIO BILIRUBIN, TOTAL (test code = 2207) 0.3 MG/DL ALKALINE PHOSPHATASE (test code = 2204) 70 U/L AST (test code = 2218) 23 U/L ALT (test code = 2219) 38 U/L [place]isco F AustinLIPID [id number] 00:00:00* Test Item Value Reference Range Interpretation Comme nts CHOLESTEROL (test code = 2210) 277 MG/DL TRIGLYCERIDES (test code = 2232) 413 MG/DL HDL CHOLESTEROL (test code = 2220) 48 MG/DL CALC LDL CHOL (test code = 2237) (NOTE) MG/DL RISK RATIO LDL/HDL (test cod e = 2238) (NOTE) RATIO [place] PersonHEMOGLOBIN [id number] 00:00:00* Test Item Value Reference Range Interpretation Comme nts HEMOGLOBIN A1c (test code = 00212) 7.3 % [place] PersonCOMPREHENSIVE METABOLIC [id number] 00:00:00* Test Item Value Reference Range Interpretation Comme nts GLUCOSE (test code = 2217) 150 MG/DL BUN (test code = 2208) 23 MG/DL CREATININE (test code = 2214) 0.89 MG/DL eGFR (2020 CKD-EPI) (test co de = 79003) 78 ML/MIN/1.73 CALC BUN/CREAT (test code = 2235) 26 RATIO SODIUM (test code = 2231) 144 MEQ/L POTASSIUM (test code = 2228) 4.6 MEQ/L CHLORIDE (test code = 2215) 101 MEQ/L CARBON DIOXIDE (test code = 2206) 24 MEQ/L CALCIUM (test code = 2209) 10.6 MG/DL PROTEIN, TOTAL (test code = 2229) 7.6 G/DL ALBUMIN (test code = 2201) 4.8 G/DL CALC GLOBULIN (test code = 2240) 2.8 G/DL CALC A/G RATIO (test code = 2234) 1.7 RATIO BILIRUBIN, TOTAL (test code = 2207) 0.3 MG/DL ALKALINE PHOSPHATASE (test code = 2204) 70 U/L AST (test code = 2218) 23 U/L ALT (test code = 2219) 38 U/L [place] PersonLIPID [id number] 00:00:00* Test Item Value Reference Range Interpretation Comme nts CHOLESTEROL (test code = 2210) 277 MG/DL TRIGLYCERIDES (test code = 2232) 413 MG/DL HDL CHOLESTEROL (test code = 2220) 48 MG/DL CALC LDL CHOL (test code = 2237) (NOTE) MG/DL RISK RATIO LDL/HDL (test cod e = 2238) (NOTE) RATIO Fr[place] Guardado AustinHEMOGLOBIN [id number] 00:00:00* Test Item Value Reference Range Interpretation Comme nts HEMOGLOBIN A1c (test code = 48595) 7.3 % Fracisco Guardado AustinCOMPREHENSIVE METABOLIC [id number] 00:00:00* Test Item Value Reference Range Interpretation Comme nts GLUCOSE (test code = 2217) 150 MG/DL BUN (test code = 2208) 23 MG/DL CREATININE (test code = 2214) 0.89 MG/DL eGFR (2020 CKD-EPI) (test co de = 76192) 78 ML/MIN/1.73 CALC BUN/CREAT (test code = 2235) 26 RATIO SODIUM (test code = 2231) 144 MEQ/L POTASSIUM (test code = 2228) 4.6 MEQ/L CHLORIDE (test code = 2215) 101 MEQ/L CARBON DIOXIDE (test code = 2206) 24 MEQ/L CALCIUM (test code = 2209) 10.6 MG/DL PROTEIN, TOTAL (test code = 2229) 7.6 G/DL ALBUMIN (test code = 2201) 4.8 G/DL CALC GLOBULIN (test code = 2240) 2.8 G/DL CALC A/G RATIO (test code = 2234) 1.7 RATIO BILIRUBIN, TOTAL (test code = 2207) 0.3 MG/DL ALKALINE PHOSPHATASE (test code = 2204) 70 U/L AST (test code = 2218) 23 U/L ALT (test code = 2219) 38 U/L Fr[place]isco Guardado AustinLIPID [id number] 00:00:00* Test Item Value Reference Range Interpretation Comme nts CHOLESTEROL (test code = 2210) 277 MG/DL TRIGLYCERIDES (test code = 2232) 413 MG/DL HDL CHOLESTEROL (test code = 2220) 48 MG/DL CALC LDL CHOL (test code = 2237) (NOTE) MG/DL RISK RATIO LDL/HDL (test cod e = 2238) (NOTE) RATIO Fracisco Guardado AustinHEMOGLOBIN [id number] 00:00:00* Test Item Value Reference Range Interpretation Comme nts HEMOGLOBIN A1c (test code = 78633) 7.3 % Fracisco F AustinCOMPREHENSIVE METABOLIC [id number] 00:00:00* Test Item Value Reference Range Interpretation Comme nts GLUCOSE (test code = 2217) 150 MG/DL BUN (test code = 2208) 23 MG/DL CREATININE (test code = 2214) 0.89 MG/DL eGFR (2020 CKD-EPI) (test co de = 78850) 78 ML/MIN/1.73 CALC BUN/CREAT (test code = 2235) 26 RATIO SODIUM (test code = 2231) 144 MEQ/L POTASSIUM (test code = 2228) 4.6 MEQ/L CHLORIDE (test code = 2215) 101 MEQ/L CARBON DIOXIDE (test code = 2206) 24 MEQ/L CALCIUM (test code = 2209) 10.6 MG/DL PROTEIN, TOTAL (test code = 2229) 7.6 G/DL ALBUMIN (test code = 2201) 4.8 G/DL CALC GLOBULIN (test code = 2240) 2.8 G/DL CALC A/G RATIO (test code = 2234) 1.7 RATIO BILIRUBIN, TOTAL (test code = 2207) 0.3 MG/DL ALKALINE PHOSPHATASE (test code = 2204) 70 U/L AST (test code = 2218) 23 U/L ALT (test code = 2219) 38 U/L [place] PersonLIPID [id number] 00:00:00* Test Item Value Reference Range Interpretation Comme nts CHOLESTEROL (test code = 2210) 277 MG/DL TRIGLYCERIDES (test code = 2232) 413 MG/DL HDL CHOLESTEROL (test code = 2220) 48 MG/DL CALC LDL CHOL (test code = 2237) (NOTE) MG/DL RISK RATIO LDL/HDL (test cod e = 2238) (NOTE) RATIO [place] PersonHEMOGLOBIN [id number] 00:00:00* Test Item Value Reference Range Interpretation Comme nts HEMOGLOBIN A1c (test code = 73413) 7.3 % [place] PersonCOMPREHENSIVE METABOLIC [id number] 00:00:00* Test Item Value Reference Range Interpretation Comme nts GLUCOSE (test code = 2217) 150 MG/DL BUN (test code = 2208) 23 MG/DL CREATININE (test code = 2214) 0.89 MG/DL eGFR (2020 CKD-EPI) (test co de = 80050) 78 ML/MIN/1.73 CALC BUN/CREAT (test code = 2235) 26 RATIO SODIUM (test code = 2231) 144 MEQ/L POTASSIUM (test code = 2228) 4.6 MEQ/L CHLORIDE (test code = 2215) 101 MEQ/L CARBON DIOXIDE (test code = 2206) 24 MEQ/L CALCIUM (test code = 2209) 10.6 MG/DL PROTEIN, TOTAL (test code = 2229) 7.6 G/DL ALBUMIN (test code = 2201) 4.8 G/DL CALC GLOBULIN (test code = 2240) 2.8 G/DL CALC A/G RATIO (test code = 2234) 1.7 RATIO BILIRUBIN, TOTAL (test code = 2207) 0.3 MG/DL ALKALINE PHOSPHATASE (test code = 2204) 70 U/L AST (test code = 2218) 23 U/L ALT (test code = 2219) 38 U/L [place] Guardado [place]fieldLIPID [id number] 00:00:00* Test Item Value Reference Range Interpretation Comme nts CHOLESTEROL (test code = 2210) 277 MG/DL TRIGLYCERIDES (test code = 2232) 413 MG/DL HDL CHOLESTEROL (test code = 2220) 48 MG/DL CALC LDL CHOL (test code = 2237) (NOTE) MG/DL RISK RATIO LDL/HDL (test cod e = 2238) (NOTE) RATIO [place] PersonHEMOGLOBIN [id number] 00:00:00* Test Item Value Reference Range Interpretation Comme nts HEMOGLOBIN A1c (test code = 65852) 7.3 % Fracisco Guardado ThomasCOMPREHENSIVE METABOLIC [id number] 00:00:00* Test Item Value Reference Range Interpretation Comme nts GLUCOSE (test code = 2217) 150 MG/DL BUN (test code = 2208) 23 MG/DL CREATININE (test code = 2214) 0.89 MG/DL eGFR (2020 CKD-EPI) (test co de = 67973) 78 ML/MIN/1.73 CALC BUN/CREAT (test code = 2235) 26 RATIO SODIUM (test code = 2231) 144 MEQ/L POTASSIUM (test code = 2228) 4.6 MEQ/L CHLORIDE (test code = 2215) 101 MEQ/L CARBON DIOXIDE (test code = 2206) 24 MEQ/L CALCIUM (test code = 2209) 10.6 MG/DL PROTEIN, TOTAL (test code = 2229) 7.6 G/DL ALBUMIN (test code = 2201) 4.8 G/DL CALC GLOBULIN (test code = 2240) 2.8 G/DL CALC A/G RATIO (test code = 2234) 1.7 RATIO BILIRUBIN, TOTAL (test code = 2207) 0.3 MG/DL ALKALINE PHOSPHATASE (test code = 2204) 70 U/L AST (test code = 2218) 23 U/L ALT (test code = 2219) 38 U/L [place] PersonLIPID [id number] 00:00:00* Test Item Value Reference Range Interpretation Comme nts CHOLESTEROL (test code = 2210) 277 MG/DL TRIGLYCERIDES (test code = 2232) 413 MG/DL HDL CHOLESTEROL (test code = 2220) 48 MG/DL CALC LDL CHOL (test code = 2237) (NOTE) MG/DL RISK RATIO LDL/HDL (test cod e = 2238) (NOTE) RATIO [place] PersonHEMOGLOBIN [id number] 00:00:00* Test Item Value Reference Range Interpretation Comme nts HEMOGLOBIN A1c (test code = 46701) 7.3 % Fr[place]isco PersonCOMPREHENSIVE METABOLIC [id number] 00:00:00* Test Item Value Reference Range Interpretation Comme nts GLUCOSE (test code = 2217) 150 MG/DL BUN (test code = 2208) 23 MG/DL CREATININE (test code = 2214) 0.89 MG/DL eGFR (2020 CKD-EPI) (test co de = 50409) 78 ML/MIN/1.73 CALC BUN/CREAT (test code = 2235) 26 RATIO SODIUM (test code = 2231) 144 MEQ/L POTASSIUM (test code = 2228) 4.6 MEQ/L CHLORIDE (test code = 2215) 101 MEQ/L CARBON DIOXIDE (test code = 2206) 24 MEQ/L CALCIUM (test code = 2209) 10.6 MG/DL PROTEIN, TOTAL (test code = 2229) 7.6 G/DL ALBUMIN (test code = 2201) 4.8 G/DL CALC GLOBULIN (test code = 2240) 2.8 G/DL CALC A/G RATIO (test code = 2234) 1.7 RATIO BILIRUBIN, TOTAL (test code = 2207) 0.3 MG/DL ALKALINE PHOSPHATASE (test code = 2204) 70 U/L AST (test code = 2218) 23 U/L ALT (test code = 2219) 38 U/L Fracisco PersonLIPID [id number] 00:00:00* Test Item Value Reference Range Interpretation Comme nts CHOLESTEROL (test code = 2210) 277 MG/DL TRIGLYCERIDES (test code = 2232) 413 MG/DL HDL CHOLESTEROL (test code = 2220) 48 MG/DL CALC LDL CHOL (test code = 2237) (NOTE) MG/DL RISK RATIO LDL/HDL (test cod e = 2238) (NOTE) RATIO Fracisco Guardado AustinHEMOGLOBIN [id number] 00:00:00* Test Item Value Reference Range Interpretation Comme nts HEMOGLOBIN A1c (test code = 19002) 7.3 % Fracisco Guardado AustinCOMPREHENSIVE METABOLIC [id number] 00:00:00* Test Item Value Reference Range Interpretation Comme nts GLUCOSE (test code = 2217) 150 MG/DL BUN (test code = 2208) 23 MG/DL CREATININE (test code = 2214) 0.89 MG/DL eGFR (2020 CKD-EPI) (test co de = 48330) 78 ML/MIN/1.73 CALC BUN/CREAT (test code = 2235) 26 RATIO SODIUM (test code = 2231) 144 MEQ/L POTASSIUM (test code = 2228) 4.6 MEQ/L CHLORIDE (test code = 2215) 101 MEQ/L CARBON DIOXIDE (test code = 2206) 24 MEQ/L CALCIUM (test code = 2209) 10.6 MG/DL PROTEIN, TOTAL (test code = 2229) 7.6 G/DL ALBUMIN (test code = 2201) 4.8 G/DL CALC GLOBULIN (test code = 2240) 2.8 G/DL CALC A/G RATIO (test code = 2234) 1.7 RATIO BILIRUBIN, TOTAL (test code = 2207) 0.3 MG/DL ALKALINE PHOSPHATASE (test code = 2204) 70 U/L AST (test code = 2218) 23 U/L ALT (test code = 2219) 38 U/L Fracisco PersonCOMPREHENSIVE METABOLIC [id number] 00:00:00* Test Item Value Reference Range Interpretation Comme nts GLUCOSE (test code = 2217) 150 MG/DL BUN (test code = 2208) 23 MG/DL CREATININE (test code = 2214) 0.89 MG/DL eGFR (2020 CKD-EPI) (test co de = 59092) 78 ML/MIN/1.73 CALC BUN/CREAT (test code = 2235) 26 RATIO SODIUM (test code = 2231) 144 MEQ/L POTASSIUM (test code = 2228) 4.6 MEQ/L CHLORIDE (test code = 2215) 101 MEQ/L CARBON DIOXIDE (test code = 2206) 24 MEQ/L CALCIUM (test code = 2209) 10.6 MG/DL PROTEIN, TOTAL (test code = 2229) 7.6 G/DL ALBUMIN (test code = 2201) 4.8 G/DL CALC GLOBULIN (test code = 2240) 2.8 G/DL CALC A/G RATIO (test code = 2234) 1.7 RATIO BILIRUBIN, TOTAL (test code = 2207) 0.3 MG/DL ALKALINE PHOSPHATASE (test code = 2204) 70 U/L AST (test code = 2218) 23 U/L ALT (test code = 2219) 38 U/L Fracisco Guardado AustinLIPID [id number] 00:00:00* Test Item Value Reference Range Interpretation Comme nts CHOLESTEROL (test code = 2210) 277 MG/DL TRIGLYCERIDES (test code = 2232) 413 MG/DL HDL CHOLESTEROL (test code = 2220) 48 MG/DL CALC LDL CHOL (test code = 2237) (NOTE) MG/DL RISK RATIO LDL/HDL (test cod e = 2238) (NOTE) RATIO Fracisco Guardado AustinLIPID [id number] 00:00:00* Test Item Value Reference Range Interpretation Comme nts CHOLESTEROL (test code = 2210) 277 MG/DL TRIGLYCERIDES (test code = 2232) 413 MG/DL HDL CHOLESTEROL (test code = 2220) 48 MG/DL CALC LDL CHOL (test code = 2237) (NOTE) MG/DL RISK RATIO LDL/HDL (test cod e = 2238) (NOTE) RATIO Fracisco Guardado AustinHEMOGLOBIN [id number] 00:00:00* Test Item Value Reference Range Interpretation Comme nts HEMOGLOBIN A1c (test code = 89932) 7.3 % Fracisco Debby AustinOCCULT BLD,FECAL,IMMUNOASSAY [id number] 11:58:47* Test Item Value Reference Range Interpretation Comme nts OCCULT BLD, FECAL (test code = 19439) NEGATIVE NEGATIVE UNLESS OTHER ORELLANA INDICATED, ALL TESTING PERFORMED AT [facility] [address] [place] [address] RADIOLOGIST DIAGNOSTIC: JALYN BAUMANN M.D. [place] NUMBER [id number] [place]. [id number] OCCULT BLD,FECAL,IMMUNOASSAY [id number] 00:00:00* Test Item Value Reference Range Interpretation Comme nts OCCULT BLD, FECAL (test code = 87664) NEGATIVE Fracisco F AustinOCCULT BLD,FECAL,IMMUNOASSAY [id number] 00:00:00* Test Item Value Reference Range Interpretation Comme nts OCCULT BLD, FECAL (test code = 15501) NEGATIVE Fracisco F AustinOCCULT BLD,FECAL,IMMUNOASSAY [id number] 00:00:00* Test Item Value Reference Range Interpretation Comme nts OCCULT BLD, FECAL (test code = 33138) NEGATIVE Fracisco F AustinOCCULT BLD,FECAL,IMMUNOASSAY [id number] 00:00:00* Test Item Value Reference Range Interpretation Comme nts OCCULT BLD, FECAL (test code = 40776) NEGATIVE Fracisco F AustinOCCULT BLD,FECAL,IMMUNOASSAY [id number] 00:00:00* Test Item Value Reference Range Interpretation Comme nts OCCULT BLD, FECAL (test code = 49902) NEGATIVE Fracisco F AustinOCCULT BLD,FECAL,IMMUNOASSAY [id number] 00:00:00* Test Item Value Reference Range Interpretation Comme nts OCCULT BLD, FECAL (test code = 10114) NEGATIVE Fracisco F AustinOCCULT BLD,FECAL,IMMUNOASSAY [id number] 00:00:00* Test Item Value Reference Range Interpretation Comme nts OCCULT BLD, FECAL (test code = 43598) NEGATIVE Fracisco F AustinOCCULT BLD,FECAL,IMMUNOASSAY [id number] 00:00:00* Test Item Value Reference Range Interpretation Comme nts OCCULT BLD, FECAL (test code = 28379) NEGATIVE Fracisco F AustinOCCULT BLD,FECAL,IMMUNOASSAY [id number] 00:00:00* Test Item Value Reference Range Interpretation Comme nts OCCULT BLD, FECAL (test code = 91934) NEGATIVE Fracisco F AustinOCCULT BLD,FECAL,IMMUNOASSAY [id number] 00:00:00* Test Item Value Reference Range Interpretation Comme nts OCCULT BLD, FECAL (test code = 66801) NEGATIVE Fracisco F AustinOCCULT BLD,FECAL,IMMUNOASSAY [id number] 00:00:00* Test Item Value Reference Range Interpretation Comme nts OCCULT BLD, FECAL (test code = 79545) NEGATIVE Fracisco F AustinOCCULT BLD,FECAL,IMMUNOASSAY [id number] 00:00:00* Test Item Value Reference Range Interpretation Comme nts OCCULT BLD, FECAL (test code = 36126) NEGATIVE Fracisco F AustinOCCULT BLD,FECAL,IMMUNOASSAY [id number] 00:00:00* Test Item Value Reference Range Interpretation Comme nts OCCULT BLD, FECAL (test code = 06253) NEGATIVE Fracisco F AustinOCCULT BLD,FECAL,IMMUNOASSAY [id number] 00:00:00* Test Item Value Reference Range Interpretation Comme nts OCCULT BLD, FECAL (test code = 56366) NEGATIVE Fracisco F AustinOCCULT BLD,FECAL,IMMUNOASSAY [id number] 00:00:00* Test Item Value Reference Range Interpretation Comme nts OCCULT BLD, FECAL (test code = 64771) NEGATIVE Fracisco F AustinOCCULT BLD,FECAL,IMMUNOASSAY [id number] 00:00:00* Test Item Value Reference Range Interpretation Comme nts OCCULT BLD, FECAL (test code = 22363) NEGATIVE Fracisco Guardado AustinVITAMIN B 12 AND FOLIC [id number] 00:00:00* Test Item Value Reference Range Interpretation Comme nts VITAMIN B-12 (test code = 2840) 743 PG/ML FOLIC ACID (test code = 2695) >20.0 UG/L Fracisco Guardado AustinLIPID [id number] 00:00:00* Test Item Value Reference Range Interpretation Comme nts CHOLESTEROL (test code = 2210) 216 MG/DL TRIGLYCERIDES (test code = 2232) 331 MG/DL HDL CHOLESTEROL (test code = 2220) 47 MG/DL CALC LDL CHOL (test code = 2237) 122 MG/DL RISK RATIO LDL/HDL (test cod e = 2238) 2.60 RATIO Fr[place]isco PersonCOMPREHENSIVE METABOLIC [id number] 00:00:00* Test Item Value Reference Range Interpretation Comme nts GLUCOSE (test code = 2217) 141 MG/DL BUN (test code = 2208) 22 MG/DL CREATININE (test code = 2214) 0.77 MG/DL eGFR (2020 CKD-EPI) (test co de = 65673) 93 ML/MIN/1.73 CALC BUN/CREAT (test code = 2235) 29 RATIO SODIUM (test code = 2231) 144 MEQ/L POTASSIUM (test code = 2228) 4.3 MEQ/L CHLORIDE (test code = 2215) 102 MEQ/L CARBON DIOXIDE (test code = 2206) 28 MEQ/L CALCIUM (test code = 2209) 10.4 MG/DL PROTEIN, TOTAL (test code = 2229) 7.4 G/DL ALBUMIN (test code = 2201) 4.9 G/DL CALC GLOBULIN (test code = 2240) 2.5 G/DL CALC A/G RATIO (test code = 2234) 2.0 RATIO BILIRUBIN, TOTAL (test code = 2207) 0.3 MG/DL ALKALINE PHOSPHATASE (test code = 2204) 78 U/L AST (test code = 2218) 24 U/L ALT (test code = 2219) 31 U/L Fracisco PersonH. PYLORI (BREATH)2022-07-17 00:00:00* Test Item Value Reference Range Interpretation Comme nts H. PYLORI (BREATH) (test cod e = 24368) NEGATIVE Fracisco PersonLIPID [id number] 00:00:00* Test Item Value Reference Range Interpretation Comme nts CHOLESTEROL (test code = 2210) 216 MG/DL TRIGLYCERIDES (test code = 2232) 331 MG/DL HDL CHOLESTEROL (test code = 2220) 47 MG/DL CALC LDL CHOL (test code = 2237) 122 MG/DL RISK RATIO LDL/HDL (test cod e = 2238) 2.60 RATIO [place] PersonHEMOGLOBIN [id number] 00:00:00* Test Item Value Reference Range Interpretation Comme nts HEMOGLOBIN A1c (test code = 19846) 6.8 % Fracisco PersonIRON BINDING CAPACITY AND IRON AND % [id number] 00:00:00* Test Item Value Reference Range Interpretation Comme nts IRON, SERUM (test code = 2222) 44 UG/DL UNSATURATED IBC (test code = 66733) 334 UG/DL CALC TOTAL IBC (test code = 7) 378 UG/DL CALC % IRON SAT (test code = 2079) 12 % Fracisco Guardado [id number] 00:00:00* Test Item Value Reference Range Interpretation Comme nts FERRITIN (test code = 2075) 73 NG/ML [place]isco PersonHEMOGLOBIN [id number] 00:00:00* Test Item Value Reference Range Interpretation Comme nts HEMOGLOBIN A1c (test code = 67962) 6.8 % [place] [id number] 00:00:00* Test Item Value Reference Range Interpretation Comme nts TRANSFERRIN (test code = 4936) 329 MG/DL Fracisco PersonVITAMIN B 12 AND FOLIC [id number] 00:00:00* Test Item Value Reference Range Interpretation Comme lashae VITAMIN B-12 (test code = 2840) 743 PG/ML FOLIC ACID (test code = 2695) >20.0 UG/L [place]acisco PersonH. PYLORI (BREATH)2022-07-17 00:00:00* Test Item Value Reference Range Interpretation Comme lashae H. PYLORI (BREATH) (test cod e = 33202) NEGATIVE [place] PersonCOMPREHENSIVE METABOLIC [id number] 00:00:00* Test Item Value Reference Range Interpretation Comme nts GLUCOSE (test code = 2217) 141 MG/DL BUN (test code = 2208) 22 MG/DL CREATININE (test code = 2214) 0.77 MG/DL eGFR (2020 CKD-EPI) (test co de = 46771) 93 ML/MIN/1.73 CALC BUN/CREAT (test code = 2235) 29 RATIO SODIUM (test code = 2231) 144 MEQ/L POTASSIUM (test code = 2228) 4.3 MEQ/L CHLORIDE (test code = 2215) 102 MEQ/L CARBON DIOXIDE (test code = 2206) 28 MEQ/L CALCIUM (test code = 2209) 10.4 MG/DL PROTEIN, TOTAL (test code = 2229) 7.4 G/DL ALBUMIN (test code = 2201) 4.9 G/DL CALC GLOBULIN (test code = 2240) 2.5 G/DL CALC A/G RATIO (test code = 2234) 2.0 RATIO BILIRUBIN, TOTAL (test code = 2207) 0.3 MG/DL ALKALINE PHOSPHATASE (test code = 2204) 78 U/L AST (test code = 2218) 24 U/L ALT (test code = 2219) 31 U/L [place] PersonLIPID [id number] 00:00:00* Test Item Value Reference Range Interpretation Comme nts CHOLESTEROL (test code = 0) 216 MG/DL TRIGLYCERIDES (test code = 2232) 331 MG/DL HDL CHOLESTEROL (test code = 0) 47 MG/DL CALC LDL CHOL (test code = 7) 122 MG/DL RISK RATIO LDL/HDL (test cod e = 2238) 2.60 RATIO Fracisco Guardado AustinIRON BINDING CAPACITY AND IRON AND % [id number] 00:00:00* Test Item Value Reference Range Interpretation Comme nts IRON, SERUM (test code = 2221) 44 UG/DL UNSATURATED IBC (test code = ) 334 UG/DL CALC TOTAL IBC (test code = 2076) 378 UG/DL CALC % IRON SAT (test code = 2078) 12 % Fracisco Guardado AustinHEMOGLOBIN [id number] 00:00:00* Test Item Value Reference Range Interpretation Comme nts HEMOGLOBIN A1c (test code = 97649) 6.8 % Fracisco Guardado AustinIRON BINDING CAPACITY AND IRON AND % [id number] 00:00:00* Test Item Value Reference Range Interpretation Comme nts IRON, SERUM (test code = 2221) 44 UG/DL UNSATURATED IBC (test code = 92156) 334 UG/DL CALC TOTAL IBC (test code = 2076) 378 UG/DL CALC % IRON SAT (test code = 2078) 12 % Fracisco Guardado [id number] 00:00:00* Test Item Value Reference Range Interpretation Comme nts FERRITIN (test code = 2074) 73 NG/ML Fracisco Guardado [id number] 00:00:00* Test Item Value Reference Range Interpretation Comme nts TRANSFERRIN (test code = 4936) 329 MG/DL Fr[place] PersonVITAMIN B 12 AND FOLIC [id number] 00:00:00* Test Item Value Reference Range Interpretation Comme nts VITAMIN B-12 (test code = 2840) 743 PG/ML FOLIC ACID (test code = 2695) >20.0 UG/L Fracisco Guardado [id number] 00:00:00* Test Item Value Reference Range Interpretation Comme nts FERRITIN (test code = 2075) 73 NG/ML Fracisco Guardado AustinH. PYLORI (BREATH)2022-07-17 00:00:00* Test Item Value Reference Range Interpretation Comme nts H. PYLORI (BREATH) (test cod e = 50006) NEGATIVE Fracisco Guardado [id number] 00:00:00* Test Item Value Reference Range Interpretation Comme nts TRANSFERRIN (test code = 4936) 329 MG/DL [place] PersonCOMPREHENSIVE METABOLIC [id number] 00:00:00* Test Item Value Reference Range Interpretation Comme nts GLUCOSE (test code = 2217) 141 MG/DL BUN (test code = 2208) 22 MG/DL CREATININE (test code = 2214) 0.77 MG/DL eGFR (2020 CKD-EPI) (test co de = 63319) 93 ML/MIN/1.73 CALC BUN/CREAT (test code = 2235) 29 RATIO SODIUM (test code = 2231) 144 MEQ/L POTASSIUM (test code = 2228) 4.3 MEQ/L CHLORIDE (test code = 2215) 102 MEQ/L CARBON DIOXIDE (test code = 2206) 28 MEQ/L CALCIUM (test code = 2209) 10.4 MG/DL PROTEIN, TOTAL (test code = 2229) 7.4 G/DL ALBUMIN (test code = 2201) 4.9 G/DL CALC GLOBULIN (test code = 2240) 2.5 G/DL CALC A/G RATIO (test code = 2234) 2.0 RATIO BILIRUBIN, TOTAL (test code = 2207) 0.3 MG/DL ALKALINE PHOSPHATASE (test code = 2204) 78 U/L AST (test code = 2218) 24 U/L ALT (test code = 2219) 31 U/L [place]isco PersonLIPID [id number] 00:00:00* Test Item Value Reference Range Interpretation Comme nts CHOLESTEROL (test code = 2210) 216 MG/DL TRIGLYCERIDES (test code = 2232) 331 MG/DL HDL CHOLESTEROL (test code = 2220) 47 MG/DL CALC LDL CHOL (test code = 2237) 122 MG/DL RISK RATIO LDL/HDL (test cod e = 2238) 2.60 RATIO [place] PersonHEMOGLOBIN [id number] 00:00:00* Test Item Value Reference Range Interpretation Comme nts HEMOGLOBIN A1c (test code = 03313) 6.8 % Fracisco Guardado AustinVITAMIN B 12 AND FOLIC [id number] 00:00:00* Test Item Value Reference Range Interpretation Comme nts VITAMIN B-12 (test code = 2840) 743 PG/ML FOLIC ACID (test code = 2695) >20.0 UG/L [place] PersonIRON BINDING CAPACITY AND IRON AND % [id number] 00:00:00* Test Item Value Reference Range Interpretation Comme nts IRON, SERUM (test code = 222) 44 UG/DL UNSATURATED IBC (test code = 44677) 334 UG/DL CALC TOTAL IBC (test code = 2077) 378 UG/DL CALC % IRON SAT (test code = 2079) 12 % [place] [id number] 00:00:00* Test Item Value Reference Range Interpretation Comme nts FERRITIN (test code = 2075) 73 NG/ML [place] [id number] 00:00:00* Test Item Value Reference Range Interpretation Comme nts TRANSFERRIN (test code = 4936) 329 MG/DL [place] PersonVITAMIN B 12 AND FOLIC [id number] 00:00:00* Test Item Value Reference Range Interpretation Comme nts VITAMIN B-12 (test code = 2840) 743 PG/ML FOLIC ACID (test code = 2695) >20.0 UG/L [place] PersonCOMPREHENSIVE METABOLIC [id number] 00:00:00* Test Item Value Reference Range Interpretation Comme nts GLUCOSE (test code = 2217) 141 MG/DL BUN (test code = 2208) 22 MG/DL CREATININE (test code = 2214) 0.77 MG/DL eGFR (2020 CKD-EPI) (test co de = 52629) 93 ML/MIN/1.73 CALC BUN/CREAT (test code = 2235) 29 RATIO SODIUM (test code = 223) 144 MEQ/L POTASSIUM (test code = 2228) 4.3 MEQ/L CHLORIDE (test code = 2215) 102 MEQ/L CARBON DIOXIDE (test code = 2206) 28 MEQ/L CALCIUM (test code = 2209) 10.4 MG/DL PROTEIN, TOTAL (test code = 222) 7.4 G/DL ALBUMIN (test code = 2201) 4.9 G/DL CALC GLOBULIN (test code = 2240) 2.5 G/DL CALC A/G RATIO (test code = 2234) 2.0 RATIO BILIRUBIN, TOTAL (test code = 2206) 0.3 MG/DL ALKALINE PHOSPHATASE (test code = 2203) 78 U/L AST (test code = 2217) 24 U/L ALT (test code = 2218) 31 U/L Fracisco Guardado ThomasH. PYLORI (BREATH)2022-07-17 00:00:00* Test Item Value Reference Range Interpretation Comme nts H. PYLORI (BREATH) (test cod e = 96681) NEGATIVE [place]isco PersonLIPID [id number] 00:00:00* Test Item Value Reference Range Interpretation Comme nts CHOLESTEROL (test code = 2210) 216 MG/DL TRIGLYCERIDES (test code = 2232) 331 MG/DL HDL CHOLESTEROL (test code = 0) 47 MG/DL CALC LDL CHOL (test code = 7) 122 MG/DL RISK RATIO LDL/HDL (test cod e = 2238) 2.60 RATIO [place] PersonHEMOGLOBIN [id number] 00:00:00* Test Item Value Reference Range Interpretation Comme nts HEMOGLOBIN A1c (test code = 50472) 6.8 % [place] PersonIRON BINDING CAPACITY AND IRON AND % [id number] 00:00:00* Test Item Value Reference Range Interpretation Comme nts IRON, SERUM (test code = 2221) 44 UG/DL UNSATURATED IBC (test code = 53662) 334 UG/DL CALC TOTAL IBC (test code = 2076) 378 UG/DL CALC % IRON SAT (test code = 2078) 12 % Fracisco Guardado [id number] 00:00:00* Test Item Value Reference Range Interpretation Comme nts FERRITIN (test code = 2075) 73 NG/ML [place] [id number] 00:00:00* Test Item Value Reference Range Interpretation Comme nts TRANSFERRIN (test code = 4936) 329 MG/DL [place] PersonVITAMIN B 12 AND FOLIC [id number] 00:00:00* Test Item Value Reference Range Interpretation Comme nts VITAMIN B-12 (test code = 2840) 743 PG/ML FOLIC ACID (test code = 2695) >20.0 UG/L [place]isco PersonH. PYLORI (BREATH)2022-07-17 00:00:00* Test Item Value Reference Range Interpretation Comme nts H. PYLORI (BREATH) (test cod e = 98851) NEGATIVE [place] PersonCOMPREHENSIVE METABOLIC [id number] 00:00:00* Test Item Value Reference Range Interpretation Comme nts GLUCOSE (test code = 2217) 141 MG/DL BUN (test code = 2208) 22 MG/DL CREATININE (test code = 2214) 0.77 MG/DL eGFR (2020 CKD-EPI) (test co de = 05257) 93 ML/MIN/1.73 CALC BUN/CREAT (test code = 2235) 29 RATIO SODIUM (test code = 2231) 144 MEQ/L POTASSIUM (test code = 2228) 4.3 MEQ/L CHLORIDE (test code = 2215) 102 MEQ/L CARBON DIOXIDE (test code = 2206) 28 MEQ/L CALCIUM (test code = 2209) 10.4 MG/DL PROTEIN, TOTAL (test code = 2229) 7.4 G/DL ALBUMIN (test code = 2201) 4.9 G/DL CALC GLOBULIN (test code = 2240) 2.5 G/DL CALC A/G RATIO (test code = 2234) 2.0 RATIO BILIRUBIN, TOTAL (test code = 2207) 0.3 MG/DL ALKALINE PHOSPHATASE (test code = 2204) 78 U/L AST (test code = 2218) 24 U/L ALT (test code = 2219) 31 U/L [place] PersonLIPID [id number] 00:00:00* Test Item Value Reference Range Interpretation Comme nts CHOLESTEROL (test code = 2210) 216 MG/DL TRIGLYCERIDES (test code = 2232) 331 MG/DL HDL CHOLESTEROL (test code = 0) 47 MG/DL CALC LDL CHOL (test code = 7) 122 MG/DL RISK RATIO LDL/HDL (test cod e = 2238) 2.60 RATIO [place] PersonHEMOGLOBIN [id number] 00:00:00* Test Item Value Reference Range Interpretation Comme lashae HEMOGLOBIN A1c (test code = 37582) 6.8 % [place] PersonIRON BINDING CAPACITY AND IRON AND % [id number] 00:00:00* Test Item Value Reference Range Interpretation Comme lashae IRON, SERUM (test code = 2221) 44 UG/DL UNSATURATED IBC (test code = 01562) 334 UG/DL CALC TOTAL IBC (test code = 2076) 378 UG/DL CALC % IRON SAT (test code = 2079) 12 % [place] [id number] 00:00:00* Test Item Value Reference Range Interpretation Comme lashae FERRITIN (test code = 2075) 73 NG/ML [place] [id number] 00:00:00* Test Item Value Reference Range Interpretation Comme nts TRANSFERRIN (test code = 4936) 329 MG/DL [place] PersonVITAMIN B 12 AND FOLIC [id number] 00:00:00* Test Item Value Reference Range Interpretation Comme lashae VITAMIN B-12 (test code = 2840) 743 PG/ML FOLIC ACID (test code = 2695) >20.0 UG/L [place] PersonH. PYLORI (BREATH)2022-07-17 00:00:00* Test Item Value Reference Range Interpretation Comme lashae H. PYLORI (BREATH) (test cod e = 57627) NEGATIVE [place] PersonCOMPREHENSIVE METABOLIC [id number] 00:00:00* Test Item Value Reference Range Interpretation Comme nts GLUCOSE (test code = 7) 141 MG/DL BUN (test code = 8) 22 MG/DL CREATININE (test code = 2214) 0.77 MG/DL eGFR (2020 CKD-EPI) (test co de = 79561) 93 ML/MIN/1.73 CALC BUN/CREAT (test code = 2235) 29 RATIO SODIUM (test code = 2231) 144 MEQ/L POTASSIUM (test code = 2228) 4.3 MEQ/L CHLORIDE (test code = 2215) 102 MEQ/L CARBON DIOXIDE (test code = 2206) 28 MEQ/L CALCIUM (test code = 2209) 10.4 MG/DL PROTEIN, TOTAL (test code = 2229) 7.4 G/DL ALBUMIN (test code = 2201) 4.9 G/DL CALC GLOBULIN (test code = 2240) 2.5 G/DL CALC A/G RATIO (test code = 2234) 2.0 RATIO BILIRUBIN, TOTAL (test code = 2207) 0.3 MG/DL ALKALINE PHOSPHATASE (test code = 2204) 78 U/L AST (test code = 2218) 24 U/L ALT (test code = 2219) 31 U/L [place] PersonLIPID [id number] 00:00:00* Test Item Value Reference Range Interpretation Comme nts CHOLESTEROL (test code = 2210) 216 MG/DL TRIGLYCERIDES (test code = 2232) 331 MG/DL HDL CHOLESTEROL (test code = 0) 47 MG/DL CALC LDL CHOL (test code = 7) 122 MG/DL RISK RATIO LDL/HDL (test cod e = 2238) 2.60 RATIO [place] PersonHEMOGLOBIN [id number] 00:00:00* Test Item Value Reference Range Interpretation Comme nts HEMOGLOBIN A1c (test code = 36375) 6.8 % [place] PersonIRON BINDING CAPACITY AND IRON AND % [id number] 00:00:00* Test Item Value Reference Range Interpretation Comme nts IRON, SERUM (test code = 2221) 44 UG/DL UNSATURATED IBC (test code = 49724) 334 UG/DL CALC TOTAL IBC (test code = 2076) 378 UG/DL CALC % IRON SAT (test code = 2078) 12 % [place]isco Guardado [id number] 00:00:00* Test Item Value Reference Range Interpretation Comme nts FERRITIN (test code = 2074) 73 NG/ML Fr[place]isco Guardado [id number] 00:00:00* Test Item Value Reference Range Interpretation Comme nts TRANSFERRIN (test code = 4936) 329 MG/DL Fracisco Guardado AustinVITAMIN B 12 AND FOLIC [id number] 00:00:00* Test Item Value Reference Range Interpretation Comme nts VITAMIN B-12 (test code = 2840) 743 PG/ML FOLIC ACID (test code = 2695) >20.0 UG/L [place] PersonCOMPREHENSIVE METABOLIC [id number] 00:00:00* Test Item Value Reference Range Interpretation Comme nts GLUCOSE (test code = 2217) 141 MG/DL BUN (test code = 2208) 22 MG/DL CREATININE (test code = 2214) 0.77 MG/DL eGFR (2020 CKD-EPI) (test co de = 88439) 93 ML/MIN/1.73 CALC BUN/CREAT (test code = 2235) 29 RATIO SODIUM (test code = 2231) 144 MEQ/L POTASSIUM (test code = 2228) 4.3 MEQ/L CHLORIDE (test code = 2215) 102 MEQ/L CARBON DIOXIDE (test code = 2206) 28 MEQ/L CALCIUM (test code = 2209) 10.4 MG/DL PROTEIN, TOTAL (test code = 2229) 7.4 G/DL ALBUMIN (test code = 2201) 4.9 G/DL CALC GLOBULIN (test code = 2240) 2.5 G/DL CALC A/G RATIO (test code = 2234) 2.0 RATIO BILIRUBIN, TOTAL (test code = 2207) 0.3 MG/DL ALKALINE PHOSPHATASE (test code = 2204) 78 U/L AST (test code = 2218) 24 U/L ALT (test code = 2219) 31 U/L [place] PersonH. PYLORI (BREATH)2022-07-17 00:00:00* Test Item Value Reference Range Interpretation Comme nts H. PYLORI (BREATH) (test cod e = 37676) NEGATIVE Fr[place]isco Guardado AustinLIPID [id number] 00:00:00* Test Item Value Reference Range Interpretation Comme nts CHOLESTEROL (test code = 2210) 216 MG/DL TRIGLYCERIDES (test code = 2232) 331 MG/DL HDL CHOLESTEROL (test code = 2220) 47 MG/DL CALC LDL CHOL (test code = 2237) 122 MG/DL RISK RATIO LDL/HDL (test cod e = 2238) 2.60 RATIO [place] PersonHEMOGLOBIN [id number] 00:00:00* Test Item Value Reference Range Interpretation Comme nts HEMOGLOBIN A1c (test code = 24026) 6.8 % [place] PersonIRON BINDING CAPACITY AND IRON AND % [id number] 00:00:00* Test Item Value Reference Range Interpretation Comme nts IRON, SERUM (test code = 222) 44 UG/DL UNSATURATED IBC (test code = 31550) 334 UG/DL CALC TOTAL IBC (test code = 2076) 378 UG/DL CALC % IRON SAT (test code = 2078) 12 % [place] [id number] 00:00:00* Test Item Value Reference Range Interpretation Comme nts FERRITIN (test code = 2074) 73 NG/ML [place] [id number] 00:00:00* Test Item Value Reference Range Interpretation Comme nts TRANSFERRIN (test code = 4936) 329 MG/DL [place] PersonVITAMIN B 12 AND FOLIC [id number] 00:00:00* Test Item Value Reference Range Interpretation Comme nts VITAMIN B-12 (test code = 2840) 743 PG/ML FOLIC ACID (test code = 2695) >20.0 UG/L [place] PersonH. PYLORI (BREATH)2022-07-17 00:00:00* Test Item Value Reference Range Interpretation Comme nts H. PYLORI (BREATH) (test cod e = 66203) NEGATIVE [place] PersonCOMPREHENSIVE METABOLIC [id number] 00:00:00* Test Item Value Reference Range Interpretation Comme nts GLUCOSE (test code = 7) 141 MG/DL BUN (test code = 2208) 22 MG/DL CREATININE (test code = 2214) 0.77 MG/DL eGFR (2020 CKD-EPI) (test co de = 48376) 93 ML/MIN/1.73 CALC BUN/CREAT (test code = 2235) 29 RATIO SODIUM (test code = 2231) 144 MEQ/L POTASSIUM (test code = 2228) 4.3 MEQ/L CHLORIDE (test code = 2215) 102 MEQ/L CARBON DIOXIDE (test code = 2206) 28 MEQ/L CALCIUM (test code = 2209) 10.4 MG/DL PROTEIN, TOTAL (test code = 2229) 7.4 G/DL ALBUMIN (test code = 2201) 4.9 G/DL CALC GLOBULIN (test code = 2240) 2.5 G/DL CALC A/G RATIO (test code = 2234) 2.0 RATIO BILIRUBIN, TOTAL (test code = 2207) 0.3 MG/DL ALKALINE PHOSPHATASE (test code = 2204) 78 U/L AST (test code = 2218) 24 U/L ALT (test code = 2219) 31 U/L [place] PersonLIPID [id number] 00:00:00* Test Item Value Reference Range Interpretation Comme nts CHOLESTEROL (test code = 2210) 216 MG/DL TRIGLYCERIDES (test code = 2232) 331 MG/DL HDL CHOLESTEROL (test code = 2220) 47 MG/DL CALC LDL CHOL (test code = 2237) 122 MG/DL RISK RATIO LDL/HDL (test cod e = 2238) 2.60 RATIO [place] PersonHEMOGLOBIN [id number] 00:00:00* Test Item Value Reference Range Interpretation Comme nts HEMOGLOBIN A1c (test code = 76380) 6.8 % [place] PersonIRON BINDING CAPACITY AND IRON AND % [id number] 00:00:00* Test Item Value Reference Range Interpretation Comme nts IRON, SERUM (test code = 222) 44 UG/DL UNSATURATED IBC (test code = 79371) 334 UG/DL CALC TOTAL IBC (test code = 2077) 378 UG/DL CALC % IRON SAT (test code = 2079) 12 % [place] [id number] 00:00:00* Test Item Value Reference Range Interpretation Comme nts FERRITIN (test code = 2075) 73 NG/ML [place] [id number] 00:00:00* Test Item Value Reference Range Interpretation Comme nts TRANSFERRIN (test code = 4936) 329 MG/DL [place] PersonVITAMIN B 12 AND FOLIC [id number] 00:00:00* Test Item Value Reference Range Interpretation Comme nts VITAMIN B-12 (test code = 2840) 743 PG/ML FOLIC ACID (test code = 2695) >20.0 UG/L [place] PersonCOMPREHENSIVE METABOLIC [id number] 00:00:00* Test Item Value Reference Range Interpretation Comme nts GLUCOSE (test code = 7) 141 MG/DL BUN (test code = 2208) 22 MG/DL CREATININE (test code = 2214) 0.77 MG/DL eGFR (2020 CKD-EPI) (test co de = 83543) 93 ML/MIN/1.73 CALC BUN/CREAT (test code = 2235) 29 RATIO SODIUM (test code = 223) 144 MEQ/L POTASSIUM (test code = 2228) 4.3 MEQ/L CHLORIDE (test code = 2215) 102 MEQ/L CARBON DIOXIDE (test code = 2206) 28 MEQ/L CALCIUM (test code = 2209) 10.4 MG/DL PROTEIN, TOTAL (test code = 222) 7.4 G/DL ALBUMIN (test code = 220) 4.9 G/DL CALC GLOBULIN (test code = 2240) 2.5 G/DL CALC A/G RATIO (test code = 2234) 2.0 RATIO BILIRUBIN, TOTAL (test code = 2206) 0.3 MG/DL ALKALINE PHOSPHATASE (test code = 2203) 78 U/L AST (test code = 2217) 24 U/L ALT (test code = 221) 31 U/L [place] PersonH. PYLORI (BREATH)2022-07-17 00:00:00* Test Item Value Reference Range Interpretation Comme nts H. PYLORI (BREATH) (test cod e = 06286) NEGATIVE [place] Debby ThomasLIPID [id number] 00:00:00* Test Item Value Reference Range Interpretation Comme nts CHOLESTEROL (test code = 2210) 216 MG/DL TRIGLYCERIDES (test code = 2232) 331 MG/DL HDL CHOLESTEROL (test code = 0) 47 MG/DL CALC LDL CHOL (test code = 7) 122 MG/DL RISK RATIO LDL/HDL (test cod e = 2238) 2.60 RATIO [place] Debby ThomasHEMOGLOBIN [id number] 00:00:00* Test Item Value Reference Range Interpretation Comme nts HEMOGLOBIN A1c (test code = 86598) 6.8 % [place] PersonIRON BINDING CAPACITY AND IRON AND % [id number] 00:00:00* Test Item Value Reference Range Interpretation Comme nts IRON, SERUM (test code = 2221) 44 UG/DL UNSATURATED IBC (test code = ) 334 UG/DL CALC TOTAL IBC (test code = 2076) 378 UG/DL CALC % IRON SAT (test code = 2078) 12 % Fracisco Guardado [id number] 00:00:00* Test Item Value Reference Range Interpretation Comme nts FERRITIN (test code = 2075) 73 NG/ML Fracisco Guardado [id number] 00:00:00* Test Item Value Reference Range Interpretation Comme nts TRANSFERRIN (test code = 4936) 329 MG/DL Fracisco Guardado AustinVITAMIN B 12 AND FOLIC [id number] 00:00:00* Test Item Value Reference Range Interpretation Comme nts VITAMIN B-12 (test code = 2840) 743 PG/ML FOLIC ACID (test code = 2695) >20.0 UG/L Fracisco Guardado AustinH. PYLORI (BREATH)2022-07-17 00:00:00* Test Item Value Reference Range Interpretation Comme nts H. PYLORI (BREATH) (test cod e = 15021) NEGATIVE Fracisco PersonCOMPREHENSIVE METABOLIC [id number] 00:00:00* Test Item Value Reference Range Interpretation Comme nts GLUCOSE (test code = 2217) 141 MG/DL BUN (test code = 2208) 22 MG/DL CREATININE (test code = 2214) 0.77 MG/DL eGFR (2020 CKD-EPI) (test co de = 38949) 93 ML/MIN/1.73 CALC BUN/CREAT (test code = 2235) 29 RATIO SODIUM (test code = 2231) 144 MEQ/L POTASSIUM (test code = 2228) 4.3 MEQ/L CHLORIDE (test code = 2215) 102 MEQ/L CARBON DIOXIDE (test code = 2206) 28 MEQ/L CALCIUM (test code = 2209) 10.4 MG/DL PROTEIN, TOTAL (test code = 2229) 7.4 G/DL ALBUMIN (test code = 2201) 4.9 G/DL CALC GLOBULIN (test code = 2240) 2.5 G/DL CALC A/G RATIO (test code = 2234) 2.0 RATIO BILIRUBIN, TOTAL (test code = 2207) 0.3 MG/DL ALKALINE PHOSPHATASE (test code = 2204) 78 U/L AST (test code = 2218) 24 U/L ALT (test code = 2219) 31 U/L Fracisco PersonLIPID [id number] 00:00:00* Test Item Value Reference Range Interpretation Comme nts CHOLESTEROL (test code = 2210) 216 MG/DL TRIGLYCERIDES (test code = 2232) 331 MG/DL HDL CHOLESTEROL (test code = 0) 47 MG/DL CALC LDL CHOL (test code = 7) 122 MG/DL RISK RATIO LDL/HDL (test cod e = 2238) 2.60 RATIO Fracisco PersonHEMOGLOBIN [id number] 00:00:00* Test Item Value Reference Range Interpretation Comme nts HEMOGLOBIN A1c (test code = 11647) 6.8 % Fracisco PersonIRON BINDING CAPACITY AND IRON AND % [id number] 00:00:00* Test Item Value Reference Range Interpretation Comme nts IRON, SERUM (test code = 2221) 44 UG/DL UNSATURATED IBC (test code = 98810) 334 UG/DL CALC TOTAL IBC (test code = 2076) 378 UG/DL CALC % IRON SAT (test code = 2079) 12 % Fracisco [id number] 00:00:00* Test Item Value Reference Range Interpretation Comme nts FERRITIN (test code = 2075) 73 NG/ML Fracisco [id number] 00:00:00* Test Item Value Reference Range Interpretation Comme nts TRANSFERRIN (test code = 4936) 329 MG/DL Fracisco PersonVITAMIN B 12 AND FOLIC [id number] 00:00:00* Test Item Value Reference Range Interpretation Comme nts VITAMIN B-12 (test code = 2840) 743 PG/ML FOLIC ACID (test code = 2695) >20.0 UG/L Fracisco PersonH. PYLORI (BREATH)2022-07-17 00:00:00* Test Item Value Reference Range Interpretation Comme nts H. PYLORI (BREATH) (test cod e = 75908) NEGATIVE Fracisco PersonCOMPREHENSIVE METABOLIC [id number] 00:00:00* Test Item Value Reference Range Interpretation Comme nts GLUCOSE (test code = 7) 141 MG/DL BUN (test code = 8) 22 MG/DL CREATININE (test code = 4) 0.77 MG/DL eGFR (2020 CKD-EPI) (test co de = 48312) 93 ML/MIN/1.73 CALC BUN/CREAT (test code = 5) 29 RATIO SODIUM (test code = 2231) 144 MEQ/L POTASSIUM (test code = 2228) 4.3 MEQ/L CHLORIDE (test code = 2215) 102 MEQ/L CARBON DIOXIDE (test code = 2205) 28 MEQ/L CALCIUM (test code = 2209) 10.4 MG/DL PROTEIN, TOTAL (test code = 9) 7.4 G/DL ALBUMIN (test code = 2200) 4.9 G/DL CALC GLOBULIN (test code = 2240) 2.5 G/DL CALC A/G RATIO (test code = 2234) 2.0 RATIO BILIRUBIN, TOTAL (test code = 7) 0.3 MG/DL ALKALINE PHOSPHATASE (test code = 2203) 78 U/L AST (test code = 2217) 24 U/L ALT (test code = 2218) 31 U/L Fracisco PersonLIPID [id number] 00:00:00* Test Item Value Reference Range Interpretation Comme nts CHOLESTEROL (test code = 0) 216 MG/DL TRIGLYCERIDES (test code = 2231) 331 MG/DL HDL CHOLESTEROL (test code = 0) 47 MG/DL CALC LDL CHOL (test code = 7) 122 MG/DL RISK RATIO LDL/HDL (test cod e = 2238) 2.60 RATIO Fracisco PersonHEMOGLOBIN [id number] 00:00:00* Test Item Value Reference Range Interpretation Comme nts HEMOGLOBIN A1c (test code = 37259) 6.8 % Fracisco PersonIRON BINDING CAPACITY AND IRON AND % [id number] 00:00:00* Test Item Value Reference Range Interpretation Comme nts IRON, SERUM (test code = 2221) 44 UG/DL UNSATURATED IBC (test code = 59340) 334 UG/DL CALC TOTAL IBC (test code = 2076) 378 UG/DL CALC % IRON SAT (test code = 2078) 12 % Fracisco [id number] 00:00:00* Test Item Value Reference Range Interpretation Comme nts FERRITIN (test code = 2074) 73 NG/ML Fracisco Guardado [id number] 00:00:00* Test Item Value Reference Range Interpretation Comme nts TRANSFERRIN (test code = 4936) 329 MG/DL Fracisco Guardado AustinVITAMIN B 12 AND FOLIC [id number] 00:00:00* Test Item Value Reference Range Interpretation Comme nts VITAMIN B-12 (test code = 2840) 743 PG/ML FOLIC ACID (test code = 2695) >20.0 UG/L Fracisco PersonCOMPREHENSIVE METABOLIC [id number] 00:00:00* Test Item Value Reference Range Interpretation Comme nts GLUCOSE (test code = 2217) 141 MG/DL BUN (test code = 2208) 22 MG/DL CREATININE (test code = 2214) 0.77 MG/DL eGFR (2020 CKD-EPI) (test co de = 29711) 93 ML/MIN/1.73 CALC BUN/CREAT (test code = 2235) 29 RATIO SODIUM (test code = 2231) 144 MEQ/L POTASSIUM (test code = 2228) 4.3 MEQ/L CHLORIDE (test code = 2215) 102 MEQ/L CARBON DIOXIDE (test code = 2206) 28 MEQ/L CALCIUM (test code = 2209) 10.4 MG/DL PROTEIN, TOTAL (test code = 2229) 7.4 G/DL ALBUMIN (test code = 2201) 4.9 G/DL CALC GLOBULIN (test code = 2240) 2.5 G/DL CALC A/G RATIO (test code = 2234) 2.0 RATIO BILIRUBIN, TOTAL (test code = 2207) 0.3 MG/DL ALKALINE PHOSPHATASE (test code = 2204) 78 U/L AST (test code = 2218) 24 U/L ALT (test code = 2219) 31 U/L Fracisco PersonH. PYLORI (BREATH)2022-07-17 00:00:00* Test Item Value Reference Range Interpretation Comme nts H. PYLORI (BREATH) (test cod e = 11377) NEGATIVE Fracisco PersonLIPID [id number] 00:00:00* Test Item Value Reference Range Interpretation Comme nts CHOLESTEROL (test code = 2210) 216 MG/DL TRIGLYCERIDES (test code = 2232) 331 MG/DL HDL CHOLESTEROL (test code = 2220) 47 MG/DL CALC LDL CHOL (test code = 2237) 122 MG/DL RISK RATIO LDL/HDL (test cod e = 2238) 2.60 RATIO Fracisco PersonHEMOGLOBIN [id number] 00:00:00* Test Item Value Reference Range Interpretation Comme nts HEMOGLOBIN A1c (test code = 47169) 6.8 % Fracisco PersonIRON BINDING CAPACITY AND IRON AND % [id number] 00:00:00* Test Item Value Reference Range Interpretation Comme nts IRON, SERUM (test code = 222) 44 UG/DL UNSATURATED IBC (test code = 30434) 334 UG/DL CALC TOTAL IBC (test code = 2076) 378 UG/DL CALC % IRON SAT (test code = 207) 12 % Fracisco [id number] 00:00:00* Test Item Value Reference Range Interpretation Comme nts FERRITIN (test code = 2075) 73 NG/ML Fracisco [id number] 00:00:00* Test Item Value Reference Range Interpretation Comme nts TRANSFERRIN (test code = 4936) 329 MG/DL Fracisco PersonVITAMIN B 12 AND FOLIC [id number] 00:00:00* Test Item Value Reference Range Interpretation Comme lashae VITAMIN B-12 (test code = 2840) 743 PG/ML FOLIC ACID (test code = 2695) >20.0 UG/L Fracisco PersonCOMPREHENSIVE METABOLIC [id number] 00:00:00* Test Item Value Reference Range Interpretation Comme nts GLUCOSE (test code = 7) 141 MG/DL BUN (test code = 2207) 22 MG/DL CREATININE (test code = 2214) 0.77 MG/DL eGFR (2020 CKD-EPI) (test co de = 25025) 93 ML/MIN/1.73 CALC BUN/CREAT (test code = 2235) 29 RATIO SODIUM (test code = 2231) 144 MEQ/L POTASSIUM (test code = 2228) 4.3 MEQ/L CHLORIDE (test code = 2215) 102 MEQ/L CARBON DIOXIDE (test code = 2206) 28 MEQ/L CALCIUM (test code = 2209) 10.4 MG/DL PROTEIN, TOTAL (test code = 2229) 7.4 G/DL ALBUMIN (test code = 2201) 4.9 G/DL CALC GLOBULIN (test code = 2240) 2.5 G/DL CALC A/G RATIO (test code = 2234) 2.0 RATIO BILIRUBIN, TOTAL (test code = 7) 0.3 MG/DL ALKALINE PHOSPHATASE (test code = 2204) 78 U/L AST (test code = 2218) 24 U/L ALT (test code = 2219) 31 U/L Fracisco PersonH. PYLORI (BREATH)2022-07-17 00:00:00* Test Item Value Reference Range Interpretation Comme nts H. PYLORI (BREATH) (test cod e = 22628) NEGATIVE Fracisco Guardado AustinLIPID [id number] 00:00:00* Test Item Value Reference Range Interpretation Comme nts CHOLESTEROL (test code = 2210) 216 MG/DL TRIGLYCERIDES (test code = 2232) 331 MG/DL HDL CHOLESTEROL (test code = 2220) 47 MG/DL CALC LDL CHOL (test code = 2237) 122 MG/DL RISK RATIO LDL/HDL (test cod e = 2238) 2.60 RATIO Fracisco PersonHEMOGLOBIN [id number] 00:00:00* Test Item Value Reference Range Interpretation Comme nts HEMOGLOBIN A1c (test code = 44487) 6.8 % Fracisco PersonIRON BINDING CAPACITY AND IRON AND % [id number] 00:00:00* Test Item Value Reference Range Interpretation Comme nts IRON, SERUM (test code = 2222) 44 UG/DL UNSATURATED IBC (test code = 84584) 334 UG/DL CALC TOTAL IBC (test code = 2077) 378 UG/DL CALC % IRON SAT (test code = 2079) 12 % Fracisco [id number] 00:00:00* Test Item Value Reference Range Interpretation Comme nts FERRITIN (test code = 2075) 73 NG/ML Fracisco Guardado [id number] 00:00:00* Test Item Value Reference Range Interpretation Comme nts TRANSFERRIN (test code = 4936) 329 MG/DL Fracisco PersonVITAMIN B 12 AND FOLIC [id number] 00:00:00* Test Item Value Reference Range Interpretation Comme nts VITAMIN B-12 (test code = 2840) 743 PG/ML FOLIC ACID (test code = 2695) >20.0 UG/L Fracisco PersonH. PYLORI (BREATH)2022-07-17 00:00:00* Test Item Value Reference Range Interpretation Comme nts H. PYLORI (BREATH) (test cod e = 06578) NEGATIVE Fracisco PersonCOMPREHENSIVE METABOLIC [id number] 00:00:00* Test Item Value Reference Range Interpretation Comme nts GLUCOSE (test code = 2217) 141 MG/DL BUN (test code = 2208) 22 MG/DL CREATININE (test code = 2214) 0.77 MG/DL eGFR (2020 CKD-EPI) (test co de = 37066) 93 ML/MIN/1.73 CALC BUN/CREAT (test code = 2235) 29 RATIO SODIUM (test code = 2231) 144 MEQ/L POTASSIUM (test code = 2228) 4.3 MEQ/L CHLORIDE (test code = 2215) 102 MEQ/L CARBON DIOXIDE (test code = 2206) 28 MEQ/L CALCIUM (test code = 2209) 10.4 MG/DL PROTEIN, TOTAL (test code = 222) 7.4 G/DL ALBUMIN (test code = 2201) 4.9 G/DL CALC GLOBULIN (test code = 2240) 2.5 G/DL CALC A/G RATIO (test code = 2234) 2.0 RATIO BILIRUBIN, TOTAL (test code = 2207) 0.3 MG/DL ALKALINE PHOSPHATASE (test code = 2204) 78 U/L AST (test code = 2218) 24 U/L ALT (test code = 2219) 31 U/L Fracisco PersonLIPID [id number] 00:00:00* Test Item Value Reference Range Interpretation Comme nts CHOLESTEROL (test code = 2210) 216 MG/DL TRIGLYCERIDES (test code = 2232) 331 MG/DL HDL CHOLESTEROL (test code = 2220) 47 MG/DL CALC LDL CHOL (test code = 7) 122 MG/DL RISK RATIO LDL/HDL (test cod e = 2238) 2.60 RATIO Fracisco PersonHEMOGLOBIN [id number] 00:00:00* Test Item Value Reference Range Interpretation Comme nts HEMOGLOBIN A1c (test code = 08286) 6.8 % Fracisco PersonIRON BINDING CAPACITY AND IRON AND % [id number] 00:00:00* Test Item Value Reference Range Interpretation Comme nts IRON, SERUM (test code = 2221) 44 UG/DL UNSATURATED IBC (test code = ) 334 UG/DL CALC TOTAL IBC (test code = 2076) 378 UG/DL CALC % IRON SAT (test code = 2078) 12 % Fr[place]isco [id number] 00:00:00* Test Item Value Reference Range Interpretation Comme nts FERRITIN (test code = 2074) 73 NG/ML Fr[place] [id number] 00:00:00* Test Item Value Reference Range Interpretation Comme nts TRANSFERRIN (test code = 4936) 329 MG/DL Fracisco Guardado AustinVITAMIN B 12 AND FOLIC [id number] 00:00:00* Test Item Value Reference Range Interpretation Comme nts VITAMIN B-12 (test code = 2840) 743 PG/ML FOLIC ACID (test code = 2695) >20.0 UG/L Fracisco PersonCOMPREHENSIVE METABOLIC [id number] 00:00:00* Test Item Value Reference Range Interpretation Comme nts GLUCOSE (test code = 2217) 141 MG/DL BUN (test code = 2208) 22 MG/DL CREATININE (test code = 2214) 0.77 MG/DL eGFR (2020 CKD-EPI) (test co de = 77723) 93 ML/MIN/1.73 CALC BUN/CREAT (test code = 2235) 29 RATIO SODIUM (test code = 2231) 144 MEQ/L POTASSIUM (test code = 2228) 4.3 MEQ/L CHLORIDE (test code = 2215) 102 MEQ/L CARBON DIOXIDE (test code = 2206) 28 MEQ/L CALCIUM (test code = 2209) 10.4 MG/DL PROTEIN, TOTAL (test code = 2229) 7.4 G/DL ALBUMIN (test code = 2201) 4.9 G/DL CALC GLOBULIN (test code = 2240) 2.5 G/DL CALC A/G RATIO (test code = 2234) 2.0 RATIO BILIRUBIN, TOTAL (test code = 2207) 0.3 MG/DL ALKALINE PHOSPHATASE (test code = 2204) 78 U/L AST (test code = 2218) 24 U/L ALT (test code = 2219) 31 U/L Fracisco PersonH. PYLORI (BREATH)2022-07-17 00:00:00* Test Item Value Reference Range Interpretation Comme nts H. PYLORI (BREATH) (test cod e = 92281) NEGATIVE Fracisco PersonCOMPREHENSIVE METABOLIC [id number] 00:00:00* Test Item Value Reference Range Interpretation Comme nts GLUCOSE (test code = 7) 141 MG/DL BUN (test code = 8) 22 MG/DL CREATININE (test code = 2214) 0.77 MG/DL eGFR (2020 CKD-EPI) (test co de = 21567) 93 ML/MIN/1.73 CALC BUN/CREAT (test code = 2235) 29 RATIO SODIUM (test code = 223) 144 MEQ/L POTASSIUM (test code = 2228) 4.3 MEQ/L CHLORIDE (test code = 2215) 102 MEQ/L CARBON DIOXIDE (test code = 2206) 28 MEQ/L CALCIUM (test code = 2209) 10.4 MG/DL PROTEIN, TOTAL (test code = 2228) 7.4 G/DL ALBUMIN (test code = 220) 4.9 G/DL CALC GLOBULIN (test code = 2240) 2.5 G/DL CALC A/G RATIO (test code = 2234) 2.0 RATIO BILIRUBIN, TOTAL (test code = 2206) 0.3 MG/DL ALKALINE PHOSPHATASE (test code = 2204) 78 U/L AST (test code = 2218) 24 U/L ALT (test code = 2219) 31 U/L Fracisco Guardado AustinH. PYLORI (BREATH)2022-07-17 00:00:00* Test Item Value Reference Range Interpretation Comme nts H. PYLORI (BREATH) (test cod e = 77788) NEGATIVE Fracisco Guardado AustinLIPID [id number] 00:00:00* Test Item Value Reference Range Interpretation Comme nts CHOLESTEROL (test code = 2210) 216 MG/DL TRIGLYCERIDES (test code = 2232) 331 MG/DL HDL CHOLESTEROL (test code = 2220) 47 MG/DL CALC LDL CHOL (test code = 2237) 122 MG/DL RISK RATIO LDL/HDL (test cod e = 2238) 2.60 RATIO Fracisco PersonHEMOGLOBIN [id number] 00:00:00* Test Item Value Reference Range Interpretation Comme nts HEMOGLOBIN A1c (test code = 72858) 6.8 % Fracisco Guardado ThomasIRON BINDING CAPACITY AND IRON AND % [id number] 00:00:00* Test Item Value Reference Range Interpretation Comme nts IRON, SERUM (test code = 2222) 44 UG/DL UNSATURATED IBC (test code = 43186) 334 UG/DL CALC TOTAL IBC (test code = 7) 378 UG/DL CALC % IRON SAT (test code = 2078) 12 % Fracisco [id number] 00:00:00* Test Item Value Reference Range Interpretation Comme nts FERRITIN (test code = 2075) 73 NG/ML [place] [id number] 00:00:00* Test Item Value Reference Range Interpretation Comme nts TRANSFERRIN (test code = 4936) 329 MG/DL Fracisco PersonANA (ANTI-NUCLEAR AB) WITH REFLEX [id number] 03:18:36* Test Item Value Reference Range Interpretation Comme nts ANTI-NUCLEAR ANTIBODIES (test code = 3506) NEGATIVE NEGATIVE Methodology is I ndirect Immunofluorescent Assay (IFA) with a titering system using Sxd9576 cells (Hep2 cells transfected with SS-A/Ro). UNRULY PATTERN (REPORTED TITER) (test code = 75761) SEE BELOW HOMOGENEOUS (test code = 41634) NEGATIVE TITER NEGATIVE SPECKLED (test code = 414902) NEGATIVE TITER NEGATIVE DENSE FINE SPECKLED (test code = 72516) NEGATIVE TITER NEGATIVE CENTROMERE (test code = 838665) NEGATIVE TITER NEGATIVE COARSE SPECKLED (test code = 583152) NEGATIVE TITER NEGATIVE DISCRETE NUCLEAR DOTS (test code = 819485) NEGATIVE TITER NEGATIVE NUCLEOLAR (test code = 533799) NEGATIVE TITER NEGATIVE NUCLEAR MEMBRANE (test code = 704174) NEGATIVE TITER NEGATIVE CYTO. RETICULAR ([place]) (test code = 884392) NEGATIVE NEGATIVE COMMENTS (test code = 422342) NONE METHOD (test code = 14955) (NOTE) NOTE: EFFECTIVE 04/02/2022, METHOD IS TRANSITIONED TO THE [employer] IFA PLATFORM. THE METHOD INCLUDES A SCREENTHRESHOLD OF 1:80, DIGITIZED AND COMPUTER ALGORITHM-ASSISTEDINTER PRETATION OF TITERS AND DIGITAL PATTERNS, AND HEp-2 CELLLINE SUBSTRATE. ADDITIONAL UNUSUAL PATTERNS WILL BE GIVEN ASCOMMENTS. FOR MORE INFORMATION, SEE [email or web address] UNRULY (ANTI-NUCLEAR AB) WITH REFLEX [id number] 00:00:00* Test Item Value Reference Range Interpretation Comme nts ANTI-NUCLEAR ANTIBODIES (solange t code = 3506) NEGATIVE UNRULY PATTERN (REPORTED TITER) (test code = 32044) SEE BELOW HOMOGENEOUS (test code = 05394) NEGATIVE TITER SPECKLED (test code = 902496) NEGATIVE TITER DENSE FINE SPECKLED (test co de = 87147) NEGATIVE TITER CENTROMERE (test code = 926843) NEGATIVE TITER COARSE SPECKLED (test code = 256729) NEGATIVE TITER DISCRETE NUCLEAR DOTS (test code = 747754) NEGATIVE TITER NUCLEOLAR (test code = 217624) NEGATIVE TITER NUCLEAR MEMBRANE (test code = 561374) NEGATIVE TITER CYTO. RETICULAR ([place]) (test code = 403715) NEGATIVE COMMENTS (test code = 939093) NONE METHOD (test code = 02020) (NOTE) Fracisco Guardado Jose Angel (ANTI-NUCLEAR AB) WITH REFLEX [id number] 00:00:00* Test Item Value Reference Range Interpretation Comme nts ANTI-NUCLEAR ANTIBODIES (solange t code = 3506) NEGATIVE UNRULY PATTERN (REPORTED TITER) (test code = 60756) SEE BELOW HOMOGENEOUS (test code = 88965) NEGATIVE TITER SPECKLED (test code = 411603) NEGATIVE TITER DENSE FINE SPECKLED (test co de = 66410) NEGATIVE TITER CENTROMERE (test code = 817474) NEGATIVE TITER COARSE SPECKLED (test code = 271680) NEGATIVE TITER DISCRETE NUCLEAR DOTS (test code = 087326) NEGATIVE TITER NUCLEOLAR (test code = 445366) NEGATIVE TITER NUCLEAR MEMBRANE (test code = 505186) NEGATIVE TITER CYTO. RETICULAR ([place]) (test code = 811235) NEGATIVE COMMENTS (test code = 611359) NONE METHOD (test code = 97993) (NOTE) Fracisco Walter (ANTI-NUCLEAR AB) WITH REFLEX [id number] 00:00:00* Test Item Value Reference Range Interpretation Comme nts ANTI-NUCLEAR ANTIBODIES (solange t code = 3506) NEGATIVE UNRULY PATTERN (REPORTED TITER) (test code = 71341) SEE BELOW HOMOGENEOUS (test code = 04721) NEGATIVE TITER SPECKLED (test code = 930801) NEGATIVE TITER DENSE FINE SPECKLED (test co de = 48006) NEGATIVE TITER CENTROMERE (test code = 056807) NEGATIVE TITER COARSE SPECKLED (test code = 013512) NEGATIVE TITER DISCRETE NUCLEAR DOTS (test code = 336292) NEGATIVE TITER NUCLEOLAR (test code = 140291) NEGATIVE TITER NUCLEAR MEMBRANE (test code = 700562) NEGATIVE TITER CYTO. RETICULAR ([place]) (test code = 669892) NEGATIVE COMMENTS (test code = 200823) NONE METHOD (test code = 60095) (NOTE) Fracisco Guardado Jose Angel (ANTI-NUCLEAR AB) WITH REFLEX [id number] 00:00:00* Test Item Value Reference Range Interpretation Comme nts ANTI-NUCLEAR ANTIBODIES (solange t code = 3506) NEGATIVE UNRULY PATTERN (REPORTED TITER) (test code = 62054) SEE BELOW HOMOGENEOUS (test code = 73537) NEGATIVE TITER SPECKLED (test code = 567786) NEGATIVE TITER DENSE FINE SPECKLED (test co de = 17482) NEGATIVE TITER CENTROMERE (test code = 605122) NEGATIVE TITER COARSE SPECKLED (test code = 723877) NEGATIVE TITER DISCRETE NUCLEAR DOTS (test code = 670896) NEGATIVE TITER NUCLEOLAR (test code = 369049) NEGATIVE TITER NUCLEAR MEMBRANE (test code = 705874) NEGATIVE TITER CYTO. RETICULAR ([place]) (test code = 672558) NEGATIVE COMMENTS (test code = 519716) NONE METHOD (test code = 46914) (NOTE) Fracisco Guardaod Jose Angel (ANTI-NUCLEAR AB) WITH REFLEX [id number] 00:00:00* Test Item Value Reference Range Interpretation Comme nts ANTI-NUCLEAR ANTIBODIES (solange t code = 3506) NEGATIVE UNRULY PATTERN (REPORTED TITER) (test code = 15068) SEE BELOW HOMOGENEOUS (test code = 57434) NEGATIVE TITER SPECKLED (test code = 438773) NEGATIVE TITER DENSE FINE SPECKLED (test co de = 16203) NEGATIVE TITER CENTROMERE (test code = 087642) NEGATIVE TITER COARSE SPECKLED (test code = 776546) NEGATIVE TITER DISCRETE NUCLEAR DOTS (test code = 638782) NEGATIVE TITER NUCLEOLAR (test code = 212449) NEGATIVE TITER NUCLEAR MEMBRANE (test code = 546787) NEGATIVE TITER CYTO. RETICULAR ([place]) (test code = 725528) NEGATIVE COMMENTS (test code = 179322) NONE METHOD (test code = 31972) (NOTE) Fracisco Guardado Jose Angel (ANTI-NUCLEAR AB) WITH REFLEX [id number] 00:00:00* Test Item Value Reference Range Interpretation Comme nts ANTI-NUCLEAR ANTIBODIES (solange t code = 3506) NEGATIVE UNRULY PATTERN (REPORTED TITER) (test code = 38892) SEE BELOW HOMOGENEOUS (test code = 23422) NEGATIVE TITER SPECKLED (test code = 293541) NEGATIVE TITER DENSE FINE SPECKLED (test co de = 54898) NEGATIVE TITER CENTROMERE (test code = 235588) NEGATIVE TITER COARSE SPECKLED (test code = 144633) NEGATIVE TITER DISCRETE NUCLEAR DOTS (test code = 311741) NEGATIVE TITER NUCLEOLAR (test code = 206360) NEGATIVE TITER NUCLEAR MEMBRANE (test code = 142371) NEGATIVE TITER CYTO. RETICULAR ([place]) (test code = 844939) NEGATIVE COMMENTS (test code = 230304) NONE METHOD (test code = 38794) (NOTE) Fracisco Walter (ANTI-NUCLEAR AB) WITH REFLEX [id number] 00:00:00* Test Item Value Reference Range Interpretation Comme nts ANTI-NUCLEAR ANTIBODIES (solange t code = 3506) NEGATIVE UNRULY PATTERN (REPORTED TITER) (test code = 96895) SEE BELOW HOMOGENEOUS (test code = 61968) NEGATIVE TITER SPECKLED (test code = 534245) NEGATIVE TITER DENSE FINE SPECKLED (test co de = 98027) NEGATIVE TITER CENTROMERE (test code = 743515) NEGATIVE TITER COARSE SPECKLED (test code = 731784) NEGATIVE TITER DISCRETE NUCLEAR DOTS (test code = 744721) NEGATIVE TITER NUCLEOLAR (test code = 197562) NEGATIVE TITER NUCLEAR MEMBRANE (test code = 390182) NEGATIVE TITER CYTO. RETICULAR ([place]) (test code = 411922) NEGATIVE COMMENTS (test code = 577453) NONE METHOD (test code = 34062) (NOTE) Fracisco PersonUNRULY (ANTI-NUCLEAR AB) WITH REFLEX [id number] 00:00:00* Test Item Value Reference Range Interpretation Comme nts ANTI-NUCLEAR ANTIBODIES (solange t code = 3506) NEGATIVE UNRULY PATTERN (REPORTED TITER) (test code = 94077) SEE BELOW HOMOGENEOUS (test code = 86451) NEGATIVE TITER SPECKLED (test code = 665885) NEGATIVE TITER DENSE FINE SPECKLED (test co de = 92178) NEGATIVE TITER CENTROMERE (test code = 744859) NEGATIVE TITER COARSE SPECKLED (test code = 364683) NEGATIVE TITER DISCRETE NUCLEAR DOTS (test code = 255080) NEGATIVE TITER NUCLEOLAR (test code = 888645) NEGATIVE TITER NUCLEAR MEMBRANE (test code = 291562) NEGATIVE TITER CYTO. RETICULAR ([place]) (test code = 184117) NEGATIVE COMMENTS (test code = 069186) NONE METHOD (test code = 14762) (NOTE) Fracisco Walter (ANTI-NUCLEAR AB) WITH REFLEX [id number] 00:00:00* Test Item Value Reference Range Interpretation Comme nts ANTI-NUCLEAR ANTIBODIES (solange t code = 3506) NEGATIVE UNRULY PATTERN (REPORTED TITER) (test code = 30791) SEE BELOW HOMOGENEOUS (test code = 99455) NEGATIVE TITER SPECKLED (test code = 781949) NEGATIVE TITER DENSE FINE SPECKLED (test co de = 96275) NEGATIVE TITER CENTROMERE (test code = 022342) NEGATIVE TITER COARSE SPECKLED (test code = 643493) NEGATIVE TITER DISCRETE NUCLEAR DOTS (test code = 143633) NEGATIVE TITER NUCLEOLAR (test code = 483502) NEGATIVE TITER NUCLEAR MEMBRANE (test code = 518215) NEGATIVE TITER CYTO. RETICULAR (JU[place] DIEGO) (test code = 474735) NEGATIVE COMMENTS (test code = 107217) NONE METHOD (test code = 19902) (NOTE) Fracisco Guardado Jose Angel (ANTI-NUCLEAR AB) WITH REFLEX [id number] 00:00:00* Test Item Value Reference Range Interpretation Comme nts ANTI-NUCLEAR ANTIBODIES (solange t code = 3506) NEGATIVE UNRULY PATTERN (REPORTED TITER) (test code = 35041) SEE BELOW HOMOGENEOUS (test code = 94293) NEGATIVE TITER SPECKLED (test code = 523859) NEGATIVE TITER DENSE FINE SPECKLED (test co de = 17586) NEGATIVE TITER CENTROMERE (test code = 279036) NEGATIVE TITER COARSE SPECKLED (test code = 829701) NEGATIVE TITER DISCRETE NUCLEAR DOTS (test code = 220468) NEGATIVE TITER NUCLEOLAR (test code = 126020) NEGATIVE TITER NUCLEAR MEMBRANE (test code = 850677) NEGATIVE TITER CYTO. RETICULAR ([place]) (test code = 318435) NEGATIVE COMMENTS (test code = 299982) NONE METHOD (test code = 09588) (NOTE) Fracisco Guardado Jose Angel (ANTI-NUCLEAR AB) WITH REFLEX [id number] 00:00:00* Test Item Value Reference Range Interpretation Comme nts ANTI-NUCLEAR ANTIBODIES (solange t code = 3506) NEGATIVE UNRULY PATTERN (REPORTED TITER) (test code = 46505) SEE BELOW HOMOGENEOUS (test code = 40345) NEGATIVE TITER SPECKLED (test code = 639543) NEGATIVE TITER DENSE FINE SPECKLED (test co de = 35897) NEGATIVE TITER CENTROMERE (test code = 947922) NEGATIVE TITER COARSE SPECKLED (test code = 726494) NEGATIVE TITER DISCRETE NUCLEAR DOTS (test code = 209318) NEGATIVE TITER NUCLEOLAR (test code = 861096) NEGATIVE TITER NUCLEAR MEMBRANE (test code = 874019) NEGATIVE TITER CYTO. RETICULAR ([place]) (test code = 602146) NEGATIVE COMMENTS (test code = 429744) NONE METHOD (test code = 67649) (NOTE) Fracisco Walter (ANTI-NUCLEAR AB) WITH REFLEX [id number] 00:00:00* Test Item Value Reference Range Interpretation Comme nts ANTI-NUCLEAR ANTIBODIES (solange t code = 3506) NEGATIVE UNRULY PATTERN (REPORTED TITER) (test code = 06237) SEE BELOW HOMOGENEOUS (test code = 39907) NEGATIVE TITER SPECKLED (test code = 697522) NEGATIVE TITER DENSE FINE SPECKLED (test co de = 79548) NEGATIVE TITER CENTROMERE (test code = 369941) NEGATIVE TITER COARSE SPECKLED (test code = 387439) NEGATIVE TITER DISCRETE NUCLEAR DOTS (test code = 841732) NEGATIVE TITER NUCLEOLAR (test code = 894631) NEGATIVE TITER NUCLEAR MEMBRANE (test code = 699667) NEGATIVE TITER CYTO. RETICULAR ([place]) (test code = 290417) NEGATIVE COMMENTS (test code = 829372) NONE METHOD (test code = 79544) (NOTE) Fracisco Walter (ANTI-NUCLEAR AB) WITH REFLEX [id number] 00:00:00* Test Item Value Reference Range Interpretation Comme nts ANTI-NUCLEAR ANTIBODIES (solange t code = 3506) NEGATIVE UNRULY PATTERN (REPORTED TITER) (test code = 83710) SEE BELOW HOMOGENEOUS (test code = 06665) NEGATIVE TITER SPECKLED (test code = 095100) NEGATIVE TITER DENSE FINE SPECKLED (test co de = 53742) NEGATIVE TITER CENTROMERE (test code = 834448) NEGATIVE TITER COARSE SPECKLED (test code = 020819) NEGATIVE TITER DISCRETE NUCLEAR DOTS (test code = 105329) NEGATIVE TITER NUCLEOLAR (test code = 408124) NEGATIVE TITER NUCLEAR MEMBRANE (test code = 052198) NEGATIVE TITER CYTO. RETICULAR ([place]) (test code = 563919) NEGATIVE COMMENTS (test code = 617894) NONE METHOD (test code = 03576) (NOTE) Fracisco Walter (ANTI-NUCLEAR AB) WITH REFLEX [id number] 00:00:00* Test Item Value Reference Range Interpretation Comme nts ANTI-NUCLEAR ANTIBODIES (solange t code = 3506) NEGATIVE UNRULY PATTERN (REPORTED TITER) (test code = 57574) SEE BELOW HOMOGENEOUS (test code = 26771) NEGATIVE TITER SPECKLED (test code = 975665) NEGATIVE TITER DENSE FINE SPECKLED (test co de = 48743) NEGATIVE TITER CENTROMERE (test code = 635870) NEGATIVE TITER COARSE SPECKLED (test code = 834323) NEGATIVE TITER DISCRETE NUCLEAR DOTS (test code = 320245) NEGATIVE TITER NUCLEOLAR (test code = 495206) NEGATIVE TITER NUCLEAR MEMBRANE (test code = 288707) NEGATIVE TITER CYTO. RETICULAR ([place]) (test code = 992781) NEGATIVE COMMENTS (test code = 562852) NONE METHOD (test code = 04135) (NOTE) Fracisco Guardado Jose Angel (ANTI-NUCLEAR AB) WITH REFLEX [id number] 00:00:00* Test Item Value Reference Range Interpretation Comme nts ANTI-NUCLEAR ANTIBODIES (solange t code = 3506) NEGATIVE UNRULY PATTERN (REPORTED TITER) (test code = 47043) SEE BELOW HOMOGENEOUS (test code = 71046) NEGATIVE TITER SPECKLED (test code = 458606) NEGATIVE TITER DENSE FINE SPECKLED (test co de = 65212) NEGATIVE TITER CENTROMERE (test code = 856107) NEGATIVE TITER COARSE SPECKLED (test code = 116437) NEGATIVE TITER DISCRETE NUCLEAR DOTS (test code = 301197) NEGATIVE TITER NUCLEOLAR (test code = 204848) NEGATIVE TITER NUCLEAR MEMBRANE (test code = 759390) NEGATIVE TITER CYTO. RETICULAR ([place]) (test code = 461601) NEGATIVE COMMENTS (test code = 554422) NONE METHOD (test code = 00686) (NOTE) Fracisco Guardado Jose Angel (ANTI-NUCLEAR AB) WITH REFLEX [id number] 00:00:00* Test Item Value Reference Range Interpretation Comme nts ANTI-NUCLEAR ANTIBODIES (solange t code = 3506) NEGATIVE UNURLY PATTERN (REPORTED TITER) (test code = 11930) SEE BELOW HOMOGENEOUS (test code = 41124) NEGATIVE TITER SPECKLED (test code = 890947) NEGATIVE TITER DENSE FINE SPECKLED (test co de = 93677) NEGATIVE TITER CENTROMERE (test code = 554729) NEGATIVE TITER COARSE SPECKLED (test code = 053039) NEGATIVE TITER DISCRETE NUCLEAR DOTS (test code = 306125) NEGATIVE TITER NUCLEOLAR (test code = 153999) NEGATIVE TITER NUCLEAR MEMBRANE (test code = 251911) NEGATIVE TITER CYTO. RETICULAR ([place]) (test code = 595531) NEGATIVE COMMENTS (test code = 250060) NONE METHOD (test code = 26905) (NOTE) Fracisco Walter (ANTI-NUCLEAR AB) WITH REFLEX [id number] 00:00:00* Test Item Value Reference Range Interpretation Comme nts ANTI-NUCLEAR ANTIBODIES (solange t code = 3506) NEGATIVE UNRULY PATTERN (REPORTED TITER) (test code = 54609) SEE BELOW HOMOGENEOUS (test code = 54751) NEGATIVE TITER SPECKLED (test code = 850223) NEGATIVE TITER DENSE FINE SPECKLED (test co de = 61235) NEGATIVE TITER CENTROMERE (test code = 573857) NEGATIVE TITER COARSE SPECKLED (test code = 417282) NEGATIVE TITER DISCRETE NUCLEAR DOTS (test code = 865404) NEGATIVE TITER NUCLEOLAR (test code = 288848) NEGATIVE TITER NUCLEAR MEMBRANE (test code = 353686) NEGATIVE TITER CYTO. RETICULAR ([place]) (test code = 980687) NEGATIVE COMMENTS (test code = 332997) NONE METHOD (test code = 56657) (NOTE) H. PYLORI (BREATH)2022-04-10 16:31:29* Test Item Value Reference Range Interpretation Comme nts H. PYLORI (BREATH) (test code = 27267) POSITIVE NEGATIVE A UNLESS OTHER ORELLANA INDICATED, ALL TESTING PERFORMED [facility] [address] [place] [address] RADIOLOGIST DIAGNOSTIC: CHEY ALFARO M.D. CLIA NUMBER [id number] [place]. [id number] 05:45:04* Test Item Value Reference Range Interpretation Comme nts FERRITIN (test code = 2075) 118 NG/ML 13-200 VITAMIN B 12 AND FOLIC [id number] 05:45:04* Test Item Value Reference Range Interpretation Comme nts VITAMIN B-12 (test code = 2840) 1252 PG/ML 200-950 H FOLIC ACID (test code = 2695) 17.9 UG/L SEE BELOW INTERPRETI VE RANGES DEFICIENCY . . . . . . . . . . . . . . . UG/L <4.0 POSSIBLE DEFICIENCY. . . . . . . . . . . UG/L 4.0-5.9 SUFFICIENT . . . . . . . . . . . . . . . UG/L >=6.0 UNLESS OTHERWISE INDICATED, ALL TESTING PERFORMED [facility] [employer] [address] [place] [id number] RADIOLOGIST DIAGNOSTIC: CHEY ALFARO M.D. [facility] NUMBER [id number] [place] [place]. [id number] COMPREHENSIVE METABOLIC [id number] 04:02:19* Test Item Value Reference Range Interpretation Comme nts GLUCOSE (test code = 2216) 149 MG/DL 70-99 H BUN (test code = 2207) 32 MG/DL 6-20 H CREATININE (test code = 2214) 1.15 MG/DL 0.60-1.30 eGFR (2020 CKD-EPI) (test code = 24462) 58 ML/MIN/1.73 >60 L CALC BUN/CREAT (test code = 2235) 28 RATIO 6-28 SODIUM (test code = 2231) 138 MEQ/L 133-146 POTASSIUM (test code = 2228) 4.3 MEQ/L 3.5-5.4 CHLORIDE (test code = 2215) 95 MEQ/L 95-107 CARBON DIOXIDE (test code = 2206) 25 MEQ/L 19-31 CALCIUM (test code = 2209) 10.4 MG/DL 8.5-10.5 PROTEIN, TOTAL (test code = 222) 8.3 G/DL 6.1-8.3 ALBUMIN (test code = 2201) 5.1 G/DL 3.5-5.2 CALC GLOBULIN (test code = 2240) 3.2 G/DL 1.9-3.7 CALC A/G RATIO (test code = 2234) 1.6 RATIO 1.0-2.6 BILIRUBIN, TOTAL (test code = 2207) 0.5 MG/DL See_Comment [Automated me ssage] The system which generated this result transmitted reference range: <=1.2. The reference range was not used to interpret this result as normal/abnormal. ALKALINE PHOSPHATASE (test code = 4) 83 U/L 40-130 AST (test code = 2218) 38 U/L 9-40 ALT (test code = 221) 51 U/L 5-40 H LIPID [id number] 04:02:19* Test Item Value Reference Range Interpretation Comme nts CHOLESTEROL (test code = 2210) 208 MG/DL <200 H TRIGLYCERIDES (test code = 2) 349 MG/DL <150 H HDL CHOLESTEROL (test code = 0) 48 MG/DL >39 CALC LDL CHOL (test code = 7) 110 MG/DL <100 H NOTE: CALCULATED LDL IS BASED ON KRISTEN-PIERCE METHOD WHICHINCLUDES ADJUSTABLE TRIGLYCERIDE:VLDL CHOLESTEROL RATIO.THIS FACTOR VARIES BY MEASURED TRIGLYCERIDE AND NON-HDLCHOLESTEROL CONCENTRATIONS WITH INCREASED CALCULATED LDL SEENIN HIGHER TRIGLYCERIDE OR LOWER NON-HDL SPECIMENS. FOR MOREINFORMATION, SEE CLIENT ANNOUNCEMENT AT [email or web address] RISK RATIO LDL/HDL (test code = 2238) 2.29 RATIO <3.22 IRON BINDING CAPACITY AND IRON AND % [id number] 04:02:19* Test Item Value Reference Range Interpretation Comme nts IRON, SERUM (test code = 222) 67 UG/DL 37-145 UNSATURATED IBC (test code = 65579) 412 UG/DL 112-347 H CALC TOTAL IBC (test code = 2077) 479 UG/DL 250-450 H CALC % IRON SAT (test code = 2079) 14 % 20-50 L [id number] 04:01:36* Test Item Value Reference Range Interpretation Comme nts TRANSFERRIN (test code = 4936) 388 MG/DL 200-360 H HEPATITIS PANEL, [id number] 03:25:53* Test Item Value Reference Range Interpretation Comme nts HEPATITIS A IgM (test code = 98673) NON-REACTIVE NON-REACTIVE HEPATITIS B CORE IgM (test code = 4644) NON-REACTIVE NON-REACTIVE HEPATITIS B SURF AG (test code = 2739) NON-REACTIVE NON-REACTIVE HEPATITIS C ANTIBODY (test code = 4675) NON-REACTIVE NON-REACTIVE INTERPRETATION HEPATITIS A: (test code = 2552) (NOTE) Hepatitis A serology shows no evidence of acute hepatitis A. INTERPRETATION HEPATITIS B: (test code = 69018) (NOTE) Hepatitis B serology shows no evidence of acute hepatitis B andno indication of exposure to hepatitis B virus in the previous jayda eight months. INTERPRETATION HEPATITIS C: (test code = 04712) (NOTE) Hepatitis C serology shows no evidence of exposure to hepatitisC virus at this time. It can take up to 12 months after exposure tothe hepatitis C virus for antibodies to become detectable in the blood in certain patients. [id number] 00:00:00* Test Item Value Reference Range Interpretation Comme lashae TRANSFERRIN (test code = 4936) 388 MG/DL Fracisco PersonVITAMIN B 12 AND FOLIC [id number] 00:00:00* Test Item Value Reference Range Interpretation Comme nts VITAMIN B-12 (test code = 2840) 1252 PG/ML FOLIC ACID (test code = 2695) 17.9 UG/L Fracisco PersonH. PYLORI (BREATH)2022-04-10 00:00:00* Test Item Value Reference Range Interpretation Comme lashae H. PYLORI (BREATH) (test cod e = 87959) POSITIVE Fracisco PersonACUTE HEPATITIS [id number] 00:00:00* Test Item Value Reference Range Interpretation Comme nts HEPATITIS A IgM (test code = 80174) NON-REACTIVE HEPATITIS B CORE IgM (test c ode = 4644) NON-REACTIVE HEPATITIS B SURF AG (test co de = 2739) NON-REACTIVE HEPATITIS C ANTIBODY (test c ode = 4675) NON-REACTIVE INTERPRETATION HEPATITIS A: (test code = 2552) (NOTE) INTERPRETATION HEPATITIS B: (test code = 06836) (NOTE) INTERPRETATION HEPATITIS C: (test code = 51143) (NOTE) Fracisco PersonCOMPREHENSIVE METABOLIC [id number] 00:00:00* Test Item Value Reference Range Interpretation Comme nts GLUCOSE (test code = 2217) 149 MG/DL BUN (test code = 2208) 32 MG/DL CREATININE (test code = 2214) 1.15 MG/DL eGFR (2020 CKD-EPI) (test co de = 32484) 58 ML/MIN/1.73 CALC BUN/CREAT (test code = 2235) 28 RATIO SODIUM (test code = 2231) 138 MEQ/L POTASSIUM (test code = 2228) 4.3 MEQ/L CHLORIDE (test code = 2215) 95 MEQ/L CARBON DIOXIDE (test code = 2206) 25 MEQ/L CALCIUM (test code = 2209) 10.4 MG/DL PROTEIN, TOTAL (test code = 2229) 8.3 G/DL ALBUMIN (test code = 2201) 5.1 G/DL CALC GLOBULIN (test code = 2240) 3.2 G/DL CALC A/G RATIO (test code = 2234) 1.6 RATIO BILIRUBIN, TOTAL (test code = 2207) 0.5 MG/DL ALKALINE PHOSPHATASE (test code = 2204) 83 U/L AST (test code = 2218) 38 U/L ALT (test code = 2219) 51 U/L Fracisco PersonCOMPREHENSIVE METABOLIC [id number] 00:00:00* Test Item Value Reference Range Interpretation Comme nts GLUCOSE (test code = 2217) 149 MG/DL BUN (test code = 2208) 32 MG/DL CREATININE (test code = 2214) 1.15 MG/DL eGFR (2020 CKD-EPI) (test co de = 89054) 58 ML/MIN/1.73 CALC BUN/CREAT (test code = 2235) 28 RATIO SODIUM (test code = 2231) 138 MEQ/L POTASSIUM (test code = 2228) 4.3 MEQ/L CHLORIDE (test code = 2215) 95 MEQ/L CARBON DIOXIDE (test code = 2206) 25 MEQ/L CALCIUM (test code = 2209) 10.4 MG/DL PROTEIN, TOTAL (test code = 2229) 8.3 G/DL ALBUMIN (test code = 2201) 5.1 G/DL CALC GLOBULIN (test code = 2240) 3.2 G/DL CALC A/G RATIO (test code = 2234) 1.6 RATIO BILIRUBIN, TOTAL (test code = 2207) 0.5 MG/DL ALKALINE PHOSPHATASE (test code = 2204) 83 U/L AST (test code = 2218) 38 U/L ALT (test code = 2219) 51 U/L Fracisco F AustinLIPID [id number] 00:00:00* Test Item Value Reference Range Interpretation Comme nts CHOLESTEROL (test code = 2210) 208 MG/DL TRIGLYCERIDES (test code = 2232) 349 MG/DL HDL CHOLESTEROL (test code = 2220) 48 MG/DL CALC LDL CHOL (test code = 2237) 110 MG/DL RISK RATIO LDL/HDL (test cod e = 2238) 2.29 RATIO Fracisco F AustinIRON BINDING CAPACITY AND IRON AND % [id number] 00:00:00* Test Item Value Reference Range Interpretation Comme nts IRON, SERUM (test code = 222) 67 UG/DL UNSATURATED IBC (test code = 31686) 412 UG/DL CALC TOTAL IBC (test code = 207) 479 UG/DL CALC % IRON SAT (test code = 2079) 14 % Fracisco [id number] 00:00:00* Test Item Value Reference Range Interpretation Comme nts FERRITIN (test code = 2075) 118 NG/ML Fracisco [id number] 00:00:00* Test Item Value Reference Range Interpretation Comme nts TRANSFERRIN (test code = 4936) 388 MG/DL Fracisco PersonVITAMIN B 12 AND FOLIC [id number] 00:00:00* Test Item Value Reference Range Interpretation Comme nts VITAMIN B-12 (test code = 2840) 1252 PG/ML FOLIC ACID (test code = 2695) 17.9 UG/L Fracisco PersonLIPID [id number] 00:00:00* Test Item Value Reference Range Interpretation Comme nts CHOLESTEROL (test code = 2210) 208 MG/DL TRIGLYCERIDES (test code = 2232) 349 MG/DL HDL CHOLESTEROL (test code = 2220) 48 MG/DL CALC LDL CHOL (test code = 2237) 110 MG/DL RISK RATIO LDL/HDL (test cod e = 2238) 2.29 RATIO Fracisco PersonACUTE HEPATITIS [id number] 00:00:00* Test Item Value Reference Range Interpretation Comme nts HEPATITIS A IgM (test code = 78880) NON-REACTIVE HEPATITIS B CORE IgM (test c ode = 4644) NON-REACTIVE HEPATITIS B SURF AG (test co de = 1889) NON-REACTIVE HEPATITIS C ANTIBODY (test c ode = 4615) NON-REACTIVE INTERPRETATION HEPATITIS A: (test code = 2552) (NOTE) INTERPRETATION HEPATITIS B: (test code = 62132) (NOTE) INTERPRETATION HEPATITIS C: (test code = 49581) (NOTE) Fracisco PersonH. PYLORI (BREATH)2022-04-10 00:00:00* Test Item Value Reference Range Interpretation Comme nts H. PYLORI (BREATH) (test cod e = 93378) POSITIVE Fracisco F AustinCOMPREHENSIVE METABOLIC [id number] 00:00:00* Test Item Value Reference Range Interpretation Comme nts GLUCOSE (test code = 2217) 149 MG/DL BUN (test code = 2208) 32 MG/DL CREATININE (test code = 2214) 1.15 MG/DL eGFR (2020 CKD-EPI) (test co de = 17567) 58 ML/MIN/1.73 CALC BUN/CREAT (test code = 2235) 28 RATIO SODIUM (test code = 2231) 138 MEQ/L POTASSIUM (test code = 2228) 4.3 MEQ/L CHLORIDE (test code = 2215) 95 MEQ/L CARBON DIOXIDE (test code = 2206) 25 MEQ/L CALCIUM (test code = 2209) 10.4 MG/DL PROTEIN, TOTAL (test code = 222) 8.3 G/DL ALBUMIN (test code = 2201) 5.1 G/DL CALC GLOBULIN (test code = 2240) 3.2 G/DL CALC A/G RATIO (test code = 2234) 1.6 RATIO BILIRUBIN, TOTAL (test code = 2207) 0.5 MG/DL ALKALINE PHOSPHATASE (test code = 2204) 83 U/L AST (test code = 2218) 38 U/L ALT (test code = 2219) 51 U/L Fracisco PersonLIPID [id number] 00:00:00* Test Item Value Reference Range Interpretation Comme nts CHOLESTEROL (test code = 2210) 208 MG/DL TRIGLYCERIDES (test code = 2232) 349 MG/DL HDL CHOLESTEROL (test code = 2220) 48 MG/DL CALC LDL CHOL (test code = 2237) 110 MG/DL RISK RATIO LDL/HDL (test cod e = 2238) 2.29 RATIO Fracisco Guardado AustinIRON BINDING CAPACITY AND IRON AND % [id number] 00:00:00* Test Item Value Reference Range Interpretation Comme nts IRON, SERUM (test code = 2221) 67 UG/DL UNSATURATED IBC (test code = ) 412 UG/DL CALC TOTAL IBC (test code = 2076) 479 UG/DL CALC % IRON SAT (test code = 2078) 14 % Fracisco [id number] 00:00:00* Test Item Value Reference Range Interpretation Comme nts FERRITIN (test code = 207) 118 NG/ML Fracisco Guardado [id number] 00:00:00* Test Item Value Reference Range Interpretation Comme nts TRANSFERRIN (test code = 4936) 388 MG/DL Fracisco PersonVITAMIN B 12 AND FOLIC [id number] 00:00:00* Test Item Value Reference Range Interpretation Comme nts VITAMIN B-12 (test code = 2840) 1252 PG/ML FOLIC ACID (test code = 2695) 17.9 UG/L Fracisco PersonIRON BINDING CAPACITY AND IRON AND % [id number] 00:00:00* Test Item Value Reference Range Interpretation Comme nts IRON, SERUM (test code = 2222) 67 UG/DL UNSATURATED IBC (test code = 58875) 412 UG/DL CALC TOTAL IBC (test code = 2077) 479 UG/DL CALC % IRON SAT (test code = 2079) 14 % Fracisco PersonACUTE HEPATITIS [id number] 00:00:00* Test Item Value Reference Range Interpretation Comme nts HEPATITIS A IgM (test code = 26819) NON-REACTIVE HEPATITIS B CORE IgM (test c ode = 4644) NON-REACTIVE HEPATITIS B SURF AG (test co de = 2739) NON-REACTIVE HEPATITIS C ANTIBODY (test c ode = 4645) NON-REACTIVE INTERPRETATION HEPATITIS A: (test code = 2552) (NOTE) INTERPRETATION HEPATITIS B: (test code = 49689) (NOTE) INTERPRETATION HEPATITIS C: (test code = 41789) (NOTE) Fracisco PersonH. PYLORI (BREATH)2022-04-10 00:00:00* Test Item Value Reference Range Interpretation Comme nts H. PYLORI (BREATH) (test cod e = 22507) POSITIVE Fracisco [id number] 00:00:00* Test Item Value Reference Range Interpretation Comme nts FERRITIN (test code = 5) 118 NG/ML Fracisco [id number] 00:00:00* Test Item Value Reference Range Interpretation Comme nts TRANSFERRIN (test code = 4936) 388 MG/DL Fracisco PersonCOMPREHENSIVE METABOLIC [id number] 00:00:00* Test Item Value Reference Range Interpretation Comme nts GLUCOSE (test code = 2217) 149 MG/DL BUN (test code = 220) 32 MG/DL CREATININE (test code = 2214) 1.15 MG/DL eGFR (2020 CKD-EPI) (test co de = ) 58 ML/MIN/1.73 CALC BUN/CREAT (test code = 2234) 28 RATIO SODIUM (test code = 223) 138 MEQ/L POTASSIUM (test code = 2228) 4.3 MEQ/L CHLORIDE (test code = 2215) 95 MEQ/L CARBON DIOXIDE (test code = 220) 25 MEQ/L CALCIUM (test code = 220) 10.4 MG/DL PROTEIN, TOTAL (test code = 2228) 8.3 G/DL ALBUMIN (test code = 2200) 5.1 G/DL CALC GLOBULIN (test code = 0) 3.2 G/DL CALC A/G RATIO (test code = 4) 1.6 RATIO BILIRUBIN, TOTAL (test code = 2206) 0.5 MG/DL ALKALINE PHOSPHATASE (test code = 2203) 83 U/L AST (test code = 2217) 38 U/L ALT (test code = 221) 51 U/L Fracisco PersonVITAMIN B 12 AND FOLIC [id number] 00:00:00* Test Item Value Reference Range Interpretation Comme nts VITAMIN B-12 (test code = 2840) 1252 PG/ML FOLIC ACID (test code = 2695) 17.9 UG/L Fracisco PersonLIPID [id number] 00:00:00* Test Item Value Reference Range Interpretation Comme nts CHOLESTEROL (test code = 2209) 208 MG/DL TRIGLYCERIDES (test code = 2232) 349 MG/DL HDL CHOLESTEROL (test code = 0) 48 MG/DL CALC LDL CHOL (test code = 2237) 110 MG/DL RISK RATIO LDL/HDL (test cod e = 2238) 2.29 RATIO Fracisco PersonIRON BINDING CAPACITY AND IRON AND % [id number] 00:00:00* Test Item Value Reference Range Interpretation Comme nts IRON, SERUM (test code = 2221) 67 UG/DL UNSATURATED IBC (test code = ) 412 UG/DL CALC TOTAL IBC (test code = 2076) 479 UG/DL CALC % IRON SAT (test code = 2078) 14 % Fracisco [id number] 00:00:00* Test Item Value Reference Range Interpretation Comme lashae FERRITIN (test code = 2075) 118 NG/ML Fracisco [id number] 00:00:00* Test Item Value Reference Range Interpretation Comme nts TRANSFERRIN (test code = 4936) 388 MG/DL Fracisco PersonVITAMIN B 12 AND FOLIC [id number] 00:00:00* Test Item Value Reference Range Interpretation Comme nts VITAMIN B-12 (test code = 2840) 1252 PG/ML FOLIC ACID (test code = 2695) 17.9 UG/L Fracisco PersonACUTE HEPATITIS [id number] 00:00:00* Test Item Value Reference Range Interpretation Comme nts HEPATITIS A IgM (test code = 13033) NON-REACTIVE HEPATITIS B CORE IgM (test c ode = 4644) NON-REACTIVE HEPATITIS B SURF AG (test co de = 2739) NON-REACTIVE HEPATITIS C ANTIBODY (test c ode = 4665) NON-REACTIVE INTERPRETATION HEPATITIS A: (test code = 2552) (NOTE) INTERPRETATION HEPATITIS B: (test code = 10503) (NOTE) INTERPRETATION HEPATITIS C: (test code = 09473) (NOTE) Fracisco PersonH. PYLORI (BREATH)2022-04-10 00:00:00* Test Item Value Reference Range Interpretation Comme lashae H. PYLORI (BREATH) (test cod e = 16026) POSITIVE Fracisco PersonCOMPREHENSIVE METABOLIC [id number] 00:00:00* Test Item Value Reference Range Interpretation Comme nts GLUCOSE (test code = 2217) 149 MG/DL BUN (test code = 2208) 32 MG/DL CREATININE (test code = 2214) 1.15 MG/DL eGFR (2020 CKD-EPI) (test co de = 19017) 58 ML/MIN/1.73 CALC BUN/CREAT (test code = 2235) 28 RATIO SODIUM (test code = 2231) 138 MEQ/L POTASSIUM (test code = 2228) 4.3 MEQ/L CHLORIDE (test code = 2215) 95 MEQ/L CARBON DIOXIDE (test code = 2206) 25 MEQ/L CALCIUM (test code = 2209) 10.4 MG/DL PROTEIN, TOTAL (test code = 2229) 8.3 G/DL ALBUMIN (test code = 2201) 5.1 G/DL CALC GLOBULIN (test code = 2240) 3.2 G/DL CALC A/G RATIO (test code = 2234) 1.6 RATIO BILIRUBIN, TOTAL (test code = 2207) 0.5 MG/DL ALKALINE PHOSPHATASE (test code = 2204) 83 U/L AST (test code = 2218) 38 U/L ALT (test code = 2219) 51 U/L [place] PersonLIPID [id number] 00:00:00* Test Item Value Reference Range Interpretation Comme nts CHOLESTEROL (test code = 0) 208 MG/DL TRIGLYCERIDES (test code = 2232) 349 MG/DL HDL CHOLESTEROL (test code = 0) 48 MG/DL CALC LDL CHOL (test code = 7) 110 MG/DL RISK RATIO LDL/HDL (test cod e = 2238) 2.29 RATIO [place] PersonIRON BINDING CAPACITY AND IRON AND % [id number] 00:00:00* Test Item Value Reference Range Interpretation Comme nts IRON, SERUM (test code = 222) 67 UG/DL UNSATURATED IBC (test code = 95992) 412 UG/DL CALC TOTAL IBC (test code = 2076) 479 UG/DL CALC % IRON SAT (test code = 2078) 14 % [place] [id number] 00:00:00* Test Item Value Reference Range Interpretation Comme nts FERRITIN (test code = 2075) 118 NG/ML [place] [id number] 00:00:00* Test Item Value Reference Range Interpretation Comme nts TRANSFERRIN (test code = 4936) 388 MG/DL [place] PersonVITAMIN B 12 AND FOLIC [id number] 00:00:00* Test Item Value Reference Range Interpretation Comme nts VITAMIN B-12 (test code = 2840) 1252 PG/ML FOLIC ACID (test code = 2695) 17.9 UG/L [place] PersonACUTE HEPATITIS [id number] 00:00:00* Test Item Value Reference Range Interpretation Comme nts HEPATITIS A IgM (test code = 49781) NON-REACTIVE HEPATITIS B CORE IgM (test c ode = 4618) NON-REACTIVE HEPATITIS B SURF AG (test co de = 6378) NON-REACTIVE HEPATITIS C ANTIBODY (test c ode = 4675) NON-REACTIVE INTERPRETATION HEPATITIS A: (test code = 2552) (NOTE) INTERPRETATION HEPATITIS B: (test code = 03022) (NOTE) INTERPRETATION HEPATITIS C: (test code = 38123) (NOTE) Fracisco PersonH. PYLORI (BREATH)2022-04-10 00:00:00* Test Item Value Reference Range Interpretation Comme nts H. PYLORI (BREATH) (test cod e = 60930) POSITIVE [place] PersonCOMPREHENSIVE METABOLIC [id number] 00:00:00* Test Item Value Reference Range Interpretation Comme nts GLUCOSE (test code = 2217) 149 MG/DL BUN (test code = 2208) 32 MG/DL CREATININE (test code = 2214) 1.15 MG/DL eGFR (2020 CKD-EPI) (test co de = 54057) 58 ML/MIN/1.73 CALC BUN/CREAT (test code = 2235) 28 RATIO SODIUM (test code = 2231) 138 MEQ/L POTASSIUM (test code = 2228) 4.3 MEQ/L CHLORIDE (test code = 2215) 95 MEQ/L CARBON DIOXIDE (test code = 2206) 25 MEQ/L CALCIUM (test code = 2209) 10.4 MG/DL PROTEIN, TOTAL (test code = 2229) 8.3 G/DL ALBUMIN (test code = 2201) 5.1 G/DL CALC GLOBULIN (test code = 2240) 3.2 G/DL CALC A/G RATIO (test code = 2234) 1.6 RATIO BILIRUBIN, TOTAL (test code = 2207) 0.5 MG/DL ALKALINE PHOSPHATASE (test code = 2204) 83 U/L AST (test code = 2218) 38 U/L ALT (test code = 2219) 51 U/L Fracisco Guardado AustinLIPID [id number] 00:00:00* Test Item Value Reference Range Interpretation Comme nts CHOLESTEROL (test code = 2210) 208 MG/DL TRIGLYCERIDES (test code = 2232) 349 MG/DL HDL CHOLESTEROL (test code = 2220) 48 MG/DL CALC LDL CHOL (test code = 2237) 110 MG/DL RISK RATIO LDL/HDL (test cod e = 2238) 2.29 RATIO Fracisco PersonIRON BINDING CAPACITY AND IRON AND % [id number] 00:00:00* Test Item Value Reference Range Interpretation Comme nts IRON, SERUM (test code = 2222) 67 UG/DL UNSATURATED IBC (test code = 43121) 412 UG/DL CALC TOTAL IBC (test code = 2077) 479 UG/DL CALC % IRON SAT (test code = 2079) 14 % [place]isco [id number] 00:00:00* Test Item Value Reference Range Interpretation Comme nts FERRITIN (test code = 2075) 118 NG/ML [place] [id number] 00:00:00* Test Item Value Reference Range Interpretation Comme nts TRANSFERRIN (test code = 4936) 388 MG/DL Fr[place]isco PersonVITAMIN B 12 AND FOLIC [id number] 00:00:00* Test Item Value Reference Range Interpretation Comme nts VITAMIN B-12 (test code = 2840) 1252 PG/ML FOLIC ACID (test code = 2695) 17.9 UG/L Fracisco PersonH. PYLORI (BREATH)2022-04-10 00:00:00* Test Item Value Reference Range Interpretation Comme lashae H. PYLORI (BREATH) (test cod e = 82437) POSITIVE Fracisco PersonACUTE HEPATITIS [id number] 00:00:00* Test Item Value Reference Range Interpretation Comme nts HEPATITIS A IgM (test code = 13396) NON-REACTIVE HEPATITIS B CORE IgM (test c ode = 4644) NON-REACTIVE HEPATITIS B SURF AG (test co de = 2737) NON-REACTIVE HEPATITIS C ANTIBODY (test c ode = 4670) NON-REACTIVE INTERPRETATION HEPATITIS A: (test code = 2552) (NOTE) INTERPRETATION HEPATITIS B: (test code = 28771) (NOTE) INTERPRETATION HEPATITIS C: (test code = 62576) (NOTE) Fracisco PersonCOMPREHENSIVE METABOLIC [id number] 00:00:00* Test Item Value Reference Range Interpretation Comme nts GLUCOSE (test code = 2217) 149 MG/DL BUN (test code = 8) 32 MG/DL CREATININE (test code = 2214) 1.15 MG/DL eGFR (2020 CKD-EPI) (test co de = 59600) 58 ML/MIN/1.73 CALC BUN/CREAT (test code = 2235) 28 RATIO SODIUM (test code = 2231) 138 MEQ/L POTASSIUM (test code = 2228) 4.3 MEQ/L CHLORIDE (test code = 2215) 95 MEQ/L CARBON DIOXIDE (test code = 2206) 25 MEQ/L CALCIUM (test code = 2209) 10.4 MG/DL PROTEIN, TOTAL (test code = 2229) 8.3 G/DL ALBUMIN (test code = 2201) 5.1 G/DL CALC GLOBULIN (test code = 2240) 3.2 G/DL CALC A/G RATIO (test code = 2234) 1.6 RATIO BILIRUBIN, TOTAL (test code = 7) 0.5 MG/DL ALKALINE PHOSPHATASE (test code = 2203) 83 U/L AST (test code = 2217) 38 U/L ALT (test code = 2218) 51 U/L Fracisco Guardado ThomasLIPID [id number] 00:00:00* Test Item Value Reference Range Interpretation Comme nts CHOLESTEROL (test code = 2209) 208 MG/DL TRIGLYCERIDES (test code = 2231) 349 MG/DL HDL CHOLESTEROL (test code = 2219) 48 MG/DL CALC LDL CHOL (test code = 2236) 110 MG/DL RISK RATIO LDL/HDL (test cod e = 2238) 2.29 RATIO Fracisco Guardado ThomasIRON BINDING CAPACITY AND IRON AND % [id number] 00:00:00* Test Item Value Reference Range Interpretation Comme nts IRON, SERUM (test code = 2221) 67 UG/DL UNSATURATED IBC (test code = ) 412 UG/DL CALC TOTAL IBC (test code = 2076) 479 UG/DL CALC % IRON SAT (test code = 2078) 14 % [place] [id number] 00:00:00* Test Item Value Reference Range Interpretation Comme nts FERRITIN (test code = 2074) 118 NG/ML Fracisco Guardado [id number] 00:00:00* Test Item Value Reference Range Interpretation Comme nts TRANSFERRIN (test code = 4936) 388 MG/DL Fracisco Debby ThomasVITAMIN B 12 AND FOLIC [id number] 00:00:00* Test Item Value Reference Range Interpretation Comme nts VITAMIN B-12 (test code = 1770) 1252 PG/ML FOLIC ACID (test code = 2695) 17.9 UG/L Fracisco PersonH. PYLORI (BREATH)2022-04-10 00:00:00* Test Item Value Reference Range Interpretation Comme nts H. PYLORI (BREATH) (test cod e = 62538) POSITIVE Fracisco PersonACUTE HEPATITIS [id number] 00:00:00* Test Item Value Reference Range Interpretation Comme nts HEPATITIS A IgM (test code = 89956) NON-REACTIVE HEPATITIS B CORE IgM (test c ode = 4644) NON-REACTIVE HEPATITIS B SURF AG (test co de = 2739) NON-REACTIVE HEPATITIS C ANTIBODY (test c ode = 4675) NON-REACTIVE INTERPRETATION HEPATITIS A: (test code = 2552) (NOTE) INTERPRETATION HEPATITIS B: (test code = 95396) (NOTE) INTERPRETATION HEPATITIS C: (test code = 92640) (NOTE) Fracisco PersonCOMPREHENSIVE METABOLIC [id number] 00:00:00* Test Item Value Reference Range Interpretation Comme nts GLUCOSE (test code = 2217) 149 MG/DL BUN (test code = 2208) 32 MG/DL CREATININE (test code = 2214) 1.15 MG/DL eGFR (2020 CKD-EPI) (test co de = 68707) 58 ML/MIN/1.73 CALC BUN/CREAT (test code = 2235) 28 RATIO SODIUM (test code = 2231) 138 MEQ/L POTASSIUM (test code = 2228) 4.3 MEQ/L CHLORIDE (test code = 2215) 95 MEQ/L CARBON DIOXIDE (test code = 2206) 25 MEQ/L CALCIUM (test code = 2209) 10.4 MG/DL PROTEIN, TOTAL (test code = 2229) 8.3 G/DL ALBUMIN (test code = 2201) 5.1 G/DL CALC GLOBULIN (test code = 2240) 3.2 G/DL CALC A/G RATIO (test code = 2234) 1.6 RATIO BILIRUBIN, TOTAL (test code = 2207) 0.5 MG/DL ALKALINE PHOSPHATASE (test code = 2204) 83 U/L AST (test code = 2218) 38 U/L ALT (test code = 2219) 51 U/L Fracisco PersonLIPID [id number] 00:00:00* Test Item Value Reference Range Interpretation Comme nts CHOLESTEROL (test code = 0) 208 MG/DL TRIGLYCERIDES (test code = 2) 349 MG/DL HDL CHOLESTEROL (test code = 0) 48 MG/DL CALC LDL CHOL (test code = 7) 110 MG/DL RISK RATIO LDL/HDL (test cod e = 2238) 2.29 RATIO Fr[place]isco PersonIRON BINDING CAPACITY AND IRON AND % [id number] 00:00:00* Test Item Value Reference Range Interpretation Comme nts IRON, SERUM (test code = 2221) 67 UG/DL UNSATURATED IBC (test code = 42914) 412 UG/DL CALC TOTAL IBC (test code = 2076) 479 UG/DL CALC % IRON SAT (test code = 2078) 14 % [place] [id number] 00:00:00* Test Item Value Reference Range Interpretation Comme nts FERRITIN (test code = 2075) 118 NG/ML [place] [id number] 00:00:00* Test Item Value Reference Range Interpretation Comme nts TRANSFERRIN (test code = 4936) 388 MG/DL Fr[place] PersonVITAMIN B 12 AND FOLIC [id number] 00:00:00* Test Item Value Reference Range Interpretation Comme nts VITAMIN B-12 (test code = 2840) 1252 PG/ML FOLIC ACID (test code = 2695) 17.9 UG/L Fracisco PersonACUTE HEPATITIS [id number] 00:00:00* Test Item Value Reference Range Interpretation Comme nts HEPATITIS A IgM (test code = 24290) NON-REACTIVE HEPATITIS B CORE IgM (test c ode = 4644) NON-REACTIVE HEPATITIS B SURF AG (test co de = 2739) NON-REACTIVE HEPATITIS C ANTIBODY (test c ode = 4675) NON-REACTIVE INTERPRETATION HEPATITIS A: (test code = 2552) (NOTE) INTERPRETATION HEPATITIS B: (test code = 35657) (NOTE) INTERPRETATION HEPATITIS C: (test code = 29558) (NOTE) Fracisco PersonH. PYLORI (BREATH)2022-04-10 00:00:00* Test Item Value Reference Range Interpretation Comme nts H. PYLORI (BREATH) (test cod e = 97047) POSITIVE Fr[place]isco PersonCOMPREHENSIVE METABOLIC [id number] 00:00:00* Test Item Value Reference Range Interpretation Comme nts GLUCOSE (test code = 2216) 149 MG/DL BUN (test code = 2208) 32 MG/DL CREATININE (test code = 2214) 1.15 MG/DL eGFR (2020 CKD-EPI) (test co de = ) 58 ML/MIN/1.73 CALC BUN/CREAT (test code = 2235) 28 RATIO SODIUM (test code = 223) 138 MEQ/L POTASSIUM (test code = 2228) 4.3 MEQ/L CHLORIDE (test code = 2215) 95 MEQ/L CARBON DIOXIDE (test code = 2206) 25 MEQ/L CALCIUM (test code = 2209) 10.4 MG/DL PROTEIN, TOTAL (test code = 2228) 8.3 G/DL ALBUMIN (test code = 2200) 5.1 G/DL CALC GLOBULIN (test code = 2240) 3.2 G/DL CALC A/G RATIO (test code = 2234) 1.6 RATIO BILIRUBIN, TOTAL (test code = 2206) 0.5 MG/DL ALKALINE PHOSPHATASE (test code = 4) 83 U/L AST (test code = 2218) 38 U/L ALT (test code = 2219) 51 U/L Fracisco Guardado AustinLIPID [id number] 00:00:00* Test Item Value Reference Range Interpretation Comme nts CHOLESTEROL (test code = 0) 208 MG/DL TRIGLYCERIDES (test code = 2) 349 MG/DL HDL CHOLESTEROL (test code = 0) 48 MG/DL CALC LDL CHOL (test code = 7) 110 MG/DL RISK RATIO LDL/HDL (test cod e = 2238) 2.29 RATIO Fracisco Guardado AustinIRON BINDING CAPACITY AND IRON AND % [id number] 00:00:00* Test Item Value Reference Range Interpretation Comme nts IRON, SERUM (test code = 2221) 67 UG/DL UNSATURATED IBC (test code = ) 412 UG/DL CALC TOTAL IBC (test code = 2076) 479 UG/DL CALC % IRON SAT (test code = 2078) 14 % Fracisco Guardado [id number] 00:00:00* Test Item Value Reference Range Interpretation Comme nts FERRITIN (test code = 2074) 118 NG/ML Fracisco Guardado [id number] 00:00:00* Test Item Value Reference Range Interpretation Comme lashae TRANSFERRIN (test code = 4936) 388 MG/DL [place] PersonVITAMIN B 12 AND FOLIC [id number] 00:00:00* Test Item Value Reference Range Interpretation Comme nts VITAMIN B-12 (test code = 2840) 1252 PG/ML FOLIC ACID (test code = 2695) 17.9 UG/L Fracisco PersonH. PYLORI (BREATH)2022-04-10 00:00:00* Test Item Value Reference Range Interpretation Comme nts H. PYLORI (BREATH) (test cod e = 57169) POSITIVE Fracisco PersonACUTE HEPATITIS [id number] 00:00:00* Test Item Value Reference Range Interpretation Comme nts HEPATITIS A IgM (test code = 68156) NON-REACTIVE HEPATITIS B CORE IgM (test c ode = 4644) NON-REACTIVE HEPATITIS B SURF AG (test co de = 2739) NON-REACTIVE HEPATITIS C ANTIBODY (test c ode = 4675) NON-REACTIVE INTERPRETATION HEPATITIS A: (test code = 2552) (NOTE) INTERPRETATION HEPATITIS B: (test code = 91820) (NOTE) INTERPRETATION HEPATITIS C: (test code = 81370) (NOTE) Fracisco PersonCOMPREHENSIVE METABOLIC [id number] 00:00:00* Test Item Value Reference Range Interpretation Comme nts GLUCOSE (test code = 2217) 149 MG/DL BUN (test code = 2208) 32 MG/DL CREATININE (test code = 2214) 1.15 MG/DL eGFR (2020 CKD-EPI) (test co de = 99137) 58 ML/MIN/1.73 CALC BUN/CREAT (test code = 2235) 28 RATIO SODIUM (test code = 2231) 138 MEQ/L POTASSIUM (test code = 2228) 4.3 MEQ/L CHLORIDE (test code = 2215) 95 MEQ/L CARBON DIOXIDE (test code = 2206) 25 MEQ/L CALCIUM (test code = 2209) 10.4 MG/DL PROTEIN, TOTAL (test code = 2229) 8.3 G/DL ALBUMIN (test code = 2201) 5.1 G/DL CALC GLOBULIN (test code = 2240) 3.2 G/DL CALC A/G RATIO (test code = 2234) 1.6 RATIO BILIRUBIN, TOTAL (test code = 7) 0.5 MG/DL ALKALINE PHOSPHATASE (test code = 4) 83 U/L AST (test code = 2218) 38 U/L ALT (test code = 2219) 51 U/L Fracisco PersonLIPID [id number] 00:00:00* Test Item Value Reference Range Interpretation Comme nts CHOLESTEROL (test code = 2210) 208 MG/DL TRIGLYCERIDES (test code = 2232) 349 MG/DL HDL CHOLESTEROL (test code = 2220) 48 MG/DL CALC LDL CHOL (test code = 7) 110 MG/DL RISK RATIO LDL/HDL (test cod e = 2238) 2.29 RATIO Fr[place]isco PersonIRON BINDING CAPACITY AND IRON AND % [id number] 00:00:00* Test Item Value Reference Range Interpretation Comme nts IRON, SERUM (test code = 222) 67 UG/DL UNSATURATED IBC (test code = 24664) 412 UG/DL CALC TOTAL IBC (test code = 2076) 479 UG/DL CALC % IRON SAT (test code = 2078) 14 % [place] [id number] 00:00:00* Test Item Value Reference Range Interpretation Comme nts FERRITIN (test code = 2075) 118 NG/ML [place] [id number] 00:00:00* Test Item Value Reference Range Interpretation Comme nts TRANSFERRIN (test code = 4936) 388 MG/DL [place] PersonVITAMIN B 12 AND FOLIC [id number] 00:00:00* Test Item Value Reference Range Interpretation Comme nts VITAMIN B-12 (test code = 2840) 1252 PG/ML FOLIC ACID (test code = 2695) 17.9 UG/L [place] PersonACUTE HEPATITIS [id number] 00:00:00* Test Item Value Reference Range Interpretation Comme nts HEPATITIS A IgM (test code = 58503) NON-REACTIVE HEPATITIS B CORE IgM (test c ode = 4644) NON-REACTIVE HEPATITIS B SURF AG (test co de = 4469) NON-REACTIVE HEPATITIS C ANTIBODY (test c ode = 0704) NON-REACTIVE INTERPRETATION HEPATITIS A: (test code = 2552) (NOTE) INTERPRETATION HEPATITIS B: (test code = 57558) (NOTE) INTERPRETATION HEPATITIS C: (test code = 35751) (NOTE) Fracisco PersonH. PYLORI (BREATH)2022-04-10 00:00:00* Test Item Value Reference Range Interpretation Comme nts H. PYLORI (BREATH) (test cod e = 52944) POSITIVE [place] PersonCOMPREHENSIVE METABOLIC [id number] 00:00:00* Test Item Value Reference Range Interpretation Comme nts GLUCOSE (test code = 2217) 149 MG/DL BUN (test code = 2208) 32 MG/DL CREATININE (test code = 2214) 1.15 MG/DL eGFR (2020 CKD-EPI) (test co de = 24288) 58 ML/MIN/1.73 CALC BUN/CREAT (test code = 2235) 28 RATIO SODIUM (test code = 2231) 138 MEQ/L POTASSIUM (test code = 2228) 4.3 MEQ/L CHLORIDE (test code = 2215) 95 MEQ/L CARBON DIOXIDE (test code = 2206) 25 MEQ/L CALCIUM (test code = 2209) 10.4 MG/DL PROTEIN, TOTAL (test code = 2229) 8.3 G/DL ALBUMIN (test code = 2201) 5.1 G/DL CALC GLOBULIN (test code = 2240) 3.2 G/DL CALC A/G RATIO (test code = 2234) 1.6 RATIO BILIRUBIN, TOTAL (test code = 2207) 0.5 MG/DL ALKALINE PHOSPHATASE (test code = 2204) 83 U/L AST (test code = 2218) 38 U/L ALT (test code = 2219) 51 U/L Fracisco Guardado AustinLIPID [id number] 00:00:00* Test Item Value Reference Range Interpretation Comme nts CHOLESTEROL (test code = 2210) 208 MG/DL TRIGLYCERIDES (test code = 2232) 349 MG/DL HDL CHOLESTEROL (test code = 2220) 48 MG/DL CALC LDL CHOL (test code = 2237) 110 MG/DL RISK RATIO LDL/HDL (test cod e = 2238) 2.29 RATIO Fr[place]isco PersonIRON BINDING CAPACITY AND IRON AND % [id number] 00:00:00* Test Item Value Reference Range Interpretation Comme nts IRON, SERUM (test code = 2221) 67 UG/DL UNSATURATED IBC (test code = 17680) 412 UG/DL CALC TOTAL IBC (test code = 2077) 479 UG/DL CALC % IRON SAT (test code = 2079) 14 % [place] [id number] 00:00:00* Test Item Value Reference Range Interpretation Comme nts FERRITIN (test code = 2075) 118 NG/ML [place] [id number] 00:00:00* Test Item Value Reference Range Interpretation Comme nts TRANSFERRIN (test code = 4936) 388 MG/DL [place] PersonVITAMIN B 12 AND FOLIC [id number] 00:00:00* Test Item Value Reference Range Interpretation Comme nts VITAMIN B-12 (test code = 2840) 1252 PG/ML FOLIC ACID (test code = 2695) 17.9 UG/L [place] PersonACUTE HEPATITIS [id number] 00:00:00* Test Item Value Reference Range Interpretation Comme nts HEPATITIS A IgM (test code = 33849) NON-REACTIVE HEPATITIS B CORE IgM (test c ode = 4644) NON-REACTIVE HEPATITIS B SURF AG (test co de = 2739) NON-REACTIVE HEPATITIS C ANTIBODY (test c ode = 4675) NON-REACTIVE INTERPRETATION HEPATITIS A: (test code = 2552) (NOTE) INTERPRETATION HEPATITIS B: (test code = 70491) (NOTE) INTERPRETATION HEPATITIS C: (test code = 65148) (NOTE) Fracisco PersonH. PYLORI (BREATH)2022-04-10 00:00:00* Test Item Value Reference Range Interpretation Comme nts H. PYLORI (BREATH) (test cod e = 23979) POSITIVE [place] PersonCOMPREHENSIVE METABOLIC [id number] 00:00:00* Test Item Value Reference Range Interpretation Comme nts GLUCOSE (test code = 2217) 149 MG/DL BUN (test code = 2208) 32 MG/DL CREATININE (test code = 2214) 1.15 MG/DL eGFR (2020 CKD-EPI) (test co de = 60326) 58 ML/MIN/1.73 CALC BUN/CREAT (test code = 2235) 28 RATIO SODIUM (test code = 2231) 138 MEQ/L POTASSIUM (test code = 2228) 4.3 MEQ/L CHLORIDE (test code = 2215) 95 MEQ/L CARBON DIOXIDE (test code = 2206) 25 MEQ/L CALCIUM (test code = 2209) 10.4 MG/DL PROTEIN, TOTAL (test code = 2229) 8.3 G/DL ALBUMIN (test code = 2201) 5.1 G/DL CALC GLOBULIN (test code = 2240) 3.2 G/DL CALC A/G RATIO (test code = 2234) 1.6 RATIO BILIRUBIN, TOTAL (test code = 7) 0.5 MG/DL ALKALINE PHOSPHATASE (test code = 2204) 83 U/L AST (test code = 2218) 38 U/L ALT (test code = 2219) 51 U/L [place] PersonLIPID [id number] 00:00:00* Test Item Value Reference Range Interpretation Comme nts CHOLESTEROL (test code = 2210) 208 MG/DL TRIGLYCERIDES (test code = 2) 349 MG/DL HDL CHOLESTEROL (test code = 0) 48 MG/DL CALC LDL CHOL (test code = 7) 110 MG/DL RISK RATIO LDL/HDL (test cod e = 2238) 2.29 RATIO [place] PersonIRON BINDING CAPACITY AND IRON AND % [id number] 00:00:00* Test Item Value Reference Range Interpretation Comme nts IRON, SERUM (test code = 2221) 67 UG/DL UNSATURATED IBC (test code = 92019) 412 UG/DL CALC TOTAL IBC (test code = 2076) 479 UG/DL CALC % IRON SAT (test code = 2078) 14 % [place] [id number] 00:00:00* Test Item Value Reference Range Interpretation Comme nts FERRITIN (test code = 2075) 118 NG/ML Fr[place]isco Guardado [id number] 00:00:00* Test Item Value Reference Range Interpretation Comme nts TRANSFERRIN (test code = 4936) 388 MG/DL [place] PersonVITAMIN B 12 AND FOLIC [id number] 00:00:00* Test Item Value Reference Range Interpretation Comme nts VITAMIN B-12 (test code = 2840) 1252 PG/ML FOLIC ACID (test code = 2695) 17.9 UG/L [place] PersonACUTE HEPATITIS [id number] 00:00:00* Test Item Value Reference Range Interpretation Comme nts HEPATITIS A IgM (test code = 85757) NON-REACTIVE HEPATITIS B CORE IgM (test c ode = 4644) NON-REACTIVE HEPATITIS B SURF AG (test co de = 2739) NON-REACTIVE HEPATITIS C ANTIBODY (test c ode = 4614) NON-REACTIVE INTERPRETATION HEPATITIS A: (test code = 2552) (NOTE) INTERPRETATION HEPATITIS B: (test code = 40351) (NOTE) INTERPRETATION HEPATITIS C: (test code = 91894) (NOTE) Fracisco Guardado AustinH. PYLORI (BREATH)2022-04-10 00:00:00* Test Item Value Reference Range Interpretation Comme nts H. PYLORI (BREATH) (test cod e = 60144) POSITIVE [place] PersonCOMPREHENSIVE METABOLIC [id number] 00:00:00* Test Item Value Reference Range Interpretation Comme nts GLUCOSE (test code = 2217) 149 MG/DL BUN (test code = 2208) 32 MG/DL CREATININE (test code = 2214) 1.15 MG/DL eGFR (2020 CKD-EPI) (test co de = 49842) 58 ML/MIN/1.73 CALC BUN/CREAT (test code = 2235) 28 RATIO SODIUM (test code = 2231) 138 MEQ/L POTASSIUM (test code = 2228) 4.3 MEQ/L CHLORIDE (test code = 2215) 95 MEQ/L CARBON DIOXIDE (test code = 2206) 25 MEQ/L CALCIUM (test code = 2209) 10.4 MG/DL PROTEIN, TOTAL (test code = 2229) 8.3 G/DL ALBUMIN (test code = 2201) 5.1 G/DL CALC GLOBULIN (test code = 2240) 3.2 G/DL CALC A/G RATIO (test code = 2234) 1.6 RATIO BILIRUBIN, TOTAL (test code = 2207) 0.5 MG/DL ALKALINE PHOSPHATASE (test code = 2204) 83 U/L AST (test code = 2218) 38 U/L ALT (test code = 2219) 51 U/L Fracisco Guardado AustinLIPID [id number] 00:00:00* Test Item Value Reference Range Interpretation Comme nts CHOLESTEROL (test code = 2210) 208 MG/DL TRIGLYCERIDES (test code = 2232) 349 MG/DL HDL CHOLESTEROL (test code = 2220) 48 MG/DL CALC LDL CHOL (test code = 2237) 110 MG/DL RISK RATIO LDL/HDL (test cod e = 2238) 2.29 RATIO [place] PersonIRON BINDING CAPACITY AND IRON AND % [id number] 00:00:00* Test Item Value Reference Range Interpretation Comme nts IRON, SERUM (test code = 2222) 67 UG/DL UNSATURATED IBC (test code = 98705) 412 UG/DL CALC TOTAL IBC (test code = 2076) 479 UG/DL CALC % IRON SAT (test code = 2079) 14 % [place] [id number] 00:00:00* Test Item Value Reference Range Interpretation Comme nts FERRITIN (test code = 2075) 118 NG/ML [place] [id number] 00:00:00* Test Item Value Reference Range Interpretation Comme nts TRANSFERRIN (test code = 4936) 388 MG/DL [place] PersonVITAMIN B 12 AND FOLIC [id number] 00:00:00* Test Item Value Reference Range Interpretation Comme nts VITAMIN B-12 (test code = 2840) 1252 PG/ML FOLIC ACID (test code = 2695) 17.9 UG/L [place]isco PersonH. PYLORI (BREATH)2022-04-10 00:00:00* Test Item Value Reference Range Interpretation Comme nts H. PYLORI (BREATH) (test cod e = 32694) POSITIVE [place]isco PersonACUTE HEPATITIS [id number] 00:00:00* Test Item Value Reference Range Interpretation Comme nts HEPATITIS A IgM (test code = 51560) NON-REACTIVE HEPATITIS B CORE IgM (test c ode = 4644) NON-REACTIVE HEPATITIS B SURF AG (test co de = 2739) NON-REACTIVE HEPATITIS C ANTIBODY (test c ode = 4675) NON-REACTIVE INTERPRETATION HEPATITIS A: (test code = 2552) (NOTE) INTERPRETATION HEPATITIS B: (test code = 64227) (NOTE) INTERPRETATION HEPATITIS C: (test code = 49917) (NOTE) [place] PersonCOMPREHENSIVE METABOLIC [id number] 00:00:00* Test Item Value Reference Range Interpretation Comme nts GLUCOSE (test code = 2217) 149 MG/DL BUN (test code = 8) 32 MG/DL CREATININE (test code = 4) 1.15 MG/DL eGFR (2020 CKD-EPI) (test co de = 62617) 58 ML/MIN/1.73 CALC BUN/CREAT (test code = 2235) 28 RATIO SODIUM (test code = 223) 138 MEQ/L POTASSIUM (test code = 2228) 4.3 MEQ/L CHLORIDE (test code = 2215) 95 MEQ/L CARBON DIOXIDE (test code = 2206) 25 MEQ/L CALCIUM (test code = 2209) 10.4 MG/DL PROTEIN, TOTAL (test code = 2229) 8.3 G/DL ALBUMIN (test code = 2201) 5.1 G/DL CALC GLOBULIN (test code = 2240) 3.2 G/DL CALC A/G RATIO (test code = 2234) 1.6 RATIO BILIRUBIN, TOTAL (test code = 2206) 0.5 MG/DL ALKALINE PHOSPHATASE (test code = 2203) 83 U/L AST (test code = 2217) 38 U/L ALT (test code = 2218) 51 U/L Fracisco Debby ThomasLIPID [id number] 00:00:00* Test Item Value Reference Range Interpretation Comme nts CHOLESTEROL (test code = 0) 208 MG/DL TRIGLYCERIDES (test code = 2231) 349 MG/DL HDL CHOLESTEROL (test code = 0) 48 MG/DL CALC LDL CHOL (test code = 7) 110 MG/DL RISK RATIO LDL/HDL (test cod e = 2238) 2.29 RATIO Fracisco Debby ThomasIRON BINDING CAPACITY AND IRON AND % [id number] 00:00:00* Test Item Value Reference Range Interpretation Comme nts IRON, SERUM (test code = 2221) 67 UG/DL UNSATURATED IBC (test code = ) 412 UG/DL CALC TOTAL IBC (test code = 2076) 479 UG/DL CALC % IRON SAT (test code = 2078) 14 % Fracisco Debby [id number] 00:00:00* Test Item Value Reference Range Interpretation Comme nts FERRITIN (test code = 2074) 118 NG/ML Fracisco Debby [id number] 00:00:00* Test Item Value Reference Range Interpretation Comme nts TRANSFERRIN (test code = 4936) 388 MG/DL Fracisco PersonVITAMIN B 12 AND FOLIC [id number] 00:00:00* Test Item Value Reference Range Interpretation Comme nts VITAMIN B-12 (test code = 2840) 1252 PG/ML FOLIC ACID (test code = 2695) 17.9 UG/L Fracisco PersonACUTE HEPATITIS [id number] 00:00:00* Test Item Value Reference Range Interpretation Comme nts HEPATITIS A IgM (test code = 84014) NON-REACTIVE HEPATITIS B CORE IgM (test c ode = 4644) NON-REACTIVE HEPATITIS B SURF AG (test co de = 2739) NON-REACTIVE HEPATITIS C ANTIBODY (test c ode = 4675) NON-REACTIVE INTERPRETATION HEPATITIS A: (test code = 2552) (NOTE) INTERPRETATION HEPATITIS B: (test code = 68621) (NOTE) INTERPRETATION HEPATITIS C: (test code = 06463) (NOTE) Fracisco PersonH. PYLORI (BREATH)2022-04-10 00:00:00* Test Item Value Reference Range Interpretation Comme nts H. PYLORI (BREATH) (test cod e = 34818) POSITIVE Fracisco PersonH. PYLORI (BREATH)2022-04-10 00:00:00* Test Item Value Reference Range Interpretation Comme nts H. PYLORI (BREATH) (test cod e = 79079) POSITIVE Fracisco PersonCOMPREHENSIVE METABOLIC [id number] 00:00:00* Test Item Value Reference Range Interpretation Comme nts GLUCOSE (test code = 2217) 149 MG/DL BUN (test code = 2208) 32 MG/DL CREATININE (test code = 2214) 1.15 MG/DL eGFR (2020 CKD-EPI) (test co de = 63007) 58 ML/MIN/1.73 CALC BUN/CREAT (test code = 2235) 28 RATIO SODIUM (test code = 2231) 138 MEQ/L POTASSIUM (test code = 2228) 4.3 MEQ/L CHLORIDE (test code = 2215) 95 MEQ/L CARBON DIOXIDE (test code = 2206) 25 MEQ/L CALCIUM (test code = 2209) 10.4 MG/DL PROTEIN, TOTAL (test code = 2229) 8.3 G/DL ALBUMIN (test code = 2201) 5.1 G/DL CALC GLOBULIN (test code = 2240) 3.2 G/DL CALC A/G RATIO (test code = 2234) 1.6 RATIO BILIRUBIN, TOTAL (test code = 7) 0.5 MG/DL ALKALINE PHOSPHATASE (test code = 4) 83 U/L AST (test code = 2218) 38 U/L ALT (test code = 9) 51 U/L Fracisco PersonLIPID [id number] 00:00:00* Test Item Value Reference Range Interpretation Comme nts CHOLESTEROL (test code = 0) 208 MG/DL TRIGLYCERIDES (test code = 2232) 349 MG/DL HDL CHOLESTEROL (test code = 0) 48 MG/DL CALC LDL CHOL (test code = 7) 110 MG/DL RISK RATIO LDL/HDL (test cod e = 2238) 2.29 RATIO Fracisco PersonIRON BINDING CAPACITY AND IRON AND % [id number] 00:00:00* Test Item Value Reference Range Interpretation Comme nts IRON, SERUM (test code = 222) 67 UG/DL UNSATURATED IBC (test code = 17983) 412 UG/DL CALC TOTAL IBC (test code = 2076) 479 UG/DL CALC % IRON SAT (test code = 2078) 14 % [place] [id number] 00:00:00* Test Item Value Reference Range Interpretation Comme nts FERRITIN (test code = 2075) 118 NG/ML [place] [id number] 00:00:00* Test Item Value Reference Range Interpretation Comme nts TRANSFERRIN (test code = 4936) 388 MG/DL Fracisco PersonVITAMIN B 12 AND FOLIC [id number] 00:00:00* Test Item Value Reference Range Interpretation Comme nts VITAMIN B-12 (test code = 2840) 1252 PG/ML FOLIC ACID (test code = 2695) 17.9 UG/L Fracisco PersonACUTE HEPATITIS [id number] 00:00:00* Test Item Value Reference Range Interpretation Comme nts HEPATITIS A IgM (test code = 43078) NON-REACTIVE HEPATITIS B CORE IgM (test c ode = 4644) NON-REACTIVE HEPATITIS B SURF AG (test co de = 7569) NON-REACTIVE HEPATITIS C ANTIBODY (test c ode = 1467) NON-REACTIVE INTERPRETATION HEPATITIS A: (test code = 2552) (NOTE) INTERPRETATION HEPATITIS B: (test code = 89703) (NOTE) INTERPRETATION HEPATITIS C: (test code = 72229) (NOTE) Fracisco PersonH. PYLORI (BREATH)2022-04-10 00:00:00* Test Item Value Reference Range Interpretation Comme nts H. PYLORI (BREATH) (test cod e = 06424) POSITIVE Fracisco PersonACUTE HEPATITIS [id number] 00:00:00* Test Item Value Reference Range Interpretation Comme nts HEPATITIS A IgM (test code = 70351) NON-REACTIVE HEPATITIS B CORE IgM (test c ode = 4644) NON-REACTIVE HEPATITIS B SURF AG (test co de = 2739) NON-REACTIVE HEPATITIS C ANTIBODY (test c ode = 4675) NON-REACTIVE INTERPRETATION HEPATITIS A: (test code = 2552) (NOTE) INTERPRETATION HEPATITIS B: (test code = 57221) (NOTE) INTERPRETATION HEPATITIS C: (test code = 88230) (NOTE) Fracisco PersonCOMPREHENSIVE METABOLIC [id number] 00:00:00* Test Item Value Reference Range Interpretation Comme nts GLUCOSE (test code = 2217) 149 MG/DL BUN (test code = 2208) 32 MG/DL CREATININE (test code = 2214) 1.15 MG/DL eGFR (2020 CKD-EPI) (test co de = 76819) 58 ML/MIN/1.73 CALC BUN/CREAT (test code = 2235) 28 RATIO SODIUM (test code = 2231) 138 MEQ/L POTASSIUM (test code = 2228) 4.3 MEQ/L CHLORIDE (test code = 2215) 95 MEQ/L CARBON DIOXIDE (test code = 2206) 25 MEQ/L CALCIUM (test code = 2209) 10.4 MG/DL PROTEIN, TOTAL (test code = 2229) 8.3 G/DL ALBUMIN (test code = 2201) 5.1 G/DL CALC GLOBULIN (test code = 2240) 3.2 G/DL CALC A/G RATIO (test code = 2234) 1.6 RATIO BILIRUBIN, TOTAL (test code = 2207) 0.5 MG/DL ALKALINE PHOSPHATASE (test code = 2204) 83 U/L AST (test code = 2218) 38 U/L ALT (test code = 2219) 51 U/L [place] PersonLIPID [id number] 00:00:00* Test Item Value Reference Range Interpretation Comme nts CHOLESTEROL (test code = 0) 208 MG/DL TRIGLYCERIDES (test code = 2) 349 MG/DL HDL CHOLESTEROL (test code = 0) 48 MG/DL CALC LDL CHOL (test code = 7) 110 MG/DL RISK RATIO LDL/HDL (test cod e = 2238) 2.29 RATIO Fr[place] PersonIRON BINDING CAPACITY AND IRON AND % [id number] 00:00:00* Test Item Value Reference Range Interpretation Comme nts IRON, SERUM (test code = 2221) 67 UG/DL UNSATURATED IBC (test code = ) 412 UG/DL CALC TOTAL IBC (test code = 2076) 479 UG/DL CALC % IRON SAT (test code = 2078) 14 % [place] [id number] 00:00:00* Test Item Value Reference Range Interpretation Comme lashae FERRITIN (test code = 2074) 118 NG/ML Fracisco PersonACUTE HEPATITIS [id number] 00:00:00* Test Item Value Reference Range Interpretation Comme nts HEPATITIS A IgM (test code = 89986) NON-REACTIVE HEPATITIS B CORE IgM (test c ode = 4644) NON-REACTIVE HEPATITIS B SURF AG (test co de = 6504) NON-REACTIVE HEPATITIS C ANTIBODY (test c ode = 4652) NON-REACTIVE INTERPRETATION HEPATITIS A: (test code = 2552) (NOTE) INTERPRETATION HEPATITIS B: (test code = 52223) (NOTE) INTERPRETATION HEPATITIS C: (test code = 24593) (NOTE) H. PYLORI (BREATH)2022-04-10 00:00:00* Test Item Value Reference Range Interpretation Comme nts H. PYLORI (BREATH) (test cod e = 61327) POSITIVE COMPREHENSIVE METABOLIC [id number] 00:00:00* Test Item Value Reference Range Interpretation Comme nts GLUCOSE (test code = 2217) 149 MG/DL BUN (test code = 8) 32 MG/DL CREATININE (test code = 2214) 1.15 MG/DL eGFR (2020 CKD-EPI) (test co de = 58569) 58 ML/MIN/1.73 CALC BUN/CREAT (test code = 5) 28 RATIO SODIUM (test code = 2231) 138 MEQ/L POTASSIUM (test code = 2228) 4.3 MEQ/L CHLORIDE (test code = 2215) 95 MEQ/L CARBON DIOXIDE (test code = 6) 25 MEQ/L CALCIUM (test code = 2209) 10.4 MG/DL PROTEIN, TOTAL (test code = 2229) 8.3 G/DL ALBUMIN (test code = 2201) 5.1 G/DL CALC GLOBULIN (test code = 2240) 3.2 G/DL CALC A/G RATIO (test code = 2234) 1.6 RATIO BILIRUBIN, TOTAL (test code = 7) 0.5 MG/DL ALKALINE PHOSPHATASE (test code = 2204) 83 U/L AST (test code = 2217) 38 U/L ALT (test code = 9) 51 U/L LIPID [id number] 00:00:00* Test Item Value Reference Range Interpretation Comme nts CHOLESTEROL (test code = 0) 208 MG/DL TRIGLYCERIDES (test code = 2) 349 MG/DL HDL CHOLESTEROL (test code = 2219) 48 MG/DL CALC LDL CHOL (test code = 2236) 110 MG/DL RISK RATIO LDL/HDL (test cod e = 2238) 2.29 RATIO IRON BINDING CAPACITY AND IRON AND % [id number] 00:00:00* Test Item Value Reference Range Interpretation Comme nts IRON, SERUM (test code = 2221) 67 UG/DL UNSATURATED IBC (test code = 88438) 412 UG/DL CALC TOTAL IBC (test code = 2076) 479 UG/DL CALC % IRON SAT (test code = 2078) 14 % [id number] 00:00:00* Test Item Value Reference Range Interpretation Comme nts FERRITIN (test code = 2075) 118 NG/ML [id number] 00:00:00* Test Item Value Reference Range Interpretation Comme nts TRANSFERRIN (test code = 4936) 388 MG/DL VITAMIN B 12 AND FOLIC [id number] 00:00:00* Test Item Value Reference Range Interpretation Comme nts VITAMIN B-12 (test code = 2840) 1252 PG/ML FOLIC ACID (test code = 2695) 17.9 UG/L COMPREHENSIVE METABOLIC [id number] 06:08:23* Test Item Value Reference Range Interpretation Comme nts GLUCOSE (test code = 7) 114 MG/DL 70-99 H BUN (test code = 2208) 21 MG/DL 6-20 H CREATININE (test code = 2213) 0.91 MG/DL 0.60-1.30 eGFR (2020 CKD-EPI) (test code = 00835) 76 ML/MIN/1.73 >60 CALC BUN/CREAT (test code = 2234) 23 RATIO 6-28 SODIUM (test code = 2230) 139 MEQ/L 133-146 POTASSIUM (test code = 2227) 4.4 MEQ/L 3.5-5.4 CHLORIDE (test code = 2214) 97 MEQ/L 95-107 CARBON DIOXIDE (test code = 2205) 28 MEQ/L 19-31 CALCIUM (test code = 2208) 10.1 MG/DL 8.5-10.5 PROTEIN, TOTAL (test code = 2228) 7.6 G/DL 6.1-8.3 ALBUMIN (test code = 2200) 5.0 G/DL 3.5-5.2 CALC GLOBULIN (test code = 2239) 2.6 G/DL 1.9-3.7 CALC A/G RATIO (test code = 2233) 1.9 RATIO 1.0-2.6 BILIRUBIN, TOTAL (test code = 2206) 0.4 MG/DL See_Comment [Automated me ssage] The system which generated this result transmitted reference range: <=1.2. The reference range was not used to interpret this result as normal/abnormal. ALKALINE PHOSPHATASE (test code = 2203) 74 U/L 40-130 AST (test code = 2217) 39 U/L 9-40 ALT (test code = 2218) 53 U/L 5-40 H LIPID [id number] 06:08:23* Test Item Value Reference Range Interpretation Comme nts CHOLESTEROL (test code = 2210) 214 MG/DL <200 H TRIGLYCERIDES (test code = 2232) 333 MG/DL <150 H HDL CHOLESTEROL (test code = 2220) 47 MG/DL >39 CALC LDL CHOL (test code = 2237) 119 MG/DL <100 H NOTE: CALCULATED LDL IS BASED ON KRISTEN-PIERCE METHOD WHICHINCLUDES ADJUSTABLE TRIGLYCERIDE:VLDL CHOLESTEROL RATIO.THIS FACTOR VARIES BY MEASURED TRIGLYCERIDE AND NON-HDLCHOLESTEROL CONCENTRATIONS WITH INCREASED CALCULATED LDL SEENIN HIGHER TRIGLYCERIDE OR LOWER NON-HDL SPECIMENS. FOR MOREINFORMATION, SEE CLIENT ANNOUNCEMENT AT [email or web address] RISK RATIO LDL/HDL (test code = 2238) 2.53 RATIO <3.22 HEMOGLOBIN [id number] 05:56:28* Test Item Value Reference Range Interpretation Comme nts HEMOGLOBIN A1c (test code = 21167) 6.4 % 4.2-5.6 H UNLESS OTHERWISE INDICATED, ALL TESTING PERFORMED [facility] [employer] [address] [place] [address] RADIOLOGIST DIAGNOSTIC: CHEY ALFARO M.D. CLIA NUMBER [id number] [place]. [id number] LIPID [id number] 00:00:00* Test Item Value Reference Range Interpretation Comme nts CHOLESTEROL (test code = 2210) 214 MG/DL TRIGLYCERIDES (test code = 2232) 333 MG/DL HDL CHOLESTEROL (test code = 2220) 47 MG/DL CALC LDL CHOL (test code = 2237) 119 MG/DL RISK RATIO LDL/HDL (test cod e = 2238) 2.53 RATIO Fracisco Guardado ThomasCOMPREHENSIVE METABOLIC [id number] 00:00:00* Test Item Value Reference Range Interpretation Comme nts GLUCOSE (test code = 2217) 114 MG/DL BUN (test code = 2208) 21 MG/DL CREATININE (test code = 2214) 0.91 MG/DL eGFR (2020 CKD-EPI) (test co de = 66421) 76 ML/MIN/1.73 CALC BUN/CREAT (test code = 2235) 23 RATIO SODIUM (test code = 2231) 139 MEQ/L POTASSIUM (test code = 2228) 4.4 MEQ/L CHLORIDE (test code = 2215) 97 MEQ/L CARBON DIOXIDE (test code = 2206) 28 MEQ/L CALCIUM (test code = 2209) 10.1 MG/DL PROTEIN, TOTAL (test code = 2229) 7.6 G/DL ALBUMIN (test code = 2201) 5.0 G/DL CALC GLOBULIN (test code = 2240) 2.6 G/DL CALC A/G RATIO (test code = 2234) 1.9 RATIO BILIRUBIN, TOTAL (test code = 2207) 0.4 MG/DL ALKALINE PHOSPHATASE (test code = 2204) 74 U/L AST (test code = 2218) 39 U/L ALT (test code = 2219) 53 U/L Fracisco Guardado AustinLIPID [id number] 00:00:00* Test Item Value Reference Range Interpretation Comme nts CHOLESTEROL (test code = 2210) 214 MG/DL TRIGLYCERIDES (test code = 2232) 333 MG/DL HDL CHOLESTEROL (test code = 2220) 47 MG/DL CALC LDL CHOL (test code = 2237) 119 MG/DL RISK RATIO LDL/HDL (test cod e = 2238) 2.53 RATIO Fracisco Guardado AustinHEMOGLOBIN [id number] 00:00:00* Test Item Value Reference Range Interpretation Comme nts HEMOGLOBIN A1c (test code = 70107) 6.4 % Fracisco Guardado AustinHEMOGLOBIN [id number] 00:00:00* Test Item Value Reference Range Interpretation Comme nts HEMOGLOBIN A1c (test code = 36272) 6.4 % [place] PersonCOMPREHENSIVE METABOLIC [id number] 00:00:00* Test Item Value Reference Range Interpretation Comme nts GLUCOSE (test code = 2217) 114 MG/DL BUN (test code = 2208) 21 MG/DL CREATININE (test code = 2214) 0.91 MG/DL eGFR (2020 CKD-EPI) (test co de = 77864) 76 ML/MIN/1.73 CALC BUN/CREAT (test code = 2235) 23 RATIO SODIUM (test code = 2231) 139 MEQ/L POTASSIUM (test code = 2228) 4.4 MEQ/L CHLORIDE (test code = 2215) 97 MEQ/L CARBON DIOXIDE (test code = 2206) 28 MEQ/L CALCIUM (test code = 2209) 10.1 MG/DL PROTEIN, TOTAL (test code = 2229) 7.6 G/DL ALBUMIN (test code = 2201) 5.0 G/DL CALC GLOBULIN (test code = 2240) 2.6 G/DL CALC A/G RATIO (test code = 2234) 1.9 RATIO BILIRUBIN, TOTAL (test code = 2207) 0.4 MG/DL ALKALINE PHOSPHATASE (test code = 2204) 74 U/L AST (test code = 2218) 39 U/L ALT (test code = 2219) 53 U/L Fracisco Guardado AustinLIPID [id number] 00:00:00* Test Item Value Reference Range Interpretation Comme nts CHOLESTEROL (test code = 2210) 214 MG/DL TRIGLYCERIDES (test code = 2232) 333 MG/DL HDL CHOLESTEROL (test code = 2220) 47 MG/DL CALC LDL CHOL (test code = 2237) 119 MG/DL RISK RATIO LDL/HDL (test cod e = 2238) 2.53 RATIO [place] PersonHEMOGLOBIN [id number] 00:00:00* Test Item Value Reference Range Interpretation Comme nts HEMOGLOBIN A1c (test code = 82335) 6.4 % [place] PersonCOMPREHENSIVE METABOLIC [id number] 00:00:00* Test Item Value Reference Range Interpretation Comme nts GLUCOSE (test code = 2217) 114 MG/DL BUN (test code = 2208) 21 MG/DL CREATININE (test code = 2214) 0.91 MG/DL eGFR (2020 CKD-EPI) (test co de = 06271) 76 ML/MIN/1.73 CALC BUN/CREAT (test code = 2235) 23 RATIO SODIUM (test code = 2231) 139 MEQ/L POTASSIUM (test code = 2228) 4.4 MEQ/L CHLORIDE (test code = 2215) 97 MEQ/L CARBON DIOXIDE (test code = 2206) 28 MEQ/L CALCIUM (test code = 2209) 10.1 MG/DL PROTEIN, TOTAL (test code = 2229) 7.6 G/DL ALBUMIN (test code = 2201) 5.0 G/DL CALC GLOBULIN (test code = 2240) 2.6 G/DL CALC A/G RATIO (test code = 2234) 1.9 RATIO BILIRUBIN, TOTAL (test code = 2207) 0.4 MG/DL ALKALINE PHOSPHATASE (test code = 2204) 74 U/L AST (test code = 2218) 39 U/L ALT (test code = 2219) 53 U/L Fr[place]isco PersonLIPID [id number] 00:00:00* Test Item Value Reference Range Interpretation Comme nts CHOLESTEROL (test code = 2210) 214 MG/DL TRIGLYCERIDES (test code = 2232) 333 MG/DL HDL CHOLESTEROL (test code = 2220) 47 MG/DL CALC LDL CHOL (test code = 2237) 119 MG/DL RISK RATIO LDL/HDL (test cod e = 2238) 2.53 RATIO Fracisco Guardado AustinHEMOGLOBIN [id number] 00:00:00* Test Item Value Reference Range Interpretation Comme nts HEMOGLOBIN A1c (test code = 94536) 6.4 % Fracisco Guardado AustinCOMPREHENSIVE METABOLIC [id number] 00:00:00* Test Item Value Reference Range Interpretation Comme nts GLUCOSE (test code = 2217) 114 MG/DL BUN (test code = 2208) 21 MG/DL CREATININE (test code = 2214) 0.91 MG/DL eGFR (2020 CKD-EPI) (test co de = 10057) 76 ML/MIN/1.73 CALC BUN/CREAT (test code = 2235) 23 RATIO SODIUM (test code = 2231) 139 MEQ/L POTASSIUM (test code = 2228) 4.4 MEQ/L CHLORIDE (test code = 2215) 97 MEQ/L CARBON DIOXIDE (test code = 2206) 28 MEQ/L CALCIUM (test code = 2209) 10.1 MG/DL PROTEIN, TOTAL (test code = 2229) 7.6 G/DL ALBUMIN (test code = 2201) 5.0 G/DL CALC GLOBULIN (test code = 2240) 2.6 G/DL CALC A/G RATIO (test code = 2234) 1.9 RATIO BILIRUBIN, TOTAL (test code = 2207) 0.4 MG/DL ALKALINE PHOSPHATASE (test code = 2204) 74 U/L AST (test code = 2218) 39 U/L ALT (test code = 2219) 53 U/L Fracisco Guardado AustinLIPID [id number] 00:00:00* Test Item Value Reference Range Interpretation Comme nts CHOLESTEROL (test code = 2210) 214 MG/DL TRIGLYCERIDES (test code = 2232) 333 MG/DL HDL CHOLESTEROL (test code = 2220) 47 MG/DL CALC LDL CHOL (test code = 2237) 119 MG/DL RISK RATIO LDL/HDL (test cod e = 2238) 2.53 RATIO Fracisco Guardado AustinHEMOGLOBIN [id number] 00:00:00* Test Item Value Reference Range Interpretation Comme nts HEMOGLOBIN A1c (test code = 40646) 6.4 % Fracisco Guardado AustinCOMPREHENSIVE METABOLIC [id number] 00:00:00* Test Item Value Reference Range Interpretation Comme nts GLUCOSE (test code = 2217) 114 MG/DL BUN (test code = 2208) 21 MG/DL CREATININE (test code = 2214) 0.91 MG/DL eGFR (2020 CKD-EPI) (test co de = 84046) 76 ML/MIN/1.73 CALC BUN/CREAT (test code = 2235) 23 RATIO SODIUM (test code = 2231) 139 MEQ/L POTASSIUM (test code = 2228) 4.4 MEQ/L CHLORIDE (test code = 2215) 97 MEQ/L CARBON DIOXIDE (test code = 2206) 28 MEQ/L CALCIUM (test code = 2209) 10.1 MG/DL PROTEIN, TOTAL (test code = 2229) 7.6 G/DL ALBUMIN (test code = 2201) 5.0 G/DL CALC GLOBULIN (test code = 2240) 2.6 G/DL CALC A/G RATIO (test code = 2234) 1.9 RATIO BILIRUBIN, TOTAL (test code = 2207) 0.4 MG/DL ALKALINE PHOSPHATASE (test code = 2204) 74 U/L AST (test code = 2218) 39 U/L ALT (test code = 2219) 53 U/L Fracisco Guardado AustinLIPID [id number] 00:00:00* Test Item Value Reference Range Interpretation Comme nts CHOLESTEROL (test code = 2210) 214 MG/DL TRIGLYCERIDES (test code = 2232) 333 MG/DL HDL CHOLESTEROL (test code = 2220) 47 MG/DL CALC LDL CHOL (test code = 2237) 119 MG/DL RISK RATIO LDL/HDL (test cod e = 2238) 2.53 RATIO Fracisco PersonHEMOGLOBIN [id number] 00:00:00* Test Item Value Reference Range Interpretation Comme nts HEMOGLOBIN A1c (test code = 38857) 6.4 % Fracisco Guardado ThomasCOMPREHENSIVE METABOLIC [id number] 00:00:00* Test Item Value Reference Range Interpretation Comme nts GLUCOSE (test code = 2217) 114 MG/DL BUN (test code = 2208) 21 MG/DL CREATININE (test code = 2214) 0.91 MG/DL eGFR (2020 CKD-EPI) (test co de = 58849) 76 ML/MIN/1.73 CALC BUN/CREAT (test code = 2235) 23 RATIO SODIUM (test code = 2231) 139 MEQ/L POTASSIUM (test code = 2228) 4.4 MEQ/L CHLORIDE (test code = 2215) 97 MEQ/L CARBON DIOXIDE (test code = 2206) 28 MEQ/L CALCIUM (test code = 2209) 10.1 MG/DL PROTEIN, TOTAL (test code = 2229) 7.6 G/DL ALBUMIN (test code = 2201) 5.0 G/DL CALC GLOBULIN (test code = 2240) 2.6 G/DL CALC A/G RATIO (test code = 2234) 1.9 RATIO BILIRUBIN, TOTAL (test code = 2207) 0.4 MG/DL ALKALINE PHOSPHATASE (test code = 2204) 74 U/L AST (test code = 2218) 39 U/L ALT (test code = 2219) 53 U/L Fracisco PersonLIPID [id number] 00:00:00* Test Item Value Reference Range Interpretation Comme nts CHOLESTEROL (test code = 2210) 214 MG/DL TRIGLYCERIDES (test code = 2232) 333 MG/DL HDL CHOLESTEROL (test code = 2220) 47 MG/DL CALC LDL CHOL (test code = 2237) 119 MG/DL RISK RATIO LDL/HDL (test cod e = 2238) 2.53 RATIO Fracisco PersonHEMOGLOBIN [id number] 00:00:00* Test Item Value Reference Range Interpretation Comme nts HEMOGLOBIN A1c (test code = 23150) 6.4 % Fracisco PersonCOMPREHENSIVE METABOLIC [id number] 00:00:00* Test Item Value Reference Range Interpretation Comme nts GLUCOSE (test code = 2217) 114 MG/DL BUN (test code = 2208) 21 MG/DL CREATININE (test code = 2214) 0.91 MG/DL eGFR (2020 CKD-EPI) (test co de = 50899) 76 ML/MIN/1.73 CALC BUN/CREAT (test code = 2235) 23 RATIO SODIUM (test code = 2231) 139 MEQ/L POTASSIUM (test code = 2228) 4.4 MEQ/L CHLORIDE (test code = 2215) 97 MEQ/L CARBON DIOXIDE (test code = 2206) 28 MEQ/L CALCIUM (test code = 2209) 10.1 MG/DL PROTEIN, TOTAL (test code = 2229) 7.6 G/DL ALBUMIN (test code = 2201) 5.0 G/DL CALC GLOBULIN (test code = 2240) 2.6 G/DL CALC A/G RATIO (test code = 2234) 1.9 RATIO BILIRUBIN, TOTAL (test code = 2207) 0.4 MG/DL ALKALINE PHOSPHATASE (test code = 2204) 74 U/L AST (test code = 2218) 39 U/L ALT (test code = 2219) 53 U/L Fracisco PersonLIPID [id number] 00:00:00* Test Item Value Reference Range Interpretation Comme nts CHOLESTEROL (test code = 2210) 214 MG/DL TRIGLYCERIDES (test code = 2232) 333 MG/DL HDL CHOLESTEROL (test code = 2220) 47 MG/DL CALC LDL CHOL (test code = 2237) 119 MG/DL RISK RATIO LDL/HDL (test cod e = 2238) 2.53 RATIO Fracisco PersonHEMOGLOBIN [id number] 00:00:00* Test Item Value Reference Range Interpretation Comme [facility] HEMOGLOBIN A1c (test code = 16522) 6.4 % Fracisco PersonCOMPREHENSIVE METABOLIC [id number] 00:00:00* Test Item Value Reference Range Interpretation Comme nts GLUCOSE (test code = 2217) 114 MG/DL BUN (test code = 2208) 21 MG/DL CREATININE (test code = 2214) 0.91 MG/DL eGFR (2020 CKD-EPI) (test co de = 37701) 76 ML/MIN/1.73 CALC BUN/CREAT (test code = 2235) 23 RATIO SODIUM (test code = 2231) 139 MEQ/L POTASSIUM (test code = 2228) 4.4 MEQ/L CHLORIDE (test code = 2215) 97 MEQ/L CARBON DIOXIDE (test code = 2206) 28 MEQ/L CALCIUM (test code = 2209) 10.1 MG/DL PROTEIN, TOTAL (test code = 2229) 7.6 G/DL ALBUMIN (test code = 2201) 5.0 G/DL CALC GLOBULIN (test code = 2240) 2.6 G/DL CALC A/G RATIO (test code = 2234) 1.9 RATIO BILIRUBIN, TOTAL (test code = 2207) 0.4 MG/DL ALKALINE PHOSPHATASE (test code = 2204) 74 U/L AST (test code = 2218) 39 U/L ALT (test code = 2219) 53 U/L Fracisco Guardado AustinLIPID [id number] 00:00:00* Test Item Value Reference Range Interpretation Comme nts CHOLESTEROL (test code = 2210) 214 MG/DL TRIGLYCERIDES (test code = 2232) 333 MG/DL HDL CHOLESTEROL (test code = 2220) 47 MG/DL CALC LDL CHOL (test code = 2237) 119 MG/DL RISK RATIO LDL/HDL (test cod e = 2238) 2.53 RATIO Fracisco PersonHEMOGLOBIN [id number] 00:00:00* Test Item Value Reference Range Interpretation Comme nts HEMOGLOBIN A1c (test code = 95078) 6.4 % Fracisco PersonCOMPREHENSIVE METABOLIC [id number] 00:00:00* Test Item Value Reference Range Interpretation Comme nts GLUCOSE (test code = 2217) 114 MG/DL BUN (test code = 2208) 21 MG/DL CREATININE (test code = 2214) 0.91 MG/DL eGFR (2020 CKD-EPI) (test co de = 34240) 76 ML/MIN/1.73 CALC BUN/CREAT (test code = 2235) 23 RATIO SODIUM (test code = 2231) 139 MEQ/L POTASSIUM (test code = 2228) 4.4 MEQ/L CHLORIDE (test code = 2215) 97 MEQ/L CARBON DIOXIDE (test code = 2206) 28 MEQ/L CALCIUM (test code = 2209) 10.1 MG/DL PROTEIN, TOTAL (test code = 2229) 7.6 G/DL ALBUMIN (test code = 2201) 5.0 G/DL CALC GLOBULIN (test code = 2240) 2.6 G/DL CALC A/G RATIO (test code = 2234) 1.9 RATIO BILIRUBIN, TOTAL (test code = 2207) 0.4 MG/DL ALKALINE PHOSPHATASE (test code = 2204) 74 U/L AST (test code = 2218) 39 U/L ALT (test code = 2219) 53 U/L [place] PersonLIPID [id number] 00:00:00* Test Item Value Reference Range Interpretation Comme nts CHOLESTEROL (test code = 2210) 214 MG/DL TRIGLYCERIDES (test code = 2232) 333 MG/DL HDL CHOLESTEROL (test code = 2220) 47 MG/DL CALC LDL CHOL (test code = 2237) 119 MG/DL RISK RATIO LDL/HDL (test cod e = 2238) 2.53 RATIO [place] Guardado AustinHEMOGLOBIN [id number] 00:00:00* Test Item Value Reference Range Interpretation Comme nts HEMOGLOBIN A1c (test code = 79710) 6.4 % [place] PersonCOMPREHENSIVE METABOLIC [id number] 00:00:00* Test Item Value Reference Range Interpretation Comme nts GLUCOSE (test code = 2217) 114 MG/DL BUN (test code = 2208) 21 MG/DL CREATININE (test code = 2214) 0.91 MG/DL eGFR (2020 CKD-EPI) (test co de = 23479) 76 ML/MIN/1.73 CALC BUN/CREAT (test code = 2235) 23 RATIO SODIUM (test code = 2231) 139 MEQ/L POTASSIUM (test code = 2228) 4.4 MEQ/L CHLORIDE (test code = 2215) 97 MEQ/L CARBON DIOXIDE (test code = 2206) 28 MEQ/L CALCIUM (test code = 2209) 10.1 MG/DL PROTEIN, TOTAL (test code = 2229) 7.6 G/DL ALBUMIN (test code = 2201) 5.0 G/DL CALC GLOBULIN (test code = 2240) 2.6 G/DL CALC A/G RATIO (test code = 2234) 1.9 RATIO BILIRUBIN, TOTAL (test code = 2207) 0.4 MG/DL ALKALINE PHOSPHATASE (test code = 2204) 74 U/L AST (test code = 2218) 39 U/L ALT (test code = 2219) 53 U/L [place] Guardado AustinLIPID [id number] 00:00:00* Test Item Value Reference Range Interpretation Comme nts CHOLESTEROL (test code = 2210) 214 MG/DL TRIGLYCERIDES (test code = 2232) 333 MG/DL HDL CHOLESTEROL (test code = 2220) 47 MG/DL CALC LDL CHOL (test code = 2237) 119 MG/DL RISK RATIO LDL/HDL (test cod e = 2238) 2.53 RATIO [place] Guardado AustinHEMOGLOBIN [id number] 00:00:00* Test Item Value Reference Range Interpretation Comme nts HEMOGLOBIN A1c (test code = 02159) 6.4 % [place] Guardado AustinCOMPREHENSIVE METABOLIC [id number] 00:00:00* Test Item Value Reference Range Interpretation Comme nts GLUCOSE (test code = 2217) 114 MG/DL BUN (test code = 2208) 21 MG/DL CREATININE (test code = 2214) 0.91 MG/DL eGFR (2020 CKD-EPI) (test co de = 06850) 76 ML/MIN/1.73 CALC BUN/CREAT (test code = 2235) 23 RATIO SODIUM (test code = 2231) 139 MEQ/L POTASSIUM (test code = 2228) 4.4 MEQ/L CHLORIDE (test code = 2215) 97 MEQ/L CARBON DIOXIDE (test code = 2206) 28 MEQ/L CALCIUM (test code = 2209) 10.1 MG/DL PROTEIN, TOTAL (test code = 2229) 7.6 G/DL ALBUMIN (test code = 2201) 5.0 G/DL CALC GLOBULIN (test code = 2240) 2.6 G/DL CALC A/G RATIO (test code = 2234) 1.9 RATIO BILIRUBIN, TOTAL (test code = 2207) 0.4 MG/DL ALKALINE PHOSPHATASE (test code = 2204) 74 U/L AST (test code = 2218) 39 U/L ALT (test code = 2219) 53 U/L [place] Guardado AustinLIPID [id number] 00:00:00* Test Item Value Reference Range Interpretation Comme nts CHOLESTEROL (test code = 2210) 214 MG/DL TRIGLYCERIDES (test code = 2232) 333 MG/DL HDL CHOLESTEROL (test code = 2220) 47 MG/DL CALC LDL CHOL (test code = 2237) 119 MG/DL RISK RATIO LDL/HDL (test cod e = 2238) 2.53 RATIO [place] Guardado AustinHEMOGLOBIN [id number] 00:00:00* Test Item Value Reference Range Interpretation Comme nts HEMOGLOBIN A1c (test code = 67537) 6.4 % Fracisco Guardado AustinCOMPREHENSIVE METABOLIC [id number] 00:00:00* Test Item Value Reference Range Interpretation Comme nts GLUCOSE (test code = 2217) 114 MG/DL BUN (test code = 2208) 21 MG/DL CREATININE (test code = 2214) 0.91 MG/DL eGFR (2020 CKD-EPI) (test co de = 43045) 76 ML/MIN/1.73 CALC BUN/CREAT (test code = 2235) 23 RATIO SODIUM (test code = 2231) 139 MEQ/L POTASSIUM (test code = 2228) 4.4 MEQ/L CHLORIDE (test code = 2215) 97 MEQ/L CARBON DIOXIDE (test code = 2206) 28 MEQ/L CALCIUM (test code = 2209) 10.1 MG/DL PROTEIN, TOTAL (test code = 2229) 7.6 G/DL ALBUMIN (test code = 2201) 5.0 G/DL CALC GLOBULIN (test code = 2240) 2.6 G/DL CALC A/G RATIO (test code = 2234) 1.9 RATIO BILIRUBIN, TOTAL (test code = 2207) 0.4 MG/DL ALKALINE PHOSPHATASE (test code = 2204) 74 U/L AST (test code = 2218) 39 U/L ALT (test code = 2219) 53 U/L Fracisco Guardado WestfieldLIPID [id number] 00:00:00* Test Item Value Reference Range Interpretation Comme nts CHOLESTEROL (test code = 2210) 214 MG/DL TRIGLYCERIDES (test code = 2232) 333 MG/DL HDL CHOLESTEROL (test code = 2220) 47 MG/DL CALC LDL CHOL (test code = 2237) 119 MG/DL RISK RATIO LDL/HDL (test cod e = 2238) 2.53 RATIO Fracisco PersonHEMOGLOBIN [id number] 00:00:00* Test Item Value Reference Range Interpretation Comme nts HEMOGLOBIN A1c (test code = 22437) 6.4 % Fracisco Guardado ThomasCOMPREHENSIVE METABOLIC [id number] 00:00:00* Test Item Value Reference Range Interpretation Comme nts GLUCOSE (test code = 2217) 114 MG/DL BUN (test code = 2208) 21 MG/DL CREATININE (test code = 2214) 0.91 MG/DL eGFR (2020 CKD-EPI) (test co de = 57444) 76 ML/MIN/1.73 CALC BUN/CREAT (test code = 2235) 23 RATIO SODIUM (test code = 2231) 139 MEQ/L POTASSIUM (test code = 2228) 4.4 MEQ/L CHLORIDE (test code = 2215) 97 MEQ/L CARBON DIOXIDE (test code = 2206) 28 MEQ/L CALCIUM (test code = 2209) 10.1 MG/DL PROTEIN, TOTAL (test code = 2229) 7.6 G/DL ALBUMIN (test code = 2201) 5.0 G/DL CALC GLOBULIN (test code = 2240) 2.6 G/DL CALC A/G RATIO (test code = 2234) 1.9 RATIO BILIRUBIN, TOTAL (test code = 2207) 0.4 MG/DL ALKALINE PHOSPHATASE (test code = 2204) 74 U/L AST (test code = 2218) 39 U/L ALT (test code = 2219) 53 U/L Fracisco PersonLIPID [id number] 00:00:00* Test Item Value Reference Range Interpretation Comme nts CHOLESTEROL (test code = 2210) 214 MG/DL TRIGLYCERIDES (test code = 2232) 333 MG/DL HDL CHOLESTEROL (test code = 2220) 47 MG/DL CALC LDL CHOL (test code = 2237) 119 MG/DL RISK RATIO LDL/HDL (test cod e = 2238) 2.53 RATIO Fracisco PersonHEMOGLOBIN [id number] 00:00:00* Test Item Value Reference Range Interpretation Comme nts HEMOGLOBIN A1c (test code = 27636) 6.4 % Fracisco PersonCOMPREHENSIVE METABOLIC [id number] 00:00:00* Test Item Value Reference Range Interpretation Comme nts GLUCOSE (test code = 2217) 114 MG/DL BUN (test code = 2208) 21 MG/DL CREATININE (test code = 2214) 0.91 MG/DL eGFR (2020 CKD-EPI) (test co de = 11492) 76 ML/MIN/1.73 CALC BUN/CREAT (test code = 2235) 23 RATIO SODIUM (test code = 2231) 139 MEQ/L POTASSIUM (test code = 2228) 4.4 MEQ/L CHLORIDE (test code = 2215) 97 MEQ/L CARBON DIOXIDE (test code = 2206) 28 MEQ/L CALCIUM (test code = 2209) 10.1 MG/DL PROTEIN, TOTAL (test code = 2229) 7.6 G/DL ALBUMIN (test code = 2201) 5.0 G/DL CALC GLOBULIN (test code = 2240) 2.6 G/DL CALC A/G RATIO (test code = 2234) 1.9 RATIO BILIRUBIN, TOTAL (test code = 2207) 0.4 MG/DL ALKALINE PHOSPHATASE (test code = 2204) 74 U/L AST (test code = 2218) 39 U/L ALT (test code = 2219) 53 U/L Fracisco Guardado AustinLIPID [id number] 00:00:00* Test Item Value Reference Range Interpretation Comme nts CHOLESTEROL (test code = 2210) 214 MG/DL TRIGLYCERIDES (test code = 2232) 333 MG/DL HDL CHOLESTEROL (test code = 2220) 47 MG/DL CALC LDL CHOL (test code = 2237) 119 MG/DL RISK RATIO LDL/HDL (test cod e = 2238) 2.53 RATIO Fracisco Guardado AustinCOMPREHENSIVE METABOLIC [id number] 00:00:00* Test Item Value Reference Range Interpretation Comme nts GLUCOSE (test code = 2217) 114 MG/DL BUN (test code = 2208) 21 MG/DL CREATININE (test code = 2214) 0.91 MG/DL eGFR (2020 CKD-EPI) (test co de = 86935) 76 ML/MIN/1.73 CALC BUN/CREAT (test code = 2235) 23 RATIO SODIUM (test code = 2231) 139 MEQ/L POTASSIUM (test code = 2228) 4.4 MEQ/L CHLORIDE (test code = 2215) 97 MEQ/L CARBON DIOXIDE (test code = 2206) 28 MEQ/L CALCIUM (test code = 2209) 10.1 MG/DL PROTEIN, TOTAL (test code = 2229) 7.6 G/DL ALBUMIN (test code = 2201) 5.0 G/DL CALC GLOBULIN (test code = 2240) 2.6 G/DL CALC A/G RATIO (test code = 2234) 1.9 RATIO BILIRUBIN, TOTAL (test code = 2207) 0.4 MG/DL ALKALINE PHOSPHATASE (test code = 2204) 74 U/L AST (test code = 2218) 39 U/L ALT (test code = 2219) 53 U/L Fracisco PersonHEMOGLOBIN [id number] 00:00:00* Test Item Value Reference Range Interpretation Comme nts HEMOGLOBIN A1c (test code = 02400) 6.4 % Fracisco Guardado AustinCOMPREHENSIVE METABOLIC [id number] 00:00:00* Test Item Value Reference Range Interpretation Comme nts GLUCOSE (test code = 2217) 114 MG/DL BUN (test code = 2208) 21 MG/DL CREATININE (test code = 2214) 0.91 MG/DL eGFR (2020 CKD-EPI) (test co de = 46360) 76 ML/MIN/1.73 CALC BUN/CREAT (test code = 2235) 23 RATIO SODIUM (test code = 2231) 139 MEQ/L POTASSIUM (test code = 2228) 4.4 MEQ/L CHLORIDE (test code = 2215) 97 MEQ/L CARBON DIOXIDE (test code = 2206) 28 MEQ/L CALCIUM (test code = 2209) 10.1 MG/DL PROTEIN, TOTAL (test code = 2229) 7.6 G/DL ALBUMIN (test code = 2201) 5.0 G/DL CALC GLOBULIN (test code = 2240) 2.6 G/DL CALC A/G RATIO (test code = 2234) 1.9 RATIO BILIRUBIN, TOTAL (test code = 2207) 0.4 MG/DL ALKALINE PHOSPHATASE (test code = 2204) 74 U/L AST (test code = 2218) 39 U/L ALT (test code = 2219) 53 U/L Fracisco PersonLIPID [id number] 00:00:00* Test Item Value Reference Range Interpretation Comme nts CHOLESTEROL (test code = 2210) 214 MG/DL TRIGLYCERIDES (test code = 2232) 333 MG/DL HDL CHOLESTEROL (test code = 2220) 47 MG/DL CALC LDL CHOL (test code = 2237) 119 MG/DL RISK RATIO LDL/HDL (test cod e = 2238) 2.53 RATIO Fracisco PersonHEMOGLOBIN [id number] 00:00:00* Test Item Value Reference Range Interpretation Comme nts HEMOGLOBIN A1c (test code = 66762) 6.4 % Fracisco PersonCOMPREHENSIVE METABOLIC [id number] 00:00:00* Test Item Value Reference Range Interpretation Comme nts GLUCOSE (test code = 2217) 114 MG/DL BUN (test code = 2208) 21 MG/DL CREATININE (test code = 2214) 0.91 MG/DL eGFR (2020 CKD-EPI) (test co de = 71647) 76 ML/MIN/1.73 CALC BUN/CREAT (test code = 2235) 23 RATIO SODIUM (test code = 2231) 139 MEQ/L POTASSIUM (test code = 2228) 4.4 MEQ/L CHLORIDE (test code = 2215) 97 MEQ/L CARBON DIOXIDE (test code = 2206) 28 MEQ/L CALCIUM (test code = 2209) 10.1 MG/DL PROTEIN, TOTAL (test code = 2229) 7.6 G/DL ALBUMIN (test code = 2201) 5.0 G/DL CALC GLOBULIN (test code = 2240) 2.6 G/DL CALC A/G RATIO (test code = 2234) 1.9 RATIO BILIRUBIN, TOTAL (test code = 2207) 0.4 MG/DL ALKALINE PHOSPHATASE (test code = 2204) 74 U/L AST (test code = 2218) 39 U/L ALT (test code = 2219) 53 U/L LIPID [id number] 00:00:00* Test Item Value Reference Range Interpretation Comme nts CHOLESTEROL (test code = 2210) 214 MG/DL TRIGLYCERIDES (test code = 2232) 333 MG/DL HDL CHOLESTEROL (test code = 2220) 47 MG/DL CALC LDL CHOL (test code = 2237) 119 MG/DL RISK RATIO LDL/HDL (test cod e = 2238) 2.53 RATIO HEMOGLOBIN [id number] 00:00:00* Test Item Value Reference Range Interpretation Comme nts HEMOGLOBIN A1c (test code = 12443) 6.4 % COMPREHENSIVE METABOLIC [id number] 00:00:00* Test Item Value Reference Range Interpretation Comme nts GLUCOSE (test code = 2217) 114 MG/DL BUN (test code = 2208) 21 MG/DL CREATININE (test code = 2214) 0.91 MG/DL eGFR (2020 CKD-EPI) (test co de = 09983) 76 ML/MIN/1.73 CALC BUN/CREAT (test code = 2235) 23 RATIO SODIUM (test code = 2231) 139 MEQ/L POTASSIUM (test code = 2228) 4.4 MEQ/L CHLORIDE (test code = 2215) 97 MEQ/L CARBON DIOXIDE (test code = 2206) 28 MEQ/L CALCIUM (test code = 2209) 10.1 MG/DL PROTEIN, TOTAL (test code = 2229) 7.6 G/DL ALBUMIN (test code = 2201) 5.0 G/DL CALC GLOBULIN (test code = 2240) 2.6 G/DL CALC A/G RATIO (test code = 2234) 1.9 RATIO BILIRUBIN, TOTAL (test code = 2207) 0.4 MG/DL ALKALINE PHOSPHATASE (test code = 2204) 74 U/L AST (test code = 2218) 39 U/L ALT (test code = 2219) 53 U/L LIPID [id number] 00:00:00* Test Item Value Reference Range Interpretation Comme nts CHOLESTEROL (test code = 2210) 214 MG/DL TRIGLYCERIDES (test code = 2232) 333 MG/DL HDL CHOLESTEROL (test code = 2220) 47 MG/DL CALC LDL CHOL (test code = 2237) 119 MG/DL RISK RATIO LDL/HDL (test cod e = 2238) 2.53 RATIO HEMOGLOBIN [id number] 00:00:00* Test Item Value Reference Range Interpretation Comme nts HEMOGLOBIN A1c (test code = 34028) 6.4 % COMPREHENSIVE METABOLIC [id number] 00:00:00* Test Item Value Reference Range Interpretation Comme nts GLUCOSE (test code = 2217) 114 MG/DL BUN (test code = 2208) 21 MG/DL CREATININE (test code = 2214) 0.91 MG/DL eGFR (2020 CKD-EPI) (test co de = 66637) 76 ML/MIN/1.73 CALC BUN/CREAT (test code = 2235) 23 RATIO SODIUM (test code = 2231) 139 MEQ/L POTASSIUM (test code = 2228) 4.4 MEQ/L CHLORIDE (test code = 2215) 97 MEQ/L CARBON DIOXIDE (test code = 2206) 28 MEQ/L CALCIUM (test code = 2209) 10.1 MG/DL PROTEIN, TOTAL (test code = 2229) 7.6 G/DL ALBUMIN (test code = 2201) 5.0 G/DL CALC GLOBULIN (test code = 2240) 2.6 G/DL CALC A/G RATIO (test code = 2234) 1.9 RATIO BILIRUBIN, TOTAL (test code = 2207) 0.4 MG/DL ALKALINE PHOSPHATASE (test code = 2204) 74 U/L AST (test code = 2218) 39 U/L ALT (test code = 2219) 53 U/L LIPID [id number] 00:00:00* Test Item Value Reference Range Interpretation Comme nts CHOLESTEROL (test code = 2210) 214 MG/DL TRIGLYCERIDES (test code = 2232) 333 MG/DL HDL CHOLESTEROL (test code = 2220) 47 MG/DL CALC LDL CHOL (test code = 2237) 119 MG/DL RISK RATIO LDL/HDL (test cod e = 2238) 2.53 RATIO HEMOGLOBIN [id number] 00:00:00* Test Item Value Reference Range Interpretation Comme nts HEMOGLOBIN A1c (test code = 89212) 6.4 % COMPREHENSIVE METABOLIC [id number] 00:00:00* Test Item Value Reference Range Interpretation Comme nts GLUCOSE (test code = 2217) 114 MG/DL BUN (test code = 2208) 21 MG/DL CREATININE (test code = 2214) 0.91 MG/DL eGFR (2020 CKD-EPI) (test co de = 42696) 76 ML/MIN/1.73 CALC BUN/CREAT (test code = 2235) 23 RATIO SODIUM (test code = 2231) 139 MEQ/L POTASSIUM (test code = 2228) 4.4 MEQ/L CHLORIDE (test code = 2215) 97 MEQ/L CARBON DIOXIDE (test code = 2206) 28 MEQ/L CALCIUM (test code = 2209) 10.1 MG/DL PROTEIN, TOTAL (test code = 2229) 7.6 G/DL ALBUMIN (test code = 2201) 5.0 G/DL CALC GLOBULIN (test code = 2240) 2.6 G/DL CALC A/G RATIO (test code = 2234) 1.9 RATIO BILIRUBIN, TOTAL (test code = 2207) 0.4 MG/DL ALKALINE PHOSPHATASE (test code = 2204) 74 U/L AST (test code = 2218) 39 U/L ALT (test code = 2219) 53 U/L LIPID [id number] 00:00:00* Test Item Value Reference Range Interpretation Comme nts CHOLESTEROL (test code = 2210) 214 MG/DL TRIGLYCERIDES (test code = 2232) 333 MG/DL HDL CHOLESTEROL (test code = 2220) 47 MG/DL CALC LDL CHOL (test code = 2237) 119 MG/DL RISK RATIO LDL/HDL (test cod e = 2238) 2.53 RATIO HEMOGLOBIN [id number] 00:00:00* Test Item Value Reference Range Interpretation Comme nts HEMOGLOBIN A1c (test code = 79595) 6.4 % COMPREHENSIVE METABOLIC [id number] 00:00:00* Test Item Value Reference Range Interpretation Comme nts GLUCOSE (test code = 2217) 114 MG/DL BUN (test code = 2208) 21 MG/DL CREATININE (test code = 2214) 0.91 MG/DL eGFR (2020 CKD-EPI) (test co de = 88842) 76 ML/MIN/1.73 CALC BUN/CREAT (test code = 2235) 23 RATIO SODIUM (test code = 2231) 139 MEQ/L POTASSIUM (test code = 2228) 4.4 MEQ/L CHLORIDE (test code = 2215) 97 MEQ/L CARBON DIOXIDE (test code = 2206) 28 MEQ/L CALCIUM (test code = 2209) 10.1 MG/DL PROTEIN, TOTAL (test code = 2229) 7.6 G/DL ALBUMIN (test code = 2201) 5.0 G/DL CALC GLOBULIN (test code = 2240) 2.6 G/DL CALC A/G RATIO (test code = 2234) 1.9 RATIO BILIRUBIN, TOTAL (test code = 2207) 0.4 MG/DL ALKALINE PHOSPHATASE (test code = 2204) 74 U/L AST (test code = 2218) 39 U/L ALT (test code = 2219) 53 U/L LIPID [id number] 00:00:00* Test Item Value Reference Range Interpretation Comme nts CHOLESTEROL (test code = 2210) 214 MG/DL TRIGLYCERIDES (test code = 2232) 333 MG/DL HDL CHOLESTEROL (test code = 2220) 47 MG/DL CALC LDL CHOL (test code = 2237) 119 MG/DL RISK RATIO LDL/HDL (test cod e = 2238) 2.53 RATIO HEMOGLOBIN [id number] 00:00:00* Test Item Value Reference Range Interpretation Comme nts HEMOGLOBIN A1c (test code = 76029) 6.4 % H. PYLORI (BREATH)2022-02-21 13:14:24* Test Item Value Reference Range Interpretation Comme nts H. PYLORI (BREATH) (test code = 28892) POSITIVE NEGATIVE A UNLESS OTHER ORELLANA INDICATED, ALL TESTING PERFORMED [facility] [address] [place] [id number] RADIOLOGIST DIAGNOSTIC: CHEY ALFARO M.D. [place] NUMBER [id number] [place] [place]. [id number] H. PYLORI (BREATH)2022-02-21 00:00:00* Test Item Value Reference Range Interpretation Comme nts H. PYLORI (BREATH) (test cod e = 82317) POSITIVE Fracisco F AustinH. PYLORI (BREATH)2022-02-21 00:00:00* Test Item Value Reference Range Interpretation Comme nts H. PYLORI (BREATH) (test cod e = 76910) POSITIVE Fracisco F AustinH. PYLORI (BREATH)2022-02-21 00:00:00* Test Item Value Reference Range Interpretation Comme nts H. PYLORI (BREATH) (test cod e = 10894) POSITIVE Fracisco F AustinH. PYLORI (BREATH)2022-02-21 00:00:00* Test Item Value Reference Range Interpretation Comme nts H. PYLORI (BREATH) (test cod e = 91512) POSITIVE Fracisco F AustinH. PYLORI (BREATH)2022-02-21 00:00:00* Test Item Value Reference Range Interpretation Comme nts H. PYLORI (BREATH) (test cod e = 14237) POSITIVE Fracisco F AustinH. PYLORI (BREATH)2022-02-21 00:00:00* Test Item Value Reference Range Interpretation Comme nts H. PYLORI (BREATH) (test cod e = 46862) POSITIVE Fracisco F AustinH. PYLORI (BREATH)2022-02-21 00:00:00* Test Item Value Reference Range Interpretation Comme nts H. PYLORI (BREATH) (test cod e = 76855) POSITIVE Fracisco F AustinH. PYLORI (BREATH)2022-02-21 00:00:00* Test Item Value Reference Range Interpretation Comme nts H. PYLORI (BREATH) (test cod e = 65864) POSITIVE Fracisco F AustinH. PYLORI (BREATH)2022-02-21 00:00:00* Test Item Value Reference Range Interpretation Comme nts H. PYLORI (BREATH) (test cod e = 21436) POSITIVE Fracisco F AustinH. PYLORI (BREATH)2022-02-21 00:00:00* Test Item Value Reference Range Interpretation Comme nts H. PYLORI (BREATH) (test cod e = 24742) POSITIVE Fracisco Guardado AustinH. PYLORI (BREATH)2022-02-21 00:00:00* Test Item Value Reference Range Interpretation Comme nts H. PYLORI (BREATH) (test cod e = 86804) POSITIVE Fracisco Guardado AustinH. PYLORI (BREATH)2022-02-21 00:00:00* Test Item Value Reference Range Interpretation Comme nts H. PYLORI (BREATH) (test cod e = 88612) POSITIVE Fracisco Guardado AustinH. PYLORI (BREATH)2022-02-21 00:00:00* Test Item Value Reference Range Interpretation Comme nts H. PYLORI (BREATH) (test cod e = 43221) POSITIVE Fracisco Guardado AustinH. PYLORI (BREATH)2022-02-21 00:00:00* Test Item Value Reference Range Interpretation Comme nts H. PYLORI (BREATH) (test cod e = 36472) POSITIVE Fracisco Guardado AustinH. PYLORI (BREATH)2022-02-21 00:00:00* Test Item Value Reference Range Interpretation Comme nts H. PYLORI (BREATH) (test cod e = 14397) POSITIVE Fracisco F AustinH. PYLORI (BREATH)2022-02-21 00:00:00* Test Item Value Reference Range Interpretation Comme nts H. PYLORI (BREATH) (test cod e = 60676) POSITIVE Fracisco Guardado AustinH. PYLORI (BREATH)2022-02-21 00:00:00* Test Item Value Reference Range Interpretation Comme nts H. PYLORI (BREATH) (test cod e = 51133) POSITIVE H. PYLORI (BREATH)2022-02-21 00:00:00* Test Item Value Reference Range Interpretation Comme nts H. PYLORI (BREATH) (test cod e = 62763) POSITIVE H. PYLORI (BREATH)2022-02-21 00:00:00* Test Item Value Reference Range Interpretation Comme nts H. PYLORI (BREATH) (test cod e = 09747) POSITIVE H. PYLORI (BREATH)2022-02-21 00:00:00* Test Item Value Reference Range Interpretation Comme nts H. PYLORI (BREATH) (test cod e = 03553) POSITIVE H. PYLORI (BREATH)2022-02-21 00:00:00* Test Item Value Reference Range Interpretation Comme nts H. PYLORI (BREATH) (test cod e = 80896) POSITIVE HEMOGLOBIN [id number] 04:29:06* Test Item Value Reference Range Interpretation Comme nts HEMOGLOBIN A1c (test code = 88954) 6.5 % 4.2-5.6 H [employer] GUIDELINES FOR HGB A1C: PREDIABETES/INCREASED RISK . . . . . . . 5.7-6.4% DIAGNOSIS OF DIABETES . . . . . . . . . >=6.5% WITH CONFIRMATION OR APPROPRIATE SYMPTOMS NOTE: ASSAY MAY BE AFFECTED BY HEMOGLOBINOPATHIES (SICKLE CELL ANEMIA, S-C DISEASE, OTHERS) OR ARTIFICIALLY LOWERED BY DECREASED RED CELL SURVIVAL (HEMOLYTIC ANEMIAS, BLOOD LOSS, ETC.). CONSIDER ALTERNATE TESTING OR LABORATORY CONSULTATION. TSH, THIRD [id number] 04:15:38* Test Item Value Reference Range Interpretation Comme nts TSH, THIRD GENERATION (test code = 2821) 1.440 UIU/ML 0.400-4.100 UNLESS OTHERWISE INDICATED, ALL TESTING PERFORMED [facility] [employer] [employer] [address] [place] [address] RADIOLOGIST DIAGNOSTIC: CHEY ALFARO M.D. CLIA NUMBER [id number] [place] [place]. [id number] LIPID [id number] 03:40:57* Test Item Value Reference Range Interpretation Comme nts CHOLESTEROL (test code = 2210) 258 MG/DL <200 H TRIGLYCERIDES (test code = 2232) 341 MG/DL <150 H HDL CHOLESTEROL (test code = 2220) 44 MG/DL >39 CALC LDL CHOL (test code = 2237) 162 MG/DL <100 H NOTE: CALCULATED LDL IS BASED ON KRISTEN-PIERCE METHOD WHICHINCLUDES ADJUSTABLE TRIGLYCERIDE:VLDL CHOLESTEROL RATIO.THIS FACTOR VARIES BY MEASURED TRIGLYCERIDE AND NON-HDLCHOLESTEROL CONCENTRATIONS WITH INCREASED CALCULATED LDL SEENIN HIGHER TRIGLYCERIDE OR LOWER NON-HDL SPECIMENS. FOR MOREINFORMATION, SEE CLIENT ANNOUNCEMENT AT [email or web address] RISK RATIO LDL/HDL (test code = 2238) 3.68 RATIO <3.22 H COMPREHENSIVE METABOLIC [id number] 03:40:57* Test Item Value Reference Range Interpretation Comme nts GLUCOSE (test code = 2217) 123 MG/DL 70-99 H BUN (test code = 2207) 19 MG/DL 6-20 CREATININE (test code = 2213) 0.83 MG/DL 0.60-1.30 eGFR (2020 CKD-EPI) (test code = ) 85 ML/MIN/1.73 >60 CALC BUN/CREAT (test code = 2234) 23 RATIO 6-28 SODIUM (test code = 2230) 141 MEQ/L 133-146 POTASSIUM (test code = 2227) 4.6 MEQ/L 3.5-5.4 CHLORIDE (test code = 2214) 100 MEQ/L 95-107 CARBON DIOXIDE (test code = 2205) 26 MEQ/L 19-31 CALCIUM (test code = 2208) 10.4 MG/DL 8.5-10.5 PROTEIN, TOTAL (test code = 2228) 7.5 G/DL 6.1-8.3 ALBUMIN (test code = 2200) 4.8 G/DL 3.5-5.2 CALC GLOBULIN (test code = 2239) 2.7 G/DL 1.9-3.7 CALC A/G RATIO (test code = 2233) 1.8 RATIO 1.0-2.6 BILIRUBIN, TOTAL (test code = 2206) 0.4 MG/DL See_Comment [Automated me ssage] The system which generated this result transmitted reference range: <=1.2. The reference range was not used to interpret this result as normal/abnormal. ALKALINE PHOSPHATASE (test code = 2203) 68 U/L 40-130 AST (test code = 2217) 60 U/L 9-40 H ALT (test code = 2218) 88 U/L 5-40 H CBC W/AUTO DIFF WITH [id number] 02:37:17* Test Item Value Reference Range Interpretation Comme nts WBC (test code = 1001) 7.3 K/UL 3.5-11.0 RBC (test code = 1002) 4.62 M/UL 3.80-5.40 HEMOGLOBIN (test code = 1003) 12.3 G/DL 11.5-15.5 HEMATOCRIT (test code = 1004) 36.5 % 34.0-45.0 MCV (test code = 1005) 79.0 fL 80.0-99.0 L MCH (test code = 1006) 26.6 PG 25.0-33.0 MCHC (test code = 1007) 33.7 G/DL 31.0-36.0 RDW (test code = 1038) 13.1 % 11.5-15.0 NEUTROPHILS (test code = 1008) 53.1 % LYMPHOCYTES (test code = 1010) 35.9 % MONOCYTES (test code = 1011) 8.2 % EOSINOPHILS (test code = 1012) 1.4 % BASOPHILS (test code = 1013) 1.1 % IMMATURE GRANULOCYTES (test code = 1036) 0.3 % NUCLEATED RBCS (test code = 1065) 0.0 /100 WBC'S See_Comment [Automated messa ge] The system which generated this result transmitted reference range: 0.0. The reference range was not used to interpret this result as normal/abnormal. PLATELET COUNT (test code = 1015) 323 K/UL 130-400 ABSOLUTE NEUTROPHILS (test code = 1066) 3.87 K/UL 1.50-7.50 ABSOLUTE LYMPHOCYTES (test code = 1067) 2.62 K/UL 1.00-4.00 ABSOLUTE MONOCYTES (test code = 1068) 0.60 K/UL 0.20-1.00 ABSOLUTE EOSINOPHILS (test code = 1040) 0.10 K/UL 0.00-0.50 ABSOLUTE BASOPHILS (test code = 1069) 0.08 K/UL 0.00-0.20 ABS IMMATURE GRANULOCYTES (test code = 1020) 0.02 K/UL 0.00-0.10 ABS NUCLEATED RBCS (test code = 60255) 0.00 K/UL 0.00-0.11 HEMOGLOBIN [id number] 00:00:00* Test Item Value Reference Range Interpretation Comme nts HEMOGLOBIN A1c (test code = 67639) 6.5 % Fracisco Guardado AustinLIPID [id number] 00:00:00* Test Item Value Reference Range Interpretation Comme nts CHOLESTEROL (test code = 2210) 258 MG/DL TRIGLYCERIDES (test code = 2232) 341 MG/DL HDL CHOLESTEROL (test code = 2220) 44 MG/DL CALC LDL CHOL (test code = 2237) 162 MG/DL RISK RATIO LDL/HDL (test cod e = 2238) 3.68 RATIO Fracisco PersonCOMPREHENSIVE METABOLIC [id number] 00:00:00* Test Item Value Reference Range Interpretation Comme nts GLUCOSE (test code = 2217) 123 MG/DL BUN (test code = 2208) 19 MG/DL CREATININE (test code = 2214) 0.83 MG/DL eGFR (2020 CKD-EPI) (test co de = 02087) 85 ML/MIN/1.73 CALC BUN/CREAT (test code = 2235) 23 RATIO SODIUM (test code = 2231) 141 MEQ/L POTASSIUM (test code = 2228) 4.6 MEQ/L CHLORIDE (test code = 2215) 100 MEQ/L CARBON DIOXIDE (test code = 2206) 26 MEQ/L CALCIUM (test code = 2209) 10.4 MG/DL PROTEIN, TOTAL (test code = 2229) 7.5 G/DL ALBUMIN (test code = 2201) 4.8 G/DL CALC GLOBULIN (test code = 2240) 2.7 G/DL CALC A/G RATIO (test code = 2234) 1.8 RATIO BILIRUBIN, TOTAL (test code = 2207) 0.4 MG/DL ALKALINE PHOSPHATASE (test code = 2204) 68 U/L AST (test code = 2218) 60 U/L ALT (test code = 2219) 88 U/L Fracisco Guardado [facility] W/AUTO [id number] 00:00:00* Test Item Value Reference Range Interpretation Comme nts WBC (test code = 1001) 7.3 K/UL RBC (test code = 1002) 4.62 M/UL HEMOGLOBIN (test code = 1003) 12.3 G/DL HEMATOCRIT (test code = 1004) 36.5 % MCV (test code = 1005) 79.0 fL MCH (test code = 1006) 26.6 PG MCHC (test code = 1007) 33.7 G/DL RDW (test code = 1038) 13.1 % NEUTROPHILS (test code = 1008) 53.1 % LYMPHOCYTES (test code = 1010) 35.9 % MONOCYTES (test code = 1011) 8.2 % EOSINOPHILS (test code = 1012) 1.4 % BASOPHILS (test code = 1013) 1.1 % IMMATURE GRANULOCYTES (test code = 1036) 0.3 % NUCLEATED RBCS (test code = 1065) 0.0 /100WBC'S PLATELET COUNT (test code = 1015) 323 K/UL ABSOLUTE NEUTROPHILS (test c ode = 1066) 3.87 K/UL ABSOLUTE LYMPHOCYTES (test c ode = 1067) 2.62 K/UL ABSOLUTE MONOCYTES (test cod e = 1068) 0.60 K/UL ABSOLUTE EOSINOPHILS (test c ode = 1040) 0.10 K/UL ABSOLUTE BASOPHILS (test cod e = 1069) 0.08 K/UL ABS IMMATURE GRANULOCYTES (t est code = 1020) 0.02 K/UL ABS NUCLEATED RBCS (test cod e = 97583) 0.00 K/UL Fracisco [id number] 00:00:00* Test Item Value Reference Range Interpretation Comme nts TSH, THIRD GENERATION (test code = 2821) 1.440 UIU/ML Fracisco PersonCOMPREHENSIVE METABOLIC [id number] 00:00:00* Test Item Value Reference Range Interpretation Comme nts GLUCOSE (test code = 2217) 123 MG/DL BUN (test code = 2208) 19 MG/DL CREATININE (test code = 2214) 0.83 MG/DL eGFR (2020 CKD-EPI) (test co de = 29254) 85 ML/MIN/1.73 CALC BUN/CREAT (test code = 2235) 23 RATIO SODIUM (test code = 2231) 141 MEQ/L POTASSIUM (test code = 2228) 4.6 MEQ/L CHLORIDE (test code = 2215) 100 MEQ/L CARBON DIOXIDE (test code = 2206) 26 MEQ/L CALCIUM (test code = 2209) 10.4 MG/DL PROTEIN, TOTAL (test code = 2229) 7.5 G/DL ALBUMIN (test code = 2201) 4.8 G/DL CALC GLOBULIN (test code = 2240) 2.7 G/DL CALC A/G RATIO (test code = 2234) 1.8 RATIO BILIRUBIN, TOTAL (test code = 2207) 0.4 MG/DL ALKALINE PHOSPHATASE (test code = 2204) 68 U/L AST (test code = 2218) 60 U/L ALT (test code = 2219) 88 U/L [place] PersonHEMOGLOBIN [id number] 00:00:00* Test Item Value Reference Range Interpretation Comme nts HEMOGLOBIN A1c (test code = 94324) 6.5 % Fraciscodeven PersonCBC W/AUTO [id number] 00:00:00* Test Item Value Reference Range Interpretation Comme nts WBC (test code = 1001) 7.3 K/UL RBC (test code = 1002) 4.62 M/UL HEMOGLOBIN (test code = 1003) 12.3 G/DL HEMATOCRIT (test code = 1004) 36.5 % MCV (test code = 1005) 79.0 fL MCH (test code = 1006) 26.6 PG MCHC (test code = 1007) 33.7 G/DL RDW (test code = 1038) 13.1 % NEUTROPHILS (test code = 1008) 53.1 % LYMPHOCYTES (test code = 1010) 35.9 % MONOCYTES (test code = 1011) 8.2 % EOSINOPHILS (test code = 1012) 1.4 % BASOPHILS (test code = 1013) 1.1 % IMMATURE GRANULOCYTES (test code = 1036) 0.3 % NUCLEATED RBCS (test code = 1065) 0.0 /100WBC'S PLATELET COUNT (test code = 1015) 323 K/UL ABSOLUTE NEUTROPHILS (test c ode = 1066) 3.87 K/UL ABSOLUTE LYMPHOCYTES (test c ode = 1067) 2.62 K/UL ABSOLUTE MONOCYTES (test cod e = 1068) 0.60 K/UL ABSOLUTE EOSINOPHILS (test c ode = 1040) 0.10 K/UL ABSOLUTE BASOPHILS (test cod e = 1069) 0.08 K/UL ABS IMMATURE GRANULOCYTES (t est code = 1020) 0.02 K/UL ABS NUCLEATED RBCS (test cod e = 01627) 0.00 K/UL [place] PersonLIPID [id number] 00:00:00* Test Item Value Reference Range Interpretation Comme nts CHOLESTEROL (test code = 2210) 258 MG/DL TRIGLYCERIDES (test code = 2232) 341 MG/DL HDL CHOLESTEROL (test code = 2220) 44 MG/DL CALC LDL CHOL (test code = 2237) 162 MG/DL RISK RATIO LDL/HDL (test cod e = 2238) 3.68 RATIO [place] PersonCOMPREHENSIVE METABOLIC [id number] 00:00:00* Test Item Value Reference Range Interpretation Comme nts GLUCOSE (test code = 2217) 123 MG/DL BUN (test code = 2208) 19 MG/DL CREATININE (test code = 2214) 0.83 MG/DL eGFR (2020 CKD-EPI) (test co de = 45519) 85 ML/MIN/1.73 CALC BUN/CREAT (test code = 2235) 23 RATIO SODIUM (test code = 2231) 141 MEQ/L POTASSIUM (test code = 2228) 4.6 MEQ/L CHLORIDE (test code = 2215) 100 MEQ/L CARBON DIOXIDE (test code = 2206) 26 MEQ/L CALCIUM (test code = 2209) 10.4 MG/DL PROTEIN, TOTAL (test code = 2229) 7.5 G/DL ALBUMIN (test code = 2201) 4.8 G/DL CALC GLOBULIN (test code = 2240) 2.7 G/DL CALC A/G RATIO (test code = 2234) 1.8 RATIO BILIRUBIN, TOTAL (test code = 2207) 0.4 MG/DL ALKALINE PHOSPHATASE (test code = 2204) 68 U/L AST (test code = 2218) 60 U/L ALT (test code = 2219) 88 U/L [place] Debby [id number] 00:00:00* Test Item Value Reference Range Interpretation Comme nts TSH, THIRD GENERATION (test code = 2821) 1.440 UIU/ML [place] Guardado ThomasCBC W/AUTO [id number] 00:00:00* Test Item Value Reference Range Interpretation Comme nts WBC (test code = 1001) 7.3 K/UL RBC (test code = 1002) 4.62 M/UL HEMOGLOBIN (test code = 1003) 12.3 G/DL HEMATOCRIT (test code = 1004) 36.5 % MCV (test code = 1005) 79.0 fL MCH (test code = 1006) 26.6 PG MCHC (test code = 1007) 33.7 G/DL RDW (test code = 1038) 13.1 % NEUTROPHILS (test code = 1008) 53.1 % LYMPHOCYTES (test code = 1010) 35.9 % MONOCYTES (test code = 1011) 8.2 % EOSINOPHILS (test code = 1012) 1.4 % BASOPHILS (test code = 1013) 1.1 % IMMATURE GRANULOCYTES (test code = 1036) 0.3 % NUCLEATED RBCS (test code = 1065) 0.0 /100WBC'S PLATELET COUNT (test code = 1015) 323 K/UL ABSOLUTE NEUTROPHILS (test c ode = 1066) 3.87 K/UL ABSOLUTE LYMPHOCYTES (test c ode = 1067) 2.62 K/UL ABSOLUTE MONOCYTES (test cod e = 1068) 0.60 K/UL ABSOLUTE EOSINOPHILS (test c ode = 1040) 0.10 K/UL ABSOLUTE BASOPHILS (test cod e = 1069) 0.08 K/UL ABS IMMATURE GRANULOCYTES (t est code = 1020) 0.02 K/UL ABS NUCLEATED RBCS (test cod e = 55093) 0.00 K/UL [place] [id number] 00:00:00* Test Item Value Reference Range Interpretation Comme nts TSH, THIRD GENERATION (test code = 2821) 1.440 UIU/ML [place] PersonHEMOGLOBIN [id number] 00:00:00* Test Item Value Reference Range Interpretation Comme nts HEMOGLOBIN A1c (test code = 53565) 6.5 % [place] PersonLIPID [id number] 00:00:00* Test Item Value Reference Range Interpretation Comme nts CHOLESTEROL (test code = 2210) 258 MG/DL TRIGLYCERIDES (test code = 2232) 341 MG/DL HDL CHOLESTEROL (test code = 2220) 44 MG/DL CALC LDL CHOL (test code = 2237) 162 MG/DL RISK RATIO LDL/HDL (test cod e = 2238) 3.68 RATIO [place] PersonCOMPREHENSIVE METABOLIC [id number] 00:00:00* Test Item Value Reference Range Interpretation Comme nts GLUCOSE (test code = 2217) 123 MG/DL BUN (test code = 2208) 19 MG/DL CREATININE (test code = 2214) 0.83 MG/DL eGFR (2020 CKD-EPI) (test co de = 01994) 85 ML/MIN/1.73 CALC BUN/CREAT (test code = 2235) 23 RATIO SODIUM (test code = 2231) 141 MEQ/L POTASSIUM (test code = 2228) 4.6 MEQ/L CHLORIDE (test code = 2215) 100 MEQ/L CARBON DIOXIDE (test code = 2206) 26 MEQ/L CALCIUM (test code = 2209) 10.4 MG/DL PROTEIN, TOTAL (test code = 2229) 7.5 G/DL ALBUMIN (test code = 2201) 4.8 G/DL CALC GLOBULIN (test code = 2240) 2.7 G/DL CALC A/G RATIO (test code = 2234) 1.8 RATIO BILIRUBIN, TOTAL (test code = 2207) 0.4 MG/DL ALKALINE PHOSPHATASE (test code = 2204) 68 U/L AST (test code = 2218) 60 U/L ALT (test code = 2219) 88 U/L [place] PersonCBC W/AUTO [id number] 00:00:00* Test Item Value Reference Range Interpretation Comme nts WBC (test code = 1001) 7.3 K/UL RBC (test code = 1002) 4.62 M/UL HEMOGLOBIN (test code = 1003) 12.3 G/DL HEMATOCRIT (test code = 1004) 36.5 % MCV (test code = 1005) 79.0 fL MCH (test code = 1006) 26.6 PG MCHC (test code = 1007) 33.7 G/DL RDW (test code = 1038) 13.1 % NEUTROPHILS (test code = 1008) 53.1 % LYMPHOCYTES (test code = 1010) 35.9 % MONOCYTES (test code = 1011) 8.2 % EOSINOPHILS (test code = 1012) 1.4 % BASOPHILS (test code = 1013) 1.1 % IMMATURE GRANULOCYTES (test code = 1036) 0.3 % NUCLEATED RBCS (test code = 1065) 0.0 /100WBC'S PLATELET COUNT (test code = 1015) 323 K/UL ABSOLUTE NEUTROPHILS (test c ode = 1066) 3.87 K/UL ABSOLUTE LYMPHOCYTES (test c ode = 1067) 2.62 K/UL ABSOLUTE MONOCYTES (test cod e = 1068) 0.60 K/UL ABSOLUTE EOSINOPHILS (test c ode = 1040) 0.10 K/UL ABSOLUTE BASOPHILS (test cod e = 1069) 0.08 K/UL ABS IMMATURE GRANULOCYTES (t est code = 1020) 0.02 K/UL ABS NUCLEATED RBCS (test cod e = 40503) 0.00 K/UL [place] [id number] 00:00:00* Test Item Value Reference Range Interpretation Comme nts TSH, THIRD GENERATION (test code = 2821) 1.440 UIU/ML [place] PersonHEMOGLOBIN [id number] 00:00:00* Test Item Value Reference Range Interpretation Comme nts HEMOGLOBIN A1c (test code = 90203) 6.5 % [place] PersonLIPID [id number] 00:00:00* Test Item Value Reference Range Interpretation Comme nts CHOLESTEROL (test code = 2210) 258 MG/DL TRIGLYCERIDES (test code = 2232) 341 MG/DL HDL CHOLESTEROL (test code = 2220) 44 MG/DL CALC LDL CHOL (test code = 2237) 162 MG/DL RISK RATIO LDL/HDL (test cod e = 2238) 3.68 RATIO [place] PersonCOMPREHENSIVE METABOLIC [id number] 00:00:00* Test Item Value Reference Range Interpretation Comme nts GLUCOSE (test code = 2217) 123 MG/DL BUN (test code = 2208) 19 MG/DL CREATININE (test code = 2214) 0.83 MG/DL eGFR (2020 CKD-EPI) (test co de = 41433) 85 ML/MIN/1.73 CALC BUN/CREAT (test code = 2235) 23 RATIO SODIUM (test code = 2231) 141 MEQ/L POTASSIUM (test code = 2228) 4.6 MEQ/L CHLORIDE (test code = 2215) 100 MEQ/L CARBON DIOXIDE (test code = 2206) 26 MEQ/L CALCIUM (test code = 2209) 10.4 MG/DL PROTEIN, TOTAL (test code = 2229) 7.5 G/DL ALBUMIN (test code = 2201) 4.8 G/DL CALC GLOBULIN (test code = 2240) 2.7 G/DL CALC A/G RATIO (test code = 2234) 1.8 RATIO BILIRUBIN, TOTAL (test code = 2207) 0.4 MG/DL ALKALINE PHOSPHATASE (test code = 2204) 68 U/L AST (test code = 2218) 60 U/L ALT (test code = 2219) 88 U/L [place] PersonCBC W/AUTO [id number] 00:00:00* Test Item Value Reference Range Interpretation Comme nts WBC (test code = 1001) 7.3 K/UL RBC (test code = 1002) 4.62 M/UL HEMOGLOBIN (test code = 1003) 12.3 G/DL HEMATOCRIT (test code = 1004) 36.5 % MCV (test code = 1005) 79.0 fL MCH (test code = 1006) 26.6 PG MCHC (test code = 1007) 33.7 G/DL RDW (test code = 1038) 13.1 % NEUTROPHILS (test code = 1008) 53.1 % LYMPHOCYTES (test code = 1010) 35.9 % MONOCYTES (test code = 1011) 8.2 % EOSINOPHILS (test code = 1012) 1.4 % BASOPHILS (test code = 1013) 1.1 % IMMATURE GRANULOCYTES (test code = 1036) 0.3 % NUCLEATED RBCS (test code = 1065) 0.0 /100WBC'S PLATELET COUNT (test code = 1015) 323 K/UL ABSOLUTE NEUTROPHILS (test c ode = 1066) 3.87 K/UL ABSOLUTE LYMPHOCYTES (test c ode = 1067) 2.62 K/UL ABSOLUTE MONOCYTES (test cod e = 1068) 0.60 K/UL ABSOLUTE EOSINOPHILS (test c ode = 1040) 0.10 K/UL ABSOLUTE BASOPHILS (test cod e = 1069) 0.08 K/UL ABS IMMATURE GRANULOCYTES (t est code = 1020) 0.02 K/UL ABS NUCLEATED RBCS (test cod e = 51622) 0.00 K/UL [place] [id number] 00:00:00* Test Item Value Reference Range Interpretation Comme nts TSH, THIRD GENERATION (test code = 2821) 1.440 UIU/ML [place] PersonHEMOGLOBIN [id number] 00:00:00* Test Item Value Reference Range Interpretation Comme nts HEMOGLOBIN A1c (test code = 19402) 6.5 % [place] PersonLIPID [id number] 00:00:00* Test Item Value Reference Range Interpretation Comme nts CHOLESTEROL (test code = 2210) 258 MG/DL TRIGLYCERIDES (test code = 2232) 341 MG/DL HDL CHOLESTEROL (test code = 2220) 44 MG/DL CALC LDL CHOL (test code = 2237) 162 MG/DL RISK RATIO LDL/HDL (test cod e = 2238) 3.68 RATIO [place] PersonCOMPREHENSIVE METABOLIC [id number] 00:00:00* Test Item Value Reference Range Interpretation Comme nts GLUCOSE (test code = 2217) 123 MG/DL BUN (test code = 2208) 19 MG/DL CREATININE (test code = 2214) 0.83 MG/DL eGFR (2020 CKD-EPI) (test co de = 28954) 85 ML/MIN/1.73 CALC BUN/CREAT (test code = 2235) 23 RATIO SODIUM (test code = 2231) 141 MEQ/L POTASSIUM (test code = 2228) 4.6 MEQ/L CHLORIDE (test code = 2215) 100 MEQ/L CARBON DIOXIDE (test code = 2206) 26 MEQ/L CALCIUM (test code = 2209) 10.4 MG/DL PROTEIN, TOTAL (test code = 2229) 7.5 G/DL ALBUMIN (test code = 2201) 4.8 G/DL CALC GLOBULIN (test code = 2240) 2.7 G/DL CALC A/G RATIO (test code = 2234) 1.8 RATIO BILIRUBIN, TOTAL (test code = 2207) 0.4 MG/DL ALKALINE PHOSPHATASE (test code = 2204) 68 U/L AST (test code = 2218) 60 U/L ALT (test code = 2219) 88 U/L [place] Guardado [facility] W/AUTO [id number] 00:00:00* Test Item Value Reference Range Interpretation Comme nts WBC (test code = 1001) 7.3 K/UL RBC (test code = 1002) 4.62 M/UL HEMOGLOBIN (test code = 1003) 12.3 G/DL HEMATOCRIT (test code = 1004) 36.5 % MCV (test code = 1005) 79.0 fL MCH (test code = 1006) 26.6 PG MCHC (test code = 1007) 33.7 G/DL RDW (test code = 1038) 13.1 % NEUTROPHILS (test code = 1008) 53.1 % LYMPHOCYTES (test code = 1010) 35.9 % MONOCYTES (test code = 1011) 8.2 % EOSINOPHILS (test code = 1012) 1.4 % BASOPHILS (test code = 1013) 1.1 % IMMATURE GRANULOCYTES (test code = 1036) 0.3 % NUCLEATED RBCS (test code = 1065) 0.0 /100WBC'S PLATELET COUNT (test code = 1015) 323 K/UL ABSOLUTE NEUTROPHILS (test c ode = 1066) 3.87 K/UL ABSOLUTE LYMPHOCYTES (test c ode = 1067) 2.62 K/UL ABSOLUTE MONOCYTES (test cod e = 1068) 0.60 K/UL ABSOLUTE EOSINOPHILS (test c ode = 1040) 0.10 K/UL ABSOLUTE BASOPHILS (test cod e = 1069) 0.08 K/UL ABS IMMATURE GRANULOCYTES (t est code = 1020) 0.02 K/UL ABS NUCLEATED RBCS (test cod e = 51510) 0.00 K/UL [place] [id number] 00:00:00* Test Item Value Reference Range Interpretation Comme nts TSH, THIRD GENERATION (test code = 2821) 1.440 UIU/ML [place] PersonHEMOGLOBIN [id number] 00:00:00* Test Item Value Reference Range Interpretation Comme nts HEMOGLOBIN A1c (test code = 53655) 6.5 % [place] PersonLIPID [id number] 00:00:00* Test Item Value Reference Range Interpretation Comme nts CHOLESTEROL (test code = 2210) 258 MG/DL TRIGLYCERIDES (test code = 2232) 341 MG/DL HDL CHOLESTEROL (test code = 2220) 44 MG/DL CALC LDL CHOL (test code = 2237) 162 MG/DL RISK RATIO LDL/HDL (test cod e = 2238) 3.68 RATIO [place] PersonCOMPREHENSIVE METABOLIC [id number] 00:00:00* Test Item Value Reference Range Interpretation Comme nts GLUCOSE (test code = 2217) 123 MG/DL BUN (test code = 2208) 19 MG/DL CREATININE (test code = 2214) 0.83 MG/DL eGFR (2020 CKD-EPI) (test co de = 01543) 85 ML/MIN/1.73 CALC BUN/CREAT (test code = 2235) 23 RATIO SODIUM (test code = 2231) 141 MEQ/L POTASSIUM (test code = 2228) 4.6 MEQ/L CHLORIDE (test code = 2215) 100 MEQ/L CARBON DIOXIDE (test code = 2206) 26 MEQ/L CALCIUM (test code = 2209) 10.4 MG/DL PROTEIN, TOTAL (test code = 2229) 7.5 G/DL ALBUMIN (test code = 2201) 4.8 G/DL CALC GLOBULIN (test code = 2240) 2.7 G/DL CALC A/G RATIO (test code = 2234) 1.8 RATIO BILIRUBIN, TOTAL (test code = 2207) 0.4 MG/DL ALKALINE PHOSPHATASE (test code = 2204) 68 U/L AST (test code = 2218) 60 U/L ALT (test code = 2219) 88 U/L [place] PersonCBC W/AUTO [id number] 00:00:00* Test Item Value Reference Range Interpretation Comme nts WBC (test code = 1001) 7.3 K/UL RBC (test code = 1002) 4.62 M/UL HEMOGLOBIN (test code = 1003) 12.3 G/DL HEMATOCRIT (test code = 1004) 36.5 % MCV (test code = 1005) 79.0 fL MCH (test code = 1006) 26.6 PG MCHC (test code = 1007) 33.7 G/DL RDW (test code = 1038) 13.1 % NEUTROPHILS (test code = 1008) 53.1 % LYMPHOCYTES (test code = 1010) 35.9 % MONOCYTES (test code = 1011) 8.2 % EOSINOPHILS (test code = 1012) 1.4 % BASOPHILS (test code = 1013) 1.1 % IMMATURE GRANULOCYTES (test code = 1036) 0.3 % NUCLEATED RBCS (test code = 1065) 0.0 /100WBC'S PLATELET COUNT (test code = 1015) 323 K/UL ABSOLUTE NEUTROPHILS (test c ode = 1066) 3.87 K/UL ABSOLUTE LYMPHOCYTES (test c ode = 1067) 2.62 K/UL ABSOLUTE MONOCYTES (test cod e = 1068) 0.60 K/UL ABSOLUTE EOSINOPHILS (test c ode = 1040) 0.10 K/UL ABSOLUTE BASOPHILS (test cod e = 1069) 0.08 K/UL ABS IMMATURE GRANULOCYTES (t est code = 1020) 0.02 K/UL ABS NUCLEATED RBCS (test cod e = 91003) 0.00 K/UL [place] [id number] 00:00:00* Test Item Value Reference Range Interpretation Comme nts TSH, THIRD GENERATION (test code = 2821) 1.440 UIU/ML [place] PersonHEMOGLOBIN [id number] 00:00:00* Test Item Value Reference Range Interpretation Comme nts HEMOGLOBIN A1c (test code = 90170) 6.5 % [place] PersonLIPID [id number] 00:00:00* Test Item Value Reference Range Interpretation Comme nts CHOLESTEROL (test code = 2210) 258 MG/DL TRIGLYCERIDES (test code = 2232) 341 MG/DL HDL CHOLESTEROL (test code = 2220) 44 MG/DL CALC LDL CHOL (test code = 2237) 162 MG/DL RISK RATIO LDL/HDL (test cod e = 2238) 3.68 RATIO [place] PersonCOMPREHENSIVE METABOLIC [id number] 00:00:00* Test Item Value Reference Range Interpretation Comme nts GLUCOSE (test code = 2217) 123 MG/DL BUN (test code = 2208) 19 MG/DL CREATININE (test code = 2214) 0.83 MG/DL eGFR (2020 CKD-EPI) (test co de = 52734) 85 ML/MIN/1.73 CALC BUN/CREAT (test code = 2235) 23 RATIO SODIUM (test code = 2231) 141 MEQ/L POTASSIUM (test code = 2228) 4.6 MEQ/L CHLORIDE (test code = 2215) 100 MEQ/L CARBON DIOXIDE (test code = 2206) 26 MEQ/L CALCIUM (test code = 2209) 10.4 MG/DL PROTEIN, TOTAL (test code = 2229) 7.5 G/DL ALBUMIN (test code = 2201) 4.8 G/DL CALC GLOBULIN (test code = 2240) 2.7 G/DL CALC A/G RATIO (test code = 2234) 1.8 RATIO BILIRUBIN, TOTAL (test code = 2207) 0.4 MG/DL ALKALINE PHOSPHATASE (test code = 2204) 68 U/L AST (test code = 2218) 60 U/L ALT (test code = 2219) 88 U/L [place] PersonCBC W/AUTO [id number] 00:00:00* Test Item Value Reference Range Interpretation Comme nts WBC (test code = 1001) 7.3 K/UL RBC (test code = 1002) 4.62 M/UL HEMOGLOBIN (test code = 1003) 12.3 G/DL HEMATOCRIT (test code = 1004) 36.5 % MCV (test code = 1005) 79.0 fL MCH (test code = 1006) 26.6 PG MCHC (test code = 1007) 33.7 G/DL RDW (test code = 1038) 13.1 % NEUTROPHILS (test code = 1008) 53.1 % LYMPHOCYTES (test code = 1010) 35.9 % MONOCYTES (test code = 1011) 8.2 % EOSINOPHILS (test code = 1012) 1.4 % BASOPHILS (test code = 1013) 1.1 % IMMATURE GRANULOCYTES (test code = 1036) 0.3 % NUCLEATED RBCS (test code = 1065) 0.0 /100WBC'S PLATELET COUNT (test code = 1015) 323 K/UL ABSOLUTE NEUTROPHILS (test c ode = 1066) 3.87 K/UL ABSOLUTE LYMPHOCYTES (test c ode = 1067) 2.62 K/UL ABSOLUTE MONOCYTES (test cod e = 1068) 0.60 K/UL ABSOLUTE EOSINOPHILS (test c ode = 1040) 0.10 K/UL ABSOLUTE BASOPHILS (test cod e = 1069) 0.08 K/UL ABS IMMATURE GRANULOCYTES (t est code = 1020) 0.02 K/UL ABS NUCLEATED RBCS (test cod e = 91053) 0.00 K/UL [place] [id number] 00:00:00* Test Item Value Reference Range Interpretation Comme nts TSH, THIRD GENERATION (test code = 2821) 1.440 UIU/ML [place] PersonHEMOGLOBIN [id number] 00:00:00* Test Item Value Reference Range Interpretation Comme nts HEMOGLOBIN A1c (test code = 34328) 6.5 % [place] PersonLIPID [id number] 00:00:00* Test Item Value Reference Range Interpretation Comme nts CHOLESTEROL (test code = 2210) 258 MG/DL TRIGLYCERIDES (test code = 2232) 341 MG/DL HDL CHOLESTEROL (test code = 2220) 44 MG/DL CALC LDL CHOL (test code = 2237) 162 MG/DL RISK RATIO LDL/HDL (test cod e = 2238) 3.68 RATIO [place] PersonCOMPREHENSIVE METABOLIC [id number] 00:00:00* Test Item Value Reference Range Interpretation Comme nts GLUCOSE (test code = 2217) 123 MG/DL BUN (test code = 2208) 19 MG/DL CREATININE (test code = 2214) 0.83 MG/DL eGFR (2020 CKD-EPI) (test co de = 85216) 85 ML/MIN/1.73 CALC BUN/CREAT (test code = 2235) 23 RATIO SODIUM (test code = 2231) 141 MEQ/L POTASSIUM (test code = 2228) 4.6 MEQ/L CHLORIDE (test code = 2215) 100 MEQ/L CARBON DIOXIDE (test code = 2206) 26 MEQ/L CALCIUM (test code = 2209) 10.4 MG/DL PROTEIN, TOTAL (test code = 2229) 7.5 G/DL ALBUMIN (test code = 2201) 4.8 G/DL CALC GLOBULIN (test code = 2240) 2.7 G/DL CALC A/G RATIO (test code = 2234) 1.8 RATIO BILIRUBIN, TOTAL (test code = 2207) 0.4 MG/DL ALKALINE PHOSPHATASE (test code = 2204) 68 U/L AST (test code = 2218) 60 U/L ALT (test code = 2219) 88 U/L Fr[place] Guardado [facility] W/AUTO [id number] 00:00:00* Test Item Value Reference Range Interpretation Comme nts WBC (test code = 1001) 7.3 K/UL RBC (test code = 1002) 4.62 M/UL HEMOGLOBIN (test code = 1003) 12.3 G/DL HEMATOCRIT (test code = 1004) 36.5 % MCV (test code = 1005) 79.0 fL MCH (test code = 1006) 26.6 PG MCHC (test code = 1007) 33.7 G/DL RDW (test code = 1038) 13.1 % NEUTROPHILS (test code = 1008) 53.1 % LYMPHOCYTES (test code = 1010) 35.9 % MONOCYTES (test code = 1011) 8.2 % EOSINOPHILS (test code = 1012) 1.4 % BASOPHILS (test code = 1013) 1.1 % IMMATURE GRANULOCYTES (test code = 1036) 0.3 % NUCLEATED RBCS (test code = 1065) 0.0 /100WBC'S PLATELET COUNT (test code = 1015) 323 K/UL ABSOLUTE NEUTROPHILS (test c ode = 1066) 3.87 K/UL ABSOLUTE LYMPHOCYTES (test c ode = 1067) 2.62 K/UL ABSOLUTE MONOCYTES (test cod e = 1068) 0.60 K/UL ABSOLUTE EOSINOPHILS (test c ode = 1040) 0.10 K/UL ABSOLUTE BASOPHILS (test cod e = 1069) 0.08 K/UL ABS IMMATURE GRANULOCYTES (t est code = 1020) 0.02 K/UL ABS NUCLEATED RBCS (test cod e = 86768) 0.00 K/UL [place] [id number] 00:00:00* Test Item Value Reference Range Interpretation Comme nts TSH, THIRD GENERATION (test code = 2821) 1.440 UIU/ML [place] PersonHEMOGLOBIN [id number] 00:00:00* Test Item Value Reference Range Interpretation Comme nts HEMOGLOBIN A1c (test code = 05385) 6.5 % [place] PersonLIPID [id number] 00:00:00* Test Item Value Reference Range Interpretation Comme nts CHOLESTEROL (test code = 2210) 258 MG/DL TRIGLYCERIDES (test code = 2232) 341 MG/DL HDL CHOLESTEROL (test code = 2220) 44 MG/DL CALC LDL CHOL (test code = 2237) 162 MG/DL RISK RATIO LDL/HDL (test cod e = 2238) 3.68 RATIO [place] PersonCOMPREHENSIVE METABOLIC [id number] 00:00:00* Test Item Value Reference Range Interpretation Comme nts GLUCOSE (test code = 2217) 123 MG/DL BUN (test code = 2208) 19 MG/DL CREATININE (test code = 2214) 0.83 MG/DL eGFR (2020 CKD-EPI) (test co de = 35314) 85 ML/MIN/1.73 CALC BUN/CREAT (test code = 2235) 23 RATIO SODIUM (test code = 2231) 141 MEQ/L POTASSIUM (test code = 2228) 4.6 MEQ/L CHLORIDE (test code = 2215) 100 MEQ/L CARBON DIOXIDE (test code = 2206) 26 MEQ/L CALCIUM (test code = 2209) 10.4 MG/DL PROTEIN, TOTAL (test code = 2229) 7.5 G/DL ALBUMIN (test code = 2201) 4.8 G/DL CALC GLOBULIN (test code = 2240) 2.7 G/DL CALC A/G RATIO (test code = 2234) 1.8 RATIO BILIRUBIN, TOTAL (test code = 2207) 0.4 MG/DL ALKALINE PHOSPHATASE (test code = 2204) 68 U/L AST (test code = 2218) 60 U/L ALT (test code = 2219) 88 U/L [place] PersonCBC W/AUTO [id number] 00:00:00* Test Item Value Reference Range Interpretation Comme nts WBC (test code = 1001) 7.3 K/UL RBC (test code = 1002) 4.62 M/UL HEMOGLOBIN (test code = 1003) 12.3 G/DL HEMATOCRIT (test code = 1004) 36.5 % MCV (test code = 1005) 79.0 fL MCH (test code = 1006) 26.6 PG MCHC (test code = 1007) 33.7 G/DL RDW (test code = 1038) 13.1 % NEUTROPHILS (test code = 1008) 53.1 % LYMPHOCYTES (test code = 1010) 35.9 % MONOCYTES (test code = 1011) 8.2 % EOSINOPHILS (test code = 1012) 1.4 % BASOPHILS (test code = 1013) 1.1 % IMMATURE GRANULOCYTES (test code = 1036) 0.3 % NUCLEATED RBCS (test code = 1065) 0.0 /100WBC'S PLATELET COUNT (test code = 1015) 323 K/UL ABSOLUTE NEUTROPHILS (test c ode = 1066) 3.87 K/UL ABSOLUTE LYMPHOCYTES (test c ode = 1067) 2.62 K/UL ABSOLUTE MONOCYTES (test cod e = 1068) 0.60 K/UL ABSOLUTE EOSINOPHILS (test c ode = 1040) 0.10 K/UL ABSOLUTE BASOPHILS (test cod e = 1069) 0.08 K/UL ABS IMMATURE GRANULOCYTES (t est code = 1020) 0.02 K/UL ABS NUCLEATED RBCS (test cod e = 57196) 0.00 K/UL [place] [id number] 00:00:00* Test Item Value Reference Range Interpretation Comme nts TSH, THIRD GENERATION (test code = 2821) 1.440 UIU/ML [place] PersonHEMOGLOBIN [id number] 00:00:00* Test Item Value Reference Range Interpretation Comme nts HEMOGLOBIN A1c (test code = 31657) 6.5 % [place] PersonLIPID [id number] 00:00:00* Test Item Value Reference Range Interpretation Comme nts CHOLESTEROL (test code = 2210) 258 MG/DL TRIGLYCERIDES (test code = 2232) 341 MG/DL HDL CHOLESTEROL (test code = 2220) 44 MG/DL CALC LDL CHOL (test code = 2237) 162 MG/DL RISK RATIO LDL/HDL (test cod e = 2238) 3.68 RATIO [place] PersonCOMPREHENSIVE METABOLIC [id number] 00:00:00* Test Item Value Reference Range Interpretation Comme nts GLUCOSE (test code = 2217) 123 MG/DL BUN (test code = 2208) 19 MG/DL CREATININE (test code = 2214) 0.83 MG/DL eGFR (2020 CKD-EPI) (test co de = 95963) 85 ML/MIN/1.73 CALC BUN/CREAT (test code = 2235) 23 RATIO SODIUM (test code = 2231) 141 MEQ/L POTASSIUM (test code = 2228) 4.6 MEQ/L CHLORIDE (test code = 2215) 100 MEQ/L CARBON DIOXIDE (test code = 2206) 26 MEQ/L CALCIUM (test code = 2209) 10.4 MG/DL PROTEIN, TOTAL (test code = 2229) 7.5 G/DL ALBUMIN (test code = 2201) 4.8 G/DL CALC GLOBULIN (test code = 2240) 2.7 G/DL CALC A/G RATIO (test code = 2234) 1.8 RATIO BILIRUBIN, TOTAL (test code = 2207) 0.4 MG/DL ALKALINE PHOSPHATASE (test code = 2204) 68 U/L AST (test code = 2218) 60 U/L ALT (test code = 2219) 88 U/L [place] PersonCBC W/AUTO [id number] 00:00:00* Test Item Value Reference Range Interpretation Comme nts WBC (test code = 1001) 7.3 K/UL RBC (test code = 1002) 4.62 M/UL HEMOGLOBIN (test code = 1003) 12.3 G/DL HEMATOCRIT (test code = 1004) 36.5 % MCV (test code = 1005) 79.0 fL MCH (test code = 1006) 26.6 PG MCHC (test code = 1007) 33.7 G/DL RDW (test code = 1038) 13.1 % NEUTROPHILS (test code = 1008) 53.1 % LYMPHOCYTES (test code = 1010) 35.9 % MONOCYTES (test code = 1011) 8.2 % EOSINOPHILS (test code = 1012) 1.4 % BASOPHILS (test code = 1013) 1.1 % IMMATURE GRANULOCYTES (test code = 1036) 0.3 % NUCLEATED RBCS (test code = 1065) 0.0 /100WBC'S PLATELET COUNT (test code = 1015) 323 K/UL ABSOLUTE NEUTROPHILS (test c ode = 1066) 3.87 K/UL ABSOLUTE LYMPHOCYTES (test c ode = 1067) 2.62 K/UL ABSOLUTE MONOCYTES (test cod e = 1068) 0.60 K/UL ABSOLUTE EOSINOPHILS (test c ode = 1040) 0.10 K/UL ABSOLUTE BASOPHILS (test cod e = 1069) 0.08 K/UL ABS IMMATURE GRANULOCYTES (t est code = 1020) 0.02 K/UL ABS NUCLEATED RBCS (test cod e = 48677) 0.00 K/UL [place] [id number] 00:00:00* Test Item Value Reference Range Interpretation Comme nts TSH, THIRD GENERATION (test code = 2821) 1.440 UIU/ML [place] PersonHEMOGLOBIN [id number] 00:00:00* Test Item Value Reference Range Interpretation Comme nts HEMOGLOBIN A1c (test code = 60017) 6.5 % [place] PersonLIPID [id number] 00:00:00* Test Item Value Reference Range Interpretation Comme nts CHOLESTEROL (test code = 2210) 258 MG/DL TRIGLYCERIDES (test code = 2232) 341 MG/DL HDL CHOLESTEROL (test code = 2220) 44 MG/DL CALC LDL CHOL (test code = 2237) 162 MG/DL RISK RATIO LDL/HDL (test cod e = 2238) 3.68 RATIO [place] PersonCOMPREHENSIVE METABOLIC [id number] 00:00:00* Test Item Value Reference Range Interpretation Comme nts GLUCOSE (test code = 2217) 123 MG/DL BUN (test code = 2208) 19 MG/DL CREATININE (test code = 2214) 0.83 MG/DL eGFR (2020 CKD-EPI) (test co de = 01269) 85 ML/MIN/1.73 CALC BUN/CREAT (test code = 2235) 23 RATIO SODIUM (test code = 2231) 141 MEQ/L POTASSIUM (test code = 2228) 4.6 MEQ/L CHLORIDE (test code = 2215) 100 MEQ/L CARBON DIOXIDE (test code = 2206) 26 MEQ/L CALCIUM (test code = 2209) 10.4 MG/DL PROTEIN, TOTAL (test code = 2229) 7.5 G/DL ALBUMIN (test code = 2201) 4.8 G/DL CALC GLOBULIN (test code = 2240) 2.7 G/DL CALC A/G RATIO (test code = 2234) 1.8 RATIO BILIRUBIN, TOTAL (test code = 2207) 0.4 MG/DL ALKALINE PHOSPHATASE (test code = 2204) 68 U/L AST (test code = 2218) 60 U/L ALT (test code = 2219) 88 U/L Fracisco Guardado [facility] W/AUTO [id number] 00:00:00* Test Item Value Reference Range Interpretation Comme nts WBC (test code = 1001) 7.3 K/UL RBC (test code = 1002) 4.62 M/UL HEMOGLOBIN (test code = 1003) 12.3 G/DL HEMATOCRIT (test code = 1004) 36.5 % MCV (test code = 1005) 79.0 fL MCH (test code = 1006) 26.6 PG MCHC (test code = 1007) 33.7 G/DL RDW (test code = 1038) 13.1 % NEUTROPHILS (test code = 1008) 53.1 % LYMPHOCYTES (test code = 1010) 35.9 % MONOCYTES (test code = 1011) 8.2 % EOSINOPHILS (test code = 1012) 1.4 % BASOPHILS (test code = 1013) 1.1 % IMMATURE GRANULOCYTES (test code = 1036) 0.3 % NUCLEATED RBCS (test code = 1065) 0.0 /100WBC'S PLATELET COUNT (test code = 1015) 323 K/UL ABSOLUTE NEUTROPHILS (test c ode = 1066) 3.87 K/UL ABSOLUTE LYMPHOCYTES (test c ode = 1067) 2.62 K/UL ABSOLUTE MONOCYTES (test cod e = 1068) 0.60 K/UL ABSOLUTE EOSINOPHILS (test c ode = 1040) 0.10 K/UL ABSOLUTE BASOPHILS (test cod e = 1069) 0.08 K/UL ABS IMMATURE GRANULOCYTES (t est code = 1020) 0.02 K/UL ABS NUCLEATED RBCS (test cod e = 18758) 0.00 K/UL [place] [id number] 00:00:00* Test Item Value Reference Range Interpretation Comme nts TSH, THIRD GENERATION (test code = 2821) 1.440 UIU/ML [place] PersonHEMOGLOBIN [id number] 00:00:00* Test Item Value Reference Range Interpretation Comme nts HEMOGLOBIN A1c (test code = 84638) 6.5 % [place] PersonLIPID [id number] 00:00:00* Test Item Value Reference Range Interpretation Comme nts CHOLESTEROL (test code = 2210) 258 MG/DL TRIGLYCERIDES (test code = 2232) 341 MG/DL HDL CHOLESTEROL (test code = 2220) 44 MG/DL CALC LDL CHOL (test code = 2237) 162 MG/DL RISK RATIO LDL/HDL (test cod e = 2238) 3.68 RATIO [place] PersonCOMPREHENSIVE METABOLIC [id number] 00:00:00* Test Item Value Reference Range Interpretation Comme nts GLUCOSE (test code = 2217) 123 MG/DL BUN (test code = 2208) 19 MG/DL CREATININE (test code = 2214) 0.83 MG/DL eGFR (2020 CKD-EPI) (test co de = 42578) 85 ML/MIN/1.73 CALC BUN/CREAT (test code = 2235) 23 RATIO SODIUM (test code = 2231) 141 MEQ/L POTASSIUM (test code = 2228) 4.6 MEQ/L CHLORIDE (test code = 2215) 100 MEQ/L CARBON DIOXIDE (test code = 2206) 26 MEQ/L CALCIUM (test code = 2209) 10.4 MG/DL PROTEIN, TOTAL (test code = 2229) 7.5 G/DL ALBUMIN (test code = 2201) 4.8 G/DL CALC GLOBULIN (test code = 2240) 2.7 G/DL CALC A/G RATIO (test code = 2234) 1.8 RATIO BILIRUBIN, TOTAL (test code = 2207) 0.4 MG/DL ALKALINE PHOSPHATASE (test code = 2204) 68 U/L AST (test code = 2218) 60 U/L ALT (test code = 2219) 88 U/L [place] PersonCBC W/AUTO [id number] 00:00:00* Test Item Value Reference Range Interpretation Comme nts WBC (test code = 1001) 7.3 K/UL RBC (test code = 1002) 4.62 M/UL HEMOGLOBIN (test code = 1003) 12.3 G/DL HEMATOCRIT (test code = 1004) 36.5 % MCV (test code = 1005) 79.0 fL MCH (test code = 1006) 26.6 PG MCHC (test code = 1007) 33.7 G/DL RDW (test code = 1038) 13.1 % NEUTROPHILS (test code = 1008) 53.1 % LYMPHOCYTES (test code = 1010) 35.9 % MONOCYTES (test code = 1011) 8.2 % EOSINOPHILS (test code = 1012) 1.4 % BASOPHILS (test code = 1013) 1.1 % IMMATURE GRANULOCYTES (test code = 1036) 0.3 % NUCLEATED RBCS (test code = 1065) 0.0 /100WBC'S PLATELET COUNT (test code = 1015) 323 K/UL ABSOLUTE NEUTROPHILS (test c ode = 1066) 3.87 K/UL ABSOLUTE LYMPHOCYTES (test c ode = 1067) 2.62 K/UL ABSOLUTE MONOCYTES (test cod e = 1068) 0.60 K/UL ABSOLUTE EOSINOPHILS (test c ode = 1040) 0.10 K/UL ABSOLUTE BASOPHILS (test cod e = 1069) 0.08 K/UL ABS IMMATURE GRANULOCYTES (t est code = 1020) 0.02 K/UL ABS NUCLEATED RBCS (test cod e = 47943) 0.00 K/UL [place] [id number] 00:00:00* Test Item Value Reference Range Interpretation Comme nts TSH, THIRD GENERATION (test code = 2821) 1.440 UIU/ML [place] PersonHEMOGLOBIN [id number] 00:00:00* Test Item Value Reference Range Interpretation Comme nts HEMOGLOBIN A1c (test code = 98392) 6.5 % [place] PersonLIPID [id number] 00:00:00* Test Item Value Reference Range Interpretation Comme nts CHOLESTEROL (test code = 2210) 258 MG/DL TRIGLYCERIDES (test code = 2232) 341 MG/DL HDL CHOLESTEROL (test code = 2220) 44 MG/DL CALC LDL CHOL (test code = 2237) 162 MG/DL RISK RATIO LDL/HDL (test cod e = 2238) 3.68 RATIO [place] PersonCOMPREHENSIVE METABOLIC [id number] 00:00:00* Test Item Value Reference Range Interpretation Comme nts GLUCOSE (test code = 2217) 123 MG/DL BUN (test code = 2208) 19 MG/DL CREATININE (test code = 2214) 0.83 MG/DL eGFR (2020 CKD-EPI) (test co de = 66582) 85 ML/MIN/1.73 CALC BUN/CREAT (test code = 2235) 23 RATIO SODIUM (test code = 2231) 141 MEQ/L POTASSIUM (test code = 2228) 4.6 MEQ/L CHLORIDE (test code = 2215) 100 MEQ/L CARBON DIOXIDE (test code = 2206) 26 MEQ/L CALCIUM (test code = 2209) 10.4 MG/DL PROTEIN, TOTAL (test code = 2229) 7.5 G/DL ALBUMIN (test code = 2201) 4.8 G/DL CALC GLOBULIN (test code = 2240) 2.7 G/DL CALC A/G RATIO (test code = 2234) 1.8 RATIO BILIRUBIN, TOTAL (test code = 2207) 0.4 MG/DL ALKALINE PHOSPHATASE (test code = 2204) 68 U/L AST (test code = 2218) 60 U/L ALT (test code = 2219) 88 U/L [place] PersonCBC W/AUTO [id number] 00:00:00* Test Item Value Reference Range Interpretation Comme nts WBC (test code = 1001) 7.3 K/UL RBC (test code = 1002) 4.62 M/UL HEMOGLOBIN (test code = 1003) 12.3 G/DL HEMATOCRIT (test code = 1004) 36.5 % MCV (test code = 1005) 79.0 fL MCH (test code = 1006) 26.6 PG MCHC (test code = 1007) 33.7 G/DL RDW (test code = 1038) 13.1 % NEUTROPHILS (test code = 1008) 53.1 % LYMPHOCYTES (test code = 1010) 35.9 % MONOCYTES (test code = 1011) 8.2 % EOSINOPHILS (test code = 1012) 1.4 % BASOPHILS (test code = 1013) 1.1 % IMMATURE GRANULOCYTES (test code = 1036) 0.3 % NUCLEATED RBCS (test code = 1065) 0.0 /100WBC'S PLATELET COUNT (test code = 1015) 323 K/UL ABSOLUTE NEUTROPHILS (test c ode = 1066) 3.87 K/UL ABSOLUTE LYMPHOCYTES (test c ode = 1067) 2.62 K/UL ABSOLUTE MONOCYTES (test cod e = 1068) 0.60 K/UL ABSOLUTE EOSINOPHILS (test c ode = 1040) 0.10 K/UL ABSOLUTE BASOPHILS (test cod e = 1069) 0.08 K/UL ABS IMMATURE GRANULOCYTES (t est code = 1020) 0.02 K/UL ABS NUCLEATED RBCS (test cod e = 79323) 0.00 K/UL [place] [id number] 00:00:00* Test Item Value Reference Range Interpretation Comme nts TSH, THIRD GENERATION (test code = 2821) 1.440 UIU/ML [place] PersonHEMOGLOBIN [id number] 00:00:00* Test Item Value Reference Range Interpretation Comme nts HEMOGLOBIN A1c (test code = 55134) 6.5 % [place] PersonHEMOGLOBIN [id number] 00:00:00* Test Item Value Reference Range Interpretation Comme nts HEMOGLOBIN A1c (test code = 12620) 6.5 % [place] Guardado [place]IP[place] [id number] 00:00:00* Test Item Value Reference Range Interpretation Comme nts CHOLESTEROL (test code = 2210) 258 MG/DL TRIGLYCERIDES (test code = 2232) 341 MG/DL HDL CHOLESTEROL (test code = 2220) 44 MG/DL CALC LDL CHOL (test code = 2237) 162 MG/DL RISK RATIO LDL/HDL (test cod e = 2238) 3.68 RATIO [place] PersonCOMPREHENSIVE METABOLIC [id number] 00:00:00* Test Item Value Reference Range Interpretation Comme nts GLUCOSE (test code = 2217) 123 MG/DL BUN (test code = 2208) 19 MG/DL CREATININE (test code = 2214) 0.83 MG/DL eGFR (2020 CKD-EPI) (test co de = 84178) 85 ML/MIN/1.73 CALC BUN/CREAT (test code = 2235) 23 RATIO SODIUM (test code = 2231) 141 MEQ/L POTASSIUM (test code = 2228) 4.6 MEQ/L CHLORIDE (test code = 2215) 100 MEQ/L CARBON DIOXIDE (test code = 2206) 26 MEQ/L CALCIUM (test code = 2209) 10.4 MG/DL PROTEIN, TOTAL (test code = 2229) 7.5 G/DL ALBUMIN (test code = 2201) 4.8 G/DL CALC GLOBULIN (test code = 2240) 2.7 G/DL CALC A/G RATIO (test code = 2234) 1.8 RATIO BILIRUBIN, TOTAL (test code = 2207) 0.4 MG/DL ALKALINE PHOSPHATASE (test code = 2204) 68 U/L AST (test code = 2218) 60 U/L ALT (test code = 2219) 88 U/L Fracisco Guardado [facility] W/AUTO [id number] 00:00:00* Test Item Value Reference Range Interpretation Comme nts WBC (test code = 1001) 7.3 K/UL RBC (test code = 1002) 4.62 M/UL HEMOGLOBIN (test code = 1003) 12.3 G/DL HEMATOCRIT (test code = 1004) 36.5 % MCV (test code = 1005) 79.0 fL MCH (test code = 1006) 26.6 PG MCHC (test code = 1007) 33.7 G/DL RDW (test code = 1038) 13.1 % NEUTROPHILS (test code = 1008) 53.1 % LYMPHOCYTES (test code = 1010) 35.9 % MONOCYTES (test code = 1011) 8.2 % EOSINOPHILS (test code = 1012) 1.4 % BASOPHILS (test code = 1013) 1.1 % IMMATURE GRANULOCYTES (test code = 1036) 0.3 % NUCLEATED RBCS (test code = 1065) 0.0 /100WBC'S PLATELET COUNT (test code = 1015) 323 K/UL ABSOLUTE NEUTROPHILS (test c ode = 1066) 3.87 K/UL ABSOLUTE LYMPHOCYTES (test c ode = 1067) 2.62 K/UL ABSOLUTE MONOCYTES (test cod e = 1068) 0.60 K/UL ABSOLUTE EOSINOPHILS (test c ode = 1040) 0.10 K/UL ABSOLUTE BASOPHILS (test cod e = 1069) 0.08 K/UL ABS IMMATURE GRANULOCYTES (t est code = 1020) 0.02 K/UL ABS NUCLEATED RBCS (test cod e = 52448) 0.00 K/UL [place] [id number] 00:00:00* Test Item Value Reference Range Interpretation Comme nts TSH, THIRD GENERATION (test code = 2821) 1.440 UIU/ML [place] PersonHEMOGLOBIN [id number] 00:00:00* Test Item Value Reference Range Interpretation Comme nts HEMOGLOBIN A1c (test code = 51308) 6.5 % [place] PersonLIPID [id number] 00:00:00* Test Item Value Reference Range Interpretation Comme nts CHOLESTEROL (test code = 2210) 258 MG/DL TRIGLYCERIDES (test code = 2232) 341 MG/DL HDL CHOLESTEROL (test code = 2220) 44 MG/DL CALC LDL CHOL (test code = 2237) 162 MG/DL RISK RATIO LDL/HDL (test cod e = 2238) 3.68 RATIO [place] PersonLIPID [id number] 00:00:00* Test Item Value Reference Range Interpretation Comme nts CHOLESTEROL (test code = 2210) 258 MG/DL TRIGLYCERIDES (test code = 2232) 341 MG/DL HDL CHOLESTEROL (test code = 2220) 44 MG/DL CALC LDL CHOL (test code = 2237) 162 MG/DL RISK RATIO LDL/HDL (test cod e = 2238) 3.68 RATIO Fracisco PersnoCOMPREHENSIVE METABOLIC [id number] 00:00:00* Test Item Value Reference Range Interpretation Comme nts GLUCOSE (test code = 2217) 123 MG/DL BUN (test code = 2208) 19 MG/DL CREATININE (test code = 2214) 0.83 MG/DL eGFR (2020 CKD-EPI) (test co de = 07115) 85 ML/MIN/1.73 CALC BUN/CREAT (test code = 2235) 23 RATIO SODIUM (test code = 2231) 141 MEQ/L POTASSIUM (test code = 2228) 4.6 MEQ/L CHLORIDE (test code = 2215) 100 MEQ/L CARBON DIOXIDE (test code = 2206) 26 MEQ/L CALCIUM (test code = 2209) 10.4 MG/DL PROTEIN, TOTAL (test code = 2229) 7.5 G/DL ALBUMIN (test code = 2201) 4.8 G/DL CALC GLOBULIN (test code = 2240) 2.7 G/DL CALC A/G RATIO (test code = 2234) 1.8 RATIO BILIRUBIN, TOTAL (test code = 2207) 0.4 MG/DL ALKALINE PHOSPHATASE (test code = 2204) 68 U/L AST (test code = 2218) 60 U/L ALT (test code = 2219) 88 U/L [facility] [id number] 00:00:00* Test Item Value Reference Range Interpretation Comme nts WBC (test code = 1001) 7.3 K/UL RBC (test code = 1002) 4.62 M/UL HEMOGLOBIN (test code = 1003) 12.3 G/DL HEMATOCRIT (test code = 1004) 36.5 % MCV (test code = 1005) 79.0 fL MCH (test code = 1006) 26.6 PG MCHC (test code = 1007) 33.7 G/DL RDW (test code = 1038) 13.1 % NEUTROPHILS (test code = 1008) 53.1 % LYMPHOCYTES (test code = 1010) 35.9 % MONOCYTES (test code = 1011) 8.2 % EOSINOPHILS (test code = 1012) 1.4 % BASOPHILS (test code = 1013) 1.1 % IMMATURE GRANULOCYTES (test code = 1036) 0.3 % NUCLEATED RBCS (test code = 1065) 0.0 /100WBC'S PLATELET COUNT (test code = 1015) 323 K/UL ABSOLUTE NEUTROPHILS (test c ode = 1066) 3.87 K/UL ABSOLUTE LYMPHOCYTES (test c ode = 1067) 2.62 K/UL ABSOLUTE MONOCYTES (test cod e = 1068) 0.60 K/UL ABSOLUTE EOSINOPHILS (test c ode = 1040) 0.10 K/UL ABSOLUTE BASOPHILS (test cod e = 1069) 0.08 K/UL ABS IMMATURE GRANULOCYTES (t est code = 1020) 0.02 K/UL ABS NUCLEATED RBCS (test cod e = 50694) 0.00 K/UL [place] [id number] 00:00:00* Test Item Value Reference Range Interpretation Comme nts TSH, THIRD GENERATION (test code = 2821) 1.440 UIU/ML [place] Guardado [place] [id number] 00:00:00* Test Item Value Reference Range Interpretation Comme nts HEMOGLOBIN A1c (test code = 68499) 6.5 % LIPID [id number] 00:00:00* Test Item Value Reference Range Interpretation Comme nts CHOLESTEROL (test code = 2210) 258 MG/DL TRIGLYCERIDES (test code = 2232) 341 MG/DL HDL CHOLESTEROL (test code = 2220) 44 MG/DL CALC LDL CHOL (test code = 2237) 162 MG/DL RISK RATIO LDL/HDL (test cod e = 2238) 3.68 RATIO COMPREHENSIVE METABOLIC [id number] 00:00:00* Test Item Value Reference Range Interpretation Comme nts GLUCOSE (test code = 2217) 123 MG/DL BUN (test code = 2208) 19 MG/DL CREATININE (test code = 2214) 0.83 MG/DL eGFR (2020 CKD-EPI) (test co de = 70870) 85 ML/MIN/1.73 CALC BUN/CREAT (test code = 2235) 23 RATIO SODIUM (test code = 2231) 141 MEQ/L POTASSIUM (test code = 2228) 4.6 MEQ/L CHLORIDE (test code = 2215) 100 MEQ/L CARBON DIOXIDE (test code = 2206) 26 MEQ/L CALCIUM (test code = 2209) 10.4 MG/DL PROTEIN, TOTAL (test code = 2229) 7.5 G/DL ALBUMIN (test code = 2201) 4.8 G/DL CALC GLOBULIN (test code = 2240) 2.7 G/DL CALC A/G RATIO (test code = 2234) 1.8 RATIO BILIRUBIN, TOTAL (test code = 2207) 0.4 MG/DL ALKALINE PHOSPHATASE (test code = 2204) 68 U/L AST (test code = 2218) 60 U/L ALT (test code = 2219) 88 U/L CBC W/AUTO [id number] 00:00:00* Test Item Value Reference Range Interpretation Comme nts WBC (test code = 1001) 7.3 K/UL RBC (test code = 1002) 4.62 M/UL HEMOGLOBIN (test code = 1003) 12.3 G/DL HEMATOCRIT (test code = 1004) 36.5 % MCV (test code = 1005) 79.0 fL MCH (test code = 1006) 26.6 PG MCHC (test code = 1007) 33.7 G/DL RDW (test code = 1038) 13.1 % NEUTROPHILS (test code = 1008) 53.1 % LYMPHOCYTES (test code = 1010) 35.9 % MONOCYTES (test code = 1011) 8.2 % EOSINOPHILS (test code = 1012) 1.4 % BASOPHILS (test code = 1013) 1.1 % IMMATURE GRANULOCYTES (test code = 1036) 0.3 % NUCLEATED RBCS (test code = 1065) 0.0 /100WBC'S PLATELET COUNT (test code = 1015) 323 K/UL ABSOLUTE NEUTROPHILS (test c ode = 1066) 3.87 K/UL ABSOLUTE LYMPHOCYTES (test c ode = 1067) 2.62 K/UL ABSOLUTE MONOCYTES (test cod e = 1068) 0.60 K/UL ABSOLUTE EOSINOPHILS (test c ode = 1040) 0.10 K/UL ABSOLUTE BASOPHILS (test cod e = 1069) 0.08 K/UL ABS IMMATURE GRANULOCYTES (t est code = 1020) 0.02 K/UL ABS NUCLEATED RBCS (test cod e = 26694) 0.00 K/UL [id number] 00:00:00* Test Item Value Reference Range Interpretation Comme [facility] TSH, THIRD GENERATION (test code = 2821) 1.440 UIU/ML HEMOGLOBIN [id number] 00:00:00* Test Item Value Reference Range Interpretation Comme nts HEMOGLOBIN A1c (test code = 36055) 6.5 % LIPID [id number] 00:00:00* Test Item Value Reference Range Interpretation Comme nts CHOLESTEROL (test code = 2210) 258 MG/DL TRIGLYCERIDES (test code = 2232) 341 MG/DL HDL CHOLESTEROL (test code = 2220) 44 MG/DL CALC LDL CHOL (test code = 2237) 162 MG/DL RISK RATIO LDL/HDL (test cod e = 2238) 3.68 RATIO COMPREHENSIVE METABOLIC [id number] 00:00:00* Test Item Value Reference Range Interpretation Comme nts GLUCOSE (test code = 2217) 123 MG/DL BUN (test code = 2208) 19 MG/DL CREATININE (test code = 2214) 0.83 MG/DL eGFR (2020 CKD-EPI) (test co de = 29860) 85 ML/MIN/1.73 CALC BUN/CREAT (test code = 2235) 23 RATIO SODIUM (test code = 2231) 141 MEQ/L POTASSIUM (test code = 2228) 4.6 MEQ/L CHLORIDE (test code = 2215) 100 MEQ/L CARBON DIOXIDE (test code = 2206) 26 MEQ/L CALCIUM (test code = 2209) 10.4 MG/DL PROTEIN, TOTAL (test code = 2229) 7.5 G/DL ALBUMIN (test code = 2201) 4.8 G/DL CALC GLOBULIN (test code = 2240) 2.7 G/DL CALC A/G RATIO (test code = 2234) 1.8 RATIO BILIRUBIN, TOTAL (test code = 2207) 0.4 MG/DL ALKALINE PHOSPHATASE (test code = 2204) 68 U/L AST (test code = 2218) 60 U/L ALT (test code = 2219) 88 U/L CBC W/AUTO [id number] 00:00:00* Test Item Value Reference Range Interpretation Comme nts WBC (test code = 1001) 7.3 K/UL RBC (test code = 1002) 4.62 M/UL HEMOGLOBIN (test code = 1003) 12.3 G/DL HEMATOCRIT (test code = 1004) 36.5 % MCV (test code = 1005) 79.0 fL MCH (test code = 1006) 26.6 PG MCHC (test code = 1007) 33.7 G/DL RDW (test code = 1038) 13.1 % NEUTROPHILS (test code = 1008) 53.1 % LYMPHOCYTES (test code = 1010) 35.9 % MONOCYTES (test code = 1011) 8.2 % EOSINOPHILS (test code = 1012) 1.4 % BASOPHILS (test code = 1013) 1.1 % IMMATURE GRANULOCYTES (test code = 1036) 0.3 % NUCLEATED RBCS (test code = 1065) 0.0 /100WBC'S PLATELET COUNT (test code = 1015) 323 K/UL ABSOLUTE NEUTROPHILS (test c ode = 1066) 3.87 K/UL ABSOLUTE LYMPHOCYTES (test c ode = 1067) 2.62 K/UL ABSOLUTE MONOCYTES (test cod e = 1068) 0.60 K/UL ABSOLUTE EOSINOPHILS (test c ode = 1040) 0.10 K/UL ABSOLUTE BASOPHILS (test cod e = 1069) 0.08 K/UL ABS IMMATURE GRANULOCYTES (t est code = 1020) 0.02 K/UL ABS NUCLEATED RBCS (test cod e = 81186) 0.00 K/UL [id number] 00:00:00* Test Item Value Reference Range Interpretation Comme nts TSH, THIRD GENERATION (test code = 2821) 1.440 UIU/ML HEMOGLOBIN [id number] 00:00:00* Test Item Value Reference Range Interpretation Comme nts HEMOGLOBIN A1c (test code = 38298) 6.5 % LIPID [id number] 00:00:00* Test Item Value Reference Range Interpretation Comme nts CHOLESTEROL (test code = 2210) 258 MG/DL TRIGLYCERIDES (test code = 2232) 341 MG/DL HDL CHOLESTEROL (test code = 2220) 44 MG/DL CALC LDL CHOL (test code = 2237) 162 MG/DL RISK RATIO LDL/HDL (test cod e = 2238) 3.68 RATIO COMPREHENSIVE METABOLIC [id number] 00:00:00* Test Item Value Reference Range Interpretation Comme nts GLUCOSE (test code = 2217) 123 MG/DL BUN (test code = 2208) 19 MG/DL CREATININE (test code = 2214) 0.83 MG/DL eGFR (2020 CKD-EPI) (test co de = 92544) 85 ML/MIN/1.73 CALC BUN/CREAT (test code = 2235) 23 RATIO SODIUM (test code = 2231) 141 MEQ/L POTASSIUM (test code = 2228) 4.6 MEQ/L CHLORIDE (test code = 2215) 100 MEQ/L CARBON DIOXIDE (test code = 2206) 26 MEQ/L CALCIUM (test code = 2209) 10.4 MG/DL PROTEIN, TOTAL (test code = 2229) 7.5 G/DL ALBUMIN (test code = 2201) 4.8 G/DL CALC GLOBULIN (test code = 2240) 2.7 G/DL CALC A/G RATIO (test code = 2234) 1.8 RATIO BILIRUBIN, TOTAL (test code = 2207) 0.4 MG/DL ALKALINE PHOSPHATASE (test code = 2204) 68 U/L AST (test code = 2218) 60 U/L ALT (test code = 2219) 88 U/L CBC W/AUTO [id number] 00:00:00* Test Item Value Reference Range Interpretation Comme nts WBC (test code = 1001) 7.3 K/UL RBC (test code = 1002) 4.62 M/UL HEMOGLOBIN (test code = 1003) 12.3 G/DL HEMATOCRIT (test code = 1004) 36.5 % MCV (test code = 1005) 79.0 fL MCH (test code = 1006) 26.6 PG MCHC (test code = 1007) 33.7 G/DL RDW (test code = 1038) 13.1 % NEUTROPHILS (test code = 1008) 53.1 % LYMPHOCYTES (test code = 1010) 35.9 % MONOCYTES (test code = 1011) 8.2 % EOSINOPHILS (test code = 1012) 1.4 % BASOPHILS (test code = 1013) 1.1 % IMMATURE GRANULOCYTES (test code = 1036) 0.3 % NUCLEATED RBCS (test code = 1065) 0.0 /100WBC'S PLATELET COUNT (test code = 1015) 323 K/UL ABSOLUTE NEUTROPHILS (test c ode = 1066) 3.87 K/UL ABSOLUTE LYMPHOCYTES (test c ode = 1067) 2.62 K/UL ABSOLUTE MONOCYTES (test cod e = 1068) 0.60 K/UL ABSOLUTE EOSINOPHILS (test c ode = 1040) 0.10 K/UL ABSOLUTE BASOPHILS (test cod e = 1069) 0.08 K/UL ABS IMMATURE GRANULOCYTES (t est code = 1020) 0.02 K/UL ABS NUCLEATED RBCS (test cod e = 12594) 0.00 K/UL [id number] 00:00:00* Test Item Value Reference Range Interpretation Comme nts TSH, THIRD GENERATION (test code = 2821) 1.440 UIU/ML HEMOGLOBIN [id number] 00:00:00* Test Item Value Reference Range Interpretation Comme nts HEMOGLOBIN A1c (test code = 74597) 6.5 % LIPID [id number] 00:00:00* Test Item Value Reference Range Interpretation Comme nts CHOLESTEROL (test code = 2210) 258 MG/DL TRIGLYCERIDES (test code = 2232) 341 MG/DL HDL CHOLESTEROL (test code = 2220) 44 MG/DL CALC LDL CHOL (test code = 2237) 162 MG/DL RISK RATIO LDL/HDL (test cod e = 2238) 3.68 RATIO COMPREHENSIVE METABOLIC [id number] 00:00:00* Test Item Value Reference Range Interpretation Comme nts GLUCOSE (test code = 2217) 123 MG/DL BUN (test code = 2208) 19 MG/DL CREATININE (test code = 2214) 0.83 MG/DL eGFR (2020 CKD-EPI) (test co de = 62013) 85 ML/MIN/1.73 CALC BUN/CREAT (test code = 2235) 23 RATIO SODIUM (test code = 2231) 141 MEQ/L POTASSIUM (test code = 2228) 4.6 MEQ/L CHLORIDE (test code = 2215) 100 MEQ/L CARBON DIOXIDE (test code = 2206) 26 MEQ/L CALCIUM (test code = 2209) 10.4 MG/DL PROTEIN, TOTAL (test code = 2229) 7.5 G/DL ALBUMIN (test code = 2201) 4.8 G/DL CALC GLOBULIN (test code = 2240) 2.7 G/DL CALC A/G RATIO (test code = 2234) 1.8 RATIO BILIRUBIN, TOTAL (test code = 2207) 0.4 MG/DL ALKALINE PHOSPHATASE (test code = 2204) 68 U/L AST (test code = 2218) 60 U/L ALT (test code = 2219) 88 U/L CBC W/AUTO [id number] 00:00:00* Test Item Value Reference Range Interpretation Comme nts WBC (test code = 1001) 7.3 K/UL RBC (test code = 1002) 4.62 M/UL HEMOGLOBIN (test code = 1003) 12.3 G/DL HEMATOCRIT (test code = 1004) 36.5 % MCV (test code = 1005) 79.0 fL MCH (test code = 1006) 26.6 PG MCHC (test code = 1007) 33.7 G/DL RDW (test code = 1038) 13.1 % NEUTROPHILS (test code = 1008) 53.1 % LYMPHOCYTES (test code = 1010) 35.9 % MONOCYTES (test code = 1011) 8.2 % EOSINOPHILS (test code = 1012) 1.4 % BASOPHILS (test code = 1013) 1.1 % IMMATURE GRANULOCYTES (test code = 1036) 0.3 % NUCLEATED RBCS (test code = 1065) 0.0 /100WBC'S PLATELET COUNT (test code = 1015) 323 K/UL ABSOLUTE NEUTROPHILS (test c ode = 1066) 3.87 K/UL ABSOLUTE LYMPHOCYTES (test c ode = 1067) 2.62 K/UL ABSOLUTE MONOCYTES (test cod e = 1068) 0.60 K/UL ABSOLUTE EOSINOPHILS (test c ode = 1040) 0.10 K/UL ABSOLUTE BASOPHILS (test cod e = 1069) 0.08 K/UL ABS IMMATURE GRANULOCYTES (t est code = 1020) 0.02 K/UL ABS NUCLEATED RBCS (test cod e = 50636) 0.00 K/UL [id number] 00:00:00* Test Item Value Reference Range Interpretation Comme nts TSH, THIRD GENERATION (test code = 2821) 1.440 UIU/ML HEMOGLOBIN [id number] 00:00:00* Test Item Value Reference Range Interpretation Comme nts HEMOGLOBIN A1c (test code = 53707) 6.5 % LIPID [id number] 00:00:00* Test Item Value Reference Range Interpretation Comme nts CHOLESTEROL (test code = 2210) 258 MG/DL TRIGLYCERIDES (test code = 2232) 341 MG/DL HDL CHOLESTEROL (test code = 2220) 44 MG/DL CALC LDL CHOL (test code = 2237) 162 MG/DL RISK RATIO LDL/HDL (test cod e = 2238) 3.68 RATIO COMPREHENSIVE METABOLIC [id number] 00:00:00* Test Item Value Reference Range Interpretation Comme nts GLUCOSE (test code = 2217) 123 MG/DL BUN (test code = 2208) 19 MG/DL CREATININE (test code = 2214) 0.83 MG/DL eGFR (2020 CKD-EPI) (test co de = ) 85 ML/MIN/1.73 CALC BUN/CREAT (test code = 2235) 23 RATIO SODIUM (test code = 2231) 141 MEQ/L POTASSIUM (test code = 2228) 4.6 MEQ/L CHLORIDE (test code = 2215) 100 MEQ/L CARBON DIOXIDE (test code = 2206) 26 MEQ/L CALCIUM (test code = 2209) 10.4 MG/DL PROTEIN, TOTAL (test code = 2229) 7.5 G/DL ALBUMIN (test code = 2201) 4.8 G/DL CALC GLOBULIN (test code = 2240) 2.7 G/DL CALC A/G RATIO (test code = 2234) 1.8 RATIO BILIRUBIN, TOTAL (test code = 2207) 0.4 MG/DL ALKALINE PHOSPHATASE (test code = 2204) 68 U/L AST (test code = 2218) 60 U/L ALT (test code = 2219) 88 U/L CBC W/AUTO [id number] 00:00:00* Test Item Value Reference Range Interpretation Comme nts WBC (test code = 1001) 7.3 K/UL RBC (test code = 1002) 4.62 M/UL HEMOGLOBIN (test code = 1003) 12.3 G/DL HEMATOCRIT (test code = 1004) 36.5 % MCV (test code = 1005) 79.0 fL MCH (test code = 1006) 26.6 PG MCHC (test code = 1007) 33.7 G/DL RDW (test code = 1038) 13.1 % NEUTROPHILS (test code = 1008) 53.1 % LYMPHOCYTES (test code = 1010) 35.9 % MONOCYTES (test code = 1011) 8.2 % EOSINOPHILS (test code = 1012) 1.4 % BASOPHILS (test code = 1013) 1.1 % IMMATURE GRANULOCYTES (test code = 1036) 0.3 % NUCLEATED RBCS (test code = 1065) 0.0 /100WBC'S PLATELET COUNT (test code = 1015) 323 K/UL ABSOLUTE NEUTROPHILS (test c ode = 1066) 3.87 K/UL ABSOLUTE LYMPHOCYTES (test c ode = 1067) 2.62 K/UL ABSOLUTE MONOCYTES (test cod e = 1068) 0.60 K/UL ABSOLUTE EOSINOPHILS (test c ode = 1040) 0.10 K/UL ABSOLUTE BASOPHILS (test cod e = 1069) 0.08 K/UL ABS IMMATURE GRANULOCYTES (t est code = 1020) 0.02 K/UL ABS NUCLEATED RBCS (test cod e = 97680) 0.00 K/UL [id number] 00:00:00* Test Item Value Reference Range Interpretation Comme nts TSH, THIRD GENERATION (test code = 2821) 1.440 UIU/ML CBC WITH [id number] 20:43:00* Test Item Value Reference Range Interpretation Comme nts WBC (test code = 6690-2) See_Comment [Automated messa ge] The system which generated this result transmitted reference range: 4.30 - 11.10 10*3/?L. The reference range was not used to interpret this result as normal/abnormal. RBC (test code = 789-8) See_Comment [Automated messa ge] The system which generated this result transmitted reference range: 3.93 - 5.25 10*6/?L. The reference range was not used to interpret this result as normal/abnormal. HGB (test code = 718-7) 11.1 g/dL 11.6-15 L HCT (test code = 4544-3) 34.7 % 35.7-45.2 L MCV (test code = 787-2) 85.5 fL 80.6-95.5 MCH (test code = 785-6) 27.3 pg 25.9-32.8 MCHC (test code = 786-4) 32.0 g/dL 31.6-35.1 RDW-SD (test code = 70334-1) 40.2 fL 39-49.9 RDW-CV (test code = 788-0) 12.9 % 12-15.5 PLT (test code = 777-3) See_Comment [Automated messa ge] The system which generated this result transmitted reference range: 166 - 358 10*3/?L. The reference range was not used to interpret this result as normal/abnormal. MPV (test code = 92187-1) 10.4 fL 9.5-12.9 NRBC/100 WBC (test code = 0102473934) See_Comment [Automated Rabixo ssage] The system which generated this result transmitted reference range: 0.0 - 10.0 /100 WBCs. The reference range was not used to interpret this result as normal/abnormal. NRBC x10^3 (test code = 7125906849) <0.01 See_Comment [Automated messa ge] The system which generated this result transmitted reference range: 10*3/?L. The reference range was not used to interpret this result as normal/abnormal. GRAN MAT (NEUT) % (test code = 770-8) 52.9 % IMM GRAN % (test code = 4659657628) 0.40 % LYMPH % (test code = 736-9) 36.1 % MONO % (test code = 5905-5) 7.6 % EOS % (test code = 713-8) 2.0 % BASO % (test code = 706-2) 1.0 % GRAN MAT x10^3(ANC) (test code = 8342709417) 4.23 10*3/uL 1.88-7.09 IMM GRAN x10^3 (test code = 6060228687) 0.03 10*3/uL 0-0.06 LYMPH x10^3 (test code = 731-0) 2.89 10*3/uL 1.32-3.29 MONO x10^3 (test code = 742-7) 0.61 10*3/uL 0.33-0.92 EOS x10^3 (test code = 711-2) 0.16 10*3/uL 0.03-0.39 BASO x10^3 (test code = 704-7) 0.08 10*3/uL 0.01-0.07 H Lab Interpretation (test code = 01901-4) [facility] [id number] 20:35:43No signs of acute cardiopulmonary disease. Disclaimer: Generally, the findings on chest imaging in COVID-19 are notspecific, and overlap with other infections, including influenza, H1N1,SARS and MERS.According to the Centers for Disease Control (CDC) and the [employer], viral testing remains the only specific method of diagnosiseven if CXR or CT findings are suggestive of COVID-19. PROCEDURE: CHEST XRAY CLINICAL INDICATION: Persistent cough, 8 weeks, Covid positive COMPARISON:Previous study of 08/27/2019. FINDINGS: Lungs: Clear. Pleura: No pleural effusion or pneumothorax is seen. The heart is normal insize. No acute bony abnormality. [facility], Radiant Results Inft User - 04/07/2020 3:36 PM CDTPROCEDURE: CHEST XRAY CLINICAL INDICATION: Persistent cough, 8 weeks, Covid positive COMPARISON: Previous study of 08/27/2019.FINDINGS:Lungs: Clear.Pleura: No pleural effusion or pneumothorax is seen. The heart is normal insize.No acute bony abnormality.IMPRESSIONNo signs of acute cardiopulmonary disease.Disclaimer: Generally, the findings on chest imaging in COVID-19 are notspecific, and overlap with other infections, including influenza, H1N1,SARS and MERS.According to the Centers for Disease Control (CDC) and the [employer], viral testing remains the only specific method of diagnosiseven if CXR or CT findings are suggestive of COVID-19.[facility], [id number] 15:23:00* Test Item Value Reference Range Interpretation Comme nts POCT U SP GRAV (test code = 3255) 1.020 mg/dl 1.005-1.025 POCT PH U (test code = 3254) 5.0 mg/dl 5-8 POCT U LEUK EST (test code = 3263) small Negative - Negative POCT U NIT (test code = 3262) negative Negative - Negati ve POCT U PROT (test code = 3259) negative Negative - Negative POCT U GLU (test code = 3256) negative Negative - Negati ve POCT U KETONE (test code = 3258) negative Negative - Negative POCT U UROBILI (test code = 3260) 0.2 mg/dl 0.2-1 POCT U BILI (test code = 3261) negative Negative - Negative POCT U BLD (test code = 3257) negative Negative - Negati ve POCT U COLOR (test code = 3266) yellow POCT U APPEAR (test code = 3267) clear [facility], [id number] 15:23:00 * Test Item Value Reference Range Interpretation Comme nts POCT U SP GRAV (test code = 3255) 1.020 mg/dl 1.005-1.025 POCT PH U (test code = 3254) 5.0 mg/dl 5-8 POCT U LEUK EST (test code = 3263) small Negative - Negative POCT U NIT (test code = 3262) negative Negative - Negati ve POCT U PROT (test code = 3259) negative Negative - Negative POCT U GLU (test code = 3256) negative Negative - Negati ve POCT U KETONE (test code = 3258) negative Negative - Negative POCT U UROBILI (test code = 3260) 0.2 mg/dl 0.2-1 POCT U BILI (test code = 3261) negative Negative - Negative POCT U BLD (test code = 3257) negative Negative - Negati ve POCT U COLOR (test code = 3266) yellow POCT U APPEAR (test code = 3267) clear [facility] HEMOGLOBIN A1C [id number] 19:47:00* Test Item Value Reference Range Interpretation Comme nts POCT HBA1C (test code = 4548-4) 5.8 % 4-6 [facility] HEMOGLOBIN A1C [id number] 19:47:00* Test Item Value Reference Range Interpretation Comme nts POCT HBA1C (test code = 4548-4) 5.8 % 4-6 [facility] GLUCOSE(AGE >30DAYS)2019-09-24 19:46:00* Test Item Value Reference Range Interpretation Comme nts POCT Glu (age>30days) (test code = 3342) 78 mg/dL 70-110 [facility] GLUCOSE(AGE >30DAYS)2019-09-24 19:46:00* Test Item Value Reference Range Interpretation Comme nts POCT Glu (age>30days) (test code = 3342) 78 mg/dL 70-110 [facility] HEMOGLOBIN A1C [id number] 13:19:00* Test Item Value Reference Range Interpretation Comme nts POCT HBA1C (test code = 4548-4) 6.3 % 4-6 A Lab Interpretation (test cod e = 04018-6) [facility] 2 [id number] 20:02:00 *.*.*.*.*.*.*.*.*.*.*.*.*.*FINAL*.*.*.*.*.*.*.*.*.*.*.*.*.*.*EXAM: ABDOMEN, 2 VIEWS-STAT HISTORY: ?abdominal pain post colonoscopy. Please evaluate for free air withlateral and upright abdominal X rays COMPARISON: CT abdomen dated 11/14/2016. FINDINGS: No intra-abdominal free air is present. The bowel gas pattern is normal without luminal distention or evidence ofobstruction. No renal stones, abnormal calcifications or acute osseousabnormalities are detected. There is mild vertebral body and bilateralsacroiliac joint osteophytosis. Cholecystectomy clips in the right upper quadrant. NICKOLAS MORRIS MD ?Personally interpreted by: SAQIB HOOVER JR, MD /Signed/ SAQIB HOOVER JR, MD [facility]MO[facility], [id number] 14:10:00DIGITAL MAMMOGRAM, SCREENING*.*.*.*.*.*.*.*.*.*.*.*.*.*FINAL*.*.*.*.*.*.*.*.*.*.*.*.*.*.*Computer aided detection (CAD) utilized. Comparison is made to images from 10/25/2010. ?There is no significant interval change. ? Bilateral Breast Findings:There are scattered fibroglandular densities (25% - 50% fibroglandular). ?No significant masses, calcifications or other abnormalities are seen. IMPRESSION:BILATERAL BREASTSNegative, no evidence of malignancy. Normal interval follow-up is recommended in12 months. OVERALL ASSESSMENT - CATEGORY 1 - NEGATIVEEND OF IMPRESSIONRADUnMemorial [facility] Notes Date/Time Note Provider Source [facility]2025-07-02 00:00:00 [facility]2025-05-12 00:00:00 [facility]2025-05-05 00:00:00 [facility]2025-05-01 00:00:00 [facility]2025-04-03 00:00:00 [facility]2025-04-02 00:00:00 [facility]2024-12-30 00:00:00 [facility]2024-10-30 00:00:00 [facility]2024-10-21 00:00:00 [facility]2024-09-23 00:00:00 [facility]2024-09-16 00:00:00 [facility] [id number] 00:00:00 [facility]2024-06-19 00:00:00 [facility]2024-06-05 00:00:00 [facility]ac[facility]2024-05-20 00:00:00 [facility]ac[facility]2024-04-29 13:41:19 Chief Complaint Patient presents with Surgical Follow-up Left TKA DOS 11/05/2023 ESTRELLITA Hairston II [facility] Shanell [id number] 13:16:50 Chief Complaint Patient presents with Post-op Visit 53y/o pt here today for post op left tka surgery 10/29/23 Dr. Maksim Moe CMA II [facility] Shanell [id number] 07:49:00 [facility] ([facility]) Orthopaedic Progress Note REPORT#:[id number] REPORT STATUS: Signed REPORT INITIALIZATION DATE:11/06/23 TIME: 748 PATIENT: GLORIA HENSON UNIT #: [id number] ROOM/BED: [facility] : 70 AGE: 53 SEX: F ATTEND: Yesenia Schaeffer MD ADM AUTHOR: Yesenia Schaeffer MD REPT SERVICE DT/TIME: 11/06/2349 * ALL edits or amendments must be made on the electronic/computer document * Subjective Chief complaint: L TKA HPI: She is having pain and struggling with ambulation yesterday. She was able to transfer to bedside commode this morning. Objective VS: Last Documented: Result Date Time Pulse Ox 95 11/05 728 B/P 106/56 11/05 728 B/P Mean 72.9 11/05 728 O2 Delivery Room air 11/05 728 Temp 36.0 03/13 0729 Pulse 57 11/05 0729 Resp 14 11/05 0729 FiO2 21 11/04 1800 O2 Flow Rate 3 11/04 1530 PATIENT WEIGHT: Weight (lb): 231 Weight (oz): 0.71 Weight (kg): 104.78 Dressing clean and dry NVID Diagnosis, Assessment Plan Hospital course to date: L TKA - DVT prophylaxis - PT and ambulation, WBAT - D/C when cleared by PT at 0750 RPT #:[id number] END OF REPORT [id number] 15:11:00 [facility] ([facility]) Discharge Summary REPORT#:[id number] REPORT STATUS: Signed REPORT INITIALIZATION DATE:11/05/23 TIME: 1510 PATIENT: GLORIA HENSON UNIT #: [id number] ROOM/BED: [place] [address] : 70 AGE: 53 SEX: F ATTEND: Yesenia Schaeffer MD ADM AUTHOR: Yesenia Schaeffer MD REPT SERVICE DT/TIME: 11/05/231510 * ALL edits or amendments must be made on the electronic/computer document * General Information Discharge date: 11/05/23 Discharge diagnosis: L TKA Hospital course: Discharge Diagnosis: Left Knee Degenerative Disease Procedure: Left Knee Arthroplasty Hospital Course and Findings The patient underwent the procedure without incident. Findings were significant for degenerative disease of the knee. The patient was hemodynamically and medically monitored during the postoperative period. Anticoagulation was instituted for postoperative DVT prophylaxis. The patient was progressively able to tolerate PO pain medications and the appropriate diet. Physical therapy was instituted, with a progressive ability to ambulate and perform exercises. The patient was eventually deemed stable and safe for discharge. At discharge, the patient was comfortable, with a controlled pain level. There were no chest or abdominal symptoms present. Discharge physical examination demonstrated stable vital signs and no acute distress. The patient had an intact wound with no significant drainage, and no calf tenderness and a negative Katy s sign bilaterally. There were no neurologic or vascular deficits or changes from the preoperative state. Disposition: Discharged to home Discharge Condition: Stable Instructions: Instruction sheet given to patient Activity: Ambulate with assistance, with weight-bearing as instructed in the hospital. Diet: As per preoperatively Prescriptions 1. Pain Medications: As per discharge prescription, with progressive weaning as pain decreases 2. Anticoagulation: As per discharge prescription, or PreOp anticoagulant, as discussed with patient 3. Physical Therapy: Will undergo PT for gait training, mobilization, [id number]-[id number], and strengthening. Patient was informed to that they need to arrange for therapy as quickly as possible. The importance of early advancement of [id number]-nf-ktusbm with home exercises, and physical therapy was stressed to the patient. Follow-up Appointment: Patient instructed to arrange appointment for an office visit in 2 weeks Discharge Instructions PCP )( Discharge to: Home/Self Care Discharge Instructions Additional Discharge Routines: Wound/Dressing Care, Add. instructions )( Diet: Regular )( Wound/dressing care: Leave dressing in place )( Additional instructions: none at 1511 RPT #:[id number] END OF REPORT [id number] 15:10:00 [facility] ([facility] DT Operative Note REPORT#:[id number] REPORT STATUS: Signed REPORT INITIALIZATION DATE:11/05/23 TIME: 1509 PATIENT: GLORIA HENSON UNIT #: [id number] ROOM/BED: [place] [address] : 70 AGE: 53 SEX: F ATTEND: Yesenia Schaeffer MD ADM AUTHOR: Yesenia Schaeffer MD REPT SERVICE DT/TIME: 11/05/23 1510 * ALL edits or amendments must be made on the electronic/computer document * Operative Report Operative Note Note: Indications for Procedure: She presented to clinic with complaints of left knee pain of increasing severity which failed to respond to conservative measures. She was deemed candidate for total knee replacement. The risks, benefits and alternatives of knee replacement including but not limited to , stroke, heart attack, blood clots, pulmonary embolism, injury to blood vessels and nerves, infection, revision surgery, failure, fracture and leg alignment changes were explained to the patient in detail and they elected to proceed. Procedure: She was identified in pre-op holding and the left knee was marked by myself. She was taken to the block room and spinal and adductor canal blocks were placed. She was taken to the OR and the right leg was prepped and draped in the standard fashion after time out was performed. Time out confirmed site and procedure, antibiotics and TXA. The tourniquet was inflated to 250. Skin incision was made in the midline from the tibial tubercle to just proximal to the patella and taken down to the extensor mechanism. Standard medial parapatellar arthrotomy was performed. The knee was extended and medial release was performed. The fat pad was released from the anterior tibia and the patella was everted. The knee was flexed and the ACL was excised. 15 blade was used to place a lateral retractor through the lateral capsule and the lateral meniscus was removed. The distal femur and proximal tibia cuts were made using traditional instrmentation. The extension gap was assessed and balanced. The knee was flexed and the femur was sized. The tensioner was used to set rotation which was pinned through the MIS guide for the 4 in 1 cutting guide. The remaning femur cuts were made and the posteror knee was cleared of meniscus and osteophytes. The trial implants were inserted and the knee was taken through a range of motion. It was stable with full flexion and extension. The patella tracking was checked and it was good. No lateral release was required. The lug drill was done for the femur and the trial components were removed. The tibia was prepped in appropriate rotation. The knee was injected with local. The final components were then placed using press fit components. The knee was then again irrigated. 4 femur, 3 tibia, 3 x 9 CR poly. The wound was closed with #2 quill, 2.0 Vicryl, 3.0 monocryl and dermabond. A sterile dressing was placed in the OR and the patient was taken to the PACU in good condition. at 1511 RPT #:[id number] END OF REPORT [id number] 08:51:24 Chief Complaint Patient presents with Knee Pain Patient c/o left knee pain for several months , no injury . Received injections . Breanna Plummer [employer] BethanyAnnika [id number] 10:50:[id number] [address] PATIENT NAME: GLORIA HENSON ADMIT DATE: ACCOUNT NO: [id number] ROOM NO: AGE: 52 REPORT TYPE: eELECTROCARDIOGRAM REPORT SEX: F ADMITTING PHYSICIAN: ATTENDING PHYSICIAN:Ann Garibay DO Order: [id number] Test Reason : PREOP Test Date/Time Stamp: SatJun 10 2023 10:50:27 Blood Pressure : / mmHG Vent. Rate : 072 BPM Atrial Rate : 072 BPM P-R Int : 140 ms QRS Dur : 082 ms QT Int : 390 ms P-R-T Axes : 051 070 030 degrees QTc Int : 427 ms Normal sinus rhythm Normal ECG PRE_OP Confirmed by ODALYS LIU MD ([id number]) on 06/10/2023 3:33:38 PM Referred By: Ann Garibay Confirmed by:ODALYS LIU MD at 1533 PATIENT NAME: GLORIA HENSON
[2025-05-28] MEDS ORDERED: HYDROMORPHONE HCL 0.5 MG/0.5 ML INJ ONE (19:46)
[2025-05-28 20:16] LABS: Absolute Lymphocytes (CBC) 2.6 K/uL (0.7-4.9); Hematocrit 34.1 % (36.0-45.0); Hemoglobin 11.2 g/dL (12.0-15.0); MCH 25.7 pg (27.0-35.0); MCHC 32.8 g/dL (32.0-36.0); MCV 78.3 fL (80-100); MPV 8.3 fL (7.6-11.3); Nucleated RBC Absolute Count 0.0 (0-0); Nucleated Red Blood Cells % 0.1 % (0-0); RBC Red Blood Cell Count 4.35 M/uL (3.86-4.86); White Blood Count 7.80 thou/uL (4.3-10.9)
--- NOTE | 2025-05-28 20:23 | RAD REPORT ---
EXAM: Chest Single View HISTORY: 54 years Female CHEST PAIN COMPARISON: 04/22/25 FINDINGS: LUNGS/PLEURA: The lungs are clear. No pleural effusions or pneumothorax. No pulmonary edema. CARDIAC/MEDIASTINUM: The cardiac silhouette is within normal limits. UPPER ABDOMEN: No significant abnormality. BONES: No acute abnormality. LINES/TUBES/OTHER: N/A IMPRESSION: No evidence of acute cardiopulmonary disease.
[2025-05-28 20:37] LABS: Anion Gap 12.8 mEq/L (5.0-15.0); BUN Blood Urea Nitrogen 31.0 mg/dL (7-18); Glucose Level 177.0 mg/dL (74-106); NT PRO-BNP 64.0 pg/mL (<125); Potassium 3.8 mEq/L (3.5-5.1); Troponin High Sensitivity 10.0 pg/mL (<58.9)
--- NOTE | 2025-05-28 21:22 | RAD REPORT ---
EXAMINATION: CTA CHEST PE CLINICAL INDICATION: Female, 54 years old. CHEST PAIN TECHNIQUE: This examination was performed according to an angiographic protocol with 3D post-processi ng. This involves 3D reconstructions, MIPs, volume rendered images and/or shaded surface rendering. One or more of the following dose reduction techniques were used: Automated exposure control, adjustm ent of the mA and/or kV according to patient size, and/or iterative reconstruction. Unless otherwise specified, incidental findings do not require dedicated imaging follow-up. [id number]. COMPARISON: No priors. FINDINGS: LOWER NECK: Visualized thyroid gland and soft tissues are normal. MEDIASTINUM AND LYMPH NODES: No mediastinal mass or fluid collection. Normal size mediastinal, hilar, and axillary lymph nodes. Mild distal esophageal thickening. THORACIC AORTA: No thoracic aortic aneurysm. PULMONARY ARTERIES: Caliber is within normal limits. No pulmonary emboli identified to the level of t he segmental pulmonary arteries. The subsegmental pulmonary arteries cannot be adequately assessed due to motion/suboptimal contrast opacification. HEART: Normal heart size. No coronary calcifications.No significant pericardial effusion. LUNGS AND AIRWAYS: No evidence of airspace or interstitial process. Motion artifact limits evaluation for pulmonary nodule detection. PLEURA: No pleural effusions. No pneumothorax. OSSEOUS STRUCTURES AND CHEST WALL: Multilevel degenerative changes. No acute fracture. UPPER ABDOMEN: No acute abnormalities. Hepatic steatosis. IMPRESSION: Negative for pulmonary embolism. No acute findings in the chest.
--- NOTE | 2025-05-28 22:22 | EDPHYS ---
Physician Documentation [facility] Name: Becca Fischer Age: 54 yrs Sex: Female : 1970 Arrival Date: 05/28/2025 Time: 19:13 Bed 3 Private MD: ED Physician Edwin Cabrera [employer] PROGRAM MANAGER: 05/28 19:27 LMP N/A - Hysterectomy, Not dd2 Historical: - Allergies: 19:27 No Known Allergies; dd2 - PMHx: 19:27 Hypertensive disorder; Diabetes mellitus; Hypercholesterolemia; dd2 - PSHx: 19:27 RAHAT KNEE REPLACEMENT; dd2 - Social history:: Smoking status: Patient denies any tobacco usage or history of. ROS: 20:50 Constitutional: negative for fever. Cardiovascular: negative for chest pain. tt7 Abdomen/GI: negative for abdominal pain, nausea, vomiting, diarrhea. MS/Extremity: negative for injury and deformity. Skin: negative for rash. Neuro: negative for focal weakness. 20:50 Respiratory: Positive for shortness of breath, Exam: 20:50 Constitutional: vital signs reviewed, well appearing. Head/Face: normocephalic, tt7 atraumatic. Eyes: no conjunctival injection, anicteric sclerae. ENT: mucus membranes moist. Neck: trachea midline, no JVD, no meningismus. Chest/axilla: normal chest wall appearance and motion, nontender, no crepitus. Cardiovascular: regular rate and rhythm, no murmurs, no rubs, no lower extremity edema. Respiratory: normal respiratory effort, no accessory muscle use, lungs CTAB. Abdomen/GI: soft, nondistended, nontender, no guarding or rebound, negative Quintanilla's sign, no McBurney point tenderness. Back: normal ROM. Skin: warm, dry, intact, normal turgor, normal color, no rash. MS/ Extremity: normal ROM of extremities, no gross deformities. Neuro: alert and oriented with appropriate mental status, normal speech, follows commands, no focal neurologic deficits. Psych: appropriate mood and affect. Vital Signs: 19:24 BP 131 / 95; Pulse 83; Resp 18; Temp 98.2; Pulse Ox 100% on R/A; Weight 108.86 kg; Pain dd2 06/04; 19:45 BP 127 / 76; Pulse 73; Resp 20; Pulse Ox 100% on R/A; kb4 20:00 BP 120 / 68; Pulse 74; Resp 18; Pulse Ox 98% on R/A; kb4 20:30 BP 127 / 68; Pulse 81; Resp 14; Pulse Ox 95% on R/A; kb4 21:13 BP 126 / 67; Pulse 85; Resp 18; Pulse Ox 94% on R/A; kb4 21:30 BP 114 / 69; Pulse 79; Resp 17; Pulse Ox 94% on R/A; kb4 22:00 BP 118 / 62; Pulse 81; Resp 17; Pulse Ox 95% on R/A; kb4 22:30 BP 111 / 64; Pulse 82; Resp 16; Pulse Ox 95% on R/A; kb4 19:24 Pain Scale: Adult dd2 MDM: 19:19 Medical Screening Exam initiated tt7 20:46 Differential diagnosis: Pulmonary embolism, ACS, chest wall pain, pneumothorax, tt7 pneumonia. Data reviewed: vital signs, nurses notes, lab test result(s), EKG, radiologic studies. ED course: 54-year-old female with acute onset of left shoulder pain and shortness of breath, recently had arthroplasty on right knee 1 month ago, has been taking aspirin for DVT prophylaxis, on exam she is anxious but has stable vital signs, cannot rule out pulmonary embolism with PERC rule, given her recent surgical procedure and symptoms we will obtain standard cardiac workup with CT a of the chest to rule out pulmonary embolism. I independently interpreted the patient's chest x-ray. On my interpretation, chest x-ray demonstrates no radiographic evidence of acute cardiopulmonary disease. I independently interpreted the patient's EKG performed on 05/28/2025 at 1927. On my interpretation, EKG demonstrates normal sinus rhythm, ventricular rate 83 bpm, normal axis, normal QRS interval, normal ST segments, no STEMI. ED course: Cardiac monitoring was ordered due to the potential for ischemia causing dysrythmia. I independently interpreted the patient's cardiac rhythm as normal sinus rhythm at a rate of 90 bpm on the child monitor. 05/28 19:42 Order name: Basic Metabolic Panel; Complete Time: 20:43 tt7 05/28 19:42 Order name: CBC with Diff; Complete Time: 20:24 tt7 05/28 19:42 Order name: NT PRO-BNP; Complete Time: 20:43 tt7 05/28 19:42 Order name: Troponin HS; Complete Time: 20:43 tt7 05/28 21:42 Order name: Troponin High Sensitivity; Complete Time: 22:21 tt7 05/28 19:42 Order name: XRAY Chest (1 view); Complete Time: 20:24 tt7 05/28 19:42 Order name: CT Chest For PE Angio; Complete Time: 21:23 tt7 05/28 19:42 Order name: Cardiac monitoring; Complete Time: 19:46 tt7 05/28 19:42 Order name: EKG - Nurse/Tech; Complete Time: 19:46 tt7 05/28 19:42 Order name: IV Saline Lock; Complete Time: 19:46 tt7 05/28 19:42 Order name: Labs collected and sent; Complete Time: 19:46 tt7 05/28 19:42 Order name: O2 Per Protocol; Complete Time: 19:46 tt7 05/28 19:42 Order name: O2 Sat Monitoring; Complete Time: 19:46 tt7 Administered Medications: 19:59 Drug: HYDROmorphone IVP 0.5 mg IVP once Route: IVP; Site: right antecubital; kb4 21:08 Follow up: Response: No adverse reaction; Pain is decreased al5 19:59 Drug: Droperidol IVP 1.25 mg IVP once Route: IVP; Site: right antecubital; kb4 21:08 Follow up: Response: No adverse reaction; Pain is decreased al5 Disposition Summary: 05/28/25 22:21 Discharge Ordered Notes: Location: Home tt7 Problem: new tt7 Symptoms: are resolved tt7 Condition: Stable tt7 Diagnosis - Pain in left shoulder tt7 - Dyspnea tt7 Followup: tt7 - With: Emergency Department - When: As needed - Reason: Followup: tt7 - With: Private Physician - When: 1 - 2 days - Reason: Recheck today's complaints, Re-evaluation by your physician Discharge Instructions: - Discharge Summary Sheet tt7 - Pain Without a Known Cause tt7 - Shoulder Pain tt7 Forms: - Medication Reconciliation Form tt7 - Antibiotic Education tt7 - Prescription Opioid Use tt7 - Patient Portal Instructions tt7 - Leadership Thank You Letter tt7 Addendum: 06/01/2025 09:15 Addendum: 54-year-old female presents to the emergency department for left shoulder t t7 pain that began acutely at 5 PM this evening, she reports that the pain radiates down her entire arm, she has associated shortness of breath, she took an 81 mg aspirin and a Tylenol 3 but no improvement of her symptoms, she reports a recent history of right knee replacement surgery 1 month ago. Co-signature as Attending Physician, Edwin Cabrera DO. Signatures: Dispatcher [employer] EDJEFFREY BASHIR RN RN dd2 Aniyah Saucedo RN RN kb4 Edwin Cabrera DO DO tt7 Natalie Dumas RN al5 Corrections: (The following items were deleted from the chart) 05/28 19:43 19:43 Chest Single View+RAD.RAD.BRZ ordered. EDMS EDMS 19:43 19:43 Chest For PE Angio+CT.RAD.BRZ ordered. EDMS EDMS
--- NOTE | 2025-05-28 22:22 | ER ---
Nurse's Notes [facility] Name: Becca Fischer Age: 54 yrs Sex: Female : 1970 Arrival Date: 05/28/2025 Time: 19:13 Bed 3 Private MD: Diagnosis: Pain in left shoulder;Dyspnea Presentation: 05/28 19:24 Chief complaint: Patient states: SEVERE LT SHOULDER PAIN THAT BEGAN AT SUDDENLY 5PM. PT dd2 REPORTS THE PAIN RADIATES DOWN ENTIRE ARM, SHORTNESS OF BREATH. TOOK ASPIRIN 81 MG AND TYLENOL 3 BUT NO RELIEF. PT REPORTS RT KNEE REPLACEMENT 1 MONTH AGO. Coronavirus screen: At this time, the client does not indicate any symptoms associated with coronavirus-19. Ebola Screen: No symptoms or risks identified at this time. Initial Sepsis Screen: Does the patient meet any 2 criteria? No. Patient's initial sepsis screen is negative. Does the patient have a suspected source of infection? No. Patient's initial sepsis screen is negative. Risk Assessment: Do you want to hurt yourself or someone else? Patient reports no desire to harm self or others. Onset of symptoms was May 28, 2025 at 17:00. 19:24 Method Of Arrival: Wheelchair dd2 19:24 Acuity: HEIDI 2 dd2 Triage Assessment: 19:27 General: Appears uncomfortable, Behavior is cooperative, appropriate for age, anxious. dd2 Pain: Complains of pain in left scapular area and left arm Pain currently is 10 out of 10 on a pain scale. Cardiovascular: Reports shortness of breath. LANGUAGE PATHOLOGIST: 19:27 LMP N/A - Hysterectomy, Not dd2 Historical: - Allergies: 19:27 No Known Allergies; dd2 - PMHx: 19:27 Hypertensive disorder; Diabetes mellitus; Hypercholesterolemia; dd2 - PSHx: 19:27 RAHAT KNEE REPLACEMENT; dd2 - Social history:: Smoking status: Patient denies any tobacco usage or history of. Screenin:42 [facility] ED Fall Risk Assessment (Adult) History of falling in the last 3 months, al5 including since admission No falls in past 3 months (0 pts) Confusion or Disorientation No (0 pts) Intoxicated or Sedated No (0 pts) Impaired Gait Yes (1 pt) Mobility Assist Device Used Yes (1 pt) Altered Elimination No (0 pt) Score/Fall Risk Level 0 - 2 = Low Risk Oriented to surroundings, Maintained a safe environment, Hourly rounding (assess needs \T\ fall precautionary measures) done. Abuse screen: Denies threats or abuse. Denies injuries from another. Nutritional screening: No deficits noted. Tuberculosis screening: No symptoms or risk factors identified. Assessment: 20:00 Reassessment: pain improved, now 5/10. kb4 21:12 Reassessment: No changes from previously documented assessment. Patient and/or family kb4 updated on plan of care and expected duration. Pain level reassessed. Patient states feeling better. Patient states symptoms have improved. General: Appears comfortable. Neuro: Level of Consciousness is awake, alert, obeys commands, Oriented to person, place, time, situation. Cardiovascular: Patient's skin is warm and dry. Respiratory: Airway is patent Respiratory effort is even, unlabored, Respiratory pattern is regular, symmetrical. 22:31 Reassessment: Patient appears in no apparent distress at this time. No changes from kb4 previously documented assessment. Patient and/or family updated on plan of care and expected duration. Pain level reassessed. Patient is alert, oriented x 3, equal unlabored respirations, skin warm/dry/pink. Vital Signs: 19:24 BP 131 / 95; Pulse 83; Resp 18; Temp 98.2; Pulse Ox 100% on R/A; Weight 108.86 kg; Pain dd2 06/04; 19:45 BP 127 / 76; Pulse 73; Resp 20; Pulse Ox 100% on R/A; kb4 20:00 BP 120 / 68; Pulse 74; Resp 18; Pulse Ox 98% on R/A; kb4 20:30 BP 127 / 68; Pulse 81; Resp 14; Pulse Ox 95% on R/A; kb4 21:13 BP 126 / 67; Pulse 85; Resp 18; Pulse Ox 94% on R/A; kb4 21:30 BP 114 / 69; Pulse 79; Resp 17; Pulse Ox 94% on R/A; kb4 22:00 BP 118 / 62; Pulse 81; Resp 17; Pulse Ox 95% on R/A; kb4 22:30 BP 111 / 64; Pulse 82; Resp 16; Pulse Ox 95% on R/A; kb4 19:24 Pain Scale: Adult dd2 ED Course: 19:14 Patient arrived in ED. im 19:19 Tarleton, Edwin, DO is Attending Physician. tt7 19:27 Triage completed. dd2 19:27 Arm band placed on right wrist. dd2 19:42 Patient has correct armband on for positive identification. Bed in low position. Call al5 light in reach. Side rails up X2. Provided Education on: plan of care. 19:42 No provider procedures requiring assistance completed. Inserted saline lock: 20 gauge al5 in right antecubital area, using aseptic technique. Blood collected. Flushed with 10 mL NS. 19:42 EKG done, by ED staff. kb4 19:46 Natalie Dumas, RN is Primary Nurse. al5 20:21 XRAY Chest (1 view) In Process Unspecified. EDMS 21:01 CT Chest For PE Angio In Process Unspecified. EDMS 22:47 IV discontinued, intact, bleeding controlled, No redness/swelling at site. Pressure al5 dressing applied. Administered Medications: 19:59 Drug: HYDROmorphone IVP 0.5 mg IVP once Route: IVP; Site: right antecubital; kb4 21:08 Follow up: Response: No adverse reaction; Pain is decreased al5 19:59 Drug: Droperidol IVP 1.25 mg IVP once Route: IVP; Site: right antecubital; kb4 21:08 Follow up: Response: No adverse reaction; Pain is decreased al5 Medication: 19:42 VIS not applicable for this client. al5 Outcome: 22:21 Discharge ordered by MD. tt7 22:48 Discharged to home via wheelchair, with family, al5 22:48 Condition: good 22:48 Discharge instructions given to patient, family, Instructed on discharge instructions, follow up and referral plans. Demonstrated understanding of instructions, follow-up care, 22:48 Patient left the ED. al5 Signatures: Dispatcher [employer] EDMS Martha Laery Amanda, RN RN al5 JEFFREY GARZA RN RN dd2 Aniyah Sauceod RN RN kb4 Edwin Cabrera DO DO tt7 Corrections: (The following items were deleted from the chart) 22:31 21:12 Reassessment: No changes from previously documented assessment. Patient and/or kb4 family updated on plan of care and expected duration. Pain level reassessed. kb4 22:31 21:12 Respiratory: Airway is patent Respiratory effort is even, unlabored, Respiratory kb4 pattern is regular, symmetrical, kb4 22:48 22:37 Condition: good kb4 al5
[2025-05-28 22:53] VITALS: TEMP 98.2
[2025-05-28 23:00] VITALS: O2SAT 95
[2025-05-28 23:02] VITALS: BP 111/64
== END 2025-05-28 22:48 | disposition home or self-care (01) ==
LOC: ER 19:13
DX: M25.512 Pain in left shoulder (principal); R06.00 Dyspnea, unspecified; E11.9 Type 2 diabetes mellitus without complications; I10 Essential (primary) hypertension
CPT/HCPCS: 93005; 85025; 80048; 36415; 84484 ×2; 83880; 71275; 71045; 96375; 96374; 99284; Q9967; J1171; J1790